=== PATIENT | female | born 1950 | race Caucasian/White ===

== ENCOUNTER 2019-12-31 15:48 | Emergency (ER) | payer MEDICARE, SELFPAY ==
[2019-12-31 15:58] VITALS: BP 138/80; PULSE 64; RESP 16; TEMP 37; O2SAT 98
--- NOTE | 2019-12-31 16:10 | ED.GENADULT ---
HPI - General Adult General Chief complaint: Skin/Abscess/Foreign Body Stated complaint: Not feeling Well Time Seen by Provider: 12/31/19 16:10 Source: patient and RN notes reviewed Mode of arrival: ambulatory Limitations: no limitations History of Present Illness HPI narrative: 69-year-old female presents with complaints of upper respiratory infection, facial congestion, facial pain, and intermittent DRAKE (not the worst of her life) for the past 14 days. Motrin with some relief. No facial swelling. Denies cough. Nasal congestion. No rhinorrhea. No chest pain or shortness of breath. No exacerbating factors. Denies fever or chills. Remains active. The patient reports she have not been diagnosed with COVID-19. The patient reports she is not waiting for the results of a COVID-19 lab test. Tested 1 week ago and was NEGATIVE. The patient reports she do not have fever, weakness, or fatigue. The patient reports she do not have a new or worsening cough or shortness of breath. Denies chest pain. The patient reports she do not have any rhinorrhea, ore throat, loss of taste, nausea, vomiting, abdominal pain, and diarrhea. Tolerating po intake well. Denies recent traveling. Denies concerns for COVID-19 or exposures been home with limited outdoor exposure except for essential household needs and return home. At this time, patient is not suspected of having COVID-19. Some parts of this dictation were generated by voice recognition software and may contain typographical and/or grammatical inaccuracies. Related Data Home Medications Medication Instructions Recorded Confirmed lorazepam [Ativan] 1 mg PO TID 01/15/19 12/31/19 tranylcypromine [Parnate] 20 mg PO DAILY 01/15/19 12/31/19 Allergies Allergy/AdvReac Type Severity Reaction Status Date / Time Penicillins Allergy Unknown Verified 12/31/19 16:19 Sulfa (Sulfonamide Allergy Unknown Verified 12/31/19 16:19 Antibiotics) Review of Systems Review of Systems: Narrative: CONSTITUTIONAL: Denies fever, chills, sweats. EYES: Denies visual changes, redness, discharge. ENT: Complains of congestion. Denies sore throat, rhinorrhea, otalgia. CARDIOVASCULAR: Denies chest pain, palpitations, edema. RESPIRATORY: Denies dyspnea, wheezing, cough. GASTROINTESTINAL: Denies abdominal pain, nausea, vomiting, diarrhea. GENITOURINARY: Denies dysuria, hematuria, abnormal discharge. SKIN: Denies rash or itching. MUSCULOSKELETAL: Denies acute back pain, joint pain, or myalgia. NEUROLOGIC: Denies numbness or focal weakness. Complains of intermittent DRAKE. PSYCHIATRIC: Denies anxiety or depression. All systems reviewed & are unremarkable except as noted in HPI and below. [facility] Past Medical History Medical History (Updated 01/01/20 @ 00:00 by Garrett Thayer) Anxiety Depression History of gastroesophageal reflux (GERD) Hypertension Post-menopausal Surgical History Surgical History (Updated 12/31/19 @ 16:19 by RENETTA Borjas) No significant past surgical history Family History Family History (Updated 12/31/19 @ 16:20 by RENETTA Borjas) Sibling Family history of cardiovascular disease Father , Esophageal cancer Family history of malignant neoplasm, Onset Age: 66 Mother , Related to pneumonia No problems noted. Social History Social History (Updated 12/31/19 @ 16:20 by RENETTA Borjas) Smoking status: Never smoker Tobacco type: cigarettes Second hand tobacco smoke exposure: No Alcohol intake: never Substance use: never Living arrangements: alone Occupation/Education: other Additional occupation/education comments: Disable Gender identity (if verbalized by the patient): Female Comments At time of signature, agree with nurse past medical, surgical, social, and family history. There is no relevant family history pertinent to the presenting complaint. Exam Narrative: Exam Narrative: GEN
== END 2019-12-31 16:27 | disposition home or self-care (01) ==
PROVIDERS: Emergency Provider Nurse Practitioner Family; PCP Emergency Medicine
DX: J32.9 Chronic sinusitis, unspecified (principal); K21.9 Gastro-esophageal reflux disease without esophagitis; I10 Essential (primary) hypertension; F41.9 Anxiety disorder, unspecified; F32.9 Major depressive disorder, single episode, unspecified
CPT/HCPCS: 99213; G0463

== ENCOUNTER 2020-04-11 11:45 | Emergency (ER) | payer MEDICARE, SELFPAY ==
--- NOTE | 2020-04-11 12:02 | ED.DIZZY ---
HPI - Dizziness General Chief Complaint: Dizziness Stated Complaint: Veritgo Source: patient and RN notes reviewed Mode of arrival: ambulatory Limitations: no limitations History of Present Illness HPI Narrative: 69-year-old female presents to the [facility] with complaints of dizziness, lightheadedness, headache, generalized weakness since yesterday. Thought it was her vertigo and took her Dramamine, unresolved. States she has tried things for her headache and has not been able to get rid of it. Patient has a history of vertigo and hypertension. Strong family history of cardiac issues. Related Data Home Medications Medication Instructions Recorded Confirmed lorazepam [Ativan] 1 mg PO TID 01/15/19 12/31/19 tranylcypromine [Parnate] 20 mg PO DAILY 01/15/19 12/31/19 gabapentin 300 mg capsule 300 mg PO TID 02/20/20 Dramamine 04/11/20 Allergies Allergy/AdvReac Type Severity Reaction Status Date / Time Penicillins Allergy Unknown Verified 12/31/19 16:19 Sulfa (Sulfonamide Allergy Unknown Verified 12/31/19 16:19 Antibiotics) Review of Systems Review of Systems: Narrative: CONSTITUTIONAL: Denies fever, chills, or sweats. EYES: Denies visual changes, redness, or discharge. ENT: Denies rhinorrhea, congestion, sore throat, or otalgia. CARDIOVASCULAR: Denies chest pain, palpitations, or edema. RESPIRATORY: Denies cough or dyspnea. GASTROINTESTINAL: Denies abdominal pain, nausea, vomiting, or diarrhea. GENITOURINARY: Denies dysuria or hematuria. SKIN: Denies rash or itching. MUSCULOSKELETAL: Denies back pain, joint pain, or myalgia. NEUROLOGIC: Positive for dizziness, weakness and headache. Denies numbness and tingling. All other systems reviewed are negative, except as documented in HPI. [facility] Past Medical History Medical History Anxiety Depression History of gastroesophageal reflux (GERD) Hypertension Post-menopausal Surgical History Surgical History No significant past surgical history Family History Family History Sibling Family history of cardiovascular disease Father , Esophageal cancer Family history of malignant neoplasm, Onset Age: 66 Mother , Related to pneumonia No problems noted. Social History Social History Smoking status: Never smoker Tobacco type: cigarettes Second hand tobacco smoke exposure: No Alcohol intake: never Substance use: never Additional occupation/education comments: Disable Gender identity (if verbalized by the patient): Female Comments At the time of my signature, I reviewed and agree with the nursing past medical, surgical, social, and family history. There is no relevant family history pertinent to the patient complaint. Exam Narrative: Exam Narrative: GENERAL: This is a well-nourished, well-developed patient, ill in appearance. HEAD: normocephalic, atraumatic. EYES: PERRL. Sclera clear/white. Vision is grossly intact. Wears glasses EARS: External ears normal, auditory canals clear and without drainage, TMs normal without perforation. Hearing grossly intact. NOSE: External nose normal with no obvious nasal discharge, nares without redness, no rhinorrhea. THROAT: Mucous membranes moist, posterior pharynx clear. NECK: Neck supple, non-tender without lymphadenopathy, masses or thyromegaly. CARDIOVASCULAR: Regular rate and rhythm without murmurs, gallops, or rubs. RESPIRATORY: Clear to auscultation. Breath sounds equal bilaterally. No wheezes, rales, or rhonchi. GASTROINTESTINAL: Abdomen soft, non-tender, nondistended. SKIN: warm, intact with no suspicious lesions or rash, good texture and turgor. NEURO: awake, alert, and oriented to person, place and time. There were no obvious focal neurologic abnormalities. Facial symmetry noted.
[2020-04-11 12:09] VITALS: BP 150/81; PULSE 66; RESP 18; TEMP 36.9; O2SAT 99
--- NOTE | 2020-04-11 12:10 | ECG_ITS ---
Measurements Intervals [place] Rate: 67 P: 64 ID: [id number] QRS: 33 QRSD: 82 T: 36 QT: 370 QTc: 391 Interpretive Statements SINUS RHYTHM BASELINE ARTIFACT- V1-V6 NORMAL ECG Electronically Signed On 04-11-2020 12:19:09 CLINICAL ASSISTANT by Tejinder Taylor D.O.
== END 2020-04-11 12:21 | disposition short-term general hospital (02) ==
PROVIDERS: Emergency Provider Nurse Practitioner; PCP Emergency Medicine
DX: R42 Dizziness and giddiness (principal); R53.1 Weakness; K21.9 Gastro-esophageal reflux disease without esophagitis; I10 Essential (primary) hypertension; F41.9 Anxiety disorder, unspecified
CPT/HCPCS: 93005; 99213; G0463

== ENCOUNTER 2020-04-11 12:31 | Emergency (ER) | payer MEDICARE, SELFPAY ==
--- NOTE | ~2020-04-11 | XR_ITS ---
EXAMINATION: XR chest 2V DATE: 04/11/2020 13:37 INDICATION: Dizziness TECHNIQUE: PA and lateral views of the chest were obtained. COMPARISON: Chest radiograph dated 02/10/2018 FINDINGS: The lungs remain clear with no focal airspace opacities, pulmonary edema, pleural effusion or pneumot horax. The cardiomediastinal silhouette is normal. Poor supply projects over the left infraclavicular /pectoral region with lead extending cephalad along the left side of the neck. Mild to moderate upper thoracic spondylosis. IMPRESSION: 1. No acute cardiopulmonary disease. Reviewed, dictated and finalized at location B. OR [employer] TENANT FARMER
[2020-04-11 12:57] VITALS: BP 142/72; PULSE 66; RESP 16; TEMP 36.8; O2SAT 100
--- NOTE | 2020-04-11 13:04 | ECG_ITS ---
Measurements Intervals [facility] Rate: 68 P: 49 OK: 154 QRS: 28 QRSD: 76 T: 29 QT: 365 QTc: 390 Interpretive Statements SINUS RHYTHM LOW QRS VOLTAGE IN PRECORDIAL LEADS BORDERLINE ECG Electronically Signed On 04-11-2020 13:24:46 RESIDENTIAL COUNSELOR by Tejinder Taylor D.O.
[2020-04-11 13:27] LABS: Basophils Percent Auto 0.8 % (0.2-1.2); Eosinophils Absolute Auto 0.1 K/mm3 (0-0.3); Eosinophils Percent Auto 3.4 % (0-4.4); Hematocrit 36.9 % (37.0-47.0); Hemoglobin 11.4 g/dL (12.0-15.0); Immature Granulocyte Absolute 0.01 K/mm3 (0.00-0.031); Immature Granulocyte Percent A 0.3 % (0-0.5); Lymphocytes Absolute Auto 1.14 K/mm3 (0.9-3.2); Lymphocytes Percent Auto 29.5 % (18.3-44.2); Mean Corpuscular HGB Conc 30.9 g/dl (32-36); Mean Corpuscular Hemoglobin 25.2 pg (26-34); Mean Corpuscular Volume 81.6 fl (80-100); Monocytes Absolute Auto 0.4 K/mm3 (0.1-0.6); Monocytes Percent Auto 10.1 % (2.6-8.5); Neutrophils Absolute Auto 2.2 K/mm3 (1.3-6.7); Neutrophils Percent Auto 55.9 % (45.5-73.1); Platelet Count Result 184 k/mm3 (150-375); Red Blood Count 4.52 M/mm3 (4.2-5.4); Red Cell Distribution Width 14.8 % (11.5-14.5); White Blood Count 3.9 K/mm3 (4.5-10.0)
[2020-04-11 13:47] LABS: Alanine Aminotransferase 16 U/L (4-35); Albumin Level 4.5 g/dL (3.5-5.1); Alkaline Phosphatase 90 U/L (38-126); Anion Gap 10 mmol/L (8-16); Aspartate Amino Transferase 28 U/L (14-36); Bilirubin,Total 0.6 mg/dL (0.2-1.3); Blood Urea Nitrogen 15 mg/dL (7-17); Calcium 9.1 mg/dL (8.4-10.2); Carbon Dioxide 30 mmol/L (22-30); Chloride 101 mmol/L (98-107); Estimated CRCL calculation 35 ml/min; Estimated Glomerular Filt Rate 55; Glucose 93 mg/dL (65-105); Sodium 141 mmol/L (137-145)
[2020-04-11] MEDS: ONDANSETRON INJ 4 MG/2 ML VIAL IV PUSH (15:52)
[2020-04-11] MEDS: LACTATED RINGERS 1,000 ML 999 ML IV CONT (15:53)
--- NOTE | 2020-04-11 16:12 | ED.DIZZY ---
HPI - Dizziness General Chief Complaint: Dizziness Stated Complaint: weakness, off balance, no vertigo Time Seen by Provider: 04/11/20 15:17 Source: patient Mode of arrival: ambulatory Limitations: no limitations History of Present Illness HPI Narrative: Patient is a 69 year old female who presents for evaluation of vertigo. She states she woke up with vertigo yesterday. She describes this as room spinning. She continued to have vertigo this morning so she came to ER for evaluation . She took dramamine this morning. [facility] and she was referred to ER. She states her vertigo has resolved. She has mild lightheadedness now. She denies focal deficits, difficulty walking, numbness, tingling, headache, or visual changes. Related Data Home Medications Medication Instructions Recorded Confirmed lorazepam [Ativan] 1 mg PO TID 01/15/19 12/31/19 tranylcypromine [Parnate] 20 mg PO DAILY 01/15/19 12/31/19 gabapentin 300 mg capsule 300 mg PO TID 02/20/20 Dramamine 04/11/20 Allergies Allergy/AdvReac Type Severity Reaction Status Date / Time Penicillins Allergy Unknown Itching Verified 04/11/20 13:55 Sulfa (Sulfonamide Allergy Unknown Itching Verified 04/11/20 13:55 Antibiotics) Review of Systems Review of Systems: All systems reviewed & are unremarkable except as noted in HPI and below Constitutional: Constitutional: Denies chills and Denies fever(s) Eyes: Eyes: Denies change in vision ENT: Reports vertigo, Reports dizziness and Denies nasal congestion Cardiovascular: Cardiovascular: Denies chest pain Respiratory: Respiratory: Denies cough and Denies dyspnea Gastrointestinal: Gastrointestinal: Denies abdominal pain, Reports nausea and Denies vomiting Neurologic: Reports vertigo, Reports dizziness, Denies headache(s), Denies focal weakness, Denies numbness and Denies weakness PMF Past Medical History Medical History Anxiety Depression History of gastroesophageal reflux (GERD) Hypertension Post-menopausal Surgical History Surgical History No significant past surgical history Family History Family History Sibling Family history of cardiovascular disease Father , Esophageal cancer Family history of malignant neoplasm, Onset Age: 66 Mother , Related to pneumonia No problems noted. Social History Social History Smoking status: Never smoker Tobacco type: cigarettes Second hand tobacco smoke exposure: No Alcohol intake: never Substance use: never Additional occupation/education comments: Disable Gender identity (if verbalized by the patient): Female Exam Narrative: Exam Narrative: GENERAL: Well-appearing, well-nourished, and in no acute distress. HEAD: Normocephalic, atraumatic EYES: PERRLA and EOMI, conjunctiva clear without discharge EARS: TM's clear bilaterally without erythema or dullness NOSE: Nares clear, no rhinorrhea or epistaxis THROAT:Mucous membranes moist, Oropharynx normal without erythema, exudate, peritonsillar swelling or fluctuance NECK: Supple, without lymphadenopathy or mass RESPIRATORY: No respiratory distress, Airway patent, Respirations non-labored, Clear to auscultation without rales, rhonchi or wheeze HEART: Regular rate and rhythm. No murmur heard. Normal peripheral pulses. ABDOMEN: Soft, nontender, nondistended, normal active bowel sounds. No masses. No rebound or guarding, No organomegaly. EXTREMITIES: No edema, normal strength with full range of motion. SKIN: Warm, dry, normal color without rash NEURO: Alert and oriented x3. CN 2-12 grossly intact. No focal deficits.steady gait, normal finger to nose, sensation in tact, no nystagmus PSYCH: Normal mood and affect. Course Reevaluatio
[2020-04-11 16:22] LABS: Add Urine Microscopic? YES; Appearance Urine Clear (Clear); Bacteria Urine Trace /hpf; Bilirubin Urine Negative (Negative); Blood Urine 1+ (Negative); Color Urine Straw (Yellow); Glucose Urine UA Negative (Negative); Ketones Urine Negative (Negative); Leukocyte Esterase Ur Negative LEU/UL (Negative); Mucus Urine Rare /lpf; Nitrate Urine Negative (Negative); Protein Urine Negative (Negative); RBC Urine 0-2 /hpf (0-2); Specific Grav Ur 1.011 (1.001-1.035); WBC Urine 0-3 /hpf
[2020-04-11 16:52] VITALS: BP 139/78; PULSE 80
[2020-04-11 16:53] VITALS: BP 138/84; BP 139/82; PULSE 74; PULSE 76
== END 2020-04-11 17:44 | disposition home or self-care (01) ==
PROVIDERS: Emergency Medicine; Emergency Provider General Practice; PCP Emergency Medicine
DX: R42 Dizziness and giddiness (principal); F41.9 Anxiety disorder, unspecified; F32.9 Major depressive disorder, single episode, unspecified; K21.9 Gastro-esophageal reflux disease without esophagitis; I10 Essential (primary) hypertension; R94.31 Abnormal electrocardiogram [ECG] [EKG]
CPT/HCPCS: 36415; 71046; 80053; 81001; 83735; 85025; 93005; 96361; 96374; 99284; J2405; J7120

== ENCOUNTER 2020-06-13 20:13 | Emergency (ER) | payer MEDICARE, SELFPAY ==
[2020-06-13 20:20] VITALS: BP 119/86; PULSE 91; RESP 18; TEMP 36.4; O2SAT 98
--- NOTE | 2020-06-13 20:32 | ED.ANXIETY ---
HPI - Anxiety General Chief Complaint: Anxiety Stated Complaint: panic attack vs drug interaction Time Seen by Provider: 06/13/20 20:24 Source: patient and RN notes reviewed Mode of arrival: ambulatory Limitations: no limitations History of Present Illness HPI narrative: Patient 70 years old white female presented to the ED with feeling anxious for the last 1 and half hours. Patient changed her lorazepam to something else 1-1/2-week ago. Patient brother is sick in the hospital and dying. Patient is tearful and anxious on arrival to the emergency room. Patient denies suicidal or homicidal ideation. Also denies any fever, chills, nausea, vomiting, diarrhea, constipation, urinary symptoms, chest pain, shortness of breath or headache. Patient reports trouble hearing for a while. Related Data Home Medications Medication Instructions Recorded Confirmed lorazepam [Ativan] 1 mg PO TID 01/15/19 12/31/19 tranylcypromine [Parnate] 20 mg PO DAILY 01/15/19 12/31/19 gabapentin 300 mg capsule 300 mg PO TID 02/20/20 Dramamine 04/11/20 Allergies Allergy/AdvReac Type Severity Reaction Status Date / Time Penicillins Allergy Unknown Itching Verified 04/11/20 13:55 Sulfa (Sulfonamide Allergy Unknown Itching Verified 04/11/20 13:55 Antibiotics) Review of Systems Review of Systems: Narrative: CONSTITUTIONAL: Denies fever, chills, or sweats. EYES: Denies visual changes, redness, or discharge. ENT: Denies rhinorrhea, congestion, sore throat, or otalgia. CARDIOVASCULAR: Denies chest pain, palpitations, or edema. RESPIRATORY: Denies cough or dyspnea. GASTROINTESTINAL: Denies abdominal pain, nausea, vomiting, or diarrhea. GENITOURINARY: Denies dysuria or hematuria. SKIN: Denies rash or itching. MUSCULOSKELETAL: Denies back pain, joint pain, or myalgia. NEUROLOGIC: Denies headache, numbness, or weakness. PSYCHIATRIC: Denies anxiety or depression. [facility] Past Medical History Medical History Anxiety Depression History of gastroesophageal reflux (GERD) Hypertension Post-menopausal Surgical History Surgical History No significant past surgical history Family History Family History Sibling Family history of cardiovascular disease Father , Esophageal cancer Family history of malignant neoplasm, Onset Age: 66 Mother , Related to pneumonia No problems noted. Social History Social History Smoking status: Never smoker Tobacco type: cigarettes Second hand tobacco smoke exposure: No Alcohol intake: never Substance use: never Additional occupation/education comments: Disable Gender identity (if verbalized by the patient): Female Exam Narrative: Exam Narrative: General appearance: Well-developed, well-nourished Skin: Normal color Head: Normocephalic, nontraumatic Eyes: Clear conjunctiva ENT: Oropharynx normal, intact earwax bilaterally Neck: Supple, nontender Chest and respiratory: Airway patent, no respiratory distress, no accessory muscle use Heart: Regular rate/rhythm Abdomen: Soft, nontender, no organomegaly, quiet bowel sounds Vascular: Normal peripheral pulses, normal capillary refill. Musculoskeletal: Normal range of motion, nontender back Neurologic: Alert and oriented ?3, AUDITING CONTROL CLERK is normal as tested, no gross motor deficit Course Course Emergency Course: Stable Vital Signs Vital signs: Vital Signs Temperature 36.4 C L 06/13/20 20:20 Pulse Rate 91 06/13/20 20:20 Respiratory Rate 18 0
[2020-06-13 21:53] VITALS: BP 124/84; PULSE 70; RESP 16; O2SAT 100
--- NOTE | 2020-07-17 18:16 | PC.NURSE ---
LATE ENTRY This note is being entered to document information to the patient's record. The following information was omitted on [06/13/20], by [kl]. Pts right and left ears irrigated per EDP Guajardo verbal order with warm water. Moderate amount of ear wax removed. Pt noted relief and tolerated procedure well. EDP notified.
== END 2020-06-13 22:35 | disposition home or self-care (01) ==
PROVIDERS: Emergency Provider Emergency Medicine; PCP Emergency Medicine
DX: F41.9 Anxiety disorder, unspecified (principal); H61.23 Impacted cerumen, bilateral; F32.9 Major depressive disorder, single episode, unspecified; K21.9 Gastro-esophageal reflux disease without esophagitis; I10 Essential (primary) hypertension
CPT/HCPCS: 69209; 99281; 99282

== ENCOUNTER 2020-06-14 16:25 | Emergency (ER) | payer MEDICARE, SELFPAY ==
[2020-06-14] VITALS (15 sets, daily range): BP systolic 137–165; BP diastolic 77–91; PULSE 82–98; RESP 14–21; TEMP 36.8; O2SAT 99–100
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
[2020-06-14 17:09] LABS: Basophils Percent Auto 0.4 % (0.2-1.2); Eosinophils Percent Auto 0.2 % (0-4.4); Hematocrit 37.1 % (37.0-47.0); Hemoglobin 11.8 g/dL (12.0-15.0); Immature Granulocyte Absolute 0.01 K/mm3 (0.00-0.031); Immature Granulocyte Percent A 0.2 % (0-0.5); Lymphocytes Absolute Auto 0.97 K/mm3 (0.9-3.2); Lymphocytes Percent Auto 21.4 % (18.3-44.2); Mean Corpuscular HGB Conc 31.8 g/dl (32-36); Mean Corpuscular Hemoglobin 26.2 pg (26-34); Mean Corpuscular Volume 82.3 fl (80-100); Mean Platelet Volume 9.8 fl (7.4-10.4); Monocytes Absolute Auto 0.3 K/mm3 (0.1-0.6); Monocytes Percent Auto 6.8 % (2.6-8.5); Neutrophils Absolute Auto 3.2 K/mm3 (1.3-6.7); Platelet Count Result 173 k/mm3 (150-375); Red Blood Count 4.51 M/mm3 (4.2-5.4); Red Cell Distribution Width 15.7 % (11.5-14.5); White Blood Count 4.5 K/mm3 (4.5-10.0)
[2020-06-14] MEDS: LORazepam INJ (*CRX) 2 MG/ML VIAL 1 MG IV PUSH ×2 (17:10→22:36)
[2020-06-14 17:22] LABS: Potassium 3.9 mmol/L (3.4-5.0)
[2020-06-14 17:23] LABS: Ethanol < 10 mg/dL (<10)
[2020-06-14 17:24] LABS: Alanine Aminotransferase 18 U/L (4-35); Albumin Level 4.8 g/dL (3.5-5.1); Alkaline Phosphatase 111 U/L (38-126); Anion Gap 11 mmol/L (8-16); Aspartate Amino Transferase 35 U/L (14-36); Bilirubin,Total 0.5 mg/dL (0.2-1.3); Blood Urea Nitrogen 23 mg/dL (7-17); Calcium 9.3 mg/dL (8.4-10.2); Carbon Dioxide 28 mmol/L (22-30); Chloride 102 mmol/L (98-107); Estimated CRCL calculation 27 ml/min; Estimated Glomerular Filt Rate 40; Glucose 108 mg/dL (65-105); Sodium 141 mmol/L (137-145)
[2020-06-14 18:09] LABS: Add Urine Microscopic? YES; Appearance Urine Clear (Clear); Bilirubin Urine Negative (Negative); Blood Urine Negative (Negative); Color Urine Yellow (Yellow); Glucose Urine UA Negative (Negative); Hyaline Casts Urine 20-29 /lpf; Ketones Urine Trace mg/dL (Negative); Leukocyte Esterase Ur Negative LEU/UL (Negative); Mucus Urine Moderate /lpf; Nitrate Urine Negative (Negative); Protein Urine 1+ mg/dL (Negative); Specific Grav Ur 1.018 (1.001-1.035); WBC Urine 0-3 /hpf
[2020-06-14 18:43] LABS: Amphetamine Screen Urine Negative (Negative); Barbiturate Screen Urine Negative (Negative); Benzodiazepines Screen Urine Negative (Negative); Cannabinoid Screen Urine Negative (Negative); Cocaine Screen Urine Negative (Negative); Methadone Screen Urine Negative (Negative); Opiate Screen Urine Negative (Negative); Phencyclidine Screen Urine Negative (Negative)
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
--- NOTE | 2020-06-14 19:41 | PC.NURSE ---
this rn spoke to ricky from crisis. she said a worker will be out to evaluate pt shortly.
--- NOTE | 2020-06-14 20:35 | PC.NURSE ---
this rn just spoke to pt sister, she states she isn't able to come up to see pt.
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
--- NOTE | 2020-06-14 21:12 | PC.NURSE ---
[facility]risis here to see pt
--- NOTE | 2020-06-15 00:04 | PC.NURSE ---
[facility] called [facility] r[facility]. states they don't have any beds available.
[2020-06-15 01:03] VITALS: BP 142/69; PULSE 92; RESP 18; O2SAT 99
--- NOTE | 2020-06-15 01:21 | PC.NURSE ---
[facility] called to ask more questions on pt, they state they will call back to let us know if pt was accepted
[2020-06-15 02:53] VITALS: BP 120/82; PULSE 82; RESP 18; O2SAT 98
--- NOTE | 2020-06-15 03:11 | PC.NURSE ---
pt states she still feels very anxious. notified
[2020-06-15] MEDS: LORazepam INJ (*CRX) 2 MG/ML VIAL 1 MG IV PUSH (03:21)
--- NOTE | 2020-06-15 03:42 | PC.NURSE ---
pt accepted to [facility] at this time, notified.
[2020-06-15 04:59] VITALS: BP 131/74; PULSE 84; RESP 20; O2SAT 99
--- NOTE | 2020-06-15 06:09 | PC.NURSE ---
CALLED [facility] TO TRANSPORT PATIENT TO [facility]. ETA [id number]. TRIP #[id number]
[2020-06-16 19:29] LABS: SARS-CoV-2 RNA PCR Negative
== END 2020-06-15 07:50 | disposition short-term general hospital (02) ==
PROVIDERS: Emergency Medicine; Emergency Provider Emergency Medicine; PCP Emergency Medicine
DX: F29 Unspecified psychosis not due to a substance or known physiological condition (principal); F41.9 Anxiety disorder, unspecified; F32.9 Major depressive disorder, single episode, unspecified; K21.9 Gastro-esophageal reflux disease without esophagitis; I10 Essential (primary) hypertension; Z20.822 Contact with and (suspected) exposure to COVID-19; Z79.899 Other long term (current) drug therapy
CPT/HCPCS: 36415; 80053; 80307; 81001; 84443; 85025; 96374; 96376; 99285; C9803; J2060; U0003; U0005

== ENCOUNTER 2021-06-09 18:39 | Emergency (ER) | payer MEDICARE, SELFPAY ==
[2021-06-09 19:16] VITALS: BP 134/90; PULSE 83; RESP 100; TEMP 36.5; O2SAT 100
--- NOTE | 2021-06-09 20:12 | ED.GENADULT ---
HPI - General Adult General Chief complaint: Anxiety Stated complaint: anxiety Time Seen by Provider: 06/09/21 20:00 Source: patient History of Present Illness HPI narrative: 71-year-old female with history of anxiety presenting to the emergency department for evaluation of worsening anxiety and depression. Patient states she does have follow-up scheduled with [facility] today. Patient states that she had an incident with her family that caused her to have some increased stress today. Patient states she did take her hydroxyzine to help with her anxiety but states that it did not help. Patient is agitated at time of exam. Patient denies any other complaints. Patient denies any chest pain or shortness of breath. Patient denies any nausea vomiting or diarrhea. Patient denies having any recent fevers or illness. Patient states she has been taking her medication as directed. Related Data Home Medications Medication Instructions Recorded Confirmed lorazepam [Ativan] 1 mg PO TID 01/15/19 11/29/20 tranylcypromine [Parnate] 20 mg PO DAILY 01/15/19 11/29/20 gabapentin 300 mg capsule 300 mg PO TID 02/20/20 11/29/20 Allergies Allergy/AdvReac Type Severity Reaction Status Date / Time Penicillins Allergy Unknown Itching Verified 06/09/21 19:24 Sulfa (Sulfonamide Allergy Unknown Itching Verified 06/09/21 19:24 Antibiotics) Review of Systems Review of Systems: CONSTITUTIONAL: Denies fever, chills, or sweats. EYES: Denies visual changes, redness, or discharge. ENT: Denies rhinorrhea, congestion, sore throat, or otalgia. CARDIOVASCULAR: Denies chest pain, palpitations, or edema. RESPIRATORY: Denies cough or dyspnea. GASTROINTESTINAL: Denies abdominal pain, nausea, vomiting, or diarrhea. GENITOURINARY: Denies dysuria or hematuria. SKIN: Denies rash or itching. MUSCULOSKELETAL: Denies back pain, joint pain, or myalgia. NEUROLOGIC: Denies headache, numbness, or weakness. PSYCHIATRIC: Worsening anxiety today. Denies HI or SI PMFSH Past Medical History Medical History Anxiety Depression History of gastroesophageal reflux (GERD) Hypertension Post-menopausal Surgical History Surgical History No significant past surgical history Family History Family History Sibling Family history of cardiovascular disease Father , Esophageal cancer Family history of malignant neoplasm, Onset Age: 66 Mother , Related to pneumonia No problems noted. Social History Social History Smoking status: Never smoker Tobacco type: cigarettes Second hand tobacco smoke exposure: No Alcohol intake: never Substance use: never Substance use type: unknown Additional occupation/education comments: Disable Gender identity (if verbalized by the patient): Female Exam Narrative: APPEARANCE: Well appearing, no pain, no distress, well-nourished. HEAD: normocephalic, atraumatic. EYES: PERRLA/EOMI, conjunctivae clear. NOSE: Normal no drainage THROAT: Pharynx clear, no exudate. NECK: Supple. No adenopathy, no masses. RESPIRATORY: Airway patent, respirations nonlabored. Clear to auscultation bilaterally, no rales, rhonchi, wheezing. CARDIOVASCULAR: Regular rate and rhythm without murmurs rubs or gallops. ABDOMINAL: Soft, nontender, nondistended, normal bowel sounds MUSCULOSKELETAL: Moves all extremities. Strength/ROM intact, No edema, No calf tenderness. NEURO: Alert. Cranial nerves II through XII intact. Grossly intact SKIN: Warm, dry. Normal Color PSYCHIATRIC: Anxious and agitated Course Course Emergency Course: Patient's anxiety will be treated with Ativan which she has taken previously. Patient is afebrile and denies any illnesses or recent medication change. Patient reports she feels imp
--- NOTE | 2021-06-09 20:28 | PC.NURSE ---
Pt states she does not want ativan d/t previous addiction hx.
[2021-06-09] MEDS: hydrOXYzine HCL 25 MG TABLET PO (20:31)
[2021-06-09 20:32] LABS: Basophils Percent Auto 0.4 % (0.2-1.2); Eosinophils Absolute Auto 0.1 K/mm3 (0-0.3); Eosinophils Percent Auto 2.6 % (0-4.4); Hematocrit 39.5 % (37.0-47.0); Hemoglobin 13.4 g/dL (12.0-15.0); Lymphocytes Percent Auto 35.9 % (18.3-44.2); Mean Corpuscular HGB Conc 33.9 g/dl (32-36); Mean Corpuscular Hemoglobin 30.5 pg (26-34); Mean Corpuscular Volume 89.8 fl (80-100); Mean Platelet Volume 8.9 fl (7.4-10.4); Monocytes Absolute Auto 0.5 K/mm3 (0.1-0.6); Monocytes Percent Auto 9.4 % (2.6-8.5); Neutrophils Absolute Auto 2.6 K/mm3 (1.3-6.7); Neutrophils Percent Auto 51.7 % (45.5-73.1); Platelet Count Result 173 k/mm3 (150-375); Red Cell Distribution Width 12.6 % (11.5-14.5)
[2021-06-09 20:42] LABS: Alanine Aminotransferase 60 U/L (4-35); Albumin Level 4.7 g/dL (3.5-5.1); Alkaline Phosphatase 87 U/L (38-126); Anion Gap 9 mmol/L (8-16); Aspartate Amino Transferase 54 U/L (14-36); Bilirubin,Total 0.8 mg/dL (0.2-1.3); Blood Urea Nitrogen 22 mg/dL (7-17); Calcium 9.3 mg/dL (8.4-10.2); Carbon Dioxide 30 mmol/L (22-30); Chloride 101 mmol/L (98-107); Estimated CRCL calculation 34 ml/min; Estimated Glomerular Filt Rate 55; Glucose 100 mg/dL (65-110); Potassium 3.9 mmol/L (3.4-5.0); Sodium 140 mmol/L (137-145)
[2021-06-09 21:17] LABS: Appearance Urine Clear (Clear); Bilirubin Urine Negative (Negative); Blood Urine Negative (Negative); Color Urine Yellow (Yellow); Glucose Urine UA Negative (Negative); Ketones Urine Negative (Negative); Leukocyte Esterase Ur 1+ LEU/UL (Negative); Nitrate Urine Negative (Negative); Protein Urine Negative (Negative); Specific Grav Ur 1.025 (1.001-1.035); Urobilinogen Urine 0.2 mg/dL (<2.0); pH Urine 5.5 (5.0-9.0)
[2021-06-09 21:27] LABS: Bacteria Urine Trace /hpf; Mucus Urine Rare /lpf; RBC Urine 0-2 /hpf (0-2); Squamous Epithelial Cell Urine Rare /hpf (Few)
[2021-06-09 21:31] LABS: Add Urine Microscopic? YES
[2021-06-09 21:47] VITALS: BP 142/90; PULSE 79; RESP 18; O2SAT 96
[2021-06-09 22:26] VITALS: BP 144/90; PULSE 81; RESP 18; O2SAT 96
[2021-06-09 23:45] VITALS: BP 120/80; PULSE 74; RESP 16; O2SAT 95
== END 2021-06-09 23:45 | disposition home or self-care (01) ==
PROVIDERS: Emergency Provider Emergency Medicine; PCP Emergency Medicine
DX: F41.9 Anxiety disorder, unspecified (principal); F32.A Depression, unspecified; K21.9 Gastro-esophageal reflux disease without esophagitis; I10 Essential (primary) hypertension
CPT/HCPCS: 36415; 80053; 81001; 84443; 85025; 99283; A9270

== ENCOUNTER 2021-08-15 22:10 | Emergency (ER) | payer MEDICARE, SELFPAY ==
--- NOTE | ~2021-08-15 | CT_ITS ---
EXAMINATION: CT brain wo con INDICATION: Confusion COMPARISON: None TECHNIQUE: Standard unenhanced head CT. The dose-length product (DLP) was 605.33 mGy-cm. The mA was a djusted according to patient size. Iterative reconstruction technique was employed. FINDINGS: There is no acute intraparenchymal hemorrhage. No evidence of mass lesion. No evidence of a cute infarction. There is mild periventricular and subcortical hypodensity probably related to small vessel ischemic disease. There is mild prominence of the sulci and ventricles related to cerebral atr ophy. Intracranial calcified cerebral atherosclerosis is noted. There are no extra-axial collections. There is no mass effect or midline shift. The orbits and soft tissues are unremarkable. There is mil d mucosal thickening of the paranasal sinuses. IMPRESSION: 1. No acute intracranial abnormality. 2. Age related findings. Reviewed, dictated and finalized at location A.
[2021-08-15 22:27] VITALS: BP 145/100; PULSE 87; RESP 18; TEMP 36.4; O2SAT 100
--- NOTE | 2021-08-16 00:28 | ECG_ITS ---
Measurements Intervals [place] Rate: 70 P: 60 [place]: 151 QRS: 33 QRSD: 80 T: 46 QT: 385 QTc: 416 Interpretive Statements SINUS RHYTHM COMPARED TO ECG 04/11/2020 13:18:59 NO SIGNIFICANT CHANGES Electronically Signed On 08-16-2021 8:58:15 CDT by Hayley Crabtree M.D.
[2021-08-16] MEDS: ALPRAZolam (*CRX) 0.5 MG TABLET 0.25 MG PO (00:40)
[2021-08-16 00:45] LABS: Basophils Percent Auto 0.7 % (0.2-1.2); Eosinophils Absolute Auto 0.1 K/mm3 (0-0.3); Eosinophils Percent Auto 3.3 % (0-4.4); Hematocrit 38.1 % (37.0-47.0); Hemoglobin 12.4 g/dL (12.0-15.0); Immature Granulocyte Absolute 0.02 K/mm3 (0.00-0.031); Immature Granulocyte Percent A 0.5 % (0-0.5); Lymphocytes Absolute Auto 1.58 K/mm3 (0.9-3.2); Lymphocytes Percent Auto 36.9 % (18.3-44.2); Mean Corpuscular HGB Conc 32.5 g/dl (32-36); Mean Corpuscular Hemoglobin 29.9 pg (26-34); Mean Corpuscular Volume 91.8 fl (80-100); Mean Platelet Volume 9.2 fl (7.4-10.4); Monocytes Absolute Auto 0.6 K/mm3 (0.1-0.6); Monocytes Percent Auto 13.3 % (2.6-8.5); Neutrophils Absolute Auto 1.9 K/mm3 (1.3-6.7); Neutrophils Percent Auto 45.3 % (45.5-73.1); Platelet Count Result 200 k/mm3 (150-375); Red Blood Count 4.15 M/mm3 (4.2-5.4); Red Cell Distribution Width 12.6 % (11.5-14.5); White Blood Count 4.3 K/mm3 (4.5-10.0)
[2021-08-16 00:55] LABS: Ethanol < 10 mg/dL (<10)
[2021-08-16 00:56] LABS: Alanine Aminotransferase 28 U/L (6-35); Albumin Level 4.2 g/dL (3.5-5.1); Alkaline Phosphatase 70 U/L (38-126); Anion Gap 6 mmol/L (8-16); Aspartate Amino Transferase 34 U/L (14-36); Bilirubin,Total 0.3 mg/dL (0.2-1.3); Blood Urea Nitrogen 27 mg/dL (7-17); Calcium 8.6 mg/dL (8.4-10.2); Carbon Dioxide 32 mmol/L (22-30); Chloride 104 mmol/L (98-107); Estimated CRCL calculation 34 ml/min; Estimated Glomerular Filt Rate 55; Glucose 126 mg/dL (65-110); Potassium 4.2 mmol/L (3.4-5.0); Sodium 142 mmol/L (137-145)
[2021-08-16 01:53] LABS: Add Urine Microscopic? YES; Appearance Urine Clear (Clear); Bilirubin Urine 1+ (Negative); Blood Urine Negative (Negative); Color Urine Yellow (Yellow); Glucose Urine UA Negative (Negative); Ketones Urine Negative (Negative); Leukocyte Esterase Ur Negative LEU/UL (Negative); Nitrate Urine Negative (Negative); Protein Urine Trace mg/dL (Negative); Specific Grav Ur >= 1.030 (1.001-1.035); pH Urine 5.5 (5.0-9.0)
[2021-08-16 02:00] LABS: Amphetamine Screen Urine Negative (Negative); Barbiturate Screen Urine Negative (Negative); Benzodiazepines Screen Urine Negative (Negative); Cannabinoid Screen Urine Negative (Negative); Cocaine Screen Urine Negative (Negative); Methadone Screen Urine Negative (Negative); Opiate Screen Urine Negative (Negative); Phencyclidine Screen Urine Negative (Negative)
[2021-08-16 02:02] LABS: Mucus Urine Few /lpf; Squamous Epithelial Cell Urine Rare /hpf (Few); WBC Urine 0-3 /hpf
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
[2021-08-16 03:28] LABS: SARS-CoV-2 RNA PCR Negative
[2021-08-16 05:16] VITALS: BP 147/92; PULSE 78; RESP 14; O2SAT 98
== END 2021-08-16 05:15 | disposition home or self-care (01) ==
PROVIDERS: Emergency Provider General Practice; PCP Emergency Medicine
DX: F41.9 Anxiety disorder, unspecified (principal); Z20.822 Contact with and (suspected) exposure to COVID-19; K21.9 Gastro-esophageal reflux disease without esophagitis; I10 Essential (primary) hypertension; Z79.899 Other long term (current) drug therapy
CPT/HCPCS: 36415; 70450; 80053; 80307; 81001; 84443; 85025; 93005; 99284; A9270; C9803; U0003; U0005

== ENCOUNTER 2021-10-04 23:17 | Emergency (ER) | payer MEDICARE, SELFPAY ==
--- NOTE | 2021-10-04 23:25 | ED.PSYCH ---
HPI - Psych General Chief Complaint: Psychiatric Symptoms <Enrrique Cuadra APRN - Last Filed: 10/05/21 00:20> Stated Complaint: suicidal ideations <Enrrique Cuadra APRN - Last Filed: 10/05/21 00:20> Time Seen by Provider: 10/04/21 23:22 <Enrrique Cuadra APRN - Last Filed: 10/05/21 00:20> History of Present Illness HPI Narrative: 71-year-old female presents the emergency room for evaluation of suicidal thoughts and increased anxiety. According to EMS, patient was seen at [place] emergency room earlier today for similar symptoms. It was reported that she was discharged and told to get a cab to go to [place]. It is reported that when she arrived her chest not she was told that they did not have any room for her. Patient proceeded to go home at that point. EMS arrived on scene, and patient verbalized that she wanted to walk out of the middle of traffic and kill her self. Upon presentation, patient is tearful and very anxious. <Enrrique Cuadra APRN - Last Filed: 10/05/21 00:20> Related Data Home Medications: Home Medications Medication Instructions Recorded Confirmed gabapentin 300 mg capsule 300 mg PO TID 02/20/20 11/29/20 buspirone 10 mg tablet 10 mg PO TID 09/02/21 hydroxyzine HCl 50 mg tablet 50 mg PO BID 09/02/21 quetiapine 50 mg tablet 50 mg PO QHS 09/02/21 tranylcypromine 10 mg tablet 10 mg PO TID 09/02/21 (Parnate) <Enrrique Cuadra APRN - Last Filed: 10/05/21 00:20> Allergies/Adverse Reactions: Allergies Allergy/AdvReac Type Severity Reaction Status Date / Time Penicillins Allergy Unknown Itching Verified 10/05/21 02:16 Sulfa (Sulfonamide Allergy Unknown Itching Verified 10/05/21 02:16 Antibiotics) <Enrrique Cuadra APRN - Last Filed: 10/05/21 00:20> Review of Systems Review of Systems: CONSTITUTIONAL: Denies fever, chills, or sweats. EYES: Denies visual changes, redness, or discharge. ENT: Denies rhinorrhea, congestion, sore throat, or otalgia. CARDIOVASCULAR: Denies chest pain, palpitations, or edema. RESPIRATORY: Denies cough or dyspnea. GASTROINTESTINAL: Denies abdominal pain, nausea, vomiting, or diarrhea. GENITOURINARY: Denies dysuria or hematuria. SKIN: Denies rash or itching. MUSCULOSKELETAL: Denies back pain, joint pain, or myalgia. NEUROLOGIC: Denies headache, numbness, dizziness, or weakness. PSYCHIATRIC: Reports anxiety and depression. <Enrrique Cuadra APRN - Last Filed: 10/05/21 00:20> PMFSH Past Medical History Medical History: Medical History Anxiety Depression History of gastroesophageal reflux (GERD) Hypertension Post-menopausal <Enrrique Cuadra APRN - Last Filed: 10/05/21 00:20> Surgical History Surgical History: Surgical History No significant past surgical history <Enrrique Cuadra APRN - Last Filed: 10/05/21 00:20> Family History Family History: Family History Sibling Family history of cardiovascular disease Father , Esophageal cancer Family history of malignant neoplasm, Onset Age: 66 Mother , Related to pneumonia No problems noted. <Enrrique Cuadra APRN - Last Filed: 10/05/21 00:20> Social History Social History: Social History Smoking status: Never smoker Tobacco type: cigarettes Second hand tobacco smoke exposure: No Alcohol intake: never Substance use: never Substance use type: does not use Additional occupation/education comments: Disable Gender identity (if verbalized by the patient): Female <Enrrique Cuadra APRN - Last Filed: 10/05/21 00:20> Exam Narrative: GENERAL: Well-appearing, well-nourished, no physical limitations, and in no acute distress. HEAD: Normocephalic, atraumatic. EYES: Conjunctivae normal, PERRLA and
--- NOTE | 2021-10-04 23:32 | PC.NURSE ---
Pt's psychiatrist is Dr. Davenport at [facility].
[2021-10-04 23:40] VITALS: BP 164/100; PULSE 63; RESP 22; TEMP 37.1; O2SAT 100
[2021-10-04 23:48] LABS: Basophils Absolute Auto 0.1 K/mm3 (0.0-0.1); Basophils Percent Auto 0.7 % (0.2-1.2); Eosinophils Absolute Auto 0.3 K/mm3 (0-0.3); Eosinophils Percent Auto 4.5 % (0-4.4); Hematocrit 37.9 % (37.0-47.0); Hemoglobin 12.7 g/dL (12.0-15.0); Immature Granulocyte Absolute 0.02 K/mm3 (0.00-0.031); Immature Granulocyte Percent A 0.3 % (0-0.5); Lymphocytes Absolute Auto 1.51 K/mm3 (0.9-3.2); Lymphocytes Percent Auto 22.4 % (18.3-44.2); Mean Corpuscular HGB Conc 33.5 g/dl (32-36); Mean Corpuscular Hemoglobin 30.4 pg (26-34); Mean Corpuscular Volume 90.7 fl (80-100); Mean Platelet Volume 9.3 fl (7.4-10.4); Monocytes Absolute Auto 0.5 K/mm3 (0.1-0.6); Monocytes Percent Auto 6.8 % (2.6-8.5); Neutrophils Absolute Auto 4.4 K/mm3 (1.3-6.7); Neutrophils Percent Auto 65.3 % (45.5-73.1); Platelet Count Result 205 k/mm3 (150-375); Red Blood Count 4.18 M/mm3 (4.2-5.4); Red Cell Distribution Width 13.2 % (11.5-14.5); White Blood Count 6.7 K/mm3 (4.5-10.0)
[2021-10-04 23:54] LABS: Add Urine Microscopic? YES; Appearance Urine Clear (Clear); Bilirubin Urine 1+ (Negative); Blood Urine Negative (Negative); Color Urine Yellow (Yellow); Glucose Urine UA Negative (Negative); Ketones Urine Negative (Negative); Leukocyte Esterase Ur Negative LEU/UL (Negative); Nitrate Urine Negative (Negative); Protein Urine Trace mg/dL (Negative); Specific Grav Ur >= 1.030 (1.001-1.035); Urobilinogen Urine 0.2 mg/dL (<2.0); pH Urine 5.5 (5.0-9.0)
[2021-10-05] LABS: Alanine Aminotransferase 20 U/L (6-35); Albumin Level 4.9 g/dL (3.5-5.1); Alkaline Phosphatase 78 U/L (38-126); Anion Gap 12 mmol/L (8-16); Aspartate Amino Transferase 31 U/L (14-36); Bilirubin,Total 0.9 mg/dL (0.2-1.3); Blood Urea Nitrogen 23 mg/dL (7-17); Calcium 9.5 mg/dL (8.4-10.2); Carbon Dioxide 26 mmol/L (22-30); Chloride 105 mmol/L (98-107); Estimated Glomerular Filt Rate 55; Glucose 112 mg/dL (65-110); Potassium 3.9 mmol/L (3.4-5.0); Sodium 143 mmol/L (137-145)
[2021-10-05 00:03] LABS: Acetaminophen < 10 ug/mL (10-30); Ethanol < 10 mg/dL (<10); Salicylate < 1.0 mg/dL (2-20)
[2021-10-05 00:04] LABS: Amphetamine Screen Urine Negative (Negative); Barbiturate Screen Urine Negative (Negative); Benzodiazepines Screen Urine Negative (Negative); Cannabinoid Screen Urine Negative (Negative); Cocaine Screen Urine Negative (Negative); Methadone Screen Urine Negative (Negative); Opiate Screen Urine Negative (Negative); Phencyclidine Screen Urine Negative (Negative)
[2021-10-05 00:26] LABS: Bacteria Urine Trace /hpf; Mucus Urine Few /lpf; RBC Urine 0-2 /hpf (0-2); Squamous Epithelial Cell Urine Few /hpf (Few)
[2021-10-05] MEDS: LORazepam (*CRX) 1 MG TABLET PO ×2 (00:59→10:03)
[2021-10-05 02:12] VITALS: BP 124/64
--- NOTE | 2021-10-05 02:23 | PC.NURSE ---
crisis with pt at this time
[2021-10-05 02:59] LABS: SARS-CoV-2 RNA PCR Negative
--- NOTE | 2021-10-05 04:19 | PC.NURSE ---
pt evaluated by crisis, pt voluntary placement, awaiting placement. pt denying SI, plan and intention to self harm at this time. Per EDP pepe okay to pull sitter at this time.
--- NOTE | 2021-10-05 04:19 | PC.NURSE ---
Pt's pharmacy is [facility] in [place], [place]. Currently not open. Will have next shift call pharmacy when they open at 0830am. [phone].
--- NOTE | 2021-10-05 07:21 | PC.NURSE ---
Breakfast ordered standard precaution tray 0746
--- NOTE | 2021-10-05 09:53 | PC.NURSE ---
Spoke with Marcin from Crisis. [facility] denied pt. Awaiting touche approval. [facility] to be faxed. [facility] needs facesheet. [facility] is reviewing.
--- NOTE | 2021-10-05 13:12 | PC.NURSE ---
NO returns calls regarding acceptance to facility. Traci from crisis called and will return call later.
--- NOTE | 2021-10-05 14:38 | PC.NURSE ---
Traci from crisis called to check if any call backs from facilities. no placement this time.
[2021-10-05] MEDS: CALCIUM CARBONATE (TUMS) 500 MG (200 MG ELEMENTAL) PO (15:17)
--- NOTE | 2021-10-05 16:35 | PC.NURSE ---
[facility] called and they will be accepting patient however there are no current beds. Still waiting for reply on [facility]
--- NOTE | 2021-10-05 17:09 | PC.NURSE ---
PT has been accepted to [facility] [id number] [facility] is accepting.
[2021-10-05] MEDS: LORazepam (*CRX) 0.5 MG TABLET PO (17:14)
[2021-10-05 18:06] VITALS: BP 158/98; PULSE 87; RESP 18; TEMP 36.2; O2SAT 99
== END 2021-10-05 18:27 ==
PROVIDERS: Emergency Provider Nurse Practitioner Family; PCP Emergency Medicine
DX: R45.851 Suicidal ideations (principal); F41.9 Anxiety disorder, unspecified; Z20.822 Contact with and (suspected) exposure to COVID-19; F32.A Depression, unspecified; K21.9 Gastro-esophageal reflux disease without esophagitis; I10 Essential (primary) hypertension; R82.998 Other abnormal findings in urine; Z79.899 Other long term (current) drug therapy
CPT/HCPCS: 36415; 80053; 80307; 81001; 84443; 85025; 87086; 87088; 99285; A9270; C9803; U0003; U0005

== ENCOUNTER 2021-10-18 22:42 | Observation (INO) | payer MEDICARE, SELFPAY ==
--- NOTE | ~2021-10-18 | CT_ITS ---
EXAMINATION: CTA brain carotid DATE: 10/19/2021 11:04 INDICATION: Syncope. TECHNIQUE: Computed tomographic angiography (CTA) of the head was performed with 100 mL Omnipaque-350 intravenous contrast. CTA of the neck was performed with intravenous contrast. Automated exposure co ntrol and iterative reconstruction technique were employed. The dose-length product was 1089.81 mGy-c m. Maximum intensity projection and volume rendered 3D-reconstructions were created by the technologi st on a separate workstation. COMPARISON: Head CT 10/18/2021 FINDINGS: HEAD CTA: There are scattered areas of low attenuation in the cerebral white matter. There is no intr acranial hemorrhage, acute infarction, or abnormal intracranial mass lesion. The ventricles are chavez l in size. There is mild mucosal thickening in the paranasal sinuses. The mastoid air cells are chavez l. The orbits are normal. The vertebral arteries are codominant. There is no significant stenosis of the basilar artery or posterior cerebral arteries. There is no significant stenosis of the intracrani al internal carotid arteries or anterior or middle cerebral arteries. Anterior communicating artery i s normal. The posterior communicating arteries are normal. There is no aneurysm. NECK CTA: There is mild scarring at the lung apices. There is ectasia of ascending aorta measuring 4. 0 cm. There are no pathologically enlarged lymph nodes. There is no significant stenosis of the verte bral arteries. There is plaque in the proximal internal carotid arteries. There is 0% stenosis of the proximal right internal carotid artery relative to normal distal artery lumen diameter (NASCET crite shazia). There is 0% stenosis of the proximal left internal carotid artery relative to normal distal art laila lumen diameter. There is undulation of the mccoy of the cervical internal carotid arteries, consi stent with fibromuscular dysplasia. There are bridging endplate osteophytes at multiple levels in the spine, consistent with diffuse idiopathic skeletal hyperostosis (DISH). There is mild cervical and t horacic spondylosis. IMPRESSION: 1. Mild nonspecific cerebral white matter disease, which likely represents chronic small vessel ische rosalina disease. 2. No aneurysm or significant intracranial arterial stenosis. 3. 0% stenosis of the proximal internal carotid arteries relative to normal distal artery lumen diame ters (NASCET criteria). Reviewed, dictated and finalized at location A. IMPRESSION: 1. Mild nonspecific cerebral white matter disease, which likely represents director bioinformatics valente small vessel ischemic disease. 2. No aneurysm or significant intracranial arterial stenosis. 3. 0% stenosis of the proximal internal carotid arteries relative to normal dis johan artery lumen diameters (NASCET criteria).
--- NOTE | ~2021-10-18 | CT_ITS ---
EXAMINATION: CT brain wo con DATE: 10/18/2021 23:43 INDICATION: Syncope. TECHNIQUE: Computed tomography (CT) of the head was performed without intravenous contrast. The mA wa s adjusted according to patient size. Iterative reconstruction technique was employed. The dose-lengt h product was 605.33 mGy-cm. COMPARISON: Head CT 08/16/2021 FINDINGS: There are scattered areas of low attenuation in the cerebral white matter. There is no intr acranial hemorrhage, acute infarction, or abnormal intracranial mass lesion. The ventricles are chavez l in size. The orbits are normal. There is mild mucosal thickening in the paranasal sinuses. The mast oid air cells are normal. IMPRESSION: 1. Stable mild nonspecific cerebral white matter disease, which likely represents chronic small vesse l ischemic disease. Reviewed, dictated and finalized at location A. IMPRESSION: 1. Stable mild nonspecific cerebral white matter disease, which likely represen ts chronic small vessel ischemic disease.
[2021-10-18 22:44] VITALS: BP 128/84; PULSE 95; RESP 20; TEMP 36.3; O2SAT 99
[2021-10-18 22:53] LABS: Glucose Point of Care 116 mg/dl (65-105)
--- NOTE | 2021-10-18 22:58 | ECG_ITS ---
Measurements Intervals [place] Rate: 52 P: 71 [place]: 166 QRS: 58 QRSD: 85 T: 49 QT: 444 QTc: 415 Interpretive Statements SINUS BRADYCARDIA OTHERWISE NORMAL ECG COMPARED TO ECG 08/16/2021 01:11:34 SINUS BRADYCARDIA NOW PRESENT Electronically Signed On 10-19-2021 14:19:31 CDT by Lawrence Jones M.D.
--- NOTE | 2021-10-18 23:04 | ED.GENADULT ---
HPI - General Adult General Chief complaint: Nausea/Vomiting/Diarrhea Stated complaint: DRAKE/ NAUSEA/SLURRED SPEECH Time Seen by Provider: 10/18/21 22:43 History of Present Illness HPI narrative: 71-year-old female present to the emergency department department for evaluation of nausea vomiting and a syncopal episode. Patient states that she has had nausea and vomiting for an unknown amount of time. Patient states at some point today she had a syncopal episode. Patient is unsure when the syncopal episode started or how long it lasted. Patient denies any prior syncopal history but does have an extensive psychiatric history. Related Data Home Medications Medication Instructions Recorded Confirmed gabapentin 300 mg capsule 300 mg PO TID 02/20/20 11/29/20 buspirone 10 mg tablet 10 mg PO TID 09/02/21 hydroxyzine HCl 50 mg tablet 50 mg PO BID 09/02/21 quetiapine 50 mg tablet 50 mg PO QHS 09/02/21 tranylcypromine 10 mg tablet 10 mg PO TID 09/02/21 (Parnate) Allergies Allergy/AdvReac Type Severity Reaction Status Date / Time Penicillins Allergy Unknown Itching Verified 10/19/21 00:27 Sulfa (Sulfonamide Allergy Unknown Itching Verified 10/19/21 00:27 Antibiotics) Review of Systems Review of Systems: CONSTITUTIONAL: Denies fever, chills, or sweats. EYES: Denies visual changes, redness, or discharge. ENT: Denies rhinorrhea, congestion, sore throat, or otalgia. CARDIOVASCULAR: Denies chest pain, palpitations, or edema. RESPIRATORY: Denies cough or dyspnea. GASTROINTESTINAL: Denies any abdominal pain but did report nausea and vomiting. GENITOURINARY: Denies dysuria or hematuria. SKIN: Denies rash or itching. MUSCULOSKELETAL: Denies back pain, joint pain, or myalgia. NEUROLOGIC: Syncope PSYCHIATRIC: Depression and anxiety PMFSH Past Medical History Medical History Anxiety Depression History of gastroesophageal reflux (GERD) Hypertension Post-menopausal Surgical History Surgical History No significant past surgical history Family History Family History Sibling Family history of cardiovascular disease Father , Esophageal cancer Family history of malignant neoplasm, Onset Age: 66 Mother , Related to pneumonia No problems noted. Social History Social History Smoking status: Never smoker Tobacco type: cigarettes Second hand tobacco smoke exposure: No Alcohol intake: never Substance use: never Substance use type: does not use Additional occupation/education comments: Disable Gender identity (if verbalized by the patient): Female Exam Narrative: APPEARANCE: Well appearing, no pain, no distress, well-nourished. HEAD: normocephalic, atraumatic. EYES: PERRLA/EOMI, conjunctivae clear. NOSE: Normal no drainage EARS:TMS clear with good light reflex. THROAT: Pharynx clear, no exudate. NECK: Supple. No adenopathy, no masses. RESPIRATORY: Airway patent, respirations nonlabored. Clear to auscultation bilaterally, no rales, rhonchi, wheezing. CARDIOVASCULAR: Regular rate and rhythm without murmurs rubs or gallops. ABDOMINAL: Soft, nontender, nondistended, normal bowel sounds MUSCULOSKELETAL: Moves all extremities. Strength/ROM intact, No edema, No calf tenderness. NEURO: Alert. Cranial nerves II through XII intact. Grossly intact SKIN: Warm, dry. Normal Color Course Course Emergency Course: Tender to ambulate patient and she did not ambulate well. Patient will be admitted for gait instability along with a syncopal work-up. Patient's head CT was negative for acute intracranial abnormality. Patient is afebrile with no leukocytosis. Patient did have a potassium of 3.3 that was replaced orally. Patient's troponin was within normal limits and patient's C
[2021-10-18 23:16] LABS: Basophils Percent Auto 0.7 % (0.2-1.2); Eosinophils Absolute Auto 0.2 K/mm3 (0-0.3); Eosinophils Percent Auto 4.3 % (0-4.4); Hematocrit 35.1 % (37.0-47.0); Hemoglobin 11.7 g/dL (12.0-15.0); Immature Granulocyte Absolute 0.01 K/mm3 (0.00-0.031); Immature Granulocyte Percent A 0.2 % (0-0.5); Lymphocytes Absolute Auto 1.48 K/mm3 (0.9-3.2); Lymphocytes Percent Auto 33.1 % (18.3-44.2); Mean Corpuscular HGB Conc 33.3 g/dl (32-36); Mean Corpuscular Hemoglobin 30.5 pg (26-34); Mean Corpuscular Volume 91.4 fl (80-100); Mean Platelet Volume 9.5 fl (7.4-10.4); Monocytes Absolute Auto 0.4 K/mm3 (0.1-0.6); Monocytes Percent Auto 8.9 % (2.6-8.5); Neutrophils Absolute Auto 2.4 K/mm3 (1.3-6.7); Neutrophils Percent Auto 52.8 % (45.5-73.1); Platelet Count Result 131 k/mm3 (150-375); Red Blood Count 3.84 M/mm3 (4.2-5.4); White Blood Count 4.5 K/mm3 (4.5-10.0)
[2021-10-18 23:25] LABS: Alanine Aminotransferase 18 U/L (6-35); Albumin Level 4.2 g/dL (3.5-5.1); Alkaline Phosphatase 64 U/L (38-126); Anion Gap 5 mmol/L (8-16); Aspartate Amino Transferase 32 U/L (14-36); Bilirubin,Total 0.6 mg/dL (0.2-1.3); Blood Urea Nitrogen 22 mg/dL (7-17); Calcium 8.3 mg/dL (8.4-10.2); Carbon Dioxide 32 mmol/L (22-30); Chloride 104 mmol/L (98-107); Estimated CRCL calculation 29 ml/min; Estimated Glomerular Filt Rate 49; Glucose 111 mg/dL (65-110); Potassium 3.3 mmol/L (3.4-5.0); Sodium 141 mmol/L (137-145)
[2021-10-19] VITALS (17 sets, daily range): BP systolic 100–140; BP diastolic 62–85; PULSE 57–84; RESP 13–18; TEMP 36.1–36.7; O2SAT 95–98; BMI 19.5
--- NOTE | 2021-10-19 | ECHO_ITS ---
Patient Info Name: Mary Kate Rodas Age: 71 years : 1950 Gender: Female Ht: 64 in Wt: 98 lbs BSA: 1.40 m2 HR: 57 bpm BP: 120 / 66 mmHg Heart Rhythm: Sinus Rhythm Technical Quality: Fair Exam Date: 10/19/2021 8:27 AM Exam Location: [facility] Patient Status: Outpatient Admit Date: 10/19/2021 Staff Ordering Physician: Peggy Lindsay DO Bench Worker Apprentice: Nara Arias RDCS Attending Provider: Peggy Lindsay DO Referring Physician: Angélica NELSON; Exam Type: CA echo doppler color flow Study Info Indications R55 - Syncope and collapse Complete two-dimensional, color flow and Doppler transthoracic echocardiogram is performed. Summary 1. Complete two-dimensional, color flow and Doppler transthoracic echocardiogram is performed. 2. Normal left ventricular size, thickness systolic and diastolic function. 3. Dilated left atrium. 4. Trivial amount of mitral valve regurgitation. Left Ventricle Left ventricular chamber dimension is normal. Left ventricular systolic function is normal, estimated at 65-70%. The left ventricular diastolic function is normal. Right Ventricle Right ventricular chamber dimension is normal. Left Atria Left atrial chamber dimension is mildly enlarged. Right Atria Right atrial chamber dimension is normal. Aortic Valve The aortic valve is normal. Pulmonic Valve The pulmonic valve is normal. Mitral Valve The mitral valve has normal leaflets. Tricuspid Valve The tricuspid valve leaflets are normal. There is trace tricuspid valve regurgitation. Pericardium/Pleural The pericardium appears normal. Aorta The aortic root size at the sinus of Valsalva is normal. Left Ventricular Outflow Tract Name Value Normal LVOT 2D LVOT Diameter 2.0 cm LVOT Doppler LVOT Peak Gradient 5 mmHg LVOT Mean Gradient 2 mmHg LVOT VTI 22 cm LVOT VTI/AV VTI Ratio 0.7 LVOT Stroke Volume 70 ml LVOT CO 4.6 l/min LVOT CI 3.3 l/min/m2 Pulmonic Valve Name Value Normal RVOT Doppler RVOT Peak Gradient 2 mmHg PV Doppler PV Peak Gradient 4 mmHg Mitral Valve Name Value Normal MV Doppler MV Decel [place] 463 cm/s2 MV PHT 51 ms MV Area (PHT) 4.3 cm2 4.0-5.0
[2021-10-19] MEDS: SODIUM CHLORIDE 0.9% IV 1,000 ML 999 ML IV CONT (00:20)
[2021-10-19] MEDS: ONDANSETRON INJ 4 MG/2 ML VIAL IV PUSH (00:20)
[2021-10-19] MEDS: POTASSIUM CHLORIDE 20 MEQ PACKET (FOR LIQUID) 40 MEQ PO (02:46)
[2021-10-19 04:25] LABS: Magnesium 2.3 mg/dL (1.6-2.3)
[2021-10-19 04:33] LABS: Troponin I < 0.012 ng/mL (0.000-0.034)
[2021-10-19 04:44] LABS: SARS-CoV-2 RNA PCR Negative
--- NOTE | 2021-10-19 05:53 | ADMGEN ---
This patient, Mary Kate Rodas, was admitted to [facility] Room 316-01. Patient/family oriented to hospital policies and general routines including ID bracelet, bed and alarms, visiting hours, pain management, procedures, bathroom and other care routines, personal items, smoking policy, room service/diet, and visiting hours. Information on how to activate the Rapid Response Team has been discussed. Patient/Family are encouraged to report perceived risks to care and to ask questions if they do not understand what they are told or what they should do.
--- NOTE | 2021-10-19 09:02 | PM.IMHP ---
H&P: HPI History of Present Illness Date/Time: 10/19/21 09:02 Chief Complaint: 71-year-old female with past medical history significant for anxiety, depression, GERD presenting with a syncopal episode. Patient states she has multiple episodes in the past when she gets very upset or anxious or she will then ?lose track of time?. Family states that she gets tremulous during these episodes. This episode was different, however. It was also proceeded by severe nausea and vomiting for several hours. No chest pain or shortness of breath. No nausea, vomiting or diarrhea. No fevers or chills. No headaches or vision changes noted. She denies any suicidal ideation but does state that she is significantly depressed due to many life stressors at this time. In the ER, she was noted to have gait instability. CT head was negative. Only abnormality found was hypokalemia which was replaced. She did have mild thrombocytopenia with a platelet level of 131. TSH was within normal limits. Head and neck CTA were performed showing chronic small-vessel ischemic disease, no infarct and no carotid stenosis. Echo was also performed and was essentially unrevealing. ECG did show sinus bradycardia but no other abnormalities. Review of Systems Review of Systems: 12 point review of systems was assessed and was negative except as noted in the HPI [facility] Past Medical History Medical History Anxiety Depression History of gastroesophageal reflux (GERD) Hypertension Post-menopausal Surgical History Surgical History No significant past surgical history Family History Family History Sibling Family history of cardiovascular disease Father , Esophageal cancer Family history of malignant neoplasm, Onset Age: 66 Mother , Related to pneumonia No problems noted. Social History Social History Smoking status: Never smoker Tobacco type: cigarettes Second hand tobacco smoke exposure: No Alcohol intake: never Substance use: never Substance use type: does not use Additional occupation/education comments: Disable Gender identity (if verbalized by the patient): Female Spiritual care concerns: No Meds Home Medications and Allergies Home Medications Medication Instructions Recorded Confirmed Type gabapentin 300 mg capsule 300 mg PO HS 02/20/20 10/19/21 History carvedilol 6.25 mg tablet See Rx Instructions .Route 08/25/21 10/19/21 Rx .COMPLEX #60 tabs amlodipine 5 mg tablet See Rx Instructions .Route 09/02/21 10/19/21 Rx .COMPLEX #90 tabs quetiapine 50 mg tablet 50 mg PO QHS 09/02/21 10/19/21 History tranylcypromine 10 mg tablet 10 mg PO QID 09/02/21 10/19/21 History (Parnate) losartan 100 mg tablet See Rx Instructions .Route 09/21/21 10/19/21 Rx .COMPLEX #90 tabs melatonin 10 mg tablet 10 mg PO HS 10/19/21 10/19/21 History Allergies Allergy/AdvReac Type Severity Reaction Status Date / Time Penicillins Allergy Unknown Itching Verified 10/19/21 00:27 Sulfa (Sulfonamide Allergy Unknown Itching Verified 10/19/21 00:27 Antibiotics) Vital Signs Vital Signs - 24 hr 10/18/21 22:44 10/19/21 00:26 10/19/21 04:34 Temperature 97.3 F L 98.0 F Pulse Rate 95 62 63 Respiratory Rate 20 16 Blood Pressure 128/84 112/62 100/67 Pulse Oximetry 99 97 Oxygen Delivery Room Air 10/19/21 04:35 10/19/21 04:36 10/19/21 05:15 Temperature Pulse Rate 78 80 60 Respiratory Rate 18 Blood Pressure 113/72 113/73 103/68 Pulse Oximetry 95 Oxygen Delivery 10/19/21 02:05 10/19/21 04:09 10/19/21 05:52 Temperature Pulse Rate 60 61 60 Respiratory Rate 16 13 18 Blood Pressure 105/69 106/74 103/68 Pulse Oximetry 98 95 Oxygen Delivery 10/19/21 06:00 [facility]
[2021-10-19] MEDS: ACETAMINOPHEN 500 MG TABLET 1000 MG PO (09:45)
[2021-10-19] MEDS: carvediloL 6.25 MG TABLET BY MOUTH ×2 (09:46→22:34)
[2021-10-19] MEDS: amLODIPine BESYLATE 5 MG TABLET BY MOUTH (09:46)
[2021-10-19] MEDS: LOSARTAN POTASSIUM 100 MG TABLET BY MOUTH (09:47)
--- NOTE | 2021-10-19 10:25 | PHAR ---
Addendum entered by Olivia Sweeney [facility] 10/19/21 10:30: DIRECTIONS ON BOTTLE ALSO STATE NOT TO GIVE LAST DOSE AFTER 4 PM. Original Note: TRANYLCYPROMINE 10 MG TAB - TAKE 1 TABLET BY MOUTH FOUR TIMES DAILY. VERIFIED BY PHARMACY.
--- NOTE | 2021-10-19 10:44 | PC.NURSE ---
to CT per w/c
--- NOTE | 2021-10-19 10:53 | PC.NURSE ---
patient returning to room from CT
[2021-10-19] MEDS: KETOROLAC 15 MG/ML VIAL (*BKC) IV PUSH (15:36)
[2021-10-19] MEDS: GABAPENTIN 300 MG CAPSULE PO (22:31)
[2021-10-19] MEDS: MELATONIN 5 MG TABLET 10 MG PO (22:31)
[2021-10-19] MEDS: QUEtiapine FUMARATE 25 MG TABLET 50 MG PO (22:31)
[2021-10-20] VITALS (17 sets, daily range): BP systolic 90–147; BP diastolic 57–93; PULSE 54–87; RESP 16–18; TEMP 36.1–37.1; O2SAT 95–98
[2021-10-20 06:31] LABS: Alanine Aminotransferase 17 U/L (6-35); Albumin Level 3.8 g/dL (3.5-5.1); Alkaline Phosphatase 57 U/L (38-126); Anion Gap 5 mmol/L (8-16); Aspartate Amino Transferase 28 U/L (14-36); Bilirubin,Total 0.6 mg/dL (0.2-1.3); Blood Urea Nitrogen 19 mg/dL (7-17); Calcium 8.6 mg/dL (8.4-10.2); Carbon Dioxide 33 mmol/L (22-30); Chloride 100 mmol/L (98-107); Estimated CRCL calculation 26 ml/min; Estimated Glomerular Filt Rate 40; Glucose 91 mg/dL (65-110); Potassium 4.1 mmol/L (3.4-5.0); Sodium 138 mmol/L (137-145)
[2021-10-20 06:37] LABS: Basophils Percent Auto 0.9 % (0.2-1.2); Eosinophils Absolute Auto 0.2 K/mm3 (0-0.3); Eosinophils Percent Auto 5.3 % (0-4.4); Hematocrit 36.6 % (37.0-47.0); Immature Granulocyte Absolute 0.01 K/mm3 (0.00-0.031); Immature Granulocyte Percent A 0.2 % (0-0.5); Immature Platelet Fraction Pct 3.3 % (0.9-11.2); Lymphocytes Absolute Auto 1.51 K/mm3 (0.9-3.2); Lymphocytes Percent Auto 33.5 % (18.3-44.2); Mean Corpuscular HGB Conc 32.8 g/dl (32-36); Mean Corpuscular Hemoglobin 30.5 pg (26-34); Mean Corpuscular Volume 93.1 fl (80-100); Mean Platelet Volume 9.7 fl (7.4-10.4); Monocytes Absolute Auto 0.4 K/mm3 (0.1-0.6); Monocytes Percent Auto 9.8 % (2.6-8.5); Neutrophils Absolute Auto 2.3 K/mm3 (1.3-6.7); Neutrophils Percent Auto 50.3 % (45.5-73.1); Platelet Count Result 149 k/mm3 (150-375); Red Blood Count 3.93 M/mm3 (4.2-5.4); White Blood Count 4.5 K/mm3 (4.5-10.0)
[2021-10-20] MEDS: ENOXAPARIN 30 MG/0.3 ML SYRINGE SUB-Q (09:00)
[2021-10-20] MEDS: amLODIPine BESYLATE 5 MG TABLET BY MOUTH (09:01)
[2021-10-20] MEDS: carvediloL 6.25 MG TABLET BY MOUTH ×2 (09:01→20:06)
[2021-10-20] MEDS: LOSARTAN POTASSIUM 100 MG TABLET BY MOUTH (10:52)
--- NOTE | 2021-10-20 12:40 | WPDNEURCNPN ---
Assessment and Plan Assessment and plan (1) Syncope and collapse: Code(s): R55 - Syncope and collapse Status: Acute Plan syncopal episode will obtain the EEG to rule out the possibility of cerebral dysfunction or seizure Consult date: 10/20/21 Time Seen: 11:00 Reason for consult: syncopal episode HPI: Mary Kate Rodas is a 71 year old female admitted to the hospital through the emergency room for the complaints of nausea vomiting and syncopal episode without specific when the syncope is started and stopped. Patient has been taking gabapentin 300 mg 3 times a day with BuSpar 10 mg 3 times a day hydroxyzine 50 mg twice a day Seroquel 50 mg at night. She has ongoing history of anxiety with depression in addition to hypertension and GERD. She does not smoke does not drink. She reported that she has had multiple episode in the past when she gets very upset or anxious and she will lose track of time and becomes very tremulous this particular episode was associated with nausea and vomiting. In the emergency room she was noted to have gait instability though the initial CT scan of the head was negative for the bleed on routine blood studies she was found to be hypokalemic in addition to mildly thrombocytopenic but head neck CTA was only consistent with chronic small vessel ischemic disease no infarct and no large or medium size vessel stenosis EKG revealed bradycardia. Routine lab studies were normal except low potassium of 3.3 and BUN of 22 and creatinine of 1.10 Review of Systems Review of Systems: All systems reviewed & are unremarkable except as noted in HPI and below PMFSH Past Medical History Medical History Anxiety Depression History of gastroesophageal reflux (GERD) Hypertension Post-menopausal Surgical History Surgical History No significant past surgical history Family History Family History Sibling Family history of cardiovascular disease Father , Esophageal cancer Family history of malignant neoplasm, Onset Age: 66 Mother , Related to pneumonia No problems noted. Social History Social History Smoking status: Never smoker Tobacco type: cigarettes Second hand tobacco smoke exposure: No Alcohol intake: never Substance use: never Substance use type: does not use Additional occupation/education comments: Disable Gender identity (if verbalized by the patient): Female Spiritual care concerns: No Meds Home Medications and Allergies Home Medications Medication Instructions Recorded Confirmed Type gabapentin 300 mg capsule 300 mg PO HS 02/20/20 10/19/21 History carvedilol 6.25 mg tablet See Rx Instructions .Route 08/25/21 10/19/21 Rx .COMPLEX #60 tabs amlodipine 5 mg tablet See Rx Instructions .Route 09/02/21 10/19/21 Rx .COMPLEX #90 tabs quetiapine 50 mg tablet 50 mg PO QHS 09/02/21 10/19/21 History tranylcypromine 10 mg tablet 10 mg PO 6XD 09/02/21 10/20/21 History (Parnate) losartan 100 mg tablet See Rx Instructions .Route 09/21/21 10/19/21 Rx .COMPLEX #90 tabs melatonin 10 mg tablet 10 mg PO HS 10/19/21 10/19/21 History Allergies Allergy/AdvReac Type Severity Reaction Status Date / Time Penicillins Allergy Unknown Itching Verified 10/19/21 00:27 Sulfa (Sulfonamide Allergy Unknown Itching Verified 10/19/21 00:27 Antibiotics) Vital Signs Vital Signs - 24 hr 10/19/21 14:00 10/19/21 16:00 10/19/21 20:00 Temperature 36.1 C L Pulse Rate 68 70 74 Respiratory Rate 16 Blood Pressure 130/72 Pulse Oximetry 98 Oxygen Delivery 10/19/21 21:36 10/19/21 22:34 10/20/21 00:00 Temperature 36.7 C Pulse Rate 70 84 56 L Respiratory Rate 16 Blood Pressure 140/85 Pulse Oximetry 96 Oxygen Del
--- NOTE | 2021-10-20 17:07 | PM.IMPN ---
Progress Note: A&P Assessment and Plan (1) Syncope and collapse: Code(s): R55 - Syncope and collapse Status: Acute Assessment and Plan: Check echo, monitor telemetry Echo results came back, essentially benign, telemetry remains benign, only etiology could possibly be symptomatic bradycardia 10/20: Heart rate consistently over 60, asymptomatic, suspect vasovagal syncope versus pseudoseizures as only etiology, do not suspect anything more insidious at this time (2) Depression: Code(s): F32.9 - Major depressive disorder, single episode, unspecified Status: Acute Assessment and Plan: Continue home meds, stable (3) Anxiety: Code(s): F41.9 - Anxiety disorder, unspecified Status: Acute Assessment and Plan: Restart her MAOI at her home dose, anticipate discharge tomorrow if no presyncopal episodes, this med was held on admission in case it is contributing to her episodes (4) Hypertension: Code(s): I10 - Essential (primary) hypertension Status: Acute Assessment and Plan: Stable, continue home meds (5) HLD (hyperlipidemia): Qualifiers: Hyperlipidemia type: mixed hyperlipidemia Qualified Code(s): E78.2 - Mixed hyperlipidemia Code(s): E78.5 - Hyperlipidemia, unspecified Status: Acute (6) History of gastroesophageal reflux (GERD): Code(s): Z87.19 - Personal history of other diseases of the digestive system Status: Acute Assessment and Plan: Stable (7) Hypokalemia: Code(s): E87.6 - Hypokalemia Status: Acute Assessment and Plan: Replete and recheck 10/20: Resolved Plan DVT prophylaxis with Lovenox GI prophylaxis not indicated Full code Subjective Date/time seen: 10/20/21 17:07 Interval history: Patient resting comfortably in bed, no complaints. She states she has not had any episodes similar to what brought her in. She feels back to normal other than her anxiety and depression. She would like to see if she can get her vagus nerve stimulator out as soon as possible. She is concerned that it is contributing to her syncopal episodes. No overnight events noted. No chest pain or shortness of breath. No nausea, vomiting or diarrhea. No fevers or chills. Review of Systems Review of Systems: 12 point review of systems was assessed and was negative except as noted in the HPI Exam Narrative: General: No acute distress, alert and oriented per baseline HEENT: Atraumatic, normocephalic, mucous membranes moist CV: Regular rate and rhythm, S1, S2 Lungs: Clear to auscultation bilaterally, no rales or crackles noted, no wheezes, good air entry Abdomen: Soft, nontender, nondistended Extremities: Normal to inspection Skin: No rashes noted, no lesions or wounds seen Psych: Euthymic, normal affect Neuro: Cranial nerves 2-12 grossly intact, strength +5/5 upper and lower extremities bilaterally Objective Data Vital Signs Vital Signs: Vital Signs - 24 hr 10/19/21 20:00 10/19/21 21:36 10/19/21 22:34 Temperature 98.1 F Pulse Rate 74 70 84 Respiratory Rate 16 Blood Pressure 140/85 Pulse Oximetry 96 Oxygen Delivery 10/20/21 00:00 10/20/21 04:00 10/20/21 05:31 Temperature 96.9 F L Pulse Rate 56 L 54 L 56 L Respiratory Rate 16 Blood Pressure 106/57 L Pulse Oximetry 97 Oxygen Delivery 10/20/21 08:58 10/20/21 09:01 10/20/21 09:13 Temperature Pulse Rate 67 85 67 Respiratory Rate Blood Pressure 147/93 H Pulse Oximetry 97 Oxygen Delivery Room Air 10/20/21 09:13 10/20/21 09:14 10/20/21 08:00 Temperature Pulse Rate 69 74 Respiratory Rate Blood Pressure 144/91 H 128/88 Pulse Oximetry 98 Oxygen Delivery Room Air 10/20/21 08:00 10/20/21 12:00 10/20/21 14:00 Temperature 97.8 F Pulse Rate 64 71 67 Respiratory Rate 18 Blood Pressure 129/69 Pulse Oximetry 95 Oxygen Delivery 10/20/21 14:00 10/20/21 14
[2021-10-20] MEDS: ACETAMINOPHEN 325 MG TABLET 650 MG PO (20:06)
[2021-10-20] MEDS: MELATONIN 5 MG TABLET 10 MG PO (20:07)
[2021-10-20] MEDS: GABAPENTIN 300 MG CAPSULE PO (20:07)
[2021-10-20] MEDS: QUEtiapine FUMARATE 25 MG TABLET 50 MG PO (20:07)
[2021-10-21] VITALS (12 sets, daily range): BP systolic 143–165; BP diastolic 83–90; PULSE 58–84; RESP 16–18; TEMP 35.9–36.3; O2SAT 97–100
[2021-10-21] MEDS: ACETAMINOPHEN 325 MG TABLET 650 MG PO (05:57)
[2021-10-21 07:29] LABS: Basophils Percent Auto 0.7 % (0.2-1.2); Eosinophils Absolute Auto 0.2 K/mm3 (0-0.3); Eosinophils Percent Auto 5.4 % (0-4.4); Hemoglobin 12.2 g/dL (12.0-15.0); Immature Granulocyte Absolute 0.02 K/mm3 (0.00-0.031); Immature Granulocyte Percent A 0.5 % (0-0.5); Immature Platelet Fraction Pct 3.4 % (0.9-11.2); Lymphocytes Absolute Auto 1.25 K/mm3 (0.9-3.2); Lymphocytes Percent Auto 29.5 % (18.3-44.2); Mean Corpuscular Hemoglobin 30.3 pg (26-34); Mean Platelet Volume 9.9 fl (7.4-10.4); Monocytes Absolute Auto 0.4 K/mm3 (0.1-0.6); Monocytes Percent Auto 10.1 % (2.6-8.5); Neutrophils Absolute Auto 2.3 K/mm3 (1.3-6.7); Neutrophils Percent Auto 53.8 % (45.5-73.1); Platelet Count Result 143 k/mm3 (150-375); Red Blood Count 4.02 M/mm3 (4.2-5.4); Red Cell Distribution Width 12.9 % (11.5-14.5); White Blood Count 4.2 K/mm3 (4.5-10.0)
[2021-10-21 07:56] LABS: Alanine Aminotransferase 26 U/L (6-35); Albumin Level 3.8 g/dL (3.5-5.1); Alkaline Phosphatase 56 U/L (38-126); Anion Gap 6 mmol/L (8-16); Aspartate Amino Transferase 33 U/L (14-36); Bilirubin,Total 0.4 mg/dL (0.2-1.3); Blood Urea Nitrogen 25 mg/dL (7-17); Carbon Dioxide 33 mmol/L (22-30); Chloride 97 mmol/L (98-107); Estimated CRCL calculation 34 ml/min; Estimated Glomerular Filt Rate 55; Glucose 93 mg/dL (65-110); Sodium 136 mmol/L (137-145)
[2021-10-21] MEDS: LOSARTAN POTASSIUM 100 MG TABLET BY MOUTH (07:56)
[2021-10-21] MEDS: carvediloL 6.25 MG TABLET BY MOUTH ×2 (07:57→20:46)
[2021-10-21] MEDS: amLODIPine BESYLATE 5 MG TABLET BY MOUTH (07:57)
[2021-10-21] MEDS: ENOXAPARIN 30 MG/0.3 ML SYRINGE SUB-Q (07:57)
[2021-10-21 08:26] LABS: Potassium 4.1 mmol/L (3.4-5.0)
--- NOTE | 2021-10-21 13:45 | PM.IMPN ---
Progress Note: A&P Assessment and Plan (1) Syncope and collapse: Code(s): R55 - Syncope and collapse Status: Acute Assessment and Plan: Telemetry with no events. Echo normal Possible vasovagal syncope Has peculiar aura prior to the episodes. Will get EEG Discussed with neurology (2) Depression: Code(s): F32.9 - Major depressive disorder, single episode, unspecified Status: Acute Assessment and Plan: Continue home meds, stable Recently admitted to another hospital for the same month ago with multiple different medication changes. (3) Anxiety: Code(s): F41.9 - Anxiety disorder, unspecified Status: Acute Assessment and Plan: Restart her MAOI at her home dose, anticipate discharge tomorrow if no presyncopal episodes, this med was held on admission in case it is contributing to her episodes (4) Hypertension: Code(s): I10 - Essential (primary) hypertension Status: Acute Assessment and Plan: Stable, continue home meds (5) HLD (hyperlipidemia): Qualifiers: Hyperlipidemia type: mixed hyperlipidemia Qualified Code(s): E78.2 - Mixed hyperlipidemia Code(s): E78.5 - Hyperlipidemia, unspecified Status: Acute (6) History of gastroesophageal reflux (GERD): Code(s): Z87.19 - Personal history of other diseases of the digestive system Status: Acute Assessment and Plan: Stable (7) Hypokalemia: Code(s): E87.6 - Hypokalemia Status: Acute Assessment and Plan: Replete and recheck 10/20: Resolved Plan DVT prophylaxis with Lovenox GI prophylaxis not indicated Full code Additional Plan Status post vagus nerve stimulator placement while back. Which is not functional at this time. Patient wants this to be removed. General surgery and neurosurgery has been consulted with regard to this. Likely need to follow-up with neurology for further evaluation on this as an outpatient basis Subjective Date/time seen: 10/21/21 13:45 Interval history: 71-year-old female with past medical history significant for anxiety, depression, GERD presenting with a syncopal episode.? Patient states she has multiple episodes in the past when she gets very upset or anxious or she will then ?lose track of time?.? Family states that she gets tremulous during these episodes.? This episode was different, however.? It was also proceeded by severe nausea and vomiting for several hours.? No chest pain or shortness of breath.? No nausea, vomiting or diarrhea.? No fevers or chills.? No headaches or vision changes noted.? She denies any suicidal ideation but does state that she is significantly depressed due to many life stressors at this time. In the ER, she was noted to have gait instability.? CT head was negative.? Only abnormality found was hypokalemia which was replaced.? She did have mild thrombocytopenia with a platelet level of 131.? TSH was within normal limits.? Head and neck CTA were performed showing chronic small-vessel ischemic disease, no infarct and no carotid stenosis.? Echo was also performed and was essentially unrevealing.? ECG did show sinus bradycardia but no other abnormalities. 10/21/2021: Gets an aura before she passes out. Has similar episodes in the past as well. EEG has not been done. Discussed with neurologist. Telemetry was reviewed and remains normal sinus rhythm with no arrhythmias throughout the hospital stay. Review of Systems Review of Systems: All systems reviewed & are unremarkable except as noted in HPI and below Exam Narrative: General: No acute distress, alert and oriented per baseline HEENT: Atraumatic, normocephalic, mucous membranes moist CV: Regular rate and rhythm, S1, S2 Lungs: Clear to auscultation bilaterally, no rales or crackles noted, no wheezes, good air entry Abdomen: Soft, nontender, nondistended Extremities: Normal to inspection Skin: No rashes noted, no lesions or w
[2021-10-21] MEDS: MELATONIN 5 MG TABLET 10 MG PO (20:45)
[2021-10-21] MEDS: GABAPENTIN 300 MG CAPSULE PO (20:46)
[2021-10-21] MEDS: QUEtiapine FUMARATE 25 MG TABLET 50 MG PO (20:46)
[2021-10-22] VITALS (7 sets, daily range): BP systolic 108–151; BP diastolic 90–97; PULSE 61–78; RESP 14–18; TEMP 36.4–36.6; O2SAT 96–99
[2021-10-22 07:22] LABS: Basophils Percent Auto 0.6 % (0.2-1.2); Eosinophils Absolute Auto 0.2 K/mm3 (0-0.3); Eosinophils Percent Auto 5.1 % (0-4.4); Hematocrit 37.6 % (37.0-47.0); Hemoglobin 12.2 g/dL (12.0-15.0); Immature Granulocyte Absolute 0.02 K/mm3 (0.00-0.031); Immature Granulocyte Percent A 0.4 % (0-0.5); Lymphocytes Absolute Auto 1.38 K/mm3 (0.9-3.2); Lymphocytes Percent Auto 29.2 % (18.3-44.2); Mean Corpuscular HGB Conc 32.4 g/dl (32-36); Mean Corpuscular Hemoglobin 30.2 pg (26-34); Mean Corpuscular Volume 93.1 fl (80-100); Monocytes Absolute Auto 0.5 K/mm3 (0.1-0.6); Monocytes Percent Auto 9.7 % (2.6-8.5); Neutrophils Absolute Auto 2.6 K/mm3 (1.3-6.7); Platelet Count Result 119 k/mm3 (150-375); Red Blood Count 4.04 M/mm3 (4.2-5.4); Red Cell Distribution Width 13.2 % (11.5-14.5); White Blood Count 4.7 K/mm3 (4.5-10.0)
[2021-10-22 07:38] LABS: Alanine Aminotransferase 26 U/L (6-35); Albumin Level 3.9 g/dL (3.5-5.1); Alkaline Phosphatase 56 U/L (38-126); Anion Gap 6 mmol/L (8-16); Aspartate Amino Transferase 30 U/L (14-36); Bilirubin,Total 0.4 mg/dL (0.2-1.3); Blood Urea Nitrogen 29 mg/dL (7-17); Calcium 9.2 mg/dL (8.4-10.2); Carbon Dioxide 33 mmol/L (22-30); Chloride 98 mmol/L (98-107); Estimated CRCL calculation 31 ml/min; Estimated Glomerular Filt Rate 49; Glucose 94 mg/dL (65-110); Magnesium 2.2 mg/dL (1.6-2.3); Potassium 4.6 mmol/L (3.4-5.0); Sodium 137 mmol/L (137-145)
--- NOTE | 2021-10-22 09:31 | PCDIET ---
Brief Nutrition Note: Pharmacy called Dietitian Office to notify of food/med interactions with medication Parnate/tranylcypromine, MAOI inhibitor. This is a home medication as well. When asked, patient said she has been on this medication for 50 years and knows all about the dietary restrictions which include foods high in tyramine: aged cheeses, aged or fermented meats, liver, red wine, beer, etc. Pt declined further diet education. Charity Jameson MS RD LDN
[2021-10-22] MEDS: ENOXAPARIN 30 MG/0.3 ML SYRINGE SUB-Q (09:34)
[2021-10-22] MEDS: carvediloL 6.25 MG TABLET BY MOUTH ×2 (09:34→20:32)
[2021-10-22] MEDS: amLODIPine BESYLATE 5 MG TABLET BY MOUTH (09:35)
[2021-10-22] MEDS: LOSARTAN POTASSIUM 100 MG TABLET BY MOUTH (09:35)
[2021-10-22] MEDS: ACETAMINOPHEN 325 MG TABLET 650 MG PO ×2 (10:46→20:31)
--- NOTE | 2021-10-22 14:38 | PM.IMPN ---
Progress Note: A&P Assessment and Plan (1) Syncope and collapse: Code(s): R55 - Syncope and collapse Status: Acute Assessment and Plan: Telemetry with no events. Echo normal Possible vasovagal syncope Has peculiar aura prior to the episodes. Will get EEG Discussed with neurology (2) Depression: Code(s): F32.9 - Major depressive disorder, single episode, unspecified Status: Acute Assessment and Plan: Continue home meds, stable Recently admitted to another hospital for the same month ago with multiple different medication changes. (3) Anxiety: Code(s): F41.9 - Anxiety disorder, unspecified Status: Acute Assessment and Plan: Restart her MAOI at her home dose, anticipate discharge tomorrow if no presyncopal episodes, this med was held on admission in case it is contributing to her episodes (4) Hypertension: Code(s): I10 - Essential (primary) hypertension Status: Acute Assessment and Plan: Stable, continue home meds (5) HLD (hyperlipidemia): Qualifiers: Hyperlipidemia type: mixed hyperlipidemia Qualified Code(s): E78.2 - Mixed hyperlipidemia Code(s): E78.5 - Hyperlipidemia, unspecified Status: Acute (6) History of gastroesophageal reflux (GERD): Code(s): Z87.19 - Personal history of other diseases of the digestive system Status: Acute Assessment and Plan: Stable (7) Hypokalemia: Code(s): E87.6 - Hypokalemia Status: Acute Assessment and Plan: Replete and recheck 10/20: Resolved Plan DVT prophylaxis with Lovenox GI prophylaxis not indicated Full code Additional Plan 71-year-old female with past medical history significant for anxiety, depression, GERD presenting with a syncopal episode.? # SYNCOPE: Patient states she has multiple episodes in the past when she gets very upset or anxious or she will then ?lose track of time?.? Family states that she gets tremulous during these episodes.? This episode was different, however.? It was also proceeded by severe nausea and vomiting for several hours.? No chest pain or shortness of breath.? No nausea, vomiting or diarrhea.? No fevers or chills.? No headaches or vision changes noted.? She denies any suicidal ideation but does state that she is significantly depressed due to many life stressors at this time. In the ER, she was noted to have gait instability.? CT head was negative.? Only abnormality found was hypokalemia which was replaced.? She did have mild thrombocytopenia with a platelet level of 131.? TSH was within normal limits.? Head and neck CTA were performed showing chronic small-vessel ischemic disease, no infarct and no carotid stenosis.? Echo was also performed and was essentially unrevealing.? ECG did show sinus bradycardia but no other abnormalities.? She was monitored on telemetry throughout the hospital stay and showed normal sinus rhythm without any arrhythmias.? Her history revealed peculiar aura? before she passes out.? neurology was consulted and EEG was done which did not show any seizure-like activity.? She will follow-up with neurology as an outpatient basis. # anxeity/depression: has underlying depression for which she will continue to follow-up with her psychiatrist.? She was recently admitted at outside facility for the same about a month ago.? She denies any suicidal ideation during this visit.? She has been restarted back MAOI # Hypertension stable medication # Hyperlipidemia home medications and DVT prophylaxis Lovenox # Code status full code # Status post vagus nerve stimulator placement while back which is not functional at this time.? Patient wants this to be removed.? General surgery neurosurgery was consulted will likely have a follow-up with Neurology and evaluate this as an outpatient basis. Subjective Date/time seen: 10/22/21 14:38 Interval history: 71-year-old female with past medical history significant fo
--- NOTE | 2021-10-22 17:19 | PC.NURSE ---
Attempt to call MD x2 without success regarding pt's prescription.
--- NOTE | 2021-10-22 18:08 | PC.NURSE ---
Provider notified that pt unable to get prescription filled until tomorrow.
[2021-10-22] MEDS: QUEtiapine FUMARATE 25 MG TABLET 50 MG PO (20:30)
[2021-10-22] MEDS: GABAPENTIN 300 MG CAPSULE PO (20:31)
[2021-10-22] MEDS: MELATONIN 5 MG TABLET 10 MG PO (20:32)
[2021-10-23 06:00] VITALS: BP 107/60; PULSE 61; RESP 18; TEMP 36.4; O2SAT 98
[2021-10-23 06:24] LABS: Basophils Percent Auto 0.6 % (0.2-1.2); Eosinophils Absolute Auto 0.3 K/mm3 (0-0.3); Eosinophils Percent Auto 5.5 % (0-4.4); Hematocrit 37.1 % (37.0-47.0); Hemoglobin 12.1 g/dL (12.0-15.0); Immature Granulocyte Absolute 0.03 K/mm3 (0.00-0.031); Immature Granulocyte Percent A 0.6 % (0-0.5); Immature Platelet Fraction Pct 3.7 % (0.9-11.2); Lymphocytes Absolute Auto 1.46 K/mm3 (0.9-3.2); Lymphocytes Percent Auto 31.1 % (18.3-44.2); Mean Corpuscular HGB Conc 32.6 g/dl (32-36); Mean Corpuscular Hemoglobin 30.5 pg (26-34); Mean Corpuscular Volume 93.5 fl (80-100); Monocytes Absolute Auto 0.6 K/mm3 (0.1-0.6); Monocytes Percent Auto 11.7 % (2.6-8.5); Neutrophils Absolute Auto 2.4 K/mm3 (1.3-6.7); Neutrophils Percent Auto 50.5 % (45.5-73.1); Platelet Count Result 140 k/mm3 (150-375); Red Blood Count 3.97 M/mm3 (4.2-5.4); White Blood Count 4.7 K/mm3 (4.5-10.0)
[2021-10-23 06:35] LABS: Alanine Aminotransferase 33 U/L (6-35); Albumin Level 3.9 g/dL (3.5-5.1); Alkaline Phosphatase 55 U/L (38-126); Anion Gap 7 mmol/L (8-16); Aspartate Amino Transferase 34 U/L (14-36); Bilirubin,Total 0.3 mg/dL (0.2-1.3); Blood Urea Nitrogen 32 mg/dL (7-17); Calcium 9.1 mg/dL (8.4-10.2); Carbon Dioxide 30 mmol/L (22-30); Chloride 100 mmol/L (98-107); Estimated CRCL calculation 34 ml/min; Estimated Glomerular Filt Rate 55; Glucose 92 mg/dL (65-110); Potassium 4.2 mmol/L (3.4-5.0); Sodium 137 mmol/L (137-145)
[2021-10-23 08:00] VITALS: PULSE 61; RESP 18; O2SAT 98
[2021-10-23] MEDS: ENOXAPARIN 30 MG/0.3 ML SYRINGE SUB-Q (08:34)
[2021-10-23] MEDS: amLODIPine BESYLATE 5 MG TABLET BY MOUTH (08:34)
[2021-10-23] MEDS: carvediloL 6.25 MG TABLET BY MOUTH (08:34)
[2021-10-23] MEDS: LOSARTAN POTASSIUM 100 MG TABLET BY MOUTH (08:34)
--- NOTE | 2021-10-23 11:44 | PM.DS ---
DS: Admitting Diagnosis Discharge Date 10/22/2021 Admitting Diagnosis syncope DS: Summary Hospital Course Hospital Course: 71-year-old female with past medical history significant for anxiety, depression, GERD presenting with a syncopal episode.? # syncope: Patient states she has multiple episodes in the past when she gets very upset or anxious or she will then ?lose track of time?.? Family states that she gets tremulous during these episodes.? This episode was different, however.? It was also proceeded by severe nausea and vomiting for several hours.? No chest pain or shortness of breath.? No nausea, vomiting or diarrhea.? No fevers or chills.? No headaches or vision changes noted.? She denies any suicidal ideation but does state that she is significantly depressed due to many life stressors at this time. In the ER, she was noted to have gait instability.? CT head was negative.? Only abnormality found was hypokalemia which was replaced.? She did have mild thrombocytopenia with a platelet level of 131.? TSH was within normal limits.? Head and neck CTA were performed showing chronic small-vessel ischemic disease, no infarct and no carotid stenosis.? Echo was also performed and was essentially unrevealing.? ECG did show sinus bradycardia but no other abnormalities. She was monitored on telemetry throughout the hospital stay and showed normal sinus rhythm without any arrhythmias. Her history revealed peculiar aura before she passes out. neurology was consulted and EEG was done which did not show any seizure-like activity. She will follow-up with neurology as an outpatient basis. #She also has underlying depression for which she will continue to follow-up with her psychiatrist. She was recently admitted at outside facility for the same about a month ago. She denies any suicidal ideation during this visit. She has been restarted back on Tranycypromine #Hypertension stable medication #Hyperlipidemia home medications and DVT prophylaxis Lovenox #Code status full code #Status post vagus nerve stimulator placement while back which is not functional at this time. Patient wants this to be removed. General surgery neurosurgery was consulted will likely have a follow-up with Neurology and evaluate this as an outpatient basis. Time Spent with Patient Time attestation: Total time spent providing and/or coordinating discharge services: 45 minutes DS: Data Data Completed and Pending Labs on day of discharge: Labs from last 24 hours 10/22/21 10/22/21 06:43 06:43 WBC 4.7 RBC 4.04 L Hgb 12.2 Hct 37.6 MCV 93.1 MCH 30.2 MCHC 32.4 RDW 13.2 Plt Count 119 L MPV 10.0 Immature Gran % (Auto) 0.4 Neut % (Auto) 55.0 Lymph % (Auto) 29.2 Emmet % (Auto) 9.7 H Eos % (Auto) 5.1 H Baso % (Auto) 0.6 Lymph # (Auto) 1.38 Emmet # (Auto) 0.5 Eos # (Auto) 0.2 Baso # (Auto) 0.0 Abs Immat Gran (auto) 0.02 Absolute Neuts (auto) 2.6 Absolute Nucleated RBC 0.0 Nucleated RBC % 0.0 Sodium 137 Potassium 4.6 Chloride 98 Carbon Dioxide 33 H Anion Gap 6 L BUN 29 H Creatinine 1.10 H Estim Creat Clear Calc 31 Estimated GFR 49 L Glucose 94 Calcium 9.2 Magnesium 2.2 Total Bilirubin 0.4 AST 30 ALT 26 Alkaline Phosphatase 56 Total Protein 7.0 Albumin 3.9 Imaging Radiologist's impression: ITS Impressions Head CT 10/19/21 07:55 IMPRESSION: 1. Stable mild nonspecific cerebral white matter disease, which likely represents chronic small vessel ischemic disease. Head/Neck CTA 10/19/21 11:05 IMPRESSION: 1. Mild nonspecific cerebral white matter disease, which likely represents chronic small vessel ischemic disease. 2. No aneurysm or significant intracranial arterial stenosis. 3. 0% stenosis of the proximal internal carotid arteries relative to normal distal artery lumen diameters (NASCET criteria). Discharge Plan Discharge Attending physician on
--- NOTE | 2021-10-23 12:14 | WPDNEUROLOGY ---
Neurology EEG Report General Information Date of Study: 10/22/21 TEST eeg DIAGNOSIS syncopal episode CONDITION OF RECORDING awake drowsy and sleep EEG NUMBER [id number] CLINICAL HISTORY patient reports she became dizzy and lost consciousness couple of days ago EEG DESCRIPTION background rhythm consists of 8 to 9 hertz per 2nd low to medium voltage alpha seen posteriorly admixed with low-voltage 15 to 18 hertz per 2nd beta. Bilateral low voltage beta activity seen during drowsiness admixed with waxing and waning posterior alpha rhythm. Bilateral symmetrical sleep activity seen during sleep. Multiple movement artifacts are noted throughout the tracing. Hyperventilation not done. Non paroxysmal. Nonfocal. Nonlateralizing. IMPRESSION No significant abnormalities noted
== END 2021-10-23 12:38 | disposition home or self-care (01) ==
LOC: ANHED 23:22 → ANH3MEDSUR 10-19 05:06
PROVIDERS: Student in an Organized Health Care Education/Training Program; Admitting Provider Internal Medicine; Emergency Provider Emergency Medicine; PCP Emergency Medicine; Visit Provider Internal Medicine
DX: R55 Syncope and collapse (principal); E87.6 Hypokalemia; R26.89 Other abnormalities of gait and mobility; D69.6 Thrombocytopenia, unspecified; R11.2 Nausea with vomiting, unspecified; I10 Essential (primary) hypertension; E78.5 Hyperlipidemia, unspecified; F41.9 Anxiety disorder, unspecified; F32.A Depression, unspecified; Z87.19 Personal history of other diseases of the digestive system; Z20.822 Contact with and (suspected) exposure to COVID-19
CPT/HCPCS: 36415; 70450; 70496; 70498; 80053; 82948; 83735; 84443; 84484; 85025; 85055; 93005; 93306; 95816; 96361; 96372; 96374; 96375; 97161; 97165; 99285; A9270; C9803; G0378; J1650; J1885; J2405; J7030; Q9967; U0003; U0005

== ENCOUNTER 2021-11-14 01:23 | Emergency (ER) | payer MEDICARE, SELFPAY ==
[2021-11-14] VITALS (12 sets, daily range): BP systolic 84–154; BP diastolic 59–79; PULSE 59–70; RESP 11–18; TEMP 36.5; O2SAT 90–97
--- NOTE | 2021-11-14 01:54 | ECG_ITS ---
Measurements Intervals [place] Rate: 60 P: 54 OH: 165 QRS: 33 QRSD: 85 T: 31 QT: 411 QTc: 412 Interpretive Statements SINUS RHYTHM NORMAL ECG COMPARED TO ECG 10/18/2021 23:12:42 SINUS RHYTHM NOW PRESENT Electronically Signed On 11-14-2021 7:29:12 CDT by Tejinder Taylor D.O.
[2021-11-14] MEDS: SODIUM CHLORIDE 0.9% IV 1,000 ML 999 ML IV CONT (02:23)
[2021-11-14] MEDS: ONDANSETRON INJ 4 MG/2 ML VIAL IV PUSH (02:23)
--- NOTE | 2021-11-14 02:50 | PC.NURSE ---
Attempted to obtain blood for labs from pt x 2 unsuccessful sticks. Pt tolerated well. Awaiting another RN to obtain
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
[2021-11-14 04:01] LABS: Basophils Percent Auto 0.5 % (0.2-1.2); Eosinophils Absolute Auto 0.1 K/mm3 (0-0.3); Eosinophils Percent Auto 3.8 % (0-4.4); Hematocrit 33.7 % (37.0-47.0); Hemoglobin 11.6 g/dL (12.0-15.0); Immature Granulocyte Absolute 0.01 K/mm3 (0.00-0.031); Immature Granulocyte Percent A 0.3 % (0-0.5); Lymphocytes Absolute Auto 0.92 K/mm3 (0.9-3.2); Lymphocytes Percent Auto 24.9 % (18.3-44.2); Mean Corpuscular HGB Conc 34.4 g/dl (32-36); Mean Corpuscular Hemoglobin 31.2 pg (26-34); Mean Corpuscular Volume 90.6 fl (80-100); Mean Platelet Volume 9.5 fl (7.4-10.4); Monocytes Absolute Auto 0.4 K/mm3 (0.1-0.6); Monocytes Percent Auto 11.6 % (2.6-8.5); Neutrophils Absolute Auto 2.2 K/mm3 (1.3-6.7); Neutrophils Percent Auto 58.9 % (45.5-73.1); Platelet Count Result 134 k/mm3 (150-375); Red Blood Count 3.72 M/mm3 (4.2-5.4); Red Cell Distribution Width 13.2 % (11.5-14.5); White Blood Count 3.7 K/mm3 (4.5-10.0)
[2021-11-14 04:13] LABS: Alanine Aminotransferase 21 U/L (6-35); Albumin Level 3.7 g/dL (3.5-5.1); Alkaline Phosphatase 58 U/L (38-126); Anion Gap 5 mmol/L (8-16); Aspartate Amino Transferase 34 U/L (14-36); Bilirubin,Total 0.7 mg/dL (0.2-1.3); Blood Urea Nitrogen 27 mg/dL (7-17); Calcium 8.7 mg/dL (8.4-10.2); Carbon Dioxide 27 mmol/L (22-30); Chloride 108 mmol/L (98-107); Estimated CRCL calculation 31 ml/min; Estimated Glomerular Filt Rate 49; Glucose 108 mg/dL (65-110); Magnesium 2.1 mg/dL (1.6-2.3); Potassium 3.7 mmol/L (3.4-5.0); Sodium 140 mmol/L (137-145)
[2021-11-14 04:24] LABS: Troponin I < 0.012 ng/mL (0.000-0.034)
--- NOTE | 2021-11-14 04:41 | PC.NURSE ---
Ambulating in hallway with steady gait.
[2021-11-14 04:58] LABS: Lactic Acid Reflex < 0.5 mmol/L (0.7-2.0)
== END 2021-11-14 05:49 | disposition home or self-care (01) ==
PROVIDERS: Emergency Provider Emergency Medicine; PCP Emergency Medicine
DX: R53.1 Weakness (principal); R51.9 Headache, unspecified; K21.9 Gastro-esophageal reflux disease without esophagitis; I10 Essential (primary) hypertension
CPT/HCPCS: 36415; 80053; 83605; 83735; 84484; 85025; 93005; 96365; 96375; 99284; J0131; J2405; J7030

== ENCOUNTER 2021-12-09 09:18 | Emergency (ER) | payer MEDICARE, SELFPAY ==
[2021-12-09 09:16] VITALS: BP 116/76; PULSE 57; RESP 16; TEMP 36.3; O2SAT 100
--- NOTE | 2021-12-09 09:34 | ED.ANXIETY ---
HPI - Anxiety General Chief Complaint: Anxiety Stated Complaint: Anxiety/depression Time Seen by Provider: 12/09/21 09:21 History of Present Illness HPI narrative: 71-year-old female history of high blood pressure, anxiety and depression presents to the emergency room via EMS for evaluation of increased anxiety. Patient states that she has been out of her psychiatric meds for 5 weeks, stating that she has been hospitalized during that time and she has been unable to reach her psychiatrist for refills. Patient states that she has been taking an old prescription of hydroxyzine to alleviate her anxiety, stating it is not helping. Denies any HI or SI. Hospitalized here and Related Data Home Medications Medication Instructions Recorded Confirmed gabapentin 300 mg capsule 300 mg PO HS 02/20/20 10/19/21 quetiapine 50 mg tablet 50 mg PO QHS 09/02/21 10/19/21 melatonin 10 mg tablet 10 mg PO HS 10/19/21 10/19/21 Allergies Allergy/AdvReac Type Severity Reaction Status Date / Time Penicillins Allergy Unknown Itching Verified 12/09/21 09:37 Sulfa (Sulfonamide Allergy Unknown Itching Verified 12/09/21 09:37 Antibiotics) Review of Systems Review of Systems: CONSTITUTIONAL: Denies fever, chills, or sweats. EYES: Denies visual changes, redness, or discharge. ENT: Denies rhinorrhea, congestion, sore throat, or otalgia. CARDIOVASCULAR: Denies chest pain, palpitations, or edema. RESPIRATORY: Denies cough or dyspnea. GASTROINTESTINAL: Denies abdominal pain, nausea, vomiting, or diarrhea. GENITOURINARY: Denies dysuria or hematuria. SKIN: Denies rash or itching. MUSCULOSKELETAL: Denies back pain, joint pain, or myalgia. NEUROLOGIC: Denies headache, numbness, dizziness, or weakness. PSYCHIATRIC: Reports anxiety or depression. [facility] Past Medical History Medical History Anxiety Depression History of gastroesophageal reflux (GERD) Hypertension Post-menopausal Surgical History Surgical History No significant past surgical history Family History Family History Sibling Family history of cardiovascular disease Father , Esophageal cancer Family history of malignant neoplasm, Onset Age: 66 Mother , Related to pneumonia No problems noted. Social History Social History Smoking status: Never smoker Tobacco type: cigarettes Second hand tobacco smoke exposure: No Alcohol intake: never Substance use: never Substance use type: does not use Additional occupation/education comments: Disable Gender identity (if verbalized by the patient): Female Spiritual care concerns: No Exam Narrative: GENERAL: Well-appearing, well-nourished, no physical limitations, and in no acute distress. HEAD: Normocephalic, atraumatic. EYES: Conjunctivae normal, PERRLA and EOMI. CHEST: Clear to auscultation. No respiratory distress. No wheezes rales or rhonchi. HEART: Regular rate and rhythm. No murmur heard. Normal peripheral pulses. BACK: No CVA tenderness; No cervical/thoracic/lumbar tenderness, step-offs, bony abnormality; FROM EXTREMITIES: Normal range of motion. No edema. No clubbing or cyanosis SKIN: Warm, dry, no rash. No noted wounds NEURO: No focal deficits. Alert and oriented x3. MAEW. CN's II-XI intact bilaterally, normal gait PSYCH: Cooperative. Anxious. Course Course Emergency Course: Spoke to Polina Centeno with [facility] at 1010. She is going to refill the patient's prescriptions, and is requesting the patient call her for an appointment for follow-up. Discussed this phone call with the patient, she states that she is willing to be discharged so she can follow-up with Polina. Vital Signs Vital signs: Vital Signs Temperature 36.3 C L 12/09/21 09:
[2021-12-09] MEDS: LORazepam (*CRX) 1 MG TABLET PO (09:45)
[2021-12-09 10:35] VITALS: BP 123/75; PULSE 68; RESP 16; O2SAT 100
== END 2021-12-09 10:35 | disposition home or self-care (01) ==
PROVIDERS: Emergency Provider Nurse Practitioner Family; PCP Emergency Medicine
DX: F41.9 Anxiety disorder, unspecified (principal); K21.9 Gastro-esophageal reflux disease without esophagitis; I10 Essential (primary) hypertension
CPT/HCPCS: 99284; A9270

== ENCOUNTER 2022-04-14 22:34 | Emergency (ER) | payer MEDICARE, SELFPAY ==
--- NOTE | ~2022-04-14 | CT_ITS ---
CT head without contrast Indication: Altered mental status COMPARISON: 10/18/2021 Technique: Serial scans were obtained through the brain without the administration of contrast. Dose reduction technique was used on this scan by utilizing automated exposure control and iterative recon struction technique. The dose-length product (DLP) was 605.33 mGy-cm. Findings: There is no evidence of intracranial hemorrhage, mass lesion, or acute infarct. The ventri cles and subarachnoid spaces are unremarkable. Minimal low attenuation regions are seen within the pe riventricular white matter bilaterally, likely representing changes from chronic microvascular ischem ic disease. There is no evidence of edema, mass effect or midline shift. The visualized paranasal s inuses and mastoid air cells are clear. Impression: No intracranial hemorrhage, mass, or acute infarct. Mild chronic white matter changes, as above. Reviewed, dictated and finalized at location . ATERAL CLERK Impression: No intracranial hemorrhage, mass, or acute infarct. Mild chronic white matter changes, as above.
--- NOTE | ~2022-04-14 | XR_ITS ---
AP view of the pelvis and AP and lateral views of the left hip Clinical history: Pain Findings: No acute fracture or dislocation is seen. Osseous alignment is anatomic. Bilateral hip and SI joint spaces are preserved. Soft tissues are unremarkable. Impression: No significant abnormality is seen. Reviewed, dictated and finalized at [facility]. TER MANAGER Impression: No significant abnormality is seen.
[2022-04-14 22:46] VITALS: BP 166/99; PULSE 79; RESP 20; TEMP 36.7; O2SAT 100
--- NOTE | 2022-04-14 23:03 | ECG_ITS ---
Measurements Intervals [place] Rate: 71 P: 65 ID: 162 QRS: 43 QRSD: 87 T: 50 QT: 367 QTc: 400 Interpretive Statements SINUS RHYTHM NORMAL ECG COMPARED TO ECG 11/14/2021 02:07:14 NO SIGNIFICANT CHANGES Electronically Signed On 04-15-2022 10:06:50 DELIMER by Enrrique Jean-Baptiste M.D.
[2022-04-14 23:18] LABS: Basophils Percent Auto 0.6 % (0.2-1.2); Eosinophils Absolute Auto 0.1 K/mm3 (0-0.3); Eosinophils Percent Auto 2.7 % (0-4.4); Hematocrit 38.6 % (37.0-47.0); Hemoglobin 13.1 g/dL (12.0-15.0); Immature Granulocyte Absolute 0.01 K/mm3 (0.00-0.031); Immature Granulocyte Percent A 0.3 % (0-0.5); Lymphocytes Absolute Auto 0.96 K/mm3 (0.9-3.2); Lymphocytes Percent Auto 28.3 % (18.3-44.2); Mean Corpuscular HGB Conc 33.9 g/dl (32-36); Mean Corpuscular Hemoglobin 31.2 pg (26-34); Mean Corpuscular Volume 91.9 fl (80-100); Mean Platelet Volume 9.1 fl (7.4-10.4); Monocytes Absolute Auto 0.5 K/mm3 (0.1-0.6); Monocytes Percent Auto 13.9 % (2.6-8.5); Neutrophils Absolute Auto 1.8 K/mm3 (1.3-6.7); Neutrophils Percent Auto 54.2 % (45.5-73.1); Platelet Count Result 124 k/mm3 (150-375); Red Cell Distribution Width 13.2 % (11.5-14.5); White Blood Count 3.4 K/mm3 (4.5-10.0)
[2022-04-14 23:28] LABS: Ethanol < 10 mg/dL (<10)
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
[2022-04-14 23:35] LABS: Add Urine Microscopic? YES; Appearance Urine Clear (Clear); Bacteria Urine Trace /hpf; Bilirubin Urine Negative (Negative); Blood Urine Negative (Negative); Color Urine Yellow (Yellow); Glucose Urine UA Negative (Negative); Ketones Urine Trace mg/dL (Negative); Leukocyte Esterase Ur Trace LEU/UL (Negative); Nitrate Urine Negative (Negative); Protein Urine Negative (Negative); RBC Urine 0-2 /hpf (0-2); Squamous Epithelial Cell Urine Rare /hpf (Few); pH Urine 7.5 (5.0-9.0)
[2022-04-14 23:36] LABS: Alanine Aminotransferase 22 U/L (6-35); Albumin Level 4.2 g/dL (3.5-5.1); Alkaline Phosphatase 72 U/L (38-126); Anion Gap 5 mmol/L (8-16); Aspartate Amino Transferase 31 U/L (14-36); Bilirubin,Total 0.9 mg/dL (0.2-1.3); Blood Urea Nitrogen 21 mg/dL (7-17); Calcium 8.4 mg/dL (8.4-10.2); Carbon Dioxide 30 mmol/L (22-30); Chloride 107 mmol/L (98-107); Estimated CRCL calculation 40 ml/min; Estimated Glomerular Filt Rate > 60; Glucose 100 mg/dL (65-110); Potassium 3.6 mmol/L (3.4-5.0); Sodium 142 mmol/L (137-145)
[2022-04-14 23:46] LABS: Amphetamine Screen Urine Negative (Negative); Barbiturate Screen Urine Negative (Negative); Benzodiazepines Screen Urine Negative (Negative); Cannabinoid Screen Urine Negative (Negative); Cocaine Screen Urine Negative (Negative); Methadone Screen Urine Negative (Negative); Opiate Screen Urine Negative (Negative); Phencyclidine Screen Urine Negative (Negative)
[2022-04-15] VITALS (51 sets, daily range): BP systolic 130–170; BP diastolic 75–144; PULSE 60–113; RESP 16–20; O2SAT 89–100
[2022-04-15 00:09] LABS: Influenza A QL RT-PCR Negative (Negative); Influenza B QL RT-PCR Negative (Negative); SARS-CoV-2 RNA PCR Negative
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
[2022-04-15] MEDS: SODIUM CHLORIDE 0.9% IV 1,000 ML 999 ML IV CONT (02:04)
--- NOTE | 2022-04-15 02:11 | PC.NURSE ---
Crisis called at this time to come evaluate pt.
--- NOTE | 2022-04-15 03:41 | PC.NURSE ---
Crisis given update about what brought pt into ED. Informed cafeteria worker that there is no family at bedside because there are no phone numbers listed to contact family and pt does not remember anybody's number.
--- NOTE | 2022-04-15 05:11 | PC.NURSE ---
Pt sleeping on ED stretcher. Chart has been faxed to [facility] in [place].
--- NOTE | 2022-04-15 05:42 | PC.NURSE ---
[facility] is not accepting patient. Spoke with Tania who states she read notes from previous visits and states pt has never had any episodes of psychosis during previous visits and they have tried to get her into some adult day programs to help with loneliness but pt never wants to go. States that she's lonely and family attempted to admit her to a assisted but pt refuses to go. Recommended that Adult Protective Services be contacted for resources. Will wait to hear from [facility] in [place] before contacting APS.
--- NOTE | 2022-04-15 06:17 | PC.NURSE ---
Asif from [facility] called. They are currently full but do have discharges today. Chart faxed.
--- NOTE | 2022-04-15 07:10 | PC.NURSE ---
Nurse report given Kaylin PHILLIPS
--- NOTE | 2022-04-15 07:59 | PC.NURSE ---
pt sitting on side of the bed. anxious and stating she cant breathe. pt relaxed with short conversation and placement of oxygen back in nose. again resting quietly on stretcher.
[2022-04-15] MEDS: amLODIPine BESYLATE 5 MG TABLET PO (08:25)
[2022-04-15] MEDS: carvediloL 6.25 MG TABLET PO (08:25)
[2022-04-15] MEDS: LOSARTAN POTASSIUM 100 MG TABLET PO (08:25)
--- NOTE | 2022-04-15 12:00 | PC.NURSE ---
pt getting out of bed. asking who she is and what happened. pt oriented to todays events. pt ambulatory to bathroom with 2 person assist. pt walked back to room and again placed in room on bed alarm. no distress noted. crisis continuing to find placement due to pt being confused .
--- NOTE | 2022-04-15 14:05 | PC.NURSE ---
Pt attempting to sit at end of bed and get up. Bed alarm went off and this rn and others went into room. Pt reoriented to environment and calmly asked to not get up without assistance. bed alarm reset and pt comfortably back in bed with call light in hand at this time. attempting to find out family contact information per request of patient
--- NOTE | 2022-04-15 14:42 | PC.NURSE ---
Phone numbers for Alondra Ruth (sister) and Sherie Curry (niece) were obtained with help of [place] [employer]. It was requested by patient that this RN call those two people. Alondra Ruth was called at [phone] and the call did not go through. Sherie Curry was called at [phone] and Corina, who identified herself as Sherie's daughter, answered the phone. I identified myself and informed Corina I was looking for a phone number for Alondra Ruth. I could hear an unidentified female in the background yelling. Corina then asked, Is this about Mary Kate? What does she want? . I again informed her I was looking for an active phone number for Alondra Ruth. Corina told me that none of the family members would be up to see Mary Kate and that Thalia has had a lot of operations and procedures and she hurts her heart . The conversation ended at that time. EDP, Dr. Baugh, and primary RN, Kaylin, made aware.
--- NOTE | 2022-04-15 14:43 | PC.NURSE ---
pt ambulatory to bathroom with assist. requesting us to contact multiple family member.
--- NOTE | 2022-04-15 15:44 | PC.NURSE ---
aditi colvin from [facility] called stated they will review tomorrow that its to late in the day to start this case. Faxed face sheet to this facility. Ms Colvin also stated that may take a few days to accept unsure for insurance purpose. Fax # phone #
--- NOTE | 2022-04-15 18:28 | PC.NURSE ---
nurse to nurse report given to Debra PHILLIPS at [facility] at [phone].
== END 2022-04-15 19:53 | disposition home or self-care (01) ==
PROVIDERS: Emergency Provider General Practice; PCP Emergency Medicine
DX: F41.9 Anxiety disorder, unspecified (principal); F22 Delusional disorders; Z20.822 Contact with and (suspected) exposure to COVID-19; K21.9 Gastro-esophageal reflux disease without esophagitis; F32.9 Major depressive disorder, single episode, unspecified; I10 Essential (primary) hypertension; Z79.899 Other long term (current) drug therapy
CPT/HCPCS: 36415; 70450; 73502; 80053; 80307; 81001; 84443; 85025; 87086; 87088; 87636; 93005; 96360; 96361; 99284; A9270; J7030

== ENCOUNTER 2022-06-01 08:31 | Emergency (ER) | payer MEDICARE, SELFPAY ==
--- NOTE | ~2022-06-01 | XR_ITS ---
EXAMINATION: XR chest 2V DATE: 06/01/2022 09:34 INDICATION: Altered mental status and confusion TECHNIQUE: frontal and lateral views of the chest were obtained. COMPARISON: Chest radiograph dated 04/11/2020 FINDINGS: The lungs remain clear with no focal airspace opacities, pulmonary edema, pleural effusion or pneumot horax. The cardiomediastinal silhouette is normal. Partially supply with lead extending cephalad liliane g the left side of the neck. Mild to moderate upper thoracic spondylosis. IMPRESSION: 1. No acute cardiopulmonary disease. Reviewed, dictated and finalized at location A.
--- NOTE | ~2022-06-01 | CT_ITS ---
EXAMINATION: CT brain wo con INDICATION: Headache COMPARISON: 04/15/2022 TECHNIQUE: Standard unenhanced head CT. The dose-length product (DLP) was 605.33 mGy-cm. The mA was a djusted according to patient size. Iterative reconstruction technique was employed. FINDINGS: There is no acute intraparenchymal hemorrhage. No evidence of mass lesion. No evidence of a cute infarction. There is mild periventricular and subcortical hypodensity probably related to small vessel ischemic disease. There is mild prominence of the sulci and ventricles related to cerebral atr ophy. Intracranial calcified cerebral atherosclerosis is noted. There are no extra-axial collections. There is no mass effect or midline shift. The orbits and soft tissues are unremarkable. The visualiz ed sinuses and mastoid air cells are well aerated. IMPRESSION: 1. No acute intracranial abnormality. 2. Age related findings. Reviewed, dictated and finalized at location L.
[2022-06-01 08:33] VITALS: BP 150/83; PULSE 77; RESP 20; TEMP 36.7; O2SAT 99
--- NOTE | 2022-06-01 09:09 | ECG_ITS ---
Measurements Intervals [place] Rate: 79 P: 73 AK: 153 QRS: 53 QRSD: 89 T: 52 QT: 382 QTc: 438 Interpretive Statements SINUS RHYTHM BASELINE ARTIFACT- I, II, III, AVR, AVL, AVF, V4-V6 NORMAL ECG COMPARED TO ECG 04/14/2022 23:18:25 NO SIGNIFICANT CHANGES Electronically Signed On 06-01-2022 9:59:11 CDT by Tejinder Taylor D.O.
--- NOTE | 2022-06-01 09:11 | ED.GENADULT ---
HPI - General Adult General Chief complaint: Anxiety Stated complaint: DRAKE & rash Time Seen by Provider: 06/01/22 08:43 History of Present Illness HPI narrative: Patient is a 72-year-old female with a history of anxiety and depression here via EMS due to multiple medical complaints. She tells me that she called an ambulance today because she felt lightheaded and had palpitations but she is a poor historian and is very difficult to orient. She does admit to similar symptoms with anxiety flare-ups in the past. She has been out of her psychiatric medicines for a while including her Ativan. She follows with a [facility] nurse practitioner but apparently has not contacted them. She denies any suicidal, homicidal ideation, illicit drug or alcohol use today. She believes she may have fallen and hit her head as well. She does not take blood thinners. Reports she has been battling a sinus infection for 3 months and has been on numerous rounds of antibiotics and steroids without relief, is set to follow-up with ENT next week. Related Data Home Medications Medication Instructions Recorded Confirmed gabapentin 300 mg capsule 300 mg PO HS 02/20/20 10/19/21 quetiapine 50 mg tablet 50 mg PO QHS 09/02/21 10/19/21 melatonin 10 mg tablet 10 mg PO HS 10/19/21 10/19/21 Allergies Allergy/AdvReac Type Severity Reaction Status Date / Time Penicillins Allergy Unknown Itching Verified 12/09/21 09:37 Sulfa (Sulfonamide Allergy Unknown Itching Verified 12/09/21 09:37 Antibiotics) Review of Systems Review of Systems: Gen.: Denies fevers or chills Eyes: Denies eye pain or visual change ENT: Denies congestion Respiratory: Denies shortness of breath or cough CV: Reports palpitations GI: Denies abdominal pain nausea, emesis or diarrhea denies burning, urgency, frequency or hematuria Musculoskeletal: Denies back pain or muscle pain Neuro: Denies numbness, tingling, weakness or focal weakness Psych: Reports anxiety Skin: Denies rash Except as documented, all other systems reviewed and negative [facility] Past Medical History Medical History Anxiety Depression History of gastroesophageal reflux (GERD) Hypertension Post-menopausal Surgical History Surgical History No significant past surgical history Family History Family History Sibling Family history of cardiovascular disease Father , Esophageal cancer Family history of malignant neoplasm, Onset Age: 66 Mother , Related to pneumonia No problems noted. Social History Social History Smoking status: Never smoker Tobacco type: cigarettes Second hand tobacco smoke exposure: No Alcohol intake: never Substance use: never Substance use type: former substance user Living arrangements: alone Occupation/Education: other Additional occupation/education comments: Disable Gender identity (if verbalized by the patient): Female Spiritual care concerns: No Exam Narrative: APPEARANCE: Well appearing, no pain in distress, well-nourished. Head: Normocephalic and atraumatic. EYES: PERRLA/EOMI, conjunctivae clear NOSE: No nasal drainage EARS: External ear normal in appearance THROAT: Oropharynx is clear. Mucous membranes are moist. NECK: Supple. No adenopathy, no masses. RESPIRATORY: Airway patent, respirations nonlabored. Clear to auscultation bilaterally, no rales, rhonchi, wheezing. CARDIOVASCULAR: Regular rate and rhythm without murmurs, rubs, or gallops. ABDOMINAL: Normoactive bowel sounds. Soft, nontender, nondistended. No rebound tenderness or guarding. MUSCULOSKELETAL: Extremities are warm and well-perfused. Moves all extremities well. No edema. NEURO: Normal speech. No focal neurologic defici
[2022-06-01 09:44] LABS: Basophils Percent Auto 0.3 % (0.2-1.2); Eosinophils Absolute Auto 0.2 K/mm3 (0-0.3); Eosinophils Percent Auto 2.6 % (0-4.4); Hematocrit 34.3 % (37.0-47.0); Hemoglobin 12.1 g/dL (12.0-15.0); Immature Granulocyte Absolute 0.03 K/mm3 (0.00-0.031); Immature Granulocyte Percent A 0.5 % (0-0.5); Lymphocytes Absolute Auto 0.88 K/mm3 (0.9-3.2); Lymphocytes Percent Auto 14.3 % (18.3-44.2); Mean Corpuscular HGB Conc 35.3 g/dl (32-36); Mean Corpuscular Hemoglobin 31.5 pg (26-34); Mean Corpuscular Volume 89.3 fl (80-100); Mean Platelet Volume 9.1 fl (7.4-10.4); Monocytes Absolute Auto 0.7 K/mm3 (0.1-0.6); Monocytes Percent Auto 10.9 % (2.6-8.5); Neutrophils Absolute Auto 4.4 K/mm3 (1.3-6.7); Neutrophils Percent Auto 71.4 % (45.5-73.1); Platelet Count Result 171 k/mm3 (150-375); Red Blood Count 3.84 M/mm3 (4.2-5.4); Red Cell Distribution Width 12.6 % (11.5-14.5); White Blood Count 6.2 K/mm3 (4.5-10.0)
[2022-06-01 09:59] LABS: Alanine Aminotransferase 22 U/L (6-35); Albumin Level 4.3 g/dL (3.5-5.1); Alkaline Phosphatase 73 U/L (38-126); Anion Gap 6 mmol/L (8-16); Aspartate Amino Transferase 38 U/L (14-36); Bilirubin,Total 1.1 mg/dL (0.2-1.3); Blood Urea Nitrogen 26 mg/dL (7-17); Calcium 8.8 mg/dL (8.4-10.2); Carbon Dioxide 31 mmol/L (22-30); Chloride 103 mmol/L (98-107); Estimated CRCL calculation 22 ml/min; Estimated Glomerular Filt Rate 32; Glucose 102 mg/dL (65-110); Potassium 3.8 mmol/L (3.4-5.0); Sodium 140 mmol/L (137-145)
[2022-06-01 09:59] LABS: Acetaminophen < 10 ug/mL (10-30); Ethanol < 10 mg/dL (<10)
[2022-06-01 10:00] VITALS: BP 146/88; BP 155/107; PULSE 80; PULSE 82
[2022-06-01 10:01] VITALS: BP 158/95; BP 160/99; PULSE 74; PULSE 81; RESP 18; O2SAT 100
[2022-06-01] MEDS: SODIUM CHLORIDE 0.9% IV 1,000 ML 999 ML IV CONT (10:15)
[2022-06-01 10:59] VITALS: BP 159/91; PULSE 88; RESP 20; O2SAT 99
[2022-06-01 11:03] LABS: Appearance Urine Clear (Clear); Bilirubin Urine Negative (Negative); Blood Urine Negative (Negative); Color Urine Yellow (Yellow); Glucose Urine UA Negative (Negative); Ketones Urine Negative (Negative); Leukocyte Esterase Ur Negative LEU/UL (Negative); Nitrate Urine Negative (Negative); Protein Urine Negative (Negative); Specific Grav Ur 1.007 (1.001-1.035); Urobilinogen Urine 0.2 mg/dL (<2.0); pH Urine 6.5 (5.0-9.0)
[2022-06-01 11:11] LABS: Add Urine Microscopic? NO
[2022-06-01 11:31] LABS: Barbiturate Screen Urine Negative (Negative)
[2022-06-01] MEDS: SODIUM CHLORIDE 0.9% IV 500 ML 999 ML IV CONT (11:36)
[2022-06-01 11:41] LABS: Benzodiazepines Screen Urine Negative (Negative)
[2022-06-01 11:43] LABS: Amphetamine Screen Urine Negative (Negative); Cannabinoid Screen Urine Negative (Negative); Cocaine Screen Urine Negative (Negative); Methadone Screen Urine Negative (Negative); Opiate Screen Urine Negative (Negative); Phencyclidine Screen Urine Negative (Negative)
[2022-06-01 12:14] LABS: Blood Urea Nitrogen 26 mg/dL (7-17); Estimated CRCL calculation 22 ml/min; Estimated Glomerular Filt Rate 32
[2022-06-01 13:13] VITALS: BP 113/90; PULSE 97; RESP 18; O2SAT 98
[2022-06-01 13:27] LABS: Blood Urea Nitrogen 21 mg/dL (7-17); Estimated CRCL calculation 28 ml/min; Estimated Glomerular Filt Rate 44
[2022-06-01] MEDS: LORazepam (*CRX) 0.5 MG TABLET PO (13:27)
--- NOTE | 2022-06-01 13:41 | PC.NURSE ---
Patient medically cleared per PA. Crisis called. Will send out someone to evaluate patient
[2022-06-01 14:53] LABS: Influenza A QL RT-PCR Negative (Negative); Influenza B QL RT-PCR Negative (Negative); SARS-CoV-2 RNA PCR Negative
[2022-06-01 15:25] VITALS: BP 157/91; PULSE 97; RESP 20; O2SAT 100
== END 2022-06-01 15:26 | disposition home or self-care (01) ==
PROVIDERS: Emergency Provider Physician Assistant; PCP Emergency Medicine
DX: F41.9 Anxiety disorder, unspecified (principal); I10 Essential (primary) hypertension; F32.A Depression, unspecified; Z20.822 Contact with and (suspected) exposure to COVID-19; Z79.899 Other long term (current) drug therapy
CPT/HCPCS: 36415; 70450; 71046; 80053; 80307; 81003; 82565; 84443; 84520; 85025; 87636; 93005; 96360; 96361; 99284; A9270; J7030; J7040

== ENCOUNTER 2022-06-14 10:59 | Emergency (ER) | payer MEDICARE, SELFPAY ==
--- NOTE | ~2022-06-14 | CT_ITS ---
EXAMINATION: CT soft tissue neck w con DATE: 06/14/2022 14:39 INDICATION: Right submandibular lump. TECHNIQUE: Computed tomography (CT) of the neck was performed with 75 mL Omnipaque-350 intravenous co ntrast. Automated exposure control and iterative reconstruction technique were employed. The dose-pia gth product was 247.70 mGy-cm. COMPARISON: Neck CTA 10/19/2021 FINDINGS: There are no pathologically enlarged lymph nodes. There is a left chest pacer. There is manpreet que in the proximal internal carotid arteries with <50% stenosis relative to normal distal artery lum en diameters. There is mild mucosal thickening in the ethmoid sinuses. The mastoid air cells are norm al. There is moderate cervical spondylosis. IMPRESSION: 1. No abnormal neck mass or lymphadenopathy. Reviewed, dictated and finalized at location A.
[2022-06-14 11:04] VITALS: BP 139/87; PULSE 79; RESP 16; TEMP 37.2; O2SAT 99
[2022-06-14 11:59] LABS: Basophils Percent Auto 0.7 % (0.2-1.2); Eosinophils Absolute Auto 0.1 K/mm3 (0-0.3); Eosinophils Percent Auto 1.2 % (0-4.4); Hematocrit 35.3 % (37.0-47.0); Hemoglobin 12.1 g/dL (12.0-15.0); Immature Granulocyte Absolute 0.01 K/mm3 (0.00-0.031); Immature Granulocyte Percent A 0.2 % (0-0.5); Lymphocytes Percent Auto 24.6 % (18.3-44.2); Mean Corpuscular HGB Conc 34.3 g/dl (32-36); Mean Corpuscular Volume 93.4 fl (80-100); Mean Platelet Volume 8.7 fl (7.4-10.4); Monocytes Absolute Auto 0.3 K/mm3 (0.1-0.6); Monocytes Percent Auto 8.4 % (2.6-8.5); Neutrophils Absolute Auto 2.6 K/mm3 (1.3-6.7); Neutrophils Percent Auto 64.9 % (45.5-73.1); Platelet Count Result 192 k/mm3 (150-375); Red Blood Count 3.78 M/mm3 (4.2-5.4); White Blood Count 4.1 K/mm3 (4.5-10.0)
[2022-06-14 12:09] LABS: Alanine Aminotransferase 41 U/L (6-35); Albumin Level 4.4 g/dL (3.5-5.1); Alkaline Phosphatase 76 U/L (38-126); Anion Gap 6 mmol/L (8-16); Appearance Urine Clear (Clear); Aspartate Amino Transferase 36 U/L (14-36); Bacteria Urine None Seen /hpf; Bilirubin Urine Negative (Negative); Bilirubin,Total 0.8 mg/dL (0.2-1.3); Blood Urea Nitrogen 27 mg/dL (7-17); Blood Urine Negative (Negative); Calcium 8.7 mg/dL (8.4-10.2); Carbon Dioxide 29 mmol/L (22-30); Chloride 105 mmol/L (98-107); Color Urine Yellow (Yellow); Estimated CRCL calculation 31 ml/min; Estimated Glomerular Filt Rate 49; Ethanol < 10 mg/dL (<10); Glucose 107 mg/dL (65-110); Glucose Urine UA Negative (Negative); Ketones Urine Negative (Negative); Leukocyte Esterase Ur Negative LEU/UL (Negative); Nitrate Urine Negative (Negative); Potassium 3.7 mmol/L (3.4-5.0); Protein Urine Trace mg/dL (Negative); RBC Urine 0-2 /hpf (0-2); Sodium 140 mmol/L (137-145); Specific Grav Ur 1.027 (1.001-1.035); Squamous Epithelial Cell Urine Few /hpf (Few); WBC Urine 0-5 /hpf; pH Urine 5.5 (5.0-9.0)
[2022-06-14 12:11] LABS: Add Urine Microscopic? YES
[2022-06-14 12:18] LABS: Amphetamine Screen Urine Negative (Negative); Barbiturate Screen Urine Negative (Negative); Benzodiazepines Screen Urine Negative (Negative); Cannabinoid Screen Urine Negative (Negative); Cocaine Screen Urine Negative (Negative); Methadone Screen Urine Negative (Negative); Opiate Screen Urine Negative (Negative); Phencyclidine Screen Urine Negative (Negative)
[2022-06-14 12:36] LABS: Influenza A QL RT-PCR Negative (Negative); Influenza B QL RT-PCR Negative (Negative); SARS-CoV-2 RNA PCR Negative
--- NOTE | 2022-06-14 13:01 | PC.NURSE ---
precautionary tray ordered
--- NOTE | 2022-06-14 13:58 | ED.GENADULT ---
HPI - General Adult General Chief complaint: Upper Respiratory Infection Stated complaint: behavioral Time Seen by Provider: 06/14/22 12:24 Source: patient History of Present Illness HPI narrative: Patient is 73 years old white female came by ambulance to the emergency room because of sore throat and right submandibular pain started months ago. Patient been on different courses of antibiotic without any improvement. She denies any fever, chills, nausea, vomiting, trouble breathing or trouble swallowing. Patient reports that she is afraid to and she will like to be because of the pain. Patient stated me that she took at least 6 tablets of Vistaril last night to make her go to sleep or probably to . Related Data Home Medications Medication Instructions Recorded Confirmed gabapentin 300 mg capsule 300 mg PO HS 02/20/20 10/19/21 quetiapine 50 mg tablet 50 mg PO QHS 09/02/21 10/19/21 melatonin 10 mg tablet 10 mg PO HS 10/19/21 10/19/21 Allergies Allergy/AdvReac Type Severity Reaction Status Date / Time Penicillins Allergy Unknown Itching Verified 12/09/21 09:37 Sulfa (Sulfonamide Allergy Unknown Itching Verified 12/09/21 09:37 Antibiotics) Review of Systems Review of Systems: All systems reviewed & are unremarkable except as noted in HPI and below PMFSH Past Medical History Medical History Anxiety Depression History of gastroesophageal reflux (GERD) Hypertension Post-menopausal Surgical History Surgical History No significant past surgical history Family History Family History Sibling Family history of cardiovascular disease Father , Esophageal cancer Family history of malignant neoplasm, Onset Age: 66 Mother , Related to pneumonia No problems noted. Social History Social History Smoking status: Never smoker Tobacco type: cigarettes Second hand tobacco smoke exposure: No Alcohol intake: never Substance use: never Substance use type: former substance user Living arrangements: alone Occupation/Education: other Additional occupation/education comments: Disable Gender identity (if verbalized by the patient): Female Spiritual care concerns: No Exam Narrative: General appearance: Well-developed, well-nourished Skin: Normal color Head: Normocephalic, nontraumatic Eyes: Clear conjunctiva ENT: Oropharynx normal, ears normal, nose normal, slight tender lump at the right submandibular area Neck: Supple, nontender Chest and respiratory: Airway patent, no respiratory distress, no accessory muscle use Heart: Regular rate/rhythm Abdomen: Soft, nontender, no organomegaly, quiet bowel sounds Vascular: Normal peripheral pulses, normal capillary refill. Musculoskeletal: Normal range of motion, nontender back Neurologic: Alert and oriented ?3, CARDIOVASCULAR SONOGRAPHER is normal as tested, no gross motor deficit Course [employer]/PA Physician Supervision Patient is medically clear for psych evaluation Reevaluation(s) Reevaluation #1: Patient is medically cleared for psych evaluation. Date: 06/14/22 Time: 16:38 Reevaluation #2: Patient been resting quietly in the emergency room without any issues or problems. Date: 06/14/22 Time: 23:14 Vital Signs Vital signs: Vital Signs Temperature 37.2 C 06/14/22 11:04 Pulse Rate 79 06/14/22 11:04 Respiratory Rate 16 06/14/22 11:04 Blood Pressure 139/87 06/14/22 11:04 Pulse Oximetry 99 06/14/22 11:04 Oxygen Delivery Room Air
[2022-06-14 14:54] LABS: Monoscreen Negative (Negative); Negative Monotest Control Negative (Negative); Positive Monotest Control Positive (Positive)
[2022-06-14] MEDS: LORazepam (*CRX) 1 MG TABLET PO (15:00)
[2022-06-14 16:18] LABS: Strep Group A RT-PCR NOT DETECTED (Negative)
--- NOTE | 2022-06-14 20:16 | PC.NURSE ---
Spoke with ALAN Interiano at [facility] for report. She states she will take information to provider and will call back with decision on whether or not she will be accepted
--- NOTE | 2022-06-14 20:20 | PC.NURSE ---
[facility] called to state they are full tonight
--- NOTE | 2022-06-14 20:43 | ECG_ITS ---
Measurements Intervals [place] Rate: 78 P: 62 [place]: 154 QRS: 47 QRSD: 77 T: 49 QT: 366 QTc: 419 Interpretive Statements SINUS RHYTHM POSSIBLE SEPTAL MYOCARDIAL INFARCTION , OF INDETERMINATE AGE [40+ ms Q WAVE IN V1/V2] COMPARED TO ECG 06/01/2022 09:50:58 MYOCARDIAL INFARCT FINDING NOW PRESENT Electronically Signed On 06-15-2022 15:56:59 CDT by Jorge Hurt M.D.
--- NOTE | 2022-06-15 03:09 | PC.NURSE ---
Patient awoke and stated she felt nervous and would like another Ativan as well as something for a headache. Notified Dr. Steve.
[2022-06-15] MEDS: ACETAMINOPHEN 500 MG TABLET 1000 MG PO ×2 (03:13→12:21)
[2022-06-15] MEDS: LORazepam (*CRX) 1 MG TABLET PO (03:14)
--- NOTE | 2022-06-15 03:29 | PC.NURSE ---
Spoke with [facility] who states pts insurance needs to be pre-authorized before she can be accepted to facility. [facility] will call back in AM to consult with care coordination for insurance authorization.
[2022-06-15 05:30] VITALS: BP 151/93; PULSE 66; RESP 16; O2SAT 97
--- NOTE | 2022-06-15 07:20 | PC.NURSE ---
SPOKE WITH GAGE IN CARE COORDINATION WHO WILL CHECK WITH PT'S INSURANCE FOR AUTHORIZATION TO BE ADMITTED TO A FACILITY.
--- NOTE | 2022-06-15 08:01 | PC.NURSE ---
TAMANNA FROM [facility] IN [facility] CALLED LOOKING FOR A PREAUTHORIZATION FOR PT TO BE VOLUNTARY ADMISSION. SPOKE WITH GAGE FROM CARE COORDINATION AGAIN TO LET HIM KNOW OF 2ND REQUEST.
--- NOTE | 2022-06-15 08:45 | PC.NURSE ---
PT REQUESTING AN ADDITIONAL ATIVAN AND HER MORNING DOSE OF ZOLOFT. DR KOCH MADE AWARE. AWAIT ORDERS
--- NOTE | 2022-06-15 09:27 | PCCCNOTE ---
After speaking with nurse I attempted to get auth for inpt admission at [facility] for behavior services. I called Sandy CASTRO ([phone]) with call ref# [id number]. After speaking with person in behavior health division I found I did not have needed information. Information needed was [facility] NPI#, tax ID#, accepting physician NPI#, and UR contact info. I called and spoke with Judith at [facility] and requested that they call for auth so to provide the needed info. I faxed pt facesheet and ER note to facilitated this. Awaiting callback
--- NOTE | 2022-06-15 10:50 | PCCCNOTE ---
Auth received from Sandy Auth # [id number] for [facility] [phone] Auth for 4 days 06/15 thru 06/18/2022 Concurrent review due Tuesday06/18/2022 with Diane at [phone] Nurse to Nurse report call Behavior health at [phone] ED [phone] if doctor to doctor needed Accepting Physician Dr. Yordan Rodriguez [phone]
[2022-06-15 11:30] VITALS: BP 155/100; PULSE 90; RESP 16; O2SAT 96
[2022-06-15] MEDS: LORazepam (*CRX) 0.5 MG TABLET PO (11:34)
[2022-06-15] MEDS: SERTRALINE HCL 50 MG TABLET PO (11:34)
[2022-06-15] MEDS: LOSARTAN POTASSIUM 100 MG TABLET PO (12:21)
[2022-06-15 14:13] VITALS: BP 160/90; PULSE 88; RESP 16; TEMP 36.6; O2SAT 98
== END 2022-06-15 15:55 | disposition short-term general hospital (02) ==
PROVIDERS: General Practice; Emergency Provider Emergency Medicine; PCP Emergency Medicine
DX: F32.A Depression, unspecified (principal); R45.851 Suicidal ideations; F29 Unspecified psychosis not due to a substance or known physiological condition; Z20.822 Contact with and (suspected) exposure to COVID-19; I10 Essential (primary) hypertension; K21.9 Gastro-esophageal reflux disease without esophagitis; F41.9 Anxiety disorder, unspecified; Z79.899 Other long term (current) drug therapy; R94.31 Abnormal electrocardiogram [ECG] [EKG]
CPT/HCPCS: 36415; 70491; 80053; 80307; 81001; 84443; 85025; 86308; 87636; 87651; 87880; 93005; 99285; A9270; Q9967

== ENCOUNTER 2022-07-02 10:44 | Emergency (ER) | payer MEDICARE, SELFPAY ==
[2022-07-02] VITALS (8 sets, daily range): BP systolic 114–181; BP diastolic 88–118; PULSE 68–105; RESP 12–20; TEMP 36.8; O2SAT 98–100
--- NOTE | 2022-07-02 10:54 | ECG_ITS ---
Measurements Intervals [place] Rate: 70 P: 50 [place]: 152 QRS: 16 QRSD: 93 T: 61 QT: 389 QTc: 421 Interpretive Statements SINUS RHYTHM WITHIN NORMAL LIMITS COMPARED TO ECG 06/14/2022 20:47:46 SLIGHTLY DIFFERENT PRECORDIAL LEAD POSITION Electronically Signed On 07-02-2022 15:34:14 CDT by Lawrence Jones M.D.
[2022-07-02] MEDS: METOCLOPRAMIDE HCL INJ 10 MG/2 ML VIAL IM (11:11)
[2022-07-02] MEDS: diphenhydrAMINE HCl CAP 25 MG CAPSULE PO (11:12)
[2022-07-02 11:23] LABS: Basophils Percent Auto 0.6 % (0.2-1.2); Eosinophils Absolute Auto 0.1 K/mm3 (0-0.3); Hematocrit 37.6 % (37.0-47.0); Hemoglobin 12.9 g/dL (12.0-15.0); Immature Granulocyte Absolute 0.01 K/mm3 (0.00-0.031); Immature Granulocyte Percent A 0.3 % (0-0.5); Lymphocytes Absolute Auto 0.79 K/mm3 (0.9-3.2); Lymphocytes Percent Auto 22.8 % (18.3-44.2); Mean Corpuscular HGB Conc 34.3 g/dl (32-36); Mean Corpuscular Hemoglobin 31.4 pg (26-34); Mean Corpuscular Volume 91.5 fl (80-100); Mean Platelet Volume 9.8 fl (7.4-10.4); Monocytes Absolute Auto 0.3 K/mm3 (0.1-0.6); Monocytes Percent Auto 8.6 % (2.6-8.5); Neutrophils Absolute Auto 2.2 K/mm3 (1.3-6.7); Neutrophils Percent Auto 63.7 % (45.5-73.1); Platelet Count Result 186 k/mm3 (150-375); Red Blood Count 4.11 M/mm3 (4.2-5.4); Red Cell Distribution Width 12.2 % (11.5-14.5); White Blood Count 3.5 K/mm3 (4.5-10.0)
[2022-07-02 11:32] LABS: Anion Gap 4 mmol/L (8-16); Blood Urea Nitrogen 48 mg/dL (7-17); Carbon Dioxide 35 mmol/L (22-30); Chloride 102 mmol/L (98-107); Estimated CRCL calculation 31 ml/min; Estimated Glomerular Filt Rate 49; Glucose 118 mg/dL (65-110); Potassium 3.8 mmol/L (3.4-5.0); Sodium 141 mmol/L (137-145)
[2022-07-02 11:49] LABS: Strep Group A RT-PCR NOT DETECTED (Negative)
--- NOTE | 2022-07-02 11:50 | ED.DIZZY ---
HPI - Dizziness General Chief Complaint: Dizziness Stated Complaint: Dizzy, DRAKE Time Seen by Provider: 07/02/22 10:52 History of Present Illness HPI Narrative: Patient with history of anxiety and headaches presenting with sore throat, headache, and anxiety. Related Data Home Medications Medication Instructions Recorded Confirmed gabapentin 300 mg capsule 300 mg PO HS 02/20/20 10/19/21 quetiapine 50 mg tablet 50 mg PO QHS 09/02/21 10/19/21 melatonin 10 mg tablet 10 mg PO HS 10/19/21 10/19/21 hydroxyzine pamoate 25 mg capsule mg 06/15/22 lorazepam 0.5 mg tablet mg 06/15/22 olanzapine 5 mg tablet mg 06/15/22 sertraline 50 mg tablet mg 06/15/22 tranylcypromine 10 mg tablet mg 06/15/22 Allergies Allergy/AdvReac Type Severity Reaction Status Date / Time Penicillins Allergy Unknown Itching Verified 06/15/22 08:45 Sulfa (Sulfonamide Allergy Unknown Itching Verified 06/15/22 08:45 Antibiotics) Review of Systems Review of Systems: CONST: Chills. HEENT: sore throat C/V: No chest pain RESP: No cough GI: No nausea : No dysuria. M/S: No joint pain. SKIN: No rash. NEURO: [Headache without focal numbness or weakness] PSYCH: Anxiety PMFSH Past Medical History Medical History Anxiety Depression History of gastroesophageal reflux (GERD) Hypertension Post-menopausal Surgical History Surgical History No significant past surgical history Family History Family History Sibling Family history of cardiovascular disease Father , Esophageal cancer Family history of malignant neoplasm, Onset Age: 66 Mother , Related to pneumonia No problems noted. Social History Social History Smoking status: Never smoker Tobacco type: cigarettes Second hand tobacco smoke exposure: No Alcohol intake: never Substance use: never Substance use type: does not use Living arrangements: alone Occupation/Education: other Additional occupation/education comments: Disable Gender identity (if verbalized by the patient): Female Spiritual care concerns: No Exam Narrative: EXAMINATION OF ORGAN SYSTEMS/BODY AREAS: Constitutional: Vital signs per nursing GENERAL: Resting comfortably in bed HEAD: Normal with no signs of head trauma. EYES: EOMI, conjunctiva normal ENT: Hearing grossly intact LUNGS: Nonlabored breathing. HEART: [Regular rate and rhythm] ABD: [Soft], [nontender to palpation] EXT: Normal range of motion SKIN: [No rashes or lesions.] NEURO: [Alert and oriented x 3. No gross focal sensory or strength deficits.] PSYCH: Normal affect Course Vital Signs Vital signs: Vital Signs Pulse Rate 71 07/02/22 10:48 Respiratory Rate 12 07/02/22 10:48 Temperature 98.2 F 07/02/22 10:53 Pulse Rate 99 07/02/22 11:52 Respiratory Rate 16 07/02/22 11:52 Blood Pressure 168/88 H 07/02/22 11:52 Pulse Oximetry 98 07/02/22 11:52 Oxygen Delivery Room Air 07/02/22 10:53 MDM - Dizziness MDM Narrative Medical decision making narrative: ED COURSE AND MEDICAL DECISION MAKING: This 72 year old patient presents with viral syndrome, anxiety, headache. Lungs are clear bilaterally without any respiratory distress or accessory muscle use. Normal neurologic exam. Patient is treated symptomatically with reglan, benadryl. Swabs are obtained. Basic labs are obtained. EKG - 12-Lead: Performed at 1054. Interpreted by me. [Sinus rhythm]. Rate 70. [Normal] axis. CT-interval [normal]. QRS duration [normal]. QTc [normal]. [No ST segment elevation or depression]. [T-wave normal]. Impression: No EKG evidence of acute ischemia or dysrhythmia. Labs within acceptable limits, patient requesting to go home at this time. I have reassured her she can always return if she change
[2022-07-02 12:01] LABS: Influenza A QL RT-PCR Negative (Negative); Influenza B QL RT-PCR Negative (Negative); RSV RNA, RT-PCR Negative (Negative); SARS-CoV-2 RNA PCR Negative (Negative)
== END 2022-07-02 11:56 | disposition home or self-care (01) ==
PROVIDERS: Emergency Provider Emergency Medicine; PCP Emergency Medicine
DX: B34.9 Viral infection, unspecified (principal); F41.9 Anxiety disorder, unspecified; Z20.822 Contact with and (suspected) exposure to COVID-19; I10 Essential (primary) hypertension; K21.9 Gastro-esophageal reflux disease without esophagitis; F32.A Depression, unspecified
CPT/HCPCS: 36415; 80048; 85025; 87637; 87651; 93005; 96372; 99283; A9270; J2765

== ENCOUNTER 2022-07-03 18:05 | Emergency (ER) | payer MEDICARE, SELFPAY ==
[2022-07-03 18:08] VITALS: BP 105/60; PULSE 87; RESP 18; TEMP 36.5; O2SAT 99
--- NOTE | 2022-07-03 19:06 | ED.ANXIETY ---
HPI - Anxiety General Chief Complaint: Anxiety Stated Complaint: ANXIETY Time Seen by Provider: 07/03/22 18:43 History of Present Illness HPI narrative: Patient is a 72-year-old female with a longstanding history of psychiatric illness, well-known to this facility, here due to anxiety. Patient states she was recently hospitalized in a geriatric psych facility, was feeling good until 3 days ago. Patient states she ran out of her hydroxyzine which she takes as needed for anxiety. Since running out she has felt very anxious. She denies any chest pain, shortness of breath, suicidal ideation, homicidal ideation, visual hallucinations or audio hallucinations. Related Data Home Medications Medication Instructions Recorded Confirmed gabapentin 300 mg capsule 300 mg PO HS 02/20/20 10/19/21 quetiapine 50 mg tablet 50 mg PO QHS 09/02/21 10/19/21 melatonin 10 mg tablet 10 mg PO HS 10/19/21 10/19/21 hydroxyzine pamoate 25 mg capsule mg 06/15/22 lorazepam 0.5 mg tablet mg 06/15/22 olanzapine 5 mg tablet mg 06/15/22 sertraline 50 mg tablet mg 06/15/22 tranylcypromine 10 mg tablet mg 06/15/22 Allergies Allergy/AdvReac Type Severity Reaction Status Date / Time Penicillins Allergy Unknown Itching Verified 06/15/22 08:45 Sulfa (Sulfonamide Allergy Unknown Itching Verified 06/15/22 08:45 Antibiotics) Review of Systems Review of Systems: Gen: Denies fevers or chills Eyes: Denies eye pain or visual change ENT: Denies congestion Respiratory: Denies shortness of breath or cough CV: Denies chest pain or palpitations GI: Denies abdominal pain nausea, emesis or diarrhea denies burning, urgency, frequency or hematuria Musculoskeletal: Denies back pain or muscle pain Neuro: Denies numbness, tingling, weakness or focal weakness Skin: Denies rash Psych: Reports anxiety Except as documented, all other systems reviewed and negative [facility] Past Medical History Medical History Anxiety Depression History of gastroesophageal reflux (GERD) Hypertension Post-menopausal Surgical History Surgical History No significant past surgical history Family History Family History Sibling Family history of cardiovascular disease Father , Esophageal cancer Family history of malignant neoplasm, Onset Age: 66 Mother , Related to pneumonia No problems noted. Social History Social History Smoking status: Never smoker Tobacco type: cigarettes Second hand tobacco smoke exposure: No Alcohol intake: never Substance use: never Substance use type: does not use Living arrangements: alone Occupation/Education: other Additional occupation/education comments: Disable Gender identity (if verbalized by the patient): Female Spiritual care concerns: No Exam Narrative: APPEARANCE: Well appearing, no pain in distress, well-nourished. Head: Normocephalic and atraumatic. EYES: PERRLA/EOMI, conjunctivae clear NOSE: No nasal drainage EARS: External ear normal in appearance THROAT: Oropharynx is clear. Mucous membranes are moist. NECK: Supple. No adenopathy, no masses. RESPIRATORY: Airway patent, respirations nonlabored. Clear to auscultation bilaterally, no rales, rhonchi, wheezing. CARDIOVASCULAR: Regular rate and rhythm without murmurs, rubs, or gallops. ABDOMINAL: Normoactive bowel sounds. Soft, nontender, nondistended. No rebound tenderness or guarding. MUSCULOSKELETAL: Extremities are warm and well-perfused. Moves all extremities well. No edema. NEURO: Normal speech. No focal neurologic deficits. SKIN: Skin is warm and dry. No rashes. PSYCHIATRIC: Flat affect. Anxious mood. Course Vital Signs Vital signs: Vital Signs Temperature 97.7 F 07/03/22 18:08 Pulse Rate 87
[2022-07-03] MEDS: hydrOXYzine HCL 25 MG TABLET 50 MG PO (19:17)
== END 2022-07-03 21:00 | disposition home or self-care (01) ==
PROVIDERS: Emergency Provider Physician Assistant; PCP Emergency Medicine
DX: F41.9 Anxiety disorder, unspecified (principal); I10 Essential (primary) hypertension; K21.9 Gastro-esophageal reflux disease without esophagitis; F32.A Depression, unspecified
CPT/HCPCS: 99283; A9270

== ENCOUNTER 2022-07-14 08:56 | Emergency (ER) | payer MEDICARE, SELFPAY ==
[2022-07-14 08:54] VITALS: BP 137/94; PULSE 82; RESP 15; TEMP 36.6; O2SAT 100
--- NOTE | 2022-07-14 09:23 | ED.GENADULT ---
HPI - General Adult General Chief complaint: Unspecified Stated complaint: wrist abrasions Time Seen by Provider: 07/14/22 08:59 History of Present Illness HPI narrative: Patient presenting here stating that she is anxious, has something on her left wrist that she is concerned may be contagious and happened yesterday. She wants to see a handy worker. She is asking for Ativan. Related Data Home Medications Medication Instructions Recorded Confirmed gabapentin 300 mg capsule 300 mg PO HS 02/20/20 10/19/21 quetiapine 50 mg tablet 50 mg PO QHS 09/02/21 10/19/21 melatonin 10 mg tablet 10 mg PO HS 10/19/21 10/19/21 hydroxyzine pamoate 25 mg capsule mg 06/15/22 lorazepam 0.5 mg tablet mg 06/15/22 olanzapine 5 mg tablet mg 06/15/22 sertraline 50 mg tablet mg 06/15/22 tranylcypromine 10 mg tablet mg 06/15/22 Allergies Allergy/AdvReac Type Severity Reaction Status Date / Time Penicillins Allergy Unknown Itching Verified 07/14/22 09:04 Sulfa (Sulfonamide Allergy Unknown Itching Verified 07/14/22 09:04 Antibiotics) Review of Systems Review of Systems: CONST: No fever. HEENT: No sore throat C/V: No chest pain RESP: No cough GI: No nausea or vomiting : No dysuria. M/S: No joint pain. SKIN: Abrasion on left wrist NEURO: [No headache or focal numbness or weakness] PSYCH: Anxious PMFSH Past Medical History Medical History Anxiety Depression History of gastroesophageal reflux (GERD) Hypertension Post-menopausal Surgical History Surgical History No significant past surgical history Family History Family History Sibling Family history of cardiovascular disease Father , Esophageal cancer Family history of malignant neoplasm, Onset Age: 66 Mother , Related to pneumonia No problems noted. Social History Social History Smoking status: Never smoker Tobacco type: cigarettes Second hand tobacco smoke exposure: No Alcohol intake: never Substance use: never Substance use type: does not use Living arrangements: alone Occupation/Education: other Additional occupation/education comments: Disable Gender identity (if verbalized by the patient): Female Spiritual care concerns: No Exam Narrative: EXAMINATION OF ORGAN SYSTEMS/BODY AREAS: Constitutional: Vital signs per nursing GENERAL:[No acute distress, non-toxic appearing.] HEAD: Normal with no signs of head trauma. EYES: EOMI, conjunctiva normal ENT: Hearing grossly intact LUNGS: Nonlabored breathing. HEART: [Regular rate and rhythm] ABD: [Soft], [nontender to palpation] EXT: Normal range of motion SKIN: Superficial abrasions to left wrist 1cm NEURO: [Alert and oriented x 3. No gross focal sensory or strength deficits.] PSYCH: Shouting repeatedly for Ativan. Course Vital Signs Vital signs: Vital Signs Temperature 98 F 07/14/22 08:54 Pulse Rate 82 07/14/22 08:54 Respiratory Rate 15 07/14/22 08:54 Blood Pressure 137/94 H 07/14/22 08:54 Pulse Oximetry 100 07/14/22 08:54 Oxygen Delivery Room Air 07/14/22 08:54 Temperature 98 F 07/14/22 08:54 Pulse Rate 82 07/14/22 08:54 Respiratory Rate 15 07/14/22 08:54 Blood Pressure 137/94 H 07/14/22 08:54 Pulse Oximetry 100 07/14/22 08:54 Oxygen Delivery Room Air 07/14/22 08:54 Medical Decision Making [facility] Narrative Medical decision making narrative: 72-year-old female presenting here frequently for anxiety presenting with concern about a small abrasion to her left wrist, she is unsure if she had hurt herself, she is asking repeatedly for Ativan. I offered the patient we would update her tetanus and dress her wound, she refused all of this and states that all she wants is Ativan. G
[2022-07-14] MEDS: hydrOXYzine HCL 25 MG TABLET PO (09:41)
--- NOTE | 2022-07-14 09:58 | PC.NURSE ---
pt refusing care and medications. pt states if it's not Ativan, I don't want it!
--- NOTE | 2022-07-14 10:11 | PC.NURSE ---
Pt refused tetanus shot, pt yelled if it's not Ativan I don't want it! .
== END 2022-07-14 10:27 | disposition home or self-care (01) ==
LOC: ANHED 09:33
PROVIDERS: Emergency Provider Emergency Medicine; PCP Emergency Medicine
DX: S60.812A Abrasion of left wrist, initial encounter (principal); F41.9 Anxiety disorder, unspecified; I10 Essential (primary) hypertension; K21.9 Gastro-esophageal reflux disease without esophagitis; F32.A Depression, unspecified; X58.XXXA Exposure to other specified factors, initial encounter
CPT/HCPCS: 99283; A9270

== ENCOUNTER 2022-08-04 11:05 | Emergency (ER) | payer MEDICARE, SELFPAY ==
[2022-08-04 11:47] VITALS: BP 134/82; PULSE 81; RESP 16; TEMP 36.8; O2SAT 100
[2022-08-04 12:42] LABS: Basophils Percent Auto 0.8 % (0.2-1.2); Eosinophils Absolute Auto 0.1 K/mm3 (0-0.3); Eosinophils Percent Auto 2.8 % (0-4.4); Hematocrit 34.2 % (37.0-47.0); Hemoglobin 11.4 g/dL (12.0-15.0); Immature Granulocyte Absolute 0.03 K/mm3 (0.00-0.031); Immature Granulocyte Percent A 0.8 % (0-0.5); Lymphocytes Absolute Auto 0.85 K/mm3 (0.9-3.2); Mean Corpuscular HGB Conc 33.3 g/dl (32-36); Mean Corpuscular Hemoglobin 32.1 pg (26-34); Mean Corpuscular Volume 96.3 fl (80-100); Mean Platelet Volume 9.6 fl (7.4-10.4); Monocytes Absolute Auto 0.3 K/mm3 (0.1-0.6); Neutrophils Absolute Auto 2.2 K/mm3 (1.3-6.7); Neutrophils Percent Auto 62.6 % (45.5-73.1); Platelet Count Result 171 k/mm3 (150-375); Red Blood Count 3.55 M/mm3 (4.2-5.4); Red Cell Distribution Width 13.7 % (11.5-14.5); White Blood Count 3.5 K/mm3 (4.5-10.0)
[2022-08-04 12:52] LABS: Alanine Aminotransferase 108 U/L (6-35); Albumin Level 4.2 g/dL (3.5-5.1); Alkaline Phosphatase 71 U/L (38-126); Anion Gap 3 mmol/L (8-16); Aspartate Amino Transferase 115 U/L (14-36); Bilirubin,Total 0.3 mg/dL (0.2-1.3); Blood Urea Nitrogen 19 mg/dL (7-17); Carbon Dioxide 36 mmol/L (22-30); Chloride 100 mmol/L (98-107); Estimated CRCL calculation 37 ml/min; Estimated Glomerular Filt Rate > 60; Glucose 88 mg/dL (65-110); Lipase 189 U/L (23-300); Potassium 3.7 mmol/L (3.4-5.0); Sodium 139 mmol/L (137-145)
[2022-08-04 12:59] LABS: Appearance Urine Clear (Clear); Bacteria Urine Rare /hpf; Bilirubin Urine Negative (Negative); Blood Urine Negative (Negative); Color Urine Yellow (Yellow); Glucose Urine UA Negative (Negative); Ketones Urine Negative (Negative); Leukocyte Esterase Ur Negative LEU/UL (Negative); Need Manual Microscopic Reviewed; Nitrate Urine Negative (Negative); Non Pathogenic Casts 0-2; Protein Urine Trace mg/dL (Negative); Specific Grav Ur 1.026 (1.001-1.035); Squamous Epithelial Cell Urine None seen /hpf (Few); WBC Urine 0-5 /hpf
[2022-08-04 13:01] LABS: Add Urine Microscopic? YES
--- NOTE | 2022-08-04 14:39 | PC.NURSE ---
patient states that she was discharged from [facility] previously and today was her PCP f/u appointment. she states that she was a little bit late for her appointment and was told to come to ER for f/u. patient currently does not have any complaints and will call to reschedule her f/u or return if needed.
== END 2022-08-04 14:44 | disposition left against medical advice (07) ==
PROVIDERS: Emergency Provider Emergency Medicine; PCP Emergency Medicine
DX: R11.14 Bilious vomiting (principal)
CPT/HCPCS: 36415; 80053; 81001; 83690; 85025; 99199

== ENCOUNTER 2022-08-12 17:39 | Emergency (ER) | payer MEDICARE, SELFPAY ==
--- NOTE | ~2022-08-12 | XR_ITS ---
EXAMINATION: XR chest 2V DATE: 08/12/2022 19:10 INDICATION: Hypertension. Medical clearance required for placement. TECHNIQUE: PA and lateral views of the chest were obtained. COMPARISON: Chest radiograph dated 06/01/2022 FINDINGS: The lungs remain clear with no focal airspace opacities, pulmonary edema, pleural effusion or pneumot horax. Heart size is normal. Small of gas within a small hiatal hernia. Thoracic dextrocurvature with mild to moderate upper thoracic predominant spondylosis. Stimulator lead centimeters from a power montero pply in the left infraclavicular region cephalad along the left side of the neck and beyond the cepha lad margin of the [id number]. IMPRESSION: 1. No acute cardiopulmonary disease. Reviewed, dictated and finalized at location A.
--- NOTE | 2022-08-12 17:45 | ECG_ITS ---
Measurements Intervals [place] Rate: 66 P: 68 NV: 152 QRS: 39 QRSD: 79 T: 38 QT: 370 QTc: 388 Interpretive Statements SINUS RHYTHM POSSIBLE LEFT ATRIAL ENLARGEMENT [-0.1mV P WAVE IN V1/V2] COMPARED TO ECG 07/02/2022 10:54:01 NO SIGNIFICANT CHANGES Electronically Signed On 08-13-2022 13:36:22 CDT by Jorge Hurt M.D.
[2022-08-12 17:46] VITALS: BP 142/83; PULSE 78; RESP 16; TEMP 36.3; O2SAT 98
[2022-08-12 18:09] LABS: Basophils Percent Auto 0.8 % (0.2-1.2); Eosinophils Absolute Auto 0.1 K/mm3 (0-0.3); Eosinophils Percent Auto 2.1 % (0-4.4); Hematocrit 37.7 % (37.0-47.0); Hemoglobin 12.5 g/dL (12.0-15.0); Immature Granulocyte Absolute 0.02 K/mm3 (0.00-0.031); Immature Granulocyte Percent A 0.4 % (0-0.5); Lymphocytes Absolute Auto 1.36 K/mm3 (0.9-3.2); Lymphocytes Percent Auto 28.8 % (18.3-44.2); Mean Corpuscular HGB Conc 33.2 g/dl (32-36); Mean Corpuscular Hemoglobin 31.5 pg (26-34); Mean Platelet Volume 8.8 fl (7.4-10.4); Monocytes Absolute Auto 0.6 K/mm3 (0.1-0.6); Monocytes Percent Auto 12.3 % (2.6-8.5); Neutrophils Absolute Auto 2.6 K/mm3 (1.3-6.7); Neutrophils Percent Auto 55.6 % (45.5-73.1); Platelet Count Result 306 k/mm3 (150-375); Red Blood Count 3.97 M/mm3 (4.2-5.4); Red Cell Distribution Width 13.4 % (11.5-14.5); White Blood Count 4.7 K/mm3 (4.5-10.0)
[2022-08-12 18:19] LABS: Alanine Aminotransferase 25 U/L (6-35); Albumin Level 4.5 g/dL (3.5-5.1); Alkaline Phosphatase 66 U/L (38-126); Anion Gap 6 mmol/L (8-16); Aspartate Amino Transferase 30 U/L (14-36); Bilirubin,Total 0.8 mg/dL (0.2-1.3); Blood Urea Nitrogen 23 mg/dL (7-17); Carbon Dioxide 32 mmol/L (22-30); Chloride 104 mmol/L (98-107); Estimated Glomerular Filt Rate 44; Ethanol < 10 mg/dL (<10); Glucose 104 mg/dL (65-110); Potassium 3.9 mmol/L (3.4-5.0); Sodium 142 mmol/L (137-145)
[2022-08-12 18:29] LABS: Appearance Urine Turbid (Clear); Bacteria Urine None Seen /hpf; Bilirubin Urine 2+ (Negative); Blood Urine Negative (Negative); Color Urine Dark Yellow (Yellow); Glucose Urine UA Negative (Negative); Hyaline Casts Urine Present /lpf; Ketones Urine Trace mg/dL (Negative); Leukocyte Esterase Ur Negative LEU/UL (Negative); Mucus Urine Present /lpf; Nitrate Urine Negative (Negative); Non Pathogenic Casts >20; Protein Urine 1+ mg/dL (Negative); RBC Urine 21-50 /hpf (0-2); Specific Grav Ur 1.035 (1.001-1.035); Squamous Epithelial Cell Urine Moderate /hpf (Few); Triple Phosphate Crystal Urine Present /hpf; WBC Urine 0-5 /hpf; pH Urine 5.5 (5.0-9.0)
[2022-08-12 18:31] LABS: Add Urine Microscopic? YES
[2022-08-12 18:40] LABS: Amphetamine Screen Urine Negative (Negative); Barbiturate Screen Urine Negative (Negative); Benzodiazepines Screen Urine Negative (Negative); Cannabinoid Screen Urine Negative (Negative); Cocaine Screen Urine Negative (Negative); Methadone Screen Urine Negative (Negative); Opiate Screen Urine Negative (Negative); Phencyclidine Screen Urine Negative (Negative)
--- NOTE | 2022-08-12 19:14 | ED.MEDCLEAR ---
HPI - Medical Clearance General Chief complaint: Medical Clearance Stated complaint: needs physical for placement at [facility] Time Seen by Provider: 08/12/22 18:52 History of Present Illness HPI Narrative: Patient is a 72-year-old female with a history of depression and anxiety presenting for medical evaluation. Patient states that she is going to be admitted to the crisis unit at [place] for poorly controlled depression and anxiety. States that she needs her medications adjusted. States that she was advised to come in for evaluation to make sure that she is medically safe. She denies any physical complaints. She denies any pain. She denies SI or HI. Denies hallucinations or paranoia. Related Information Home Medications Medication Instructions Recorded Confirmed gabapentin 300 mg capsule 300 mg PO HS 02/20/20 10/19/21 quetiapine 50 mg tablet 50 mg PO QHS 09/02/21 10/19/21 melatonin 10 mg tablet 10 mg PO HS 10/19/21 10/19/21 hydroxyzine pamoate 25 mg capsule mg 06/15/22 lorazepam 0.5 mg tablet mg 06/15/22 olanzapine 5 mg tablet mg 06/15/22 sertraline 50 mg tablet mg 06/15/22 tranylcypromine 10 mg tablet mg 06/15/22 Allergies Allergy/AdvReac Type Severity Reaction Status Date / Time Penicillins Allergy Unknown Itching Verified 07/14/22 09:04 Sulfa (Sulfonamide Allergy Unknown Itching Verified 07/14/22 09:04 Antibiotics) Review of Systems Review of Systems: All systems reviewed & are unremarkable except as noted in HPI and below PMFSH Past Medical History Medical History Anxiety Depression History of gastroesophageal reflux (GERD) Hypertension Post-menopausal Surgical History Surgical History No significant past surgical history Family History Family History Sibling Family history of cardiovascular disease Father , Esophageal cancer Family history of malignant neoplasm, Onset Age: 66 Mother , Related to pneumonia No problems noted. Social History Social History Smoking status: Never smoker Tobacco type: cigarettes Second hand tobacco smoke exposure: No Alcohol intake: never Substance use: never Substance use type: does not use Living arrangements: alone Occupation/Education: other Additional occupation/education comments: Disable Gender identity (if verbalized by the patient): Female Spiritual care concerns: No Exam Narrative: GENERAL: Well-appearing, well-nourished, and in no acute distress. HEAD: Normocephalic, atraumatic. EYES: PERRLA and EOMI. ENT: Nares clear, no rhinorrhea or epistaxis. Mucous membranes moist. NECK: Supple. CHEST: No respiratory distress. HEART: Regular rate and rhythm ABDOMEN: Soft, nontender, nondistended EXTREMITIES: Normal range of motion. No edema. SKIN: Warm, dry, no rash. NEURO: No focal deficits. Alert and oriented x3. PSYCH: Normal mood and affect. Denies SI or HI Course Vital Signs Vital signs: Vital Signs Temperature 97.3 F L 08/12/22 17:46 Pulse Rate 78 08/12/22 17:46 Respiratory Rate 16 08/12/22 17:46 Blood Pressure 142/83 H 08/12/22 17:46 Pulse Oximetry 98 08/12/22 17:46 Oxygen Delivery Room Air 08/12/22 17:46 Temperature 97.3 F L 08/12/22 17:46 Pulse Rate 72 08/12/22 19:45 Respiratory Rate 15 08/12/22 19:45 Blood Pressure 139/84 08/12/22 19:45 Pulse Oximetry 99 08/12/22 19:45 Oxygen Delivery Room Air 08/12/22 17:46 MDM - Medical Clearance MDM Narrative Medical decision making narrative: Patient is a 72-year-old female presenting for medical evaluation prior to psychiatric admission. Vitals within normal limits. Patient is well-appearing and in no acute distress. Exam is unremarkable. She denies any SI o
[2022-08-12 19:45] VITALS: BP 139/84; PULSE 72; RESP 15; O2SAT 99
== END 2022-08-12 19:47 | disposition home or self-care (01) ==
PROVIDERS: Emergency Provider Emergency Medicine; PCP Emergency Medicine
DX: Z02.89 Encounter for other administrative examinations (principal); F41.9 Anxiety disorder, unspecified; F32.A Depression, unspecified; K21.9 Gastro-esophageal reflux disease without esophagitis; I10 Essential (primary) hypertension; Z79.899 Other long term (current) drug therapy; R94.31 Abnormal electrocardiogram [ECG] [EKG]
CPT/HCPCS: 36415; 71046; 80053; 80307; 81001; 81025; 84443; 85025; 93005; 99283

== ENCOUNTER 2022-08-27 04:38 | Emergency (ER) | payer MEDICARE, SELFPAY ==
[2022-08-27 04:48] VITALS: PULSE 81; RESP 18; TEMP 36.3; O2SAT 100
[2022-08-27] MEDS: ONDANSETRON HCL ODT 4 MG TABLET PO (05:05)
--- NOTE | 2022-08-27 05:48 | ED.GENADULT ---
HPI - General Adult General Chief complaint: Unspecified Stated complaint: ?sore throat Time Seen by Provider: 08/27/22 04:42 History of Present Illness HPI narrative: Patient 72-year-old female who presents the emergency department with chief complaint of nausea and vomiting. Patient reports that she was seen in urgent care and diagnosed with strep pharyngitis and given a prescription for Zithromax. The patient reports that she took the first dose and reports this evening that she nausea and vomiting. Patient reports that the symptoms or not improved by anything and reports that she was scared that she would not be able to control the nausea. Related Data Home Medications Medication Instructions Recorded Confirmed gabapentin 300 mg capsule 300 mg PO HS 02/20/20 10/19/21 quetiapine 50 mg tablet 50 mg PO QHS 09/02/21 10/19/21 melatonin 10 mg tablet 10 mg PO HS 10/19/21 10/19/21 hydroxyzine pamoate 25 mg capsule mg 06/15/22 lorazepam 0.5 mg tablet mg 06/15/22 olanzapine 5 mg tablet mg 06/15/22 sertraline 50 mg tablet mg 06/15/22 tranylcypromine 10 mg tablet mg 06/15/22 Allergies Allergy/AdvReac Type Severity Reaction Status Date / Time Penicillins Allergy Unknown Itching Verified 08/27/22 04:46 Sulfa (Sulfonamide Allergy Unknown Itching Verified 08/27/22 04:46 Antibiotics) Review of Systems Review of Systems: A 10 system review of systems was completed on the patient and is negative except for what is stated in the HPI. Nursing and ancillary documentation was reviewed. [facility] Past Medical History Medical History Anxiety Depression History of gastroesophageal reflux (GERD) Hypertension Post-menopausal Surgical History Surgical History No significant past surgical history Family History Family History Sibling Family history of cardiovascular disease Father , Esophageal cancer Family history of malignant neoplasm, Onset Age: 66 Mother , Related to pneumonia No problems noted. Social History Social History Smoking status: Never smoker Tobacco type: cigarettes Second hand tobacco smoke exposure: No Alcohol intake: never Substance use: never Substance use type: does not use Living arrangements: alone Occupation/Education: other Additional occupation/education comments: Disable Gender identity (if verbalized by the patient): Female Spiritual care concerns: No Exam Narrative: GENERAL: Well-appearing, well-nourished, and in no acute distress. HEAD: Normocephalic, atraumatic. EYES: PERRLA and EOMI. ENT: Nares clear, no rhinorrhea or epistaxis. Mucous membranes moist. NECK: Supple. CHEST: Clear to auscultation. No respiratory distress. HEART: Regular rate and rhythm. No murmur heard. Normal peripheral pulses. ABDOMEN: Soft, nontender, nondistended, normal active bowel sounds. EXTREMITIES: Normal range of motion. No edema. SKIN: Warm, dry, no rash. NEURO: No focal deficits. Alert and oriented x3. PSYCH: Normal mood and affect. Course Vital Signs Vital signs: Vital Signs Temperature 36.3 C L 08/27/22 04:48 Pulse Rate 81 08/27/22 04:48 Respiratory Rate 18 08/27/22 04:48 Pulse Oximetry 100 08/27/22 04:48 Temperature 36.3 C L 08/27/22 04:48 Pulse Rate 81 08/27/22 04:48 Respiratory Rate 18 08/27/22 04:48 Pulse Oximetry 100 08/27/22 04:48 Medical Decision Making Vital Signs Vital Signs: Vital Signs Temperature 36.3 C L 08/27/22 04:48 Pulse Rate 81 08/27/22 04:48 Respiratory Rate 18 08/27/22 04:48 Pulse Oximetry 100 08/27/22 04:48 Temperature 36.3 C L 08/27/22 04:48 Pulse Rate 81 08/27/22 04:48 Respiratory Rate 18
== END 2022-08-27 06:16 | disposition home or self-care (01) ==
PROVIDERS: Emergency Provider Emergency Medicine; PCP Emergency Medicine
DX: R11.2 Nausea with vomiting, unspecified (principal); J02.0 Streptococcal pharyngitis; F41.9 Anxiety disorder, unspecified; F32.A Depression, unspecified; K21.9 Gastro-esophageal reflux disease without esophagitis; I10 Essential (primary) hypertension
CPT/HCPCS: 99283; A9270

== ENCOUNTER 2022-09-03 04:36 | Emergency (ER) | payer MEDICARE, SELFPAY ==
--- NOTE | ~2022-09-03 | XR_ITS ---
Clinical Indication: URI PA and lateral views of the chest: Comparison: 08/12/2022 Findings: The lungs are clear, without evidence of focal consolidation or pleural effusion. Cardiome diastinal silhouette is within normal limits. Bones and soft tissues are unremarkable. Neurostimulato r device is unchanged. Impression: Clear lungs. Stable neurostimulator device. Reviewed, dictated and finalized at location M. Impression: Clear lungs. Stable neurostimulator device.
[2022-09-03 04:37] VITALS: BP 179/110; PULSE 92; RESP 23; TEMP 36.6; O2SAT 98
[2022-09-03 04:57] VITALS: BP 177/112; PULSE 91; RESP 23; O2SAT 98
[2022-09-03 04:58] LABS: Basophils Absolute Auto 0.1 K/mm3 (0.0-0.1); Basophils Percent Auto 0.6 % (0.2-1.2); Eosinophils Absolute Auto 0.1 K/mm3 (0-0.3); Eosinophils Percent Auto 1.5 % (0-4.4); Hematocrit 40.1 % (37.0-47.0); Hemoglobin 13.5 g/dL (12.0-15.0); Immature Granulocyte Absolute 0.02 K/mm3 (0.00-0.031); Immature Granulocyte Percent A 0.2 % (0-0.5); Lymphocytes Absolute Auto 0.89 K/mm3 (0.9-3.2); Lymphocytes Percent Auto 10.2 % (18.3-44.2); Mean Corpuscular HGB Conc 33.7 g/dl (32-36); Mean Corpuscular Hemoglobin 31.6 pg (26-34); Mean Corpuscular Volume 93.9 fl (80-100); Mean Platelet Volume 9.3 fl (7.4-10.4); Monocytes Absolute Auto 0.5 K/mm3 (0.1-0.6); Monocytes Percent Auto 5.5 % (2.6-8.5); Neutrophils Absolute Auto 7.1 K/mm3 (1.3-6.7); Platelet Count Result 258 k/mm3 (150-375); Red Blood Count 4.27 M/mm3 (4.2-5.4); White Blood Count 8.7 K/mm3 (4.5-10.0)
[2022-09-03 05:02] VITALS: BP 159/105; BP 160/108; BP 175/117; PULSE 87; PULSE 88; PULSE 97
[2022-09-03 05:10] LABS: Alanine Aminotransferase 26 U/L (6-35); Albumin Level 4.2 g/dL (3.5-5.1); Alkaline Phosphatase 53 U/L (38-126); Anion Gap 6 mmol/L (8-16); Aspartate Amino Transferase 35 U/L (14-36); Bilirubin,Total 0.8 mg/dL (0.2-1.3); Blood Urea Nitrogen 22 mg/dL (7-17); Calcium 9.4 mg/dL (8.4-10.2); Carbon Dioxide 27 mmol/L (22-30); Chloride 102 mmol/L (98-107); Estimated CRCL calculation 42 ml/min; Estimated Glomerular Filt Rate > 60; Glucose 156 mg/dL (65-110); Lipase 156 U/L (23-300); Potassium 3.7 mmol/L (3.4-5.0); Sodium 135 mmol/L (137-145)
[2022-09-03 05:16] VITALS: BP 175/113; PULSE 84; RESP 16; O2SAT 95
[2022-09-03 05:41] LABS: Appearance Urine Turbid (Clear); Bacteria Urine 4+ /hpf; Bilirubin Urine 2+ (Negative); Blood Urine 2+ (Negative); Budding Yeast Urine Present /hpf; Color Urine Dark Yellow (Yellow); Glucose Urine UA Negative (Negative); Ketones Urine Trace mg/dL (Negative); Leukocyte Esterase Ur 1+ LEU/UL (Negative); Nitrate Urine Negative (Negative); Non Pathogenic Casts 0-2; Protein Urine 1+ mg/dL (Negative); RBC Urine >100 /hpf (0-2); Specific Grav Ur 1.029 (1.001-1.035); Squamous Epithelial Cell Urine Occasional /hpf (Few); WBC Urine 21-50 /hpf
[2022-09-03 05:44] LABS: Add Urine Microscopic? YES
--- NOTE | 2022-09-03 06:31 | ED.GENADULT ---
HPI - General Adult General Chief complaint: Psychiatric Symptoms <José Miguel Lowry MD - Last Filed: 09/03/22 06:48> Stated complaint: nausea <José Miguel Lowry MD - Last Filed: 09/03/22 06:48> Time Seen by Provider: 09/03/22 05:31 <José Miguel Lowry MD - Last Filed: 09/03/22 06:48> History of Present Illness HPI narrative: This is a 72-year-old female presenting ED with 2 complaints. The 1st complaint is Nausea vomiting diarrhea x2 days. She said that she had been constipated so took several stool softeners and is now having explosive diarrhea. She has had URI symptoms for several weeks. She was on antibiotics last week. She denies fever chills chest pain shortness of breath or urinary symptoms. Her 2nd complaint is suicidal ideations. She states that while she has been sick her family would not care about her. She says that if she her family would not care at all. She says that she wants to walk out into traffic. She denies homicidal ideation. She denies use of drugs or alcohol. She did inform me that sometimes her alcohol level and meth drug screen come back positive but it is a false positive. patient states she needs to be put in a behavioral health unit. <José Miguel Lowry MD - Last Filed: 09/03/22 06:48> Related Data Home medications: Home Medications Medication Instructions Recorded Confirmed gabapentin 300 mg capsule 300 mg PO HS 02/20/20 10/19/21 quetiapine 50 mg tablet 50 mg PO QHS 09/02/21 10/19/21 melatonin 10 mg tablet 10 mg PO HS 10/19/21 10/19/21 hydroxyzine pamoate 25 mg capsule mg 06/15/22 lorazepam 0.5 mg tablet mg 06/15/22 olanzapine 5 mg tablet mg 06/15/22 sertraline 50 mg tablet mg 06/15/22 tranylcypromine 10 mg tablet mg 06/15/22 <José Miguel Lowry MD - Last Filed: 09/03/22 06:48> Allergies/adverse reactions: Allergies Allergy/AdvReac Type Severity Reaction Status Date / Time Penicillins Allergy Unknown Itching Verified 08/27/22 04:46 Sulfa (Sulfonamide Allergy Unknown Itching Verified 08/27/22 04:46 Antibiotics) <José Miguel Lowry MD - Last Filed: 09/03/22 06:48> PMFSH Past Medical History Medical History: Medical History Anxiety Depression History of gastroesophageal reflux (GERD) Hypertension Post-menopausal <José Miguel Lowry MD - Last Filed: 09/03/22 06:48> Surgical History Surgical History: Surgical History No significant past surgical history <José Miguel Lowry MD - Last Filed: 09/03/22 06:48> Family History Family History: Family History Sibling Family history of cardiovascular disease Father , Esophageal cancer Family history of malignant neoplasm, Onset Age: 66 Mother , Related to pneumonia No problems noted. <José Miguel Lowry MD - Last Filed: 09/03/22 06:48> Social History Social History: Social History Smoking status: Never smoker Tobacco type: cigarettes Second hand tobacco smoke exposure: No Alcohol intake: never Substance use: never Living arrangements: alone Occupation/Education: other Additional occupation/education comments: Disable Gender identity (if verbalized by the patient): Female Spiritual care concerns: No <José Miguel Lowry MD - Last Filed: 09/03/22 06:48> Exam Narrative: APPEARANCE: No apparent distress. Head: atraumatic. EYES: EOMI, NOSE: Atraumatic NECK: Trachea midline RESPIRATORY: No increased rate of breathing, CTAB CARDIOVASCULAR: RRR, ABDOMINAL: Non-distended, soft, nontender no guarding or rebound. MUSCULOSKELETAl: No obvious deformities NEURO: Alert. Moving 4/4 extremities SKIN:: Warm, dry. Normal color PSYCHIATRIC: Normal affect <José Miguel Lowry MD - Last Filed: 09/03
--- NOTE | 2022-09-03 06:31 | PC.NURSE ---
When EDP was assessing patient she stated she wanted to kill herself. Zackary Diaz performed.
[2022-09-03] MEDS: SODIUM CHLORIDE 0.9% IV 2,000 ML 999 ML IV CONT (07:01)
[2022-09-03] MEDS: CEPHALEXIN 500 MG CAPSULE PO (07:01)
[2022-09-03] MEDS: ONDANSETRON INJ 4 MG/2 ML VIAL 8 MG IV PUSH (07:01)
[2022-09-03 07:39] LABS: Ethanol < 10 mg/dL (<10)
[2022-09-03 07:43] LABS: Acetaminophen < 10 ug/mL (10-30); Ethanol < 10 mg/dL (<10); Salicylate < 1.0 mg/dL (2-20)
[2022-09-03 09:01] LABS: Influenza A QL RT-PCR Negative (Negative); Influenza B QL RT-PCR Negative (Negative); RSV RNA, RT-PCR Negative (Negative); SARS-CoV-2 RNA PCR Negative (Negative)
[2022-09-03 09:38] LABS: Amphetamine Screen Urine Negative (Negative); Barbiturate Screen Urine Negative (Negative); Benzodiazepines Screen Urine Negative (Negative); Cannabinoid Screen Urine Negative (Negative); Cocaine Screen Urine Negative (Negative); Methadone Screen Urine Negative (Negative); Opiate Screen Urine Negative (Negative); Phencyclidine Screen Urine Negative (Negative)
[2022-09-03 10:30] VITALS: BP 168/98; PULSE 80; RESP 20; TEMP 36.6; O2SAT 98
--- NOTE | 2022-09-03 11:44 | PC.NURSE ---
Pt called out and states she was having a headache and would like pain medications, Dr. Baugh notified. Pt also stated that she would like to leave AMA. Dr Baugh notified, pt voluntary psych placement at this time. Missy notified for pt reevaluation
--- NOTE | 2022-09-03 12:00 | PC.NURSE ---
Pt notified of acceptance to [facility] for inpatient psychiatric treatment, pt agrees to placement and will go voluntarily.
[2022-09-03] MEDS: ACETAMINOPHEN 325 MG TABLET 650 MG PO (12:52)
== END 2022-09-03 14:01 ==
PROVIDERS: Emergency Medicine; Emergency Provider Preventive Medicine Aerospace Medicine; PCP Emergency Medicine
DX: R45.851 Suicidal ideations (principal); R19.7 Diarrhea, unspecified; F32.A Depression, unspecified; N39.0 Urinary tract infection, site not specified; I10 Essential (primary) hypertension; K21.9 Gastro-esophageal reflux disease without esophagitis; Z20.822 Contact with and (suspected) exposure to COVID-19; Z79.899 Other long term (current) drug therapy; F41.8 Other specified anxiety disorders
CPT/HCPCS: 36415; 71046; 80053; 80307; 81001; 83690; 84443; 85025; 87086; 87088; 87637; 96361; 96374; 99285; A9270; J2405; J7030

== ENCOUNTER 2022-10-13 07:38 | Emergency (ER) | payer MEDICARE, SELFPAY ==
[2022-10-13 07:36] VITALS: BP 154/93; PULSE 72; RESP 18; TEMP 36.4; O2SAT 98
[2022-10-13 07:51] VITALS: BP 161/94; PULSE 74
[2022-10-13 07:52] VITALS: BP 159/90; PULSE 73
[2022-10-13 07:53] VITALS: BP 169/99; PULSE 80
--- NOTE | 2022-10-13 07:58 | ED.GENADULT ---
HPI - General Adult General Chief complaint: Nausea/Vomiting/Diarrhea Stated complaint: nausea Time Seen by Provider: 10/13/22 07:41 History of Present Illness HPI narrative: Patient is a 72-year-old female who presents to the ER with reports of sinus congestion. Is causing postnasal drip with some nausea when he goes into her stomach. No vomiting. No fevers or chills or sweats. Patient was evaluated for COVID 6 days ago and then placed in a psychiatric facility for suicidal ideation. She got out yesterday. She has been taking doxycycline and over the last couple days has developed diarrhea. No abdominal pain. Patient also reports that she is having trouble sleeping. Related Data Home Medications Medication Instructions Recorded Confirmed gabapentin 300 mg capsule 300 mg PO HS 02/20/20 10/19/21 melatonin 10 mg tablet 10 mg PO HS 10/19/21 10/19/21 lorazepam 0.5 mg tablet mg 06/15/22 Allergies Allergy/AdvReac Type Severity Reaction Status Date / Time Penicillins Allergy Unknown Itching Verified 10/13/22 07:56 Sulfa (Sulfonamide Allergy Unknown Itching Verified 10/13/22 07:56 Antibiotics) Review of Systems Constitutional: Constitutional: Denies chills, Denies fatigue and Denies fever(s) ENT: Denies dizziness, Reports nasal congestion and Reports sore throat Gastrointestinal: Gastrointestinal: Denies abdominal pain, Reports diarrhea, Denies nausea and Denies vomiting Psychiatric: Psychiatric: Reports anxiety PMFSH Past Medical History Medical History Anxiety Depression History of gastroesophageal reflux (GERD) Hypertension Post-menopausal Surgical History Surgical History No significant past surgical history Family History Family History Sibling Family history of cardiovascular disease Father , Esophageal cancer Family history of malignant neoplasm, Onset Age: 66 Mother , Related to pneumonia No problems noted. Social History Social History Smoking status: Never smoker Tobacco type: cigarettes Second hand tobacco smoke exposure: No Alcohol intake: never Substance use: never Current Housing: Decline to Answer Concerned About Future Housing: Decline to Answer Difficulty Paying Gas/Electric Bills: Decline to Answer Difficulty Paying for Meds: Decline to Answer Currently Unemployed: Decline to Answer Education: Decline to Answer Difficulty w/ Childcare or Family Care: Decline to Answer Living arrangements: alone Occupation/Education: other Additional occupation/education comments: Disable Gender identity (if verbalized by the patient): Female Spiritual care concerns: No Exam Narrative: GENERAL: Well-appearing, well-nourished, and in no acute distress. HEAD: Normocephalic, atraumatic. ENT: Mucous membranes moist. Normal-appearing posterior oropharynx. CHEST: Clear to auscultation. No respiratory distress. HEART: Regular rate and rhythm. Normal peripheral pulses. ABDOMEN: Soft, nontender, nondistended. EXTREMITIES: Normal range of motion. No edema. NEURO: Alert and oriented x3. PSYCH: Normal mood and affect. Course Course Emergency Course: 0800: Discussed with patient that her sinus congestion likely represents a viral URI and not a bacterial sinus infection but she may continue to take the doxycycline if she wishes. Also discussed that the doxycycline is a likely cause of the loose stools that she has been having. Patient also reports that she is out of her Ativan. She was discharged from a psych facility yesterday, when asked why they did not refill her medications yesterday she reports that they want to try different medication for anxiety. Discussed with her I would not be refilling her benzodia
== END 2022-10-13 08:36 | disposition home or self-care (01) ==
LOC: ANHED 08:05
PROVIDERS: Emergency Provider Emergency Medicine; PCP Emergency Medicine
DX: J06.9 Acute upper respiratory infection, unspecified (principal); F41.9 Anxiety disorder, unspecified; F32.A Depression, unspecified; K21.9 Gastro-esophageal reflux disease without esophagitis; I10 Essential (primary) hypertension
CPT/HCPCS: 99283

== ENCOUNTER 2022-10-13 19:15 | Emergency (ER) | payer MEDICARE, SELFPAY ==
[2022-10-13 19:31] VITALS: BP 127/86; PULSE 74; RESP 14; TEMP 36.7; O2SAT 98
--- NOTE | 2022-10-13 19:51 | PC.NURSE ---
No sitting at pt bedside due to pt currently denying thoughts/intentions of harming herself. pt states she told the police officer crime prevention she wanted to hurt herself 30 minutes [employer] because she was overwhelmed and anxious. EDP Dr. Steve at bedside when pt denied SI HI. Pt does report she believes she is having a panic attack due to her Ativan prescription not being able to be filled
--- NOTE | 2022-10-13 19:56 | PC.NURSE ---
Pt yelling for nurse. When this RN went to pt room pt now reporting I'm sick I've never felt so sick, my head hurts.
[2022-10-13] MEDS: ACETAMINOPHEN 500 MG TABLET 1000 MG PO (20:17)
--- NOTE | 2022-10-13 20:25 | ED.GENADULT ---
HPI - General Adult General Chief complaint: Psychiatric Symptoms Stated complaint: si Time Seen by Provider: 10/13/22 19:41 History of Present Illness HPI narrative: Patient is a 72-year-old female who presents the emergency department with chief complaint of depression and suicidal ideation. The patient was seen in the emergency department earlier today after having an upper respiratory infection patient reports that she was standing in the parking lot of a local establishment and was contemplating jumping in front of a vehicle. Patient states that currently she is not actively suicidal but does not want to go home as she is afraid that she is feeling depressed and anxious. Patient reports she has been hospitalized twice in the last month for psychiatric reasons and reports that she is out of her benzodiazepine and her antidepressant. The patient reports that at this exact moment she is not currently suicidal Related Data Home Medications Medication Instructions Recorded Confirmed gabapentin 300 mg capsule 300 mg PO HS 02/20/20 10/19/21 melatonin 10 mg tablet 10 mg PO HS 10/19/21 10/19/21 lorazepam 0.5 mg tablet mg 06/15/22 Allergies Allergy/AdvReac Type Severity Reaction Status Date / Time Penicillins Allergy Unknown Itching Verified 10/13/22 07:56 Sulfa (Sulfonamide Allergy Unknown Itching Verified 10/13/22 07:56 Antibiotics) Review of Systems Review of Systems: A 10 system review of systems was completed on the patient and is negative except for what is stated in the HPI. Nursing and ancillary documentation was reviewed. [facility] Past Medical History Medical History Anxiety Depression History of gastroesophageal reflux (GERD) Hypertension Post-menopausal Surgical History Surgical History No significant past surgical history Family History Family History Sibling Family history of cardiovascular disease Father , Esophageal cancer Family history of malignant neoplasm, Onset Age: 66 Mother , Related to pneumonia No problems noted. Social History Social History Smoking status: Never smoker Tobacco type: cigarettes Second hand tobacco smoke exposure: No Alcohol intake: never Substance use: never Substance use type: does not use Current Housing: Decline to Answer Concerned About Future Housing: Decline to Answer Difficulty Paying Gas/Electric Bills: Decline to Answer Difficulty Paying for Meds: Decline to Answer Currently Unemployed: Decline to Answer Education: Decline to Answer Difficulty w/ Childcare or Family Care: Decline to Answer Living arrangements: alone Occupation/Education: other Additional occupation/education comments: Disable Gender identity (if verbalized by the patient): Female Spiritual care concerns: No Exam Narrative: GENERAL: Well-appearing, well-nourished, and in no acute distress. HEAD: Normocephalic, atraumatic. EYES: PERRLA and EOMI. ENT: Nares clear, no rhinorrhea or epistaxis. Mucous membranes moist. NECK: Supple. CHEST: Clear to auscultation. No respiratory distress. HEART: Regular rate and rhythm. No murmur heard. Normal peripheral pulses. ABDOMEN: Soft, nontender, nondistended, normal active bowel sounds. EXTREMITIES: Normal range of motion. No edema. SKIN: Warm, dry, no rash. NEURO: No focal deficits. Alert and oriented x3. PSYCH: Depressed mood and affect. Course Vital Signs Vital signs: Vital Signs Temperature 36.7 C 10/13/22 19:31 Pulse Rate 74 10/13/22 19:31 Respiratory Rate 14 10/13/22 19:31 Blood Pressure 127/86 10/13/22 19:31 Pulse Oximetry 98 10/13/22 19:31 Oxygen Delivery Room Air 10/13/22 19:31 Tem
[2022-10-13 20:27] LABS: Basophils Percent Auto 0.3 % (0.2-1.2); Eosinophils Absolute Auto 0.1 K/mm3 (0-0.3); Eosinophils Percent Auto 0.7 % (0-4.4); Hematocrit 37.9 % (37.0-47.0); Hemoglobin 12.8 g/dL (12.0-15.0); Immature Granulocyte Absolute 0.02 K/mm3 (0.00-0.031); Immature Granulocyte Percent A 0.3 % (0-0.5); Lymphocytes Absolute Auto 1.52 K/mm3 (0.9-3.2); Lymphocytes Percent Auto 22.2 % (18.3-44.2); Mean Corpuscular HGB Conc 33.8 g/dl (32-36); Mean Corpuscular Hemoglobin 30.9 pg (26-34); Mean Corpuscular Volume 91.5 fl (80-100); Mean Platelet Volume 10.2 fl (7.4-10.4); Monocytes Absolute Auto 0.5 K/mm3 (0.1-0.6); Monocytes Percent Auto 7.9 % (2.6-8.5); Neutrophils Absolute Auto 4.7 K/mm3 (1.3-6.7); Neutrophils Percent Auto 68.6 % (45.5-73.1); Platelet Count Result 246 k/mm3 (150-375); Red Blood Count 4.14 M/mm3 (4.2-5.4); Red Cell Distribution Width 12.5 % (11.5-14.5); White Blood Count 6.8 K/mm3 (4.5-10.0)
[2022-10-13 20:47] LABS: Alanine Aminotransferase 50 U/L (6-35); Albumin Level 4.7 g/dL (3.5-5.1); Alkaline Phosphatase 68 U/L (38-126); Anion Gap 7 mmol/L (8-16); Aspartate Amino Transferase 43 U/L (14-36); Bilirubin,Total 0.8 mg/dL (0.2-1.3); Blood Urea Nitrogen 30 mg/dL (7-17); Calcium 9.6 mg/dL (8.4-10.2); Carbon Dioxide 28 mmol/L (22-30); Chloride 97 mmol/L (98-107); Estimated Glomerular Filt Rate 44; Glucose 114 mg/dL (65-110); Potassium 3.8 mmol/L (3.4-5.0); Sodium 132 mmol/L (137-145)
[2022-10-13 20:48] LABS: Acetaminophen < 10 ug/mL (10-30); Salicylate < 1.0 mg/dL (2-20)
[2022-10-13 20:49] LABS: Ethanol < 10 mg/dL (<10)
[2022-10-13 21:02] LABS: SARS-CoV-2 RNA PCR Negative (Negative)
[2022-10-13 21:04] LABS: Add Urine Microscopic? YES; Appearance Urine Clear (Clear); Bacteria Urine None Seen /hpf; Bilirubin Urine Negative (Negative); Blood Urine Negative (Negative); Color Urine Yellow (Yellow); Glucose Urine UA Negative (Negative); Hyaline Casts Urine Present /lpf; Ketones Urine Negative (Negative); Leukocyte Esterase Ur 2+ LEU/UL (Negative); Nitrate Urine Negative (Negative); Non Pathogenic Casts >20; Protein Urine Trace mg/dL (Negative); RBC Urine 0-2 /hpf (0-2); Specific Grav Ur 1.027 (1.001-1.035); Squamous Epithelial Cell Urine Moderate /hpf (Few); Urobilinogen Urine 0.2 mg/dL (<2.0); pH Urine 5.5 (5.0-9.0)
[2022-10-13 21:33] LABS: Amphetamine Screen Urine Negative (Negative); Barbiturate Screen Urine Negative (Negative); Benzodiazepines Screen Urine Negative (Negative); Cannabinoid Screen Urine Negative (Negative); Cocaine Screen Urine Negative (Negative); Methadone Screen Urine Negative (Negative); Opiate Screen Urine Negative (Negative); Phencyclidine Screen Urine Negative (Negative)
--- NOTE | 2022-10-13 22:06 | PC.NURSE ---
Pt is medically cleared at this time.
== END 2022-10-14 02:00 | disposition home or self-care (01) ==
PROVIDERS: Emergency Provider Emergency Medicine; PCP Emergency Medicine
DX: F32.A Depression, unspecified (principal); Z20.822 Contact with and (suspected) exposure to COVID-19; F41.9 Anxiety disorder, unspecified; K21.9 Gastro-esophageal reflux disease without esophagitis; I10 Essential (primary) hypertension; R82.998 Other abnormal findings in urine
CPT/HCPCS: 36415; 80053; 80307; 81001; 84443; 85025; 87086; 87088; 87635; 99284; A9270

== ENCOUNTER 2022-10-14 03:57 | Emergency (ER) | payer MEDICARE, SELFPAY ==
--- NOTE | 2022-10-14 04:08 | ED.GENADULT ---
HPI - General Adult General Chief complaint: Psychiatric Symptoms <Greyson Steve MD - Last Filed: 10/14/22 06:30> Stated complaint: suicidal <Greyson Steve MD - Last Filed: 10/14/22 06:30> Time Seen by Provider: 10/14/22 04:11 <Greyson Steve MD - Last Filed: 10/14/22 06:30> History of Present Illness HPI narrative: Patient is a 72-year-old female who presents emergency department with chief complaint of suicidal ideation. The patient reports that she was waiting for her ride dozed off and woke up having dreams of people coming into her neck with knives the patient states that after that she is feeling as though she wants to harm herself and reports that she is currently actively suicidal the patient was seen in the emergency department earlier today and was medically cleared and was seen by crisis and was able to safety plan <Greyson Steve MD - Last Filed: 10/14/22 06:30> Related Data Home medications: Home Medications Medication Instructions Recorded Confirmed gabapentin 300 mg capsule 300 mg PO HS 02/20/20 10/19/21 melatonin 10 mg tablet 10 mg PO HS 10/19/21 10/19/21 lorazepam 0.5 mg tablet mg 06/15/22 <Greyson Steve MD - Last Filed: 10/14/22 06:30> Allergies/adverse reactions: Allergies Allergy/AdvReac Type Severity Reaction Status Date / Time Penicillins Allergy Unknown Itching Verified 10/13/22 07:56 Sulfa (Sulfonamide Allergy Unknown Itching Verified 10/13/22 07:56 Antibiotics) <Greyson Steve MD - Last Filed: 10/14/22 06:30> Review of Systems Review of Systems: A 10 system review of systems was completed on the patient and is negative except for what is stated in the HPI. Nursing and ancillary documentation was reviewed. <Greyson Steve MD - Last Filed: 10/14/22 06:30> PMFSH Past Medical History Medical History: Medical History Anxiety Depression History of gastroesophageal reflux (GERD) Hypertension Post-menopausal <Greyson Steve MD - Last Filed: 10/14/22 06:30> Surgical History Surgical History: Surgical History No significant past surgical history <Greyson Steve MD - Last Filed: 10/14/22 06:30> Family History Family History: Family History Sibling Family history of cardiovascular disease Father , Esophageal cancer Family history of malignant neoplasm, Onset Age: 66 Mother , Related to pneumonia No problems noted. <Greyson Steve MD - Last Filed: 10/14/22 06:30> Social History Social History: Social History Smoking status: Never smoker Tobacco type: cigarettes Second hand tobacco smoke exposure: No Alcohol intake: never Substance use: never Substance use type: does not use Current Housing: Decline to Answer Concerned About Future Housing: Decline to Answer Difficulty Paying Gas/Electric Bills: Decline to Answer Difficulty Paying for Meds: Decline to Answer Currently Unemployed: Decline to Answer Education: Decline to Answer Difficulty w/ Childcare or Family Care: Decline to Answer Living arrangements: alone Occupation/Education: other Additional occupation/education comments: Disable Gender identity (if verbalized by the patient): Female Spiritual care concerns: No <Greyson Steve MD - Last Filed: 10/14/22 06:30> Exam Narrative: GENERAL: Well-appearing, well-nourished, and in no acute distress. HEAD: Normocephalic, atraumatic. EYES: PERRLA and EOMI. ENT: Nares clear, no rhinorrhea or epistaxis. Mucous membranes moist. NECK: Supple. CHEST: Clear to auscultation. No respiratory distress.
[2022-10-14 04:16] VITALS: BP 116/67; PULSE 66; RESP 14; TEMP 36.6; O2SAT 100
--- NOTE | 2022-10-14 04:46 | PC.NURSE ---
Crisis contacted for reevaluation of pt, pt did not need to be medically cleared again due to pt receiving medical clearance less than 3 hours ago.
--- NOTE | 2022-10-14 07:09 | PC.NURSE ---
Patient report received from ALAN Burrell. All questions answered and care of patient assumed. Crisis at bedside to evaluate patient. Awaiting recommendations and disposition.
[2022-10-14 07:30] VITALS: BP 153/94; PULSE 76; RESP 16; TEMP 36.6; O2SAT 99
--- NOTE | 2022-10-14 09:09 | PC.NURSE ---
Received call from [facility]. Chart faxed as requested. Patient assessment completed via telephone. Awaiting return call.
[2022-10-14] MEDS: ACETAMINOPHEN 325 MG TABLET 650 MG PO (09:20)
--- NOTE | 2022-10-14 10:25 | PC.NURSE ---
labs printed and faxed to [facility] for review of admission
--- NOTE | 2022-10-14 11:13 | PC.NURSE ---
Patient report given to ALAN Strong. All questions answered and care of patient transferred.
--- NOTE | 2022-10-14 11:27 | PC.NURSE ---
Patient accepted to [facility] at [address] To accepting physician. Report given to ALAN Moncada at 1123
== END 2022-10-14 12:42 ==
PROVIDERS: Emergency Provider Emergency Medicine; PCP Emergency Medicine
DX: F32.A Depression, unspecified (principal); R45.851 Suicidal ideations; F41.9 Anxiety disorder, unspecified; K21.9 Gastro-esophageal reflux disease without esophagitis; I10 Essential (primary) hypertension
CPT/HCPCS: 99285; A9270

== ENCOUNTER 2023-01-10 20:44 | Emergency (ER) | payer MEDICARE, SELFPAY ==
--- NOTE | ~2023-01-10 | XR_ITS ---
EXAMINATION: XR chest 1V portable DATE: 01/11/2023 05:00 INDICATION: Chills. TECHNIQUE: A single frontal view of the chest was obtained. COMPARISON: Chest 2 views 09/03/2022 FINDINGS: There is mild atelectasis in left lower lobe. No pleural effusion or pneumothorax. The hear t size is normal. There is a small hiatal hernia. There is an electronic device in left chest with el ectrode in the neck. IMPRESSION: 1. Mild atelectasis in left lower lobe. 2. Small hiatal hernia. Reviewed, dictated and finalized at location E.
[2023-01-10 20:46] VITALS: BP 150/79; PULSE 80; RESP 20; TEMP 36.4; O2SAT 98
--- NOTE | 2023-01-10 20:51 | ECG_ITS ---
Measurements Intervals [place] Rate: 73 P: 15 AK: 101 QRS: 29 QRSD: 82 T: 29 QT: 363 QTc: 401 Interpretive Statements SINUS RHYTHM WITH SHORT AK INTERVAL COMPARED TO ECG 08/12/2022 19:18:01 NO SIGNIFICANT CHANGES Electronically Signed On 01-11-2023 11:25:35 CDT by Jorge Hurt M.D.
[2023-01-11 02:05] VITALS: BP 136/100; PULSE 82; RESP 16; O2SAT 97
[2023-01-11 03:49] VITALS: BP 167/86; PULSE 70; RESP 14; O2SAT 88; O2SAT 95
[2023-01-11 05:02] VITALS: BP 175/88; PULSE 68; RESP 20; O2SAT 98
[2023-01-11] MEDS: ALPRAZolam (*CRX) 0.5 MG TABLET PO (05:03)
[2023-01-11] MEDS: ACETAMINOPHEN 500 MG TABLET 1000 MG PO (05:03)
[2023-01-11] MEDS: IBUPROFEN 400 MG TABLET 800 MG PO (05:03)
--- NOTE | 2023-01-11 05:14 | ED.GENADULT ---
HPI - General Adult General Chief complaint: Arrhythmia/Palpitations Stated complaint: palpitations Time Seen by Provider: 01/11/23 03:56 History of Present Illness HPI narrative: this is a 72-year-old female presenting ED with chief complaint of Flu-like symptoms x1 day. Patient has chills, headache and myalgias. She denies chest pain, difficulty breathing, cough congestion abdominal pain urinary symptoms or flank pain. She is vaccinated against COVID and flu. Patient also states she has have some increase in her anxiety but denies homicidal or suicidal ideation. Related Data Home Medications Medication Instructions Recorded Confirmed gabapentin 300 mg capsule 300 mg PO HS 02/20/20 10/19/21 melatonin 10 mg tablet 10 mg PO HS 10/19/21 10/19/21 lorazepam 0.5 mg tablet mg 06/15/22 Allergies Allergy/AdvReac Type Severity Reaction Status Date / Time Penicillins Allergy Unknown Itching Verified 10/13/22 07:56 Sulfa (Sulfonamide Allergy Unknown Itching Verified 10/13/22 07:56 Antibiotics) PMFSH Past Medical History Medical History Anxiety Depression History of gastroesophageal reflux (GERD) Hypertension Post-menopausal Surgical History Surgical History No significant past surgical history Family History Family History Sibling Family history of cardiovascular disease Father , Esophageal cancer Family history of malignant neoplasm, Onset Age: 66 Mother , Related to pneumonia No problems noted. Social History Social History Smoking status: Never smoker Tobacco type: cigarettes Second hand tobacco smoke exposure: No Alcohol intake: never Substance use: never Substance use type: does not use Current Housing: Decline to Answer Concerned About Future Housing: Decline to Answer Difficulty Paying Gas/Electric Bills: Decline to Answer Difficulty Paying for Meds: Decline to Answer Currently Unemployed: Decline to Answer Education: Decline to Answer Difficulty w/ Childcare or Family Care: Decline to Answer Living arrangements: alone Occupation/Education: other Additional occupation/education comments: Disable Gender identity (if verbalized by the patient): Female Spiritual care concerns: No Exam Narrative: APPEARANCE: No apparent distress. Head: atraumatic. EYES: EOMI, NOSE: Atraumatic NECK: Trachea midline RESPIRATORY: No increased rate of breathing Clear to auscultation CARDIOVASCULAR: RRR, no peripheral edema ABDOMINAL: Non-distended soft nontender MUSCULOSKELETAl: No obvious deformities NEURO: Alert. Moving 4/4 extremities SKIN:: Warm, dry. Normal color PSYCHIATRIC: Normal affect Course Vital Signs Vital signs: Vital Signs Temperature 97.6 F 01/10/23 20:46 Pulse Rate 80 01/10/23 20:46 Respiratory Rate 20 01/10/23 20:46 Blood Pressure 150/79 H 01/10/23 20:46 Pulse Oximetry 98 01/10/23 20:46 Oxygen Delivery Room Air 01/10/23 20:46 Temperature 97.6 F 01/10/23 20:46 Pulse Rate 65 01/11/23 06:02 Respiratory Rate 12 01/11/23 06:02 Blood Pressure 175/88 H 01/11/23 05:02 Pulse Oximetry 98 01/11/23 06:02 Oxygen Delivery Nasal Cannula 01/11/23 03:49 Oxygen Flow Rate 2 01/11/23 03:49 Medical Decision Making MDM Narrative Medical decision making narrative: -Course: 72-year-old female presenting with 1 day of flu-like symptoms. Given Motrin Tylenol with improvement. viral swabs and chest x-ray unremarkable. Patient discharged with primary care follow-up -DDX includes but is not limited to:Viral syndrome, COVID, flu, RSv, pneumonia -Co-morbidities complicating care: hypertension, depression anxiety -Social determinants of health: retired, lives alone -Ext
[2023-01-11 05:53] LABS: Influenza A QL RT-PCR Negative (Negative); Influenza B QL RT-PCR Negative (Negative); RSV RNA, RT-PCR Negative (Negative); SARS-CoV-2 RNA PCR Negative (Negative)
[2023-01-11 06:02] VITALS: PULSE 65; RESP 12; O2SAT 98
[2023-01-11 06:12] VITALS: O2SAT 98
== END 2023-01-11 06:12 | disposition home or self-care (01) ==
PROVIDERS: Emergency Provider Emergency Medicine; PCP Emergency Medicine
DX: B34.9 Viral infection, unspecified (principal); I10 Essential (primary) hypertension; Z20.822 Contact with and (suspected) exposure to COVID-19
CPT/HCPCS: 71045; 87637; 93005; 99283; A9270

== ENCOUNTER 2023-01-11 12:02 | Emergency (ER) | payer MEDICARE, SELFPAY ==
--- NOTE | ~2023-01-11 | XR_ITS ---
EXAMINATION: XR chest 1V portable DATE: 01/11/2023 13:11 INDICATION: Suicidal paired panic feeling. TECHNIQUE: frontal view of the chest was obtained. COMPARISON: Chest radiograph dated 01/11/2023 at 4:57 AM FINDINGS: Persistent streaky left basilar atelectasis. No other airspace opacities, pulmonary edema, pleural ef fusion or pneumothorax. Heart size is normal. Small hiatal hernia. Electronic device projects over th e left upper lung with leads extending cephalad along the left neck. IMPRESSION: 1. Unchanged mild left basilar atelectasis. 2. Small hiatal hernia. Reviewed, dictated and finalized at location A.
[2023-01-11 12:23] VITALS: BP 143/83; PULSE 90; RESP 18; TEMP 36.4; O2SAT 98
--- NOTE | 2023-01-11 12:49 | ED.PSYCH ---
HPI - Psych General Chief Complaint: Psychiatric Symptoms <Lexis Guajardo MD - Last Filed: 01/11/23 22:00> Stated Complaint: suicidal ideations <Lexis Guajardo MD - Last Filed: 01/11/23 22:00> Time Seen by Provider: 01/11/23 12:47 <Lexis Guajardo MD - Last Filed: 01/11/23 22:00> Source: patient and EMS <Lexis Guajardo MD - Last Filed: 01/11/23 22:00> Mode of arrival: EMS <Lexis Guajardo MD - Last Filed: 01/11/23 22:00> Limitations: no limitations <Lexis Guajardo MD - Last Filed: 01/11/23 22:00> History of Present Illness HPI Narrative: Patient is 73 years old white female came by ambulance because she is severely depressed and would like to jump into traffic to kill her body. Patient reported a lot of stress lately and cannot handle it. She denies any fever, chills, nausea, vomiting, pain <Lexis Guajardo MD - Last Filed: 01/11/23 22:00> Related Data Home Medications: Home Medications Medication Instructions Recorded Confirmed gabapentin 300 mg capsule 300 mg PO HS 02/20/20 10/19/21 melatonin 10 mg tablet 10 mg PO HS 10/19/21 10/19/21 lorazepam 0.5 mg tablet mg 06/15/22 <Leixs Guajardo MD - Last Filed: 01/11/23 22:00> Allergies/Adverse Reactions: Allergies Allergy/AdvReac Type Severity Reaction Status Date / Time Penicillins Allergy Unknown Itching Verified 10/13/22 07:56 Sulfa (Sulfonamide Allergy Unknown Itching Verified 10/13/22 07:56 Antibiotics) <Lexis Guajardo MD - Last Filed: 01/11/23 22:00> Review of Systems Review of Systems: All systems reviewed & are unremarkable except as noted in HPI and below <Lexis Guajardo MD - Last Filed: 01/11/23 22:00> PMFSH Past Medical History Medical History: Medical History Anxiety Depression History of gastroesophageal reflux (GERD) Hypertension Post-menopausal <Lexis Guajardo MD - Last Filed: 01/11/23 22:00> Surgical History Surgical History: Surgical History No significant past surgical history <Lexis Guajardo MD - Last Filed: 01/11/23 22:00> Family History Family History: Family History Sibling Family history of cardiovascular disease Father , Esophageal cancer Family history of malignant neoplasm, Onset Age: 66 Mother , Related to pneumonia No problems noted. <Lexis Guajardo MD - Last Filed: 01/11/23 22:00> Social History Social History: Social History Smoking status: Never smoker Tobacco type: cigarettes Second hand tobacco smoke exposure: No Alcohol intake: never Substance use: never Substance use type: does not use Current Housing: Decline to Answer Concerned About Future Housing: Decline to Answer Difficulty Paying Gas/Electric Bills: Decline to Answer Difficulty Paying for Meds: Decline to Answer Currently Unemployed: Decline to Answer Education: Decline to Answer Difficulty w/ Childcare or Family Care: Decline to Answer Living arrangements: alone Occupation/Education: other Additional occupation/education comments: Disable Gender identity (if verbalized by the patient): Female Spiritual care concerns: No <Lexis Guajardo MD - Last Filed: 01/11/23 22:00> Exam Narrative: General appearance: Well-developed, well-nourished, restless Skin: Normal color Head: Normocephalic, nontraumatic Eyes: Clear conjunctiva ENT: Oropharynx normal, ears normal, nose normal Neck: Supple, nontender Chest and respiratory: Airway patent, no respiratory distress, no accessory muscle use Heart: Regular rate/rhythm Abdomen: Soft, nontender, no organomegaly, quiet bowel sounds Vascular: Normal peripheral pulses, normal capillary refill. Musculoskeletal: Normal range of motion, nontender back Neurologic: A
[2023-01-11 12:58] LABS: Basophils Percent Auto 0.5 % (0.2-1.2); Eosinophils Absolute Auto 0.1 K/mm3 (0-0.3); Eosinophils Percent Auto 1.6 % (0-4.4); Hematocrit 35.7 % (37.0-47.0); Hemoglobin 11.1 g/dL (12.0-15.0); Immature Granulocyte Absolute 0.01 K/mm3 (0.00-0.031); Immature Granulocyte Percent A 0.2 % (0-0.5); Lymphocytes Percent Auto 14.1 % (18.3-44.2); Mean Corpuscular HGB Conc 31.1 g/dl (32-36); Mean Corpuscular Hemoglobin 28.8 pg (26-34); Mean Corpuscular Volume 92.7 fl (80-100); Mean Platelet Volume 10.3 fl (7.4-10.4); Monocytes Absolute Auto 0.3 K/mm3 (0.1-0.6); Neutrophils Absolute Auto 3.2 K/mm3 (1.3-6.7); Neutrophils Percent Auto 75.6 % (45.5-73.1); Platelet Count Result 207 k/mm3 (150-375); Red Blood Count 3.85 M/mm3 (4.2-5.4); Red Cell Distribution Width 13.2 % (11.5-14.5); White Blood Count 4.3 K/mm3 (4.5-10.0)
[2023-01-11 12:59] LABS: Appearance Urine Clear (Clear); Bilirubin Urine Negative (Negative); Blood Urine Negative (Negative); Color Urine Yellow (Yellow); Glucose Urine UA Negative (Negative); Ketones Urine Negative (Negative); Leukocyte Esterase Ur Negative LEU/UL (Negative); Nitrate Urine Negative (Negative); Protein Urine Negative (Negative); Specific Grav Ur 1.024 (1.001-1.035); Urobilinogen Urine 0.2 mg/dL (<2.0); pH Urine 5.5 (5.0-9.0)
[2023-01-11 13:04] LABS: Add Urine Microscopic? NO
[2023-01-11 13:09] LABS: Alanine Aminotransferase 22 U/L (6-35); Albumin Level 4.7 g/dL (3.5-5.1); Alkaline Phosphatase 61 U/L (38-126); Anion Gap 5 mmol/L (8-16); Aspartate Amino Transferase 35 U/L (14-36); Bilirubin,Total 0.5 mg/dL (0.2-1.3); Blood Urea Nitrogen 18 mg/dL (7-17); Calcium 9.6 mg/dL (8.4-10.2); Carbon Dioxide 29 mmol/L (22-30); Chloride 103 mmol/L (98-107); Estimated CRCL calculation 34 ml/min; Estimated Glomerular Filt Rate 55; Glucose 127 mg/dL (65-110); Sodium 137 mmol/L (137-145)
[2023-01-11 13:18] LABS: Amphetamine Screen Urine Negative (Negative); Barbiturate Screen Urine Negative (Negative); Benzodiazepines Screen Urine Positive (Negative); Cannabinoid Screen Urine Negative (Negative); Cocaine Screen Urine Negative (Negative); Methadone Screen Urine Negative (Negative); Opiate Screen Urine Negative (Negative); Phencyclidine Screen Urine Negative (Negative)
[2023-01-11 13:18] LABS: Ethanol < 10 mg/dL (<10)
[2023-01-11 13:35] LABS: Influenza A QL RT-PCR Negative (Negative); Influenza B QL RT-PCR Negative (Negative); SARS-CoV-2 RNA PCR Negative (Negative)
[2023-01-11 15:01] VITALS: BP 143/85; PULSE 82; RESP 18; TEMP 36.6; O2SAT 99
[2023-01-11] MEDS: LORazepam (*CRX) 0.5 MG TABLET 1 MG PO (15:06)
--- NOTE | 2023-01-11 15:34 | PC.NURSE ---
Crisis notified this RN that pt chart was faxed over to [facility].
--- NOTE | 2023-01-11 15:46 | PC.NURSE ---
This RN spoke with Peyton at [facility] and was told they do not have a bed for this pt.
--- NOTE | 2023-01-11 16:15 | PC.NURSE ---
Spoke with Onelia at [facility] regarding pt, she stated that she would call back later with a determination on if they can accept this pt.
--- NOTE | 2023-01-11 16:25 | PC.NURSE ---
Spoke with Nati at [facility] regarding pt, she requested that we send the pt's chart over. Fax number is [phone]
[2023-01-11 17:44] VITALS: BP 141/81; PULSE 83; RESP 16; O2SAT 100
--- NOTE | 2023-01-11 18:33 | PC.NURSE ---
[facility] has no [facility] beds
[2023-01-11] MEDS: ACETAMINOPHEN 325 MG TABLET 650 MG PO (19:59)
[2023-01-11] MEDS: IBUPROFEN 400 MG TABLET 800 MG PO (19:59)
--- NOTE | 2023-01-11 20:12 | PC.NURSE ---
Patient has been accepted at [facility] by Dr. Mcdermott. Patient cannot arrive until tomorrow morning after 0800.
--- NOTE | 2023-01-12 05:11 | PC.NURSE ---
Pt refused hydroxyzine stating to this RN I don't take that, I only take Ativan for my panic attacks .
--- NOTE | 2023-01-12 06:41 | PC.NURSE ---
Patient changed her mind and states she will take the hydroxyzine at this time.
[2023-01-12] MEDS: hydrOXYzine HCL 25 MG TABLET 50 MG PO ×2 (06:42→10:47)
[2023-01-12 08:33] VITALS: PULSE 89
[2023-01-12] MEDS: carvediloL 6.25 MG TABLET PO (08:33)
[2023-01-12] MEDS: ESCITALOPRAM OXALATE 10 MG TABLET PO (08:33)
[2023-01-12] MEDS: amLODIPine BESYLATE 5 MG TABLET PO (08:33)
[2023-01-12 08:35] VITALS: BP 192/97; PULSE 87; RESP 18; O2SAT 100
--- NOTE | 2023-01-12 10:03 | PC.NURSE ---
[address] at [facility] transfer cancelled due to staffing 0950 [facility] - Declined 0951 [facility] waiting on Sup Approval Trip # [id number] 0925 [facility] - Declined
--- NOTE | 2023-01-12 10:10 | PC.NURSE ---
pt's transport to [facility] has been cancelled for today - no transport until Athpgzmo81/4/23. [facility] unable to hold bed until Tuesday.
--- NOTE | 2023-01-12 10:31 | PC.NURSE ---
ETA for [facility] Trip #[phone] Monday 01/15 @ Noon
[2023-01-12] MEDS: GABAPENTIN 300 MG CAPSULE PO (10:47)
--- NOTE | 2023-01-12 11:16 | PC.NURSE ---
1110 - Faxed [facility] - may have beds after discharges today. 1110 - Faxed [facility] - may have beds after discharges today. 1110 - Faxed [facility] health intake - may have beds available.
--- NOTE | 2023-01-12 12:58 | PC.NURSE ---
Contacted [facility] to notify them that we have no transport for pt.
--- NOTE | 2023-01-12 13:11 | PC.NURSE ---
[facility] reviewing the chart.
[2023-01-12 13:43] VITALS: BP 196/101; PULSE 78; RESP 20; O2SAT 97
[2023-01-12] MEDS: hydrALAZINE HCL 50 MG TABLET 100 MG PO (13:59)
[2023-01-12 14:56] VITALS: BP 106/65; PULSE 102; RESP 20; O2SAT 98
== END 2023-01-12 15:34 ==
PROVIDERS: Emergency Medicine; Emergency Provider Preventive Medicine Aerospace Medicine; PCP Emergency Medicine
DX: F32.A Depression, unspecified (principal); R45.851 Suicidal ideations; I10 Essential (primary) hypertension; Z20.822 Contact with and (suspected) exposure to COVID-19; Z79.899 Other long term (current) drug therapy
CPT/HCPCS: 36415; 71045; 80053; 80307; 81003; 84443; 85025; 87636; 99285; A9270

== ENCOUNTER 2023-08-13 07:11 | Observation (INO) | payer MEDICARE, SELFPAY ==
[2023-08-13] VITALS (21 sets, daily range): BP systolic 113–165; BP diastolic 77–111; PULSE 68–92; RESP 12–23; TEMP 36.4–36.8; O2SAT 95–98; BMI 23.4
--- NOTE | ~2023-08-13 | XR_ITS ---
XR chest 2V DATE: 08/13/2023 07:58 INDICATION: Recent strep infection. Ms., fatigue. Evaluate for pneumonia. TECHNIQUE: AP and lateral views COMPARISON: 01/11/2023 portable AP chest FINDINGS: Electronic device again noted overlying left chest with lead extending into the left cervic al area. Normal heart size. No hilar or mediastinal enlargement. No pulmonary infiltrate or consolidation, pleural effusion or pulmonary vascular congestion or pneumo thorax is detected. Moderate hiatal hernia. Included skeletal structures are unremarkable. IMPRESSION: No active cardiopulmonary disease Moderate hiatal hernia Reviewed, dictated and finalized at location A.
--- NOTE | 2023-08-13 07:15 | ECG_ITS ---
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 Measurements Intervals [place] Rate: 81 P: 37 WV: 158 QRS: 14 QRSD: 92 T: 31 QT: 354 QTc: 411 Interpretive Statements SINUS RHYTHM No previous ECG available for comparison Electronically Signed On 08-13-2023 14:17:30 CDT by Jorge Hurt M.D.
--- NOTE | 2023-08-13 07:23 | ED.GENADULT ---
HPI - General Adult General Chief complaint: Syncope Stated complaint: Strep Throat, Getting Worse Time Seen by Provider: 08/13/23 07:22 Source: patient Mode of arrival: ambulatory Limitations: no limitations History of Present Illness HPI narrative: 73-year-old female presents with report of feeling lightheaded and feeling like she might faint so she denies syncope. patient was diagnosed with strep throat at an urgent care through [facility] on [address] earlier this week. She states she was prescribed a course of azithromycin which she has been taking (took this morning's dose already) but had not been given a one time dose of a steroid. she has been sweating and having back pain and feeling palpitations but denies any beth chest pain though feels like it is pounding. Denies any lower extremity edema or rash though states her scalp hurts. She is asking What happens if I pass out? Related Data Home Medications Medication Instructions Recorded Confirmed gabapentin 300 mg capsule 300 mg PO TID 02/20/20 08/13/23 melatonin 10 mg tablet 10 mg PO HS 10/19/21 08/13/23 amlodipine 5 mg tablet 10 mg PO DAILY 08/13/23 08/13/23 atorvastatin 40 mg tablet 40 mg PO DAILY 08/13/23 08/13/23 buspirone 15 mg tablet 15 mg PO BID 08/13/23 08/13/23 carvedilol 6.25 mg tablet 6.25 mg PO BID 08/13/23 08/13/23 clonazepam 0.5 mg tablet 0.5 mg PO Q12H PRN Anxiety 08/13/23 08/13/23 escitalopram oxalate 20 mg tablet 20 mg PO DAILY 08/13/23 08/13/23 losartan 100 mg tablet 100 mg PO DAILY 08/13/23 08/13/23 olanzapine 15 mg tablet 15 mg PO DAILY 08/13/23 08/13/23 prazosin 1 mg capsule 2 mg PO HS 08/13/23 08/13/23 ropinirole 0.25 mg tablet 0.25 mg PO HS 08/13/23 08/13/23 sertraline 100 mg tablet 100 mg PO DAILY 08/13/23 08/13/23 trazodone 50 mg tablet 50 - 100 mg PO HS PRN Sleep 08/13/23 08/13/23 Allergies Allergy/AdvReac Type Severity Reaction Status Date / Time Penicillins Allergy Unknown Itching Verified 08/13/23 07:24 Sulfa (Sulfonamide Allergy Unknown Itching Verified 08/13/23 07:24 Antibiotics) [facility] Past Medical History Medical History (Updated 08/13/23 @ 12:57 by Olivia Martinez APRN) Anxiety Depression History of gastroesophageal reflux (GERD) Hypertension Post-menopausal Strep pharyngitis July 2023 Suicidal ideation Surgical History Surgical History No significant past surgical history Family History Family History Sibling Family history of cardiovascular disease Father , Esophageal cancer Family history of malignant neoplasm, Onset Age: 66 Mother , Related to pneumonia No problems noted. Social History Social History (Updated 08/13/23 @ 12:54 by Olivia Martinez APRN) Social History: Patient states that she currently lives at a [employer] and that she has a trust fund for which she receives money from her sister Alondra Ruth. Her emergency contact is Sherie Curry, her niece who lives in [place]. She has a psychiatric history with 2 previous suicide attempts. Once when she was 16 and once when she was 30 years old. One attempt she took half a bottle of aspirin in the other time she was drinking cough syrup. Smoking status: Never smoker Second hand tobacco smoke exposure: No Alcohol intake: never Substance use: never Substance use type: does not use Do You Feel Safe in your Home?: Yes Lack of Transportation: No Lack of Food: Never True Current Housing: I Have Housing Concerned About Future Housing: No Difficulty Paying Gas/Electric Bills: No Difficulty Paying for Meds: No Currently Unemployed: No Education: Decline to Answer Difficulty w/ Childcare or Family Care: No Living arrangements: alone Additional living arrangements comments: The patient has a daughter that she put up for adoption. Her daughter found her later in life but she has not
[2023-08-13 07:27] LABS: Basophils Percent Auto 0.5 % (0.2-1.2); Eosinophils Percent Auto 0.9 % (0-4.4); Hematocrit 34.6 % (37.0-47.0); Hemoglobin 10.6 g/dL (12.0-15.0); Immature Granulocyte Absolute 0.02 K/mm3 (0.00-0.031); Immature Granulocyte Percent A 0.5 % (0-0.5); Lymphocytes Absolute Auto 0.54 K/mm3 (0.9-3.2); Lymphocytes Percent Auto 12.2 % (18.3-44.2); Mean Corpuscular HGB Conc 30.6 g/dl (32-36); Mean Corpuscular Hemoglobin 25.5 pg (26-34); Mean Corpuscular Volume 83.4 fl (80-100); Mean Platelet Volume 10.3 fl (7.4-10.4); Monocytes Absolute Auto 0.2 K/mm3 (0.1-0.6); Monocytes Percent Auto 5.4 % (2.6-8.5); Neutrophils Absolute Auto 3.6 K/mm3 (1.3-6.7); Neutrophils Percent Auto 80.5 % (45.5-73.1); Platelet Count Result 170 k/mm3 (150-375); Red Blood Count 4.15 M/mm3 (4.2-5.4); Red Cell Distribution Width 13.6 % (11.5-14.5); White Blood Count 4.4 K/mm3 (4.5-10.0)
[2023-08-13] MEDS: SODIUM CHLORIDE 0.9% IV 1,000 ML 999 ML IV CONT (07:42)
[2023-08-13] MEDS: dexAMETHasone 2 MG TABLET 10 MG PO (07:42)
[2023-08-13 07:45] LABS: Alanine Aminotransferase 14 U/L (6-35); Albumin Level 4.9 g/dL (3.5-5.1); Alkaline Phosphatase 74 U/L (38-126); Anion Gap 10 mmol/L (4-12); Aspartate Amino Transferase 23 U/L (14-36); Bilirubin,Total 0.6 mg/dL (0.2-1.3); Blood Urea Nitrogen 16 mg/dL (7-17); Calcium 9.2 mg/dL (8.4-10.2); Carbon Dioxide 27 mmol/L (22-30); Chloride 102 mmol/L (98-107); Estimated CRCL calculation 28 ml/min; Estimated Glomerular Filt Rate 44; Glucose 208 mg/dL (65-110); Magnesium 2.1 mg/dL (1.6-2.3); Potassium 3.9 mmol/L (3.4-5.0); Sodium 139 mmol/L (137-145)
[2023-08-13 07:56] LABS: Troponin I < 0.012 ng/mL (0.000-0.034)
[2023-08-13 08:23] LABS: Influenza A QL RT-PCR Negative (Negative); Influenza B QL RT-PCR Negative (Negative); RSV RNA, RT-PCR Negative (Negative); SARS-CoV-2 RNA PCR Negative (Negative)
[2023-08-13 08:26] LABS: Appearance Urine Cloudy (Clear); Bacteria Urine Rare /hpf; Bilirubin Urine Negative (Negative); Blood Urine Trace (Negative); Color Urine Yellow (Yellow); Glucose Urine UA Negative (Negative); Ketones Urine Negative (Negative); Leukocyte Esterase Ur 3+ LEU/UL (Negative); Mucus Urine Present /lpf; Nitrate Urine Negative (Negative); Protein Urine Trace mg/dL (Negative); Specific Grav Ur 1.019 (1.001-1.035); Squamous Epithelial Cell Urine None Seen /hpf (Few); Urobilinogen Urine 0.2 mg/dL (<2.0); WBC Urine >100 /hpf (0-3); pH Urine 6.5 (5.0-9.0)
[2023-08-13 08:27] LABS: Add Urine Microscopic? YES
[2023-08-13] MEDS: PANTOPRAZOLE 40 MG TABLET PO (08:33)
[2023-08-13] MEDS: LACTATED RINGERS 1,000 ML 999 ML IV CONT (08:33)
[2023-08-13] MEDS: LACTATED RINGERS 1,000 ML 75 ML IV CONT (11:09)
[2023-08-13] MEDS: ONDANSETRON INJ 4 MG/2 ML VIAL IV PUSH (11:12)
[2023-08-13] MEDS: ACETAMINOPHEN 325 MG TABLET 650 MG PO (11:12)
--- NOTE | 2023-08-13 12:25 | PM.IMHP ---
H&P: HPI History of Present Illness Date/Time: 08/13/23 12:25 Chief Complaint: Weakness, fatigue, sore throat Narrative: This is a 73-year-old female with a past medical history significant for anxiety, depression, high blood pressure, PTSD, with a recent hospitalization 2 weeks ago at [facility] for treatment of her depression and anxiety. She presents to the emergency room today with generalized weakness, worsening fatigue, and worsening sore throat. The patient says that she was treated at an urgent care and diagnosed with strep throat 3 days ago. At that time she was started on azithromycin. Today on her admission she is complaining of anxiety and she says that she had a near fainting episode while lying flat. She reports dizziness prior to the episode. She also is having shortness of breath and some nausea, without vomiting, and dysuria. She also reports palpitations. When nursing staff was admitting her she answered that she was currently suicidal and had an active plan to jump into traffic. Patient will be transferred to the ICU per protocol for suicidal ideation. She will require assessment by crisis center when her medical problems have resolved. In the ER labs are significant for WBC 4.4, hemoglobin 10.6, hematocrit 34.6, platelet 170, creatinine 1.2, and glucose 208. Troponin was negative an EKG show sinus rhythm with a ventricular rate of 80 beats per minute. Urinalysis shows 3+ leukocyte esterase with pyuria and rare bacteria. Urine culture is pending. She was started on Rocephin. Her chest x-ray shows no active cardiopulmonary disease with a moderate size hiatal hernia. She had positive orthostatic vital signs in the ER She was started on IV fluids at 75 mL/hr after receiving a L bolus. Upper respiratory panel is negative. Review of Systems Review of Systems: All systems reviewed & are unremarkable except as noted in HPI and below PMFSH Past Medical History Medical History (Updated 08/13/23 @ 12:57 by Olivia Martinez APRN) Anxiety Depression History of gastroesophageal reflux (GERD) Hypertension Post-menopausal Strep pharyngitis July 2023 Suicidal ideation Surgical History Surgical History No significant past surgical history Family History Family History Sibling Family history of cardiovascular disease Father , Esophageal cancer Family history of malignant neoplasm, Onset Age: 66 Mother , Related to pneumonia No problems noted. Social History Social History (Updated 08/13/23 @ 12:54 by Olivia Martinez APRN) Social History: Patient states that she currently lives at a motel and that she has a trust fund for which she receives money from her sister Alondra Ruth. Her emergency contact is Sherie Curry, her niece who lives in [place]. She has a psychiatric history with 2 previous suicide attempts. Once when she was 16 and once when she was 30 years old. One attempt she took half a bottle of aspirin in the other time she was drinking cough syrup. Smoking status: Never smoker Second hand tobacco smoke exposure: No Alcohol intake: never Substance use: never Substance use type: does not use Do You Feel Safe in your Home?: Yes Lack of Transportation: No Lack of Food: Never True Current Housing: I Have Housing Concerned About Future Housing: No Difficulty Paying Gas/Electric Bills: No Difficulty Paying for Meds: No Currently Unemployed: No Education: Decline to Answer Difficulty w/ Childcare or Family Care: No Living arrangements: alone Additional living arrangements comments: The patient has a daughter that she put up for adoption. Her daughter found her later in life but she has not seen her for 22 years. Her daughter lives 6 miles from her. She is single, never . Occupation/Education: other Additional occu
[2023-08-13 13:22] LABS: Iron 42 ug/dL (37-170)
[2023-08-13] MEDS: GABAPENTIN 300 MG CAPSULE PO ×2 (13:30→16:25)
[2023-08-13] MEDS: SERTRALINE HCL 50 MG TABLET 100 MG PO (13:30)
[2023-08-13] MEDS: busPIRone HCL 5 MG TABLET 15 MG PO ×2 (13:30→16:25)
[2023-08-13] MEDS: OLANZapine 5 MG TABLET 15 MG PO (13:30)
[2023-08-13 13:31] LABS: Percent Iron Saturation 10 % (20-50)
[2023-08-13] MEDS: LORazepam (*CRX) 1 MG TABLET PO (13:37)
[2023-08-13 13:56] LABS: Free T4 Free Thyroxine 1.49 ng/mL (0.78-2.19)
--- NOTE | 2023-08-13 14:35 | PC.NURSE ---
This patient, Mary Kate Rodas, was received from [ [phone]] on 08/13/23 at 1444. Patient/family oriented to unit policies and routines. Pt transferred to ICU 3 for SI precautions. Pt remains Medical status.
[2023-08-13 14:39] LABS: Folic Acid 9.9 ng/mL (2.76->20)
--- NOTE | 2023-08-13 14:52 | PC.NURSE ---
Patient transferred to ICU 3. Report to Melony. Home medications and belongings transferred with patient.
[2023-08-13 15:22] LABS: Amphetamine Screen Urine Negative (Negative); Barbiturate Screen Urine Negative (Negative); Benzodiazepines Screen Urine Negative (Negative); Cannabinoid Screen Urine Negative (Negative); Cocaine Screen Urine Negative (Negative); Methadone Screen Urine Negative (Negative); Opiate Screen Urine Negative (Negative); Phencyclidine Screen Urine Negative (Negative)
[2023-08-13] MEDS: clonazePAM (*CRX) 0.5 MG TABLET PO (15:53)
[2023-08-13] MEDS: rOPINIRole HCL 0.25 MG TABLET PO ×2 (15:53→22:27)
[2023-08-13] MEDS: carvediloL 6.25 MG TABLET PO (16:25)
[2023-08-13] MEDS: PRAZOSIN HCL 1 MG CAPSULE 2 MG PO (22:27)
[2023-08-13] MEDS: MELATONIN 5 MG TABLET 10 MG PO (22:28)
[2023-08-13] MEDS: traZODone HCL 50 MG TABLET PO (22:28)
[2023-08-14] VITALS (8 sets, daily range): BP systolic 110–148; BP diastolic 68–86; PULSE 61–82; RESP 14–16; TEMP 36.8–36.9; O2SAT 92–98
[2023-08-14] MEDS: LACTATED RINGERS 1,000 ML 75 ML IV CONT (01:32)
[2023-08-14 04:09] LABS: Basophils Percent Auto 0.2 % (0.2-1.2); Eosinophils Percent Auto 0.2 % (0-4.4); Hematocrit 30.5 % (37.0-47.0); Hemoglobin 9.4 g/dL (12.0-15.0); Immature Granulocyte Absolute 0.04 K/mm3 (0.00-0.031); Immature Granulocyte Percent A 0.6 % (0-0.5); Lymphocytes Absolute Auto 0.82 K/mm3 (0.9-3.2); Mean Corpuscular HGB Conc 30.8 g/dl (32-36); Mean Corpuscular Hemoglobin 25.7 pg (26-34); Mean Corpuscular Volume 83.3 fl (80-100); Mean Platelet Volume 10.5 fl (7.4-10.4); Monocytes Absolute Auto 0.4 K/mm3 (0.1-0.6); Neutrophils Absolute Auto 5.1 K/mm3 (1.3-6.7); Platelet Count Result 173 k/mm3 (150-375); Red Blood Count 3.66 M/mm3 (4.2-5.4); Red Cell Distribution Width 13.6 % (11.5-14.5); White Blood Count 6.3 K/mm3 (4.5-10.0)
[2023-08-14 04:19] LABS: Alanine Aminotransferase 12 U/L (6-35); Albumin Level 4.1 g/dL (3.5-5.1); Alkaline Phosphatase 59 U/L (38-126); Anion Gap 7 mmol/L (4-12); Aspartate Amino Transferase 20 U/L (14-36); Bilirubin,Total 0.3 mg/dL (0.2-1.3); Blood Urea Nitrogen 15 mg/dL (7-17); Calcium 8.9 mg/dL (8.4-10.2); Carbon Dioxide 27 mmol/L (22-30); Chloride 108 mmol/L (98-107); Estimated CRCL calculation 37 ml/min; Estimated Glomerular Filt Rate > 60; Glucose 100 mg/dL (65-110); Magnesium 2.1 mg/dL (1.6-2.3); Potassium 3.8 mmol/L (3.4-5.0); Sodium 142 mmol/L (137-145)
[2023-08-14] MEDS: rOPINIRole HCL 0.25 MG TABLET PO ×3 (06:49→21:05)
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
[2023-08-14] MEDS: amLODIPine BESYLATE 5 MG TABLET 10 MG PO (09:11)
[2023-08-14] MEDS: GABAPENTIN 300 MG CAPSULE PO ×3 (09:11→18:20)
[2023-08-14] MEDS: OLANZapine 5 MG TABLET 15 MG PO (09:11)
[2023-08-14] MEDS: SERTRALINE HCL 50 MG TABLET 100 MG PO (09:11)
[2023-08-14] MEDS: busPIRone HCL 5 MG TABLET 15 MG PO ×2 (09:11→18:19)
[2023-08-14] MEDS: ENOXAPARIN 40 MG/0.4 ML SYRINGE SUB-Q (09:11)
[2023-08-14] MEDS: carvediloL 6.25 MG TABLET PO ×2 (09:11→18:19)
[2023-08-14] MEDS: ATORVASTATIN 40 MG TABLET PO (09:11)
[2023-08-14] MEDS: FERROUS SULFATE 325 MG TABLET DR PO ×2 (09:12→18:19)
[2023-08-14] MEDS: PANTOPRAZOLE SODIUM IV 40 MG VIAL IV PUSH (09:12)
[2023-08-14] MEDS: clonazePAM (*CRX) 0.5 MG TABLET PO (09:12)
[2023-08-14] MEDS: ACETAMINOPHEN 500 MG TABLET 1000 MG PO (13:55)
[2023-08-14] MEDS: MELATONIN 5 MG TABLET 10 MG PO (21:05)
[2023-08-14] MEDS: PRAZOSIN HCL 1 MG CAPSULE 2 MG PO (21:05)
[2023-08-15 04:21] VITALS: BP 161/80; PULSE 63; RESP 17; TEMP 36.6; O2SAT 93
[2023-08-15 04:31] LABS: Basophils Percent Auto 0.7 % (0.2-1.2); Eosinophils Absolute Auto 0.1 K/mm3 (0-0.3); Eosinophils Percent Auto 2.5 % (0-4.4); Hematocrit 32.7 % (37.0-47.0); Hemoglobin 9.7 g/dL (12.0-15.0); Immature Granulocyte Absolute 0.04 K/mm3 (0.00-0.031); Immature Granulocyte Percent A 0.9 % (0-0.5); Lymphocytes Absolute Auto 1.48 K/mm3 (0.9-3.2); Lymphocytes Percent Auto 33.3 % (18.3-44.2); Mean Corpuscular HGB Conc 29.7 g/dl (32-36); Mean Corpuscular Hemoglobin 25.3 pg (26-34); Mean Corpuscular Volume 85.4 fl (80-100); Mean Platelet Volume 10.3 fl (7.4-10.4); Monocytes Absolute Auto 0.3 K/mm3 (0.1-0.6); Monocytes Percent Auto 7.2 % (2.6-8.5); Neutrophils Absolute Auto 2.5 K/mm3 (1.3-6.7); Neutrophils Percent Auto 55.4 % (45.5-73.1); Platelet Count Result 173 k/mm3 (150-375); Red Blood Count 3.83 M/mm3 (4.2-5.4); Red Cell Distribution Width 13.8 % (11.5-14.5); White Blood Count 4.4 K/mm3 (4.5-10.0)
[2023-08-15 05:14] LABS: Platelet Estimate Adequate (Adequate)
[2023-08-15 05:15] LABS: Anisocytosis 1+; Hypochromasia 1+; Large Platelets Present
[2023-08-15 05:16] LABS: Ovalocytes 1+; Schistocytes None Seen
[2023-08-15 05:22] LABS: Alanine Aminotransferase 11 U/L (6-35); Albumin Level 3.8 g/dL (3.5-5.1); Alkaline Phosphatase 57 U/L (38-126); Anion Gap 1 mmol/L (4-12); Aspartate Amino Transferase 22 U/L (14-36); Bilirubin,Total 0.2 mg/dL (0.2-1.3); Blood Urea Nitrogen 14 mg/dL (7-17); Calcium 8.8 mg/dL (8.4-10.2); Carbon Dioxide 36 mmol/L (22-30); Chloride 107 mmol/L (98-107); Estimated CRCL calculation 33 ml/min; Estimated Glomerular Filt Rate 54; Glucose 94 mg/dL (65-110); Potassium 4.1 mmol/L (3.4-5.0); Sodium 144 mmol/L (137-145)
[2023-08-15] MEDS: rOPINIRole HCL 0.25 MG TABLET PO ×2 (06:21→13:15)
[2023-08-15 07:20] VITALS: BP 158/91; PULSE 63; RESP 16; TEMP 36.8; O2SAT 95
[2023-08-15 08:02] VITALS: PULSE 62
[2023-08-15] MEDS: busPIRone HCL 5 MG TABLET 15 MG PO (08:02)
[2023-08-15] MEDS: ENOXAPARIN 40 MG/0.4 ML SYRINGE SUB-Q (08:02)
[2023-08-15] MEDS: ATORVASTATIN 40 MG TABLET PO (08:02)
[2023-08-15] MEDS: amLODIPine BESYLATE 5 MG TABLET 10 MG PO (08:02)
[2023-08-15] MEDS: carvediloL 6.25 MG TABLET PO (08:02)
[2023-08-15] MEDS: ESCITALOPRAM OXALATE 10 MG TABLET 20 MG PO (08:03)
[2023-08-15] MEDS: OLANZapine 5 MG TABLET 15 MG PO (08:03)
[2023-08-15] MEDS: FERROUS SULFATE 325 MG TABLET DR PO (08:03)
[2023-08-15] MEDS: LOSARTAN POTASSIUM 100 MG TABLET PO (08:03)
[2023-08-15] MEDS: PANTOPRAZOLE SODIUM IV 40 MG VIAL IV PUSH (08:03)
[2023-08-15] MEDS: SERTRALINE HCL 50 MG TABLET 100 MG PO (08:03)
[2023-08-15] MEDS: GABAPENTIN 300 MG CAPSULE PO ×2 (08:03→12:20)
[2023-08-15] MEDS: clonazePAM (*CRX) 0.5 MG TABLET PO (08:04)
[2023-08-15 09:38] VITALS: BP 136/84
[2023-08-15 09:40] VITALS: BP 127/85
[2023-08-15 09:43] VITALS: BP 124/78
[2023-08-15] MEDS: ACETAMINOPHEN 500 MG TABLET 1000 MG PO (10:54)
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
--- NOTE | 2023-08-15 13:38 | PC.NURSE ---
Pt given discharge instructions. Pt discharged with all belongings including home medications. Pt transported to [facility], front entrance via wheelchair. Assisted to cab.
== END 2023-08-15 13:38 | disposition home or self-care (01) ==
LOC: ANHED 09:19 → ANH3MEDSUR 09:47 → ANHICU 08-15 10:02 → ANH3MEDSUR 08-16 07:47 → ANHICU 08-16 07:47
PROVIDERS: Nurse Practitioner Acute Care; Admitting Provider Internal Medicine; Emergency Provider Student in an Organized Health Care Education/Training Program; PCP Emergency Medicine; Visit Provider Hospitalist
DX: N39.0 Urinary tract infection, site not specified (principal); R45.851 Suicidal ideations; J02.9 Acute pharyngitis, unspecified; D64.9 Anemia, unspecified; D72.819 Decreased white blood cell count, unspecified; K44.9 Diaphragmatic hernia without obstruction or gangrene; R55 Syncope and collapse; J02.0 Streptococcal pharyngitis; I10 Essential (primary) hypertension; K21.9 Gastro-esophageal reflux disease without esophagitis; F41.9 Anxiety disorder, unspecified; F32.A Depression, unspecified; F43.10 Post-traumatic stress disorder, unspecified; Z91.51 Personal history of suicidal behavior; Z20.822 Contact with and (suspected) exposure to COVID-19
CPT/HCPCS: 36415; 71046; 80053; 80307; 81001; 82607; 82728; 82746; 83540; 83550; 83735; 84439; 84443; 84484; 85025; 87077; 87086; 87088; 87186; 87637; 93005; 96361; 96365; 96366; 96367; 96372; 96376; 99285; A9270; C9113; G0378; J0696; J1650; J2405; J7030; J7120; J8540

== ENCOUNTER 2023-08-31 09:47 | Outpatient (CLI) | payer MEDICARE, SELFPAY ==
--- NOTE | ~2023-08-31 | XR_ITS ---
XR chest 2V 08/31/2023 10:10 Indication: Acute upper respiratory infection Procedure: 2 view chest Comparison: Comparison to multiple prior studies sequentially, with oldest reviewed study dated 09/03. Findings: There is right perihilar and lower lung infiltrates which may represent atelectasis/scarrin g and/or pneumonia. Heart size normal. No pleural effusion or pneumothorax. No acute osseous abnormal ity. There is a small hiatal hernia. Impression: 1: Infiltrates of the right mid and lower lung which may represent atelectasis/scarring or pneumonia. Reviewed, dictated and finalized at location B. Impression: 1: Infiltrates of the right mid and lower lung which may represent atelectasis/ scarring or pneumonia.
== END 2023-08-31 09:48 | disposition home or self-care (01) ==
PROVIDERS: PCP Emergency Medicine; Visit Provider Emergency Medicine
DX: J06.9 Acute upper respiratory infection, unspecified (principal); R91.8 Other nonspecific abnormal finding of lung field
CPT/HCPCS: 71046

== ENCOUNTER 2023-09-18 08:11 | Emergency (ER) | payer MEDICARE, SELFPAY ==
[2023-09-18 08:13] VITALS: BP 119/67; PULSE 53; RESP 16; TEMP 36.7; O2SAT 98
--- NOTE | 2023-09-18 08:55 | PC.NURSE ---
EDP after exiting the room stated, pt says she is suicidal. asking to be placed in mental health facility, just not [facility]. pt did not mention being suicidal to this RN or initial RN. pt to be medially cleared and assessed by Crisis
[2023-09-18 09:09] LABS: Basophils Percent Auto 0.7 % (0.2-1.2); Eosinophils Absolute Auto 0.1 K/mm3 (0-0.3); Eosinophils Percent Auto 1.8 % (0-4.4); Hematocrit 36.8 % (37.0-47.0); Hemoglobin 11.7 g/dL (12.0-15.0); Immature Granulocyte Absolute 0.02 K/mm3 (0.00-0.031); Immature Granulocyte Percent A 0.4 % (0-0.5); Lymphocytes Absolute Auto 0.85 K/mm3 (0.9-3.2); Mean Corpuscular HGB Conc 31.8 g/dl (32-36); Mean Corpuscular Hemoglobin 27.3 pg (26-34); Mean Corpuscular Volume 85.8 fl (80-100); Mean Platelet Volume 10.4 fl (7.4-10.4); Monocytes Absolute Auto 0.4 K/mm3 (0.1-0.6); Monocytes Percent Auto 8.5 % (2.6-8.5); Neutrophils Absolute Auto 3.1 K/mm3 (1.3-6.7); Neutrophils Percent Auto 69.6 % (45.5-73.1); Platelet Count Result 162 k/mm3 (150-375); Red Blood Count 4.29 M/mm3 (4.2-5.4); Red Cell Distribution Width 15.5 % (11.5-14.5); White Blood Count 4.5 K/mm3 (4.5-10.0)
[2023-09-18 09:12] LABS: Appearance Urine Clear (Clear); Bilirubin Urine Negative (Negative); Blood Urine Negative (Negative); Color Urine Yellow (Yellow); Glucose Urine UA Negative (Negative); Ketones Urine Negative (Negative); Leukocyte Esterase Ur Negative LEU/UL (Negative); Nitrate Urine Negative (Negative); Protein Urine Negative (Negative); Specific Grav Ur 1.008 (1.001-1.035); Urobilinogen Urine 0.2 mg/dL (<2.0); pH Urine 6.5 (5.0-9.0)
[2023-09-18 09:24] LABS: Alanine Aminotransferase 28 U/L (6-35); Albumin Level 4.5 g/dL (3.5-5.1); Alkaline Phosphatase 64 U/L (38-126); Anion Gap 5 mmol/L (4-12); Aspartate Amino Transferase 31 U/L (14-36); Bilirubin,Total 0.4 mg/dL (0.2-1.3); Blood Urea Nitrogen 16 mg/dL (7-17); Calcium 9.3 mg/dL (8.4-10.2); Carbon Dioxide 31 mmol/L (22-30); Chloride 102 mmol/L (98-107); Estimated CRCL calculation 31 ml/min; Estimated Glomerular Filt Rate 49; Glucose 110 mg/dL (65-110); Potassium 4.5 mmol/L (3.4-5.0); Sodium 138 mmol/L (137-145)
[2023-09-18 09:35] LABS: Amphetamine Screen Urine Negative (Negative); Barbiturate Screen Urine Negative (Negative); Benzodiazepines Screen Urine Negative (Negative); Cannabinoid Screen Urine Negative (Negative); Cocaine Screen Urine Negative (Negative); Methadone Screen Urine Negative (Negative); Opiate Screen Urine Negative (Negative); Phencyclidine Screen Urine Negative (Negative)
[2023-09-18 09:39] LABS: Add Urine Microscopic? NO
[2023-09-18 09:45] LABS: Influenza A QL RT-PCR Negative (Negative); Influenza B QL RT-PCR Negative (Negative); RSV RNA, RT-PCR Negative (Negative); SARS-CoV-2 RNA PCR Negative (Negative)
--- NOTE | 2023-09-18 10:35 | ED.PSYCH ---
HPI - Psych General Chief Complaint: Psychiatric Symptoms <Felix Baugh MD - Last Filed: 09/19/23 11:46> Stated Complaint: SIDE EFFECTS FROM ZOLOFT <Felix Baugh MD - Last Filed: 09/19/23 11:46> Time Seen by Provider: 09/18/23 08:19 <Felix Baugh MD - Last Filed: 09/19/23 11:46> History of Present Illness HPI Narrative: Patient is a 73-year-old female who presents ER with reports of anxiety. Reports she is unsure why she is anxious. She has been on Zoloft and they have been increasing her doses last time 1 week ago. She reports she is feeling depressed as well. She reports she is suicidal and would like to walk into traffic. Patient has a long history of psychiatric issues and reporting suicidality. No other medical complaint at this time. Cannot identify any new stressors for herself. <Felix Baugh MD - Last Filed: 09/19/23 11:46> Related Data Home Medications: Home Medications Medication Instructions Recorded Confirmed gabapentin 300 mg capsule 300 mg PO TID 02/20/20 09/18/23 melatonin 10 mg tablet 10 mg PO HS 10/19/21 08/23/23 atorvastatin 40 mg tablet 40 mg PO DAILY 08/13/23 08/23/23 buspirone 15 mg tablet 15 mg PO TID 08/13/23 09/18/23 clonazepam 0.5 mg tablet 0.5 mg PO Q12H PRN Anxiety 08/13/23 09/18/23 escitalopram oxalate 20 mg tablet 20 mg PO DAILY 08/13/23 08/23/23 olanzapine 15 mg tablet 15 mg PO DAILY 08/13/23 09/18/23 prazosin 1 mg capsule 2 mg PO HS 08/13/23 09/18/23 ropinirole 0.25 mg tablet 0.25 mg PO HS 08/13/23 08/23/23 sertraline 100 mg tablet 100 mg PO DAILY 08/13/23 09/18/23 trazodone 50 mg tablet 50 - 100 mg PO HS PRN Sleep 08/13/23 09/18/23 <Felix Baugh MD - Last Filed: 09/19/23 11:46> Allergies/Adverse Reactions: Allergies Allergy/AdvReac Type Severity Reaction Status Date / Time Penicillins Allergy Unknown Itching Verified 09/18/23 08:24 Sulfa (Sulfonamide Allergy Unknown Itching Verified 09/18/23 08:24 Antibiotics) <Felix Baugh MD - Last Filed: 09/19/23 11:46> Review of Systems Review of Systems: All systems reviewed & are unremarkable except as noted in HPI and below <Felix Baugh MD - Last Filed: 09/19/23 11:46> Constitutional: Constitutional: Reports no additional constitutional complaints <Felix Baugh MD - Last Filed: 09/19/23 11:46> Cardiovascular: Cardiovascular: Reports no additional cardiovascular complaints <Felix Baugh MD - Last Filed: 09/19/23 11:46> Respiratory: Respiratory: Reports no additional respiratory complaints <Felix Baugh MD - Last Filed: 09/19/23 11:46> Gastrointestinal: Gastrointestinal: Reports no additional gastrointestinal complaints <Felix Baugh MD - Last Filed: 09/19/23 11:46> Neurologic: Reports system reviewed and no additional complaints, except as documented <Felix Baugh MD - Last Filed: 09/19/23 11:46> Psychiatric: Psychiatric: Reports anxiety, Reports depression, Denies homicidal ideation and Reports suicidal ideation <Felix Baugh MD - Last Filed: 09/19/23 11:46> [facility] Past Medical History Medical History: Medical History Anemia Anxiety Arthralgia Bilateral carotid bruits Cough Depression Dysphagia Dyspnea Esophageal stricture History of gastroesophageal reflux (GERD) Hypertension Loss of balance Myalgia Oropharyngeal dysphagia Post-menopausal Rhinosinusitis Sinus congestion Strep pharyngitis July 2023 Suicidal ideation <Felix Baugh MD - Last Filed: 09/19/23 11:46> Surgical History Surgical History: Surgical History No significant past surgical history <Felix Baugh MD - Last Filed: 09/19/23 11:46> Family History Family History: Family History Sibling Family history of cardiovascular disease Father
--- NOTE | 2023-09-18 10:38 | PC.NURSE ---
pt calm and in room, awaiting crisis eval
[2023-09-18 10:47] LABS: Ethanol < 10 mg/dL (<10)
[2023-09-18] MEDS: busPIRone HCL 10 MG, busPIRone HCL 5 MG 15 MG PO ×2 (17:07→21:24)
[2023-09-18] MEDS: GABAPENTIN 300 MG CAPSULE PO (17:07)
[2023-09-18 18:48] VITALS: BP 131/63; PULSE 62; RESP 16; TEMP 37.2; O2SAT 96
[2023-09-19 00:27] VITALS: PULSE 71
[2023-09-19] MEDS: PRAZOSIN HCL 1 MG CAPSULE 2 MG PO (00:27)
[2023-09-19] MEDS: traZODone HCL 50 MG TABLET PO ×2 (00:27→21:07)
[2023-09-19] MEDS: carvediloL 6.25 MG TABLET PO ×3 (00:27→21:06)
[2023-09-19] MEDS: ACETAMINOPHEN 500 MG TABLET 1000 MG PO ×2 (04:28→15:32)
[2023-09-19 05:57] VITALS: BP 139/81; PULSE 72; RESP 14; TEMP 37.3; O2SAT 97
--- NOTE | 2023-09-19 05:58 | PC.NURSE ---
[facility] contacted by this RN at 0330 regarding placement for pt. [facility] rep stated they have faxed pts chart to multiple facilities and that they are awaiting responses.
--- NOTE | 2023-09-19 06:00 | PC.NURSE ---
Pt has remained calm and cooperative throughout night.
[2023-09-19] MEDS: ONDANSETRON HCL ODT 4 MG TABLET PO (06:06)
--- NOTE | 2023-09-19 08:36 | PC.NURSE ---
Ordered breakfast tray for pt.
--- NOTE | 2023-09-19 08:47 | PC.NURSE ---
Pt refusing breakfast tray at this time.
[2023-09-19 08:59] VITALS: PULSE 73
[2023-09-19] MEDS: busPIRone HCL 10 MG, busPIRone HCL 5 MG 15 MG PO ×2 (08:59→21:06)
[2023-09-19] MEDS: GABAPENTIN 300 MG CAPSULE PO ×3 (08:59→17:26)
[2023-09-19 09:09] VITALS: BP 112/75; PULSE 73; RESP 14; TEMP 37.4; O2SAT 98
--- NOTE | 2023-09-19 09:17 | PC.NURSE ---
0900 Spoke with Alejandra from [facility], who requested for pts [facility] (fax # [phone]) and [facility] (fax # [phone]). Alejandra states the papers can also be faxed to [facility] after [phone] after they have some discharges. 0915 Papers were faxed to [facility].
--- NOTE | 2023-09-19 15:31 | PC.NURSE ---
Food tray ordered for pt.
[2023-09-19 21:06] VITALS: PULSE 80
--- NOTE | 2023-09-19 21:07 | PC.NURSE ---
Pt states she wants to hold off on taking prazosin until she gets to facility so she doesnt zone/pass out . She wants to be awake until she gets to facility.
== END 2023-09-20 01:02 ==
PROVIDERS: Emergency Provider Emergency Medicine; PCP Emergency Medicine
DX: R45.851 Suicidal ideations (principal); Z11.52 Encounter for screening for COVID-19; F41.9 Anxiety disorder, unspecified; F32.A Depression, unspecified; D64.9 Anemia, unspecified; M19.90 Unspecified osteoarthritis, unspecified site; K21.9 Gastro-esophageal reflux disease without esophagitis; Z79.899 Other long term (current) drug therapy
CPT/HCPCS: 36415; 80053; 80307; 81003; 84443; 85025; 87637; 99285; A9270

== ENCOUNTER 2024-01-04 09:56 | Emergency (ER) | payer MEDICARE, SELFPAY ==
[2024-01-04 10:08] VITALS: BP 153/88; PULSE 69; RESP 18; TEMP 36.8; O2SAT 97
[2024-01-04 10:42] LABS: Basophils Percent Auto 0.2 % (0.2-1.2); Eosinophils Absolute Auto 0.1 K/mm3 (0-0.3); Hematocrit 39.5 % (37.0-47.0); Hemoglobin 13.6 g/dL (12.0-15.0); Immature Granulocyte Absolute 0.02 K/mm3 (0.00-0.031); Immature Granulocyte Percent A 0.4 % (0-0.5); Lymphocytes Absolute Auto 1.17 K/mm3 (0.9-3.2); Lymphocytes Percent Auto 22.5 % (18.3-44.2); Mean Corpuscular HGB Conc 34.4 g/dl (32-36); Mean Corpuscular Hemoglobin 31.6 pg (26-34); Mean Corpuscular Volume 91.6 fl (80-100); Monocytes Absolute Auto 0.4 K/mm3 (0.1-0.6); Monocytes Percent Auto 7.3 % (2.6-8.5); Neutrophils Absolute Auto 3.6 K/mm3 (1.3-6.7); Neutrophils Percent Auto 68.6 % (45.5-73.1); Platelet Count Result 180 k/mm3 (150-375); Red Blood Count 4.31 M/mm3 (4.2-5.4); Red Cell Distribution Width 13.3 % (11.5-14.5); White Blood Count 5.2 K/mm3 (4.5-10.0)
[2024-01-04 10:50] LABS: Add Urine Microscopic? YES; Appearance Urine Clear (Clear); Bacteria Urine None Seen /hpf; Bilirubin Urine Negative (Negative); Blood Urine Negative (Negative); Color Urine Dark Yellow (Yellow); Glucose Urine UA Negative (Negative); Ketones Urine Trace mg/dL (Negative); Leukocyte Esterase Ur 1+ LEU/UL (Negative); Nitrate Urine Negative (Negative); Non Pathogenic Casts 0-2; Protein Urine Trace mg/dL (Negative); RBC Urine 0-2 /hpf (0-2); Specific Grav Ur 1.028 (1.001-1.035); Squamous Epithelial Cell Urine None Seen /hpf (Few); pH Urine 5.5 (5.0-9.0)
[2024-01-04 10:53] LABS: Alanine Aminotransferase 15 U/L (6-35); Albumin Level 4.5 g/dL (3.5-5.1); Alkaline Phosphatase 79 U/L (38-126); Anion Gap 7 mmol/L (4-12); Aspartate Amino Transferase 22 U/L (14-36); Bilirubin,Total 0.7 mg/dL (0.2-1.3); Blood Urea Nitrogen 16 mg/dL (7-17); Calcium 9.7 mg/dL (8.4-10.2); Carbon Dioxide 31 mmol/L (22-30); Chloride 98 mmol/L (98-107); Estimated CRCL calculation 33 ml/min; Estimated Glomerular Filt Rate 54; Glucose 106 mg/dL (65-110); Potassium 4.3 mmol/L (3.4-5.0); Sodium 136 mmol/L (137-145)
[2024-01-04 10:56] LABS: Acetaminophen < 10 ug/mL (10-30); Ethanol < 10 mg/dL (<10); Salicylate < 1.0 mg/dL (2-20)
[2024-01-04 11:05] LABS: Amphetamine Screen Urine Negative (Negative); Barbiturate Screen Urine Negative (Negative); Benzodiazepines Screen Urine Negative (Negative); Cannabinoid Screen Urine Negative (Negative); Cocaine Screen Urine Negative (Negative); Methadone Screen Urine Negative (Negative); Opiate Screen Urine Negative (Negative); Phencyclidine Screen Urine Negative (Negative)
[2024-01-04 11:25] LABS: SARS-CoV-2 RNA PCR Negative (Negative)
--- NOTE | 2024-01-04 13:36 | PC.NURSE ---
[facility] called asking for labs, facesheet, and medical clearance note to be faxed to [phone].
--- NOTE | 2024-01-04 13:50 | PC.NURSE ---
precautionary lunch tray ordered
--- NOTE | 2024-01-04 14:05 | ED_ITS ---
HPI - Psych General Chief Complaint: Psychiatric Symptoms Stated Complaint: SI Time Seen by Provider: 01/04/24 10:02 History of Present Illness HPI Narrative: Patient is a 73-year-old female with history of depression who presents ER with suicidal ideation. Her plan is to walk out in front of a car to kill herself. No specific stressors other than not being able to reach her therapist recently. She has been compliant with home medication. Denies drugs or alcohol. Related Data Home Medications Medication Instructions Recorded Confirmed gabapentin 300 mg capsule 300 mg PO TID 02/20/20 09/18/23 melatonin 10 mg tablet 10 mg PO HS 10/19/21 08/23/23 atorvastatin 40 mg tablet 40 mg PO DAILY 08/13/23 08/23/23 buspirone 15 mg tablet 15 mg PO TID 08/13/23 09/18/23 clonazepam 0.5 mg tablet 0.5 mg PO Q12H PRN Anxiety 08/13/23 09/18/23 escitalopram oxalate 20 mg tablet 20 mg PO DAILY 08/13/23 08/23/23 olanzapine 15 mg tablet 15 mg PO DAILY 08/13/23 09/18/23 prazosin 1 mg capsule 2 mg PO HS 08/13/23 09/18/23 ropinirole 0.25 mg tablet 0.25 mg PO HS 08/13/23 08/23/23 sertraline 100 mg tablet 100 mg PO DAILY 08/13/23 09/18/23 trazodone 50 mg tablet 50 - 100 mg PO HS PRN Sleep 08/13/23 09/18/23 Allergies Allergy/AdvReac Type Severity Reaction Status Date / Time Penicillins Allergy Unknown Itching Verified 01/04/24 10:00 Sulfa (Sulfonamide Allergy Unknown Itching Verified 01/04/24 10:00 Antibiotics) Review of Systems Review of Systems: All systems reviewed & are unremarkable except as noted in HPI and below Constitutional: Constitutional: Reports no additional constitutional complaints Cardiovascular: Cardiovascular: Reports no additional cardiovascular compla ints Respiratory: Respiratory: Reports no additional respiratory complaints Gastrointestinal: Gastrointestinal: Reports no additional gastrointestinal complaints Musculoskeletal: Musculoskeletal: Reports no additional musculoskeletal comp laints [facility] Past Medical History Medical History Anemia Anxiety Arthralgia Bilateral carotid bruits Cough Depression Dysphagia Dyspnea Esophageal stricture History of gastroesophageal reflux (GERD) Hypertension Loss of balance Myalgia Oropharyngeal dysphagia Post-menopausal Rhinosinusitis Sinus congestion Strep pharyngitis July 2023 Suicidal ideation Surgical History Surgical History No significant past surgical history Family History Family History Sibling Family history of cardiovascular disease Father , Esophageal cancer Family history of malignant neoplasm, Onset Age: 66 Mother , Related to pneumonia No problems noted. Social History Social History Social History: Patient states that she currently lives at a motel and that she has a trust fund for which she receives money from her sister Alondra Ruth. Her emergency contact is Sherie Curry, her niece who lives in [place]. She has a psychiatric history with 2 previous suicide attempts. Once when she was 16 and once when she was 30 years old. One attempt she took half a bottle of aspirin in the other time she was drinking cough syrup. Smoking status: Never smoker Second hand tobacco smoke exposure: No Alcohol intake: never Substance use: never Substance use type: does not use Do You Feel Safe in your Home?: Yes Lack of Transportation: No Lack of Food: Never True Concerned About Future Housing: No Difficulty Paying Gas/Electric Bills: No Difficulty Paying for Meds: No Currently Unemployed: No Education: Don't Know Difficulty w/ Childcare or Family Care: No Living arrangements: alone Additional living arrangements comments: The patient has a daughter that she put up for adoption. Her daughter found her later in life but she has not seen her for 22 years. Her daughter lives 6 miles from her. She is single, never . Occupation/Education: other Additional occupation/education comments: Disable Gender identity (if verbalized by the patient): Female Spiritual care concerns: No Exam Narrative: GENERAL: Well-appearing, well-nourished, and in no acute distress. HEAD: Normocephalic, atraumatic. EYES: PERRL and EOMI. ENT: Mucous membranes moist. NECK: Supple. CHEST: Clear to auscultation. No respiratory distress. HEART: Regular rate and rhythm. Normal peripheral pulses. EXTREMITIES: Normal range of motion. No edema. SKIN: Warm, dry, no rash. NEURO: Alert and oriented x3. PSYCH: Reports suicidal ideation, no HI, flat affect. Course Course Emergency Course: Patient medically cleared for psychiatric care. Crisis has seen patient and will make her involuntary. 1802: Accepted at [facility] by Vital Signs Vital signs: Vital Signs Temperature 98.2 F 01/04/24 10:08 Pulse Rate 69 01/04/24 10:08 Respiratory Rate 18 01/04/24 10:08 Blood Pressure 153/88 H 01/04/24 10:08 Pulse Oximetry 97 01/04/24 10:08 Oxygen Delivery Room Air 01/04/24 10:08 Temperature 97.9 F 01/04/24 16:49 Pulse Rate 72 01/04/24 16:49 Respiratory Rate 20 01/04/24 16:49 Blood Pressure 155/100 H 01/04/24 16:49 Pulse Oximetry 98 01/04/24 16:49 Oxygen Delivery Room Air 01/04/24 10:08 MDM - Psych Lab Data 01/04/24 10:34 01/04/24 10:35 Labs: Lab Results 01/04/24 01/04/24 Range/Units 10:34 10:35 WBC 5.2 (4.5-10.0) K/mm3 RBC 4.31 (4.2-5.4) M/mm3 Hgb 13.6 (12.0-15.0) g/dL Hct 39.5 (37.0-47.0) % MCV 91.6 (80-100) fl MCH 31.6 (26-34) pg MCHC 34.4 (32-36) g/dl RDW 13.3 (11.5-14.5) % Plt Count 180 (150-375) k/mm3 MPV 10.0 (7.4-10.4) fl Immature Gran % (Auto) 0.4 (0-0.5) % Neut % (Auto) 68.6 (45.5-73.1) % Lymph % (Auto) 22.5 (18.3-44.2) % Mellette % (Auto) 7.3 (2.6-8.5) % Eos % (Auto) 1.0 (0-4.4) % Baso % (Auto) 0.2 (0.2-1.2) % Lymph # (Auto) 1.17 (0.9-3.2) K/mm3 Mellette # (Auto) 0.4 (0.1-0.6) K/mm3 Eos # (Auto) 0.1 (0-0.3) K/mm3 Baso # (Auto) 0.0 (0.0-0.1) K/mm3 Abs Immat Gran (auto) 0.02 (0.00-0.031) K/mm3 Absolute Neuts (auto) 3.6 (1.3-6.7) K/mm3 Absolute Nucleated RBC 0.000 (0.0-0.012) K/mm3 Nucleated RBC % 0.0 (0.0-0.2) % Sodium 136 L (137-145) mmol/L Potassium 4.3 (3.4-5.0) mmol/L Chloride 98 (98-107) mmol/L Carbon Dioxide 31 H (22-30) mmol/L Anion Gap 7 (4-12) mmol/L BUN 16 (7-17) mg/dL Creatinine 1.00 (0.7-1.0) mg/dL Estim Creat Clear Calc 33 ml/min Estimated GFR 54 L (59 - ) Glucose 106 (65-110) mg/dL Calcium 9.7 (8.4-10.2) mg/dL Total Bilirubin 0.7 (0.2-1.3) mg/dL AST 22 (14-36) U/L ALT 15 (6-35) U/L Alkaline Phosphatase 79 (38-126) U/L Total Protein 8.0 (6.3-8.2) g/dL Albumin 4.5 (3.5-5.1) g/dL TSH (Reflex) 1.460 (0.465-4.68) uIU/mL Urine Color Dark yellow (Yellow) Urine Appearance Clear (Clear) Urine pH 5.5 (5.0-9.0) Ur Specific [place] 1.028 (1.001-1.035) Urine Protein Trace (Negative) mg/dL Urine Glucose (UA) Negative (Negative) mg/dL Urine Ketones Trace H (Negative) mg/dL Ur Blood (Man) Negative (Negative) Urine Nitrate Negative (Negative) Urine Bilirubin Negative (Negative) Urine Urobilinogen 1.0 (<2.0) mg/dL Leukocyte Esterase Rfl 1+ H (Negative) RONEL/UL Urine RBC 0-2 (0-2) /hpf Urine WBC 11-20 H (0-3) /hpf Ur Squamous Epith Cells None seen (Few) /hpf Urine Bacteria None seen /hpf Urine Casts 0-2 Salicylates < 1.0 L (2-20) mg/dL Urine Opiates Screen Negative (Negative) Urine Methadone Screen Negative (Negative) Acetaminophen < 10 L (10-30) ug/mL Ur Barbiturates Screen Negative (Negative) Ur Phencyclidine Scrn Negative (Negative) Ur Amphetamine Screen Negative (Negative) U Benzodiazepines Scrn Negative (Negative) Urine Cocaine Screen Negative (Negative) U Cannabinoids Screen Negative (Negative) Ethyl Alcohol < 10 (<10) mg/dL SARS-CoV-2 RNA (RT-PCR) Negative (Negative) Discharge Plan Discharge Clinical Impression: Suicidal ideation Patient Disposition: Psychiatric Hosp Condition: Stable Prescriptions: No Action gabapentin 300 mg capsule 300 mg PO TID amlodipine 10 mg tablet 10 mg PO DAILY Qty: 90 2RF carvedilol 6.25 mg tablet 6.25 mg PO BID Qty: 180 2RF losartan 100 mg tablet 100 mg PO DAILY Qty: 90 2RF melatonin 10 mg Tablet 10 mg PO HS trazodone 50 mg tablet 50 - 100 mg PO HS PRN (Reason: Sleep) prazosin 1 mg capsule 2 mg PO HS sertraline 100 mg tablet 100 mg PO DAILY buspirone 15 mg tablet 15 mg PO TID atorvastatin 40 mg tablet 40 mg PO DAILY olanzapine 15 mg tablet 15 mg PO DAILY clonazepam 0.5 mg tablet 0.5 mg PO Q12H PRN (Reason: Anxiety) ropinirole 0.25 mg tablet 0.25 mg PO HS escitalopram oxalate 20 mg tablet 20 mg PO DAILY ferrous sulfate 325 mg (65 mg iron) Tablet,Delayed Release (Dr/Ec) 325 mg PO BID Qty: 60 0RF cefpodoxime 100 mg tablet 100 mg PO BID Qty: 6 0RF Rx Instructions: must administer with a meal/food Follow-up/Referrals: Lawrence Artis MD [Primary Care Provider] -
--- NOTE | 2024-01-04 14:16 | PC.NURSE ---
Requested information faxed to [facility] @ [phone]
[2024-01-04 16:49] VITALS: BP 155/100; PULSE 72; RESP 20; TEMP 36.6; O2SAT 98
--- NOTE | 2024-01-04 16:49 | PC.NURSE ---
Pt c/o increasing VIDAL. made aware. Dr. Amauri TELLO for 1,000mg tylenol PO stat.
[2024-01-04] MEDS: ACETAMINOPHEN 500 MG TABLET 1000 MG PO (17:14)
--- NOTE | 2024-01-04 17:55 | PC.NURSE ---
ALAN Banda from [facility] called for report. States pt is accepted by Dr. Becker going to bed 5113-A.
--- NOTE | 2024-01-04 20:13 | PC.NURSE ---
pt upset that she has not been given her home medications. This RN explained to the pt that [facility] requested pts home medications be held until she has been evaluated at their facility.
[2024-01-04 20:59] VITALS: BP 181/96; PULSE 65; RESP 20; O2SAT 96
== END 2024-01-04 21:05 ==
PROVIDERS: Physician Assistant; Emergency Provider Emergency Medicine; PCP Emergency Medicine
DX: R45.851 Suicidal ideations (principal); Z11.52 Encounter for screening for COVID-19; I10 Essential (primary) hypertension; M19.90 Unspecified osteoarthritis, unspecified site; K21.9 Gastro-esophageal reflux disease without esophagitis; F32.A Depression, unspecified; Z86.2 Personal history of diseases of the blood and blood-forming organs and certain disorders involving the immune mechanism; Z79.899 Other long term (current) drug therapy
CPT/HCPCS: 36415; 80053; 80143; 80179; 80307; 81001; 82077; 84443; 85025; 87086; 87635; 99285; A9270

== ENCOUNTER 2024-02-23 22:02 | Emergency (ER) | payer MEDICARE, SELFPAY ==
--- NOTE | ~2024-02-23 | CT_ITS ---
EXAMINATION: CT brain wo con DATE: 02/24/2024 02:10 INDICATION: Headache TECHNIQUE: Computed tomography (CT) of the head was performed without intravenous contrast. Sagittal and coronal reconstructions were performed. The mA was adjusted according to patient size. Iterative reconstruction technique was employed. The dose-length product was 983.67 mGy-cm. COMPARISON: head CT dated 06/01/2022 FINDINGS: No acute intracranial hemorrhage, acute infarction or abnormal extra axial fluid collection. There is mild scattered white matter hypoattenuation consistent with chronic small vessel ischemic disease. V entricles are normal and symmetric. No mass/mass effect. The orbits, paranasal sinuses and mastoid ai r cells are normal. IMPRESSION: 1. Mild scattered nonspecific white matter hypoattenuation consistent with chronic small vessel ische rosalina disease. No acute intracranial process. Reviewed, dictated and finalized at location A. TIONAL TESTER IMPRESSION: 1. Mild scattered nonspecific white matter hypoattenuation consistent with foundry hand valente small vessel ischemic disease. No acute intracranial process.
--- OUTSIDE RECORDS SUMMARY | 2024-02-23 22:04 | XMS_ITS | Continuity of Care Document ---
Author Organization [facility] Address [address] [address] Insurance Providers Payer Plan Claims Address Claims Phone Policy Number Group Number Relation Employer Guarantor Name Guarantor Guarantor Address Guarantor Phone [employer] [address], [place] [address] tel:[phone] [id number] Self Mary Kate Rodas 1950 [address] [place] [address] [employer] [address], [place] [address] tel:[phone] Self Mary Kate Rodas [address] [place] [address] [employer] [address], [place] [address] tel:[phone] [id number] Self Mary Kate Rodas 1950 [address] [place] [address] Problems Condition ICD9 code ICD10 code SNOMED code Start Date End Date S tatus Acute recurrent maxillary sinusitis J01.01 Worki ng Frequency of micturition R35.0 Working Other specified noninflammatory disorders of vagina N89.8 Worki ng Postnasal drip R09.82 Working Otalgia, bilateral H92.03 Worki ng Acute sinusitis, unspecified J01.90 Working Polyneuropathy, unspecified G62.9 Working Major depressive disorder, recurrent severe without psychotic features F33.2 Working Hypertensive chronic kidney disease with stage 1 through stage 4 chronic kidney disease, or unspecified chronic kidney disease I12.9 Working Palpitations R00.2 Working Cannabis abuse, uncomplicated F12.10 Working Nasal congestion R09.81 Working Dorsalgia, unspecified M54.9 W orking Results No Results Allergies, adverse reactions, alerts No known allergies and adverse reactions Medications No administered medications reported Vital Signs No vital signs reported Social History No smoking Hx information available
[2024-02-23 22:40] VITALS: BP 115/79; PULSE 87; RESP 20; TEMP 36.6; O2SAT 97
--- NOTE | 2024-02-24 01:57 | ED_ITS ---
HPI - Psych General Chief Complaint: Psychiatric Symptoms <Sergio Restrepo MD - Last Filed: 02/24/24 08:28> Stated Complaint: hallucinations <Sergio Restrepo MD - Last Filed: 02/24/24 08:28> Time Seen by Provider: 02/24/24 01:38 <Sergio Restrepo MD - Last Filed: 02/24/24 08:28> History of Present Illness HPI Narrative: 73-year-old female with a past medical history including chronic anxiety and depression, hypertension, GERD. Presents the emergency department today for concerns of suicidal ideation and a headache. Patient states that her headache is throbbing in nature and she describes hearing voices in her head. When inquiring further about her headache patient states that she is suicidal and wants to walk around the traffic and hurt herself. Patient is well known to this emergency department and been here several times for anxiety and depression. Patient states that she has had previous suicide attempts in early adulthood but no recent attempts. Denies any ingestions or alcohol intake today. Denies any weakness, fatigue, fever, chills, is ambulatory and has no motor or sensory deficits. Describes a throbbing headache which she has had before. <Sergio Restrepo MD - Last Filed: 02/24/24 08:28> Related Data Home Medications: Home Medications ?Medication ?Instructions ?Recorded ?Confirmed ?Last Taken ?Type gabapentin 300 mg capsule 300 mg PO TID 02/20/20 09/18/23 10/18/21 18:00 History melatonin 10 mg tablet 10 mg PO 10/19/21 08/23/23 Unknown History atorvastatin 40 mg tablet 40 mg PO DAILY 08/13/23 08/23/23 Unknown History buspirone 15 mg tablet 15 mg PO TID 08/13/23 09/18/23 Unknown History clonazepam 0.5 mg tablet 0.5 mg PO Q12H PRN Anxiety 08/13/23 09/18/23 Unknown History escitalopram oxalate 20 mg tablet 20 mg PO DAILY 08/13/23 08/23/23 Unknown History olanzapine 15 mg tablet 15 mg PO DAILY 08/13/23 09/18/23 Unknown History prazosin 1 mg capsule 2 mg PO HS 08/13/23 09/18/23 Unknown History ropinirole 0.25 mg tablet 0.25 mg PO HS 08/13/23 08/23/23 Unknown History sertraline 100 mg tablet 100 mg PO DAILY 08/13/23 09/18/23 Unknown History trazodone 50 mg tablet 50 - 100 mg PO HS PRN Sleep 08/13/23 09/18/23 Unknown History <Sergio Restrepo MD - Last Filed: 02/24/24 08:28> Allergies/Adverse Reactions: Allergies Allergy/AdvReac Type Severity Reaction Status Date / Time Penicillins Allergy Unknown Itching Verified 02/23/24 22:46 Sulfa (Sulfonamide Allergy Unknown Itching Verified 02/23/24 22:46 Antibiotics) <Sergio Restrepo MD - Last Filed: 02/24/24 08:28> Review of Systems 2 Review of Systems: As reviewed above in HPI <Sergio Restrepo MD - Last Filed: 02/24/24 08:28> [facility] Past Medical History Medical History: Medical History URI with cough and congestion Dyspnea Dysphagia Arthralgia Anemia Cough Sinus congestion Rhinosinusitis Oropharyngeal dysphagia Myalgia Loss of balance Esophageal stricture Bilateral carotid bruits Strep pharyngitis July 2023 Suicidal ideation Depression Anxiety Post-menopausal History of gastroesophageal reflux (GERD) Hypertension <Sergio Restrepo MD - Last Filed: 02/24/24 08:28> Surgical History Surgical History: Surgical History No significant past surgical history <Sergio Restrepo MD - Last Filed: 02/24/24 08:28> Family History Family History: Family History Sibling Family history of cardiovascular disease Father , Esophageal cancer Family history of malignant neoplasm, Onset Age: 66 Mother , Related to pneumonia No problems noted. <Sergio Restrepo MD - Last Filed: 02/24/24 08:28> Social History Social History: Social History Social History: Patient states that she currently lives at a motel and that she has a trust fund for which she receives money from her sister Alondra Ruth. Her emergency contact is Sherie Curry, her niece who lives in [place]. She has a psychiatric history with 2 previous suicide attempts. Once when she was 16 and once when she was 30 years old. One attempt she took half a bottle of aspirin in the other time she was drinking cough syrup. Smoking status: Never smoker Second hand tobacco smoke exposure: No Alcohol intake: never Substance use: never Substance use type: does not use Do You Feel Safe in your Home?: Yes Lack of Transportation: No Lack of Food: Never True Concerned About Future Housing: No Difficulty Paying Gas/Electric Bills: No Difficulty Paying for Meds: No Currently Unemployed: No Education: Don't Know Difficulty w/ Childcare or Family Care: No Living arrangements: alone Additional living arrangements comments: The patient has a daughter that she put up for adoption. Her daughter found her later in life but she has not seen her for 22 years. Her daughter lives 6 miles from her. She is single, never . Occupation/Education: other Additional occupation/education comments: Disable Gender identity (if verbalized by the patient): Female Spiritual care concerns: No <Sergio Restrepo MD - Last Filed: 02/24/24 08:28> Exam 2 Narrative: GENERAL: [Well-appearing, well-nourished, and in no acute distress.] HEAD: [Normocephalic, atraumatic.] EYES: [PERRLA and EOMI.] ENT: Nares clear, no rhinorrhea or epistaxis. Mucous membranes moist. NECK: Supple. CHEST: [Clear to auscultation. No respiratory distress.] HEART: [Regular rate and rhythm]. No murmur heard. [Normal peripheral pulses.] ABDOMEN: [Soft, nondistended], [nontender], [No rigidity or guarding] EXTREMITIES: Normal range of motion. [No edema.] SKIN: Warm, dry, no rash. NEURO: [No focal deficits]. Alert and oriented [x3.] Ambulatory, no ataxia, no appreciable deficits, answer all questions appropriately PSYCH: Flat mood and affect, endorses suicidal ideation but no homicidal ideation. Endorses auditory hallucinations of voices. <Sergio Restrepo MD - Last Filed: 02/24/24 08:28> Course Course Emergency Course: Patient's workup is unremarkable and she is medically clear for psychiatric evaluation final disposition. <Sergio Restrepo MD - Last Filed: 02/24/24 08:28> Reevaluation(s) Reevaluation #1: Accepted at [facility]. She is still expressing some anxiety, requesting ativan; has often and in the past displayed benzo seeking behavior; is well appearing and in NAD, walking around asking for ativan, I will therefore give a small PO dose of zyprexa. Stable for transfer. <Alejandra Cummings MD - Last Filed: 02/24/24 09:29> Vital Signs Vital signs: Vital Signs Temperature 97.9 F 02/23/24 22:40 Pulse Rate 87 02/23/24 22:40 Respiratory Rate 20 02/23/24 22:40 Blood Pressure 115/79 02/23/24 22:40 Pulse Oximetry 97 02/23/24 22:40 Oxygen Delivery Room Air 02/23/24 22:40 Temperature 97.9 F 02/23/24 22:40 Pulse Rate 87 02/23/24 22:40 Respiratory Rate 20 02/23/24 22:40 Blood Pressure 115/79 02/23/24 22:40 Pulse Oximetry 97 02/23/24 22:40 Oxygen Delivery Room Air 02/23/24 22:40 <Sergio Restrepo MD - Last Filed: 02/24/24 08:28> Vital Signs Temperature 97.9 F 02/23/24 22:40 Pulse Rate 87 02/23/24 22:40 Respiratory Rate 20 02/23/24 22:40 Blood Pressure 115/79 02/23/24 22:40 Pulse Oximetry 97 02/23/24 22:40 Oxygen Delivery Room Air 02/23/24 22:40 Temperature 97.9 F 02/23/24 22:40 Pulse Rate 87 02/23/24 22:40 Respiratory Rate 20 02/23/24 22:40 Blood Pressure 115/79 02/23/24 22:40 Pulse Oximetry 97 02/23/24 22:40 Oxygen Delivery Room Air 02/23/24 22:40 <Alejandra Cummings MD - Last Filed: 02/24/24 09:29> MDM - Psych MDM Narrative Medical decision making narrative: 73-year-old female with history of anxiety and depression previous suicide attempts. She presents to the emergency department today for evaluation of suicidal ideation. She states that she had a headache today as well and when she called [facility] for recommendations who told her to go to the emergency department. Patient has no red flag symptoms of her headache at this time and I have a very low suspicion for an organic intracranial process at this time aside from a tension headache. She has normal vital signs without any hypoxia, fever, tachycardia, blood pressure concerns. Full strength and sensation throughout both her arms and legs, unremarkable neurological assessment. She has a very flat affect and states that she wants to walk on a traffic and that is how she is going to kill herself. States that this is how she normally wants to hurt herself but no recent attempts or ingestions. A psychiatric workup was ordered this time including toxicological panel, urinalysis, metabolic panel, a CT head also obtained and she was provide Tylenol for her headache. The workup shows no leukocytosis or anemia. Normal platelets. Normal renal function panel, normal electrolytes, normal hepatic function panel. Normal CT scan without acute findings. Urinalysis without signs of infection. Toxicological panel negative, urine drug screen negative. Negative alcohol level. Negative COVID test. Patient is medically cleared and has been evaluated by the Psychiatry and crisis team. They recommend a voluntary admission and will try and get placement. Patient endorsed to the oncoming ED physician pending psychiatric placement and transfer. Has received Tylenol for headache with improvement. <Sergio Restrepo MD - Last Filed: 02/24/24 08:28> Medical Records Attestation: I reviewed the patient's medical records. <Sergio Restrepo MD - Last Filed: 02/24/24 08:28> Lab Data Attestation: I reviewed the patient's lab results. <Sergio Restrepo MD - Last Filed: 02/24/24 08:28> Result diagrams: 02/24/24 02:46 02/24/24 02:46 <Sergio Restrepo MD - Last Filed: 02/24/24 08:28> Labs: Lab Results 02/24/24 02/24/24 02/24/24 Range/Units 02:46 03:02 03:12 WBC 5.6 (4.5-10.0) K/mm3 RBC 3.90 L (4.2-5.4) M/mm3 Hgb 12.6 (12.0-15.0) g/dL Hct 36.2 L (37.0-47.0) % MCV 92.8 (80-100) fl MCH 32.3 (26-34) pg MCHC 34.8 (32-36) g/dl RDW 12.6 (11.5-14.5) % Plt Count 176 (150-375) k/mm3 MPV 10.4 (7.4-10.4) fl Immature Gran % (Auto) 0.4 (0-0.5) % Neut % (Auto) 65.8 (45.5-73.1) % Lymph % (Auto) 24.7 (18.3-44.2) % [place] % (Auto) 7.2 (2.6-8.5) % Eos % (Auto) 1.4 (0-4.4) % Baso % (Auto) 0.5 (0.2-1.2) % Lymph # (Auto) 1.38 (0.9-3.2) K/mm3 [place] # (Auto) 0.4 (0.1-0.6) K/mm3 Eos # (Auto) 0.1 (0-0.3) K/mm3 Baso # (Auto) 0.0 (0.0-0.1) K/mm3 Abs Immat Gran (auto) 0.02 (0.00-0.031) K/mm3 Absolute Neuts (auto) 3.7 (1.3-6.7) K/mm3 Absolute Nucleated RBC 0.000 (0.0-0.012) K/mm3 Nucleated RBC % 0.0 (0.0-0.2) % Sodium 138 (137-145) mmol/L Potassium 4.0 (3.4-5.0) mmol/L Chloride 106 (98-107) mmol/L Carbon Dioxide 28 (22-30) mmol/L Anion Gap 4 (4-12) mmol/L BUN 13 (7-17) mg/dL Creatinine 0.90 (0.7-1.0) mg/dL Estim Creat Clear Calc 42 ml/min Estimated GFR > 60 (59 - ) Glucose 110 (65-110) mg/dL Calcium 9.1 (8.4-10.2) mg/dL Total Bilirubin 0.8 (0.2-1.3) mg/dL AST 33 (14-36) U/L ALT 23 (6-35) U/L Alkaline Phosphatase 67 (38-126) U/L Total Protein 7.0 (6.3-8.2) g/dL Albumin 4.5 (3.5-5.1) g/dL TSH (Reflex) 2.830 (0.465-4.68) uIU/mL Urine Color Yellow (Yellow) Urine Appearance Clear (Clear) Urine pH 5.5 (5.0-9.0) Ur Specific Scott 1.011 (1.001-1.035) Urine Protein Negative (Negative) mg/dL Urine Glucose (UA) Negative (Negative) mg/dL Urine Ketones Negative (Negative) mg/dL Ur Blood (Man) Negative (Negative) Urine Nitrate Negative (Negative) Urine Bilirubin Negative (Negative) Urine Urobilinogen 0.2 (<2.0) mg/dL Leukocyte Esterase Rfl Trace H (Negative) RONEL/UL Urine RBC 0-2 (0-2) /hpf Urine WBC 0-3 (0-3) /hpf POC Urine HCG, Qual Negative (Negative) Urine Opiates Screen Negative (Negative) Urine Methadone Screen Negative (Negative) Ur Barbiturates Screen Negative (Negative) Ur Phencyclidine Scrn Negative (Negative) Ur Amphetamine Screen Negative (Negative) U Benzodiazepines Scrn Negative (Negative) Urine Cocaine Screen Negative (Negative) U Cannabinoids Screen Negative (Negative) Ethyl Alcohol < 10 (<10) mg/dL Influenza A (RT-PCR) Negative (Negative) Influenza B (RT-PCR) Negative (Negative) RSV (RT-PCR) Negative (Negative) SARS-CoV-2 RNA (RT-PCR) Negative (Negative) <Sergio Restrepo MD - Last Filed: 02/24/24 08:28> Lab Results 02/24/24 02/24/24 02/24/24 Range/Units 02:46 03:02 03:12 WBC 5.6 (4.5-10.0) K/mm3 RBC 3.90 L (4.2-5.4) M/mm3 Hgb 12.6 (12.0-15.0) g/dL Hct 36.2 L (37.0-47.0) % MCV 92.8 (80-100) fl MCH 32.3 (26-34) pg MCHC 34.8 (32-36) g/dl RDW 12.6 (11.5-14.5) % Plt Count 176 (150-375) k/mm3 MPV 10.4 (7.4-10.4) fl Immature Gran % (Auto) 0.4 (0-0.5) % Neut % (Auto) 65.8 (45.5-73.1) % Lymph % (Auto) 24.7 (18.3-44.2) % [place] % (Auto) 7.2 (2.6-8.5) % Eos % (Auto) 1.4 (0-4.4) % Baso % (Auto) 0.5 (0.2-1.2) % Lymph # (Auto) 1.38 (0.9-3.2) K/mm3 [place] # (Auto) 0.4 (0.1-0.6) K/mm3 Eos # (Auto) 0.1 (0-0.3) K/mm3 Baso # (Auto) 0.0 (0.0-0.1) K/mm3 Abs Immat Gran (auto) 0.02 (0.00-0.031) K/mm3 Absolute Neuts (auto) 3.7 (1.3-6.7) K/mm3 Absolute Nucleated RBC 0.000 (0.0-0.012) K/mm3 Nucleated RBC % 0.0 (0.0-0.2) % Sodium 138 (137-145) mmol/L Potassium 4.0 (3.4-5.0) mmol/L Chloride 106 (98-107) mmol/L Carbon Dioxide 28 (22-30) mmol/L Anion Gap 4 (4-12) mmol/L BUN 13 (7-17) mg/dL Creatinine 0.90 (0.7-1.0) mg/dL Estim Creat Clear Calc 42 ml/min Estimated GFR > 60 (59 - ) Glucose 110 (65-110) mg/dL Calcium 9.1 (8.4-10.2) mg/dL Total Bilirubin 0.8 (0.2-1.3) mg/dL AST 33 (14-36) U/L ALT 23 (6-35) U/L Alkaline Phosphatase 67 (38-126) U/L Total Protein 7.0 (6.3-8.2) g/dL Albumin 4.5 (3.5-5.1) g/dL TSH (Reflex) 2.830 (0.465-4.68) uIU/mL Urine Color Yellow (Yellow) Urine Appearance Clear (Clear) Urine pH 5.5 (5.0-9.0) Ur Specific Scott 1.011 (1.001-1.035) Urine Protein Negative (Negative) mg/dL Urine Glucose (UA) Negative (Negative) mg/dL Urine Ketones Negative (Negative) mg/dL Ur Blood (Man) Negative (Negative) Urine Nitrate Negative (Negative) Urine Bilirubin Negative (Negative) Urine Urobilinogen 0.2 (<2.0) mg/dL Leukocyte Esterase Rfl Trace H (Negative) RONEL/UL Urine RBC 0-2 (0-2) /hpf Urine WBC 0-3 (0-3) /hpf POC Urine HCG, Qual Negative (Negative) Urine Opiates Screen Negative (Negative) Urine Methadone Screen Negative (Negative) Ur Barbiturates Screen Negative (Negative) Ur Phencyclidine Scrn Negative (Negative) Ur Amphetamine Screen Negative (Negative) U Benzodiazepines Scrn Negative (Negative) Urine Cocaine Screen Negative (Negative) U Cannabinoids Screen Negative (Negative) Ethyl Alcohol < 10 (<10) mg/dL Influenza A (RT-PCR) Negative (Negative) Influenza B (RT-PCR) Negative (Negative) RSV (RT-PCR) Negative (Negative) SARS-CoV-2 RNA (RT-PCR) Negative (Negative) <Alejandra Cummings MD - Last Filed: 02/24/24 09:29> Imaging Data Attestation: I personally reviewed and interpreted this imaging study as follows: < Sergio Restrepo MD - Last Filed: 02/24/24 08:28> My impression: Impressions Head CT 02/24/24 06:02 IMPRESSION: 1. Mild scattered nonspecific white matter hypoattenuation consistent with chronic small vessel ischemic disease. No acute intracranial process. <Sergio Restrepo MD - Last Filed: 02/24/24 08:28> Discharge Plan Discharge Clinical Impression: Depression, Suicidal ideation <Sergio Restrepo MD - Last Filed: 02/24/24 08:28> Patient Disposition: Psychiatric Hosp <Sergio Restrepo MD - Last Filed: 02/24/24 08:28> Condition: Stable <Sergio Restrepo MD - Last Filed: 02/24/24 08:28> Patient Language: Kazakh <Sergio Restrepo MD - Last Filed: 02/24/24 08:28> Prescriptions: No Action gabapentin 300 mg capsule 300 mg PO TID amlodipine 10 mg tablet 10 mg PO DAILY Qty: 90 2RF carvedilol 6.25 mg tablet 6.25 mg PO BID Qty: 180 2RF losartan 100 mg tablet 100 mg PO DAILY Qty: 90 2RF melatonin 10 mg Tablet 10 mg PO HS trazodone 50 mg tablet 50 - 100 mg PO HS PRN (Reason: Sleep) prazosin 1 mg capsule 2 mg PO HS sertraline 100 mg tablet 100 mg PO DAILY buspirone 15 mg tablet 15 mg PO TID atorvastatin 40 mg tablet 40 mg PO DAILY olanzapine 15 mg tablet 15 mg PO DAILY clonazepam 0.5 mg tablet 0.5 mg PO Q12H PRN (Reason: Anxiety) ropinirole 0.25 mg tablet 0.25 mg PO HS escitalopram oxalate 20 mg tablet 20 mg PO DAILY ferrous sulfate 325 mg (65 mg iron) Tablet,Delayed Release (Dr/Ec) 325 mg PO BID Qty: 60 0RF cefpodoxime 100 mg tablet 100 mg PO BID Qty: 6 0RF Rx Instructions: must administer with a meal/food <Sergio Restrepo MD - Last Filed: 02/24/24 08:28> Follow-up/Referrals: Lawrence Artis MD [Primary Care Provider] - <Sergio Restrepo MD - Last Filed: 02/24/24 08:28> Time of Disposition: 08:28 <Sergio Restrepo MD - Last Filed: 02/24/24 08:28> 08:28 <Alejandra Cummings MD - Last Filed: 02/24/24 09:29>
[2024-02-24 02:55] LABS: Basophils Percent Auto 0.5 % (0.2-1.2); Eosinophils Absolute Auto 0.1 K/mm3 (0-0.3); Eosinophils Percent Auto 1.4 % (0-4.4); Hematocrit 36.2 % (37.0-47.0); Hemoglobin 12.6 g/dL (12.0-15.0); Immature Granulocyte Absolute 0.02 K/mm3 (0.00-0.031); Immature Granulocyte Percent A 0.4 % (0-0.5); Lymphocytes Absolute Auto 1.38 K/mm3 (0.9-3.2); Lymphocytes Percent Auto 24.7 % (18.3-44.2); Mean Corpuscular HGB Conc 34.8 g/dl (32-36); Mean Corpuscular Hemoglobin 32.3 pg (26-34); Mean Corpuscular Volume 92.8 fl (80-100); Mean Platelet Volume 10.4 fl (7.4-10.4); Monocytes Absolute Auto 0.4 K/mm3 (0.1-0.6); Monocytes Percent Auto 7.2 % (2.6-8.5); Neutrophils Absolute Auto 3.7 K/mm3 (1.3-6.7); Neutrophils Percent Auto 65.8 % (45.5-73.1); Platelet Count Result 176 k/mm3 (150-375); Red Cell Distribution Width 12.6 % (11.5-14.5); White Blood Count 5.6 K/mm3 (4.5-10.0)
[2024-02-24 02:58] LABS: Add Urine Microscopic? YES; Appearance Urine Clear (Clear); Bilirubin Urine Negative (Negative); Blood Urine Negative (Negative); Color Urine Yellow (Yellow); Glucose Urine UA Negative (Negative); Ketones Urine Negative (Negative); Leukocyte Esterase Ur Trace LEU/UL (Negative); Nitrate Urine Negative (Negative); Protein Urine Negative (Negative); Specific Grav Ur 1.011 (1.001-1.035); Urobilinogen Urine 0.2 mg/dL (<2.0); pH Urine 5.5 (5.0-9.0)
[2024-02-24 02:59] LABS: RBC Urine 0-2 /hpf (0-2); WBC Urine 0-3 /hpf (0-3)
[2024-02-24] MEDS: ACETAMINOPHEN 500 MG TABLET 1000 MG PO (02:59)
--- NOTE | 2024-02-24 03:03 | PC.NURSE ---
Pt brought back to room and now states she is having suicidal thoughts. Pt states I just want to jump in front of a car all suicide precautions initiated.
[2024-02-24 03:04] LABS: BEDSIDEPREGUCG Negative (Negative)
[2024-02-24 03:05] LABS: Alanine Aminotransferase 23 U/L (6-35); Albumin Level 4.5 g/dL (3.5-5.1); Alkaline Phosphatase 67 U/L (38-126); Anion Gap 4 mmol/L (4-12); Aspartate Amino Transferase 33 U/L (14-36); Bilirubin,Total 0.8 mg/dL (0.2-1.3); Blood Urea Nitrogen 13 mg/dL (7-17); Calcium 9.1 mg/dL (8.4-10.2); Carbon Dioxide 28 mmol/L (22-30); Chloride 106 mmol/L (98-107); Estimated CRCL calculation 42 ml/min; Estimated Glomerular Filt Rate > 60; Glucose 110 mg/dL (65-110); Sodium 138 mmol/L (137-145)
[2024-02-24 03:11] LABS: Ethanol < 10 mg/dL (<10)
[2024-02-24 03:12] LABS: Amphetamine Screen Urine Negative (Negative); Barbiturate Screen Urine Negative (Negative); Benzodiazepines Screen Urine Negative (Negative); Cannabinoid Screen Urine Negative (Negative); Cocaine Screen Urine Negative (Negative); Methadone Screen Urine Negative (Negative); Opiate Screen Urine Negative (Negative); Phencyclidine Screen Urine Negative (Negative)
[2024-02-24 03:59] LABS: Influenza A QL RT-PCR Negative (Negative); Influenza B QL RT-PCR Negative (Negative); RSV RNA, RT-PCR Negative (Negative); SARS-CoV-2 RNA PCR Negative (Negative)
[2024-02-24] MEDS: ACETAMINOPHEN 325 MG TABLET 650 MG PO (08:27)
[2024-02-24] MEDS: OLANZapine 5 MG TABLET PO (10:02)
[2024-02-24 10:48] VITALS: BP 151/89; TEMP 37.2; O2SAT 95
== END 2024-02-24 13:20 ==
PROVIDERS: Emergency Provider Student in an Organized Health Care Education/Training Program; PCP Emergency Medicine
DX: R45.851 Suicidal ideations (principal); F32.A Depression, unspecified; Z11.52 Encounter for screening for COVID-19; F41.9 Anxiety disorder, unspecified; I10 Essential (primary) hypertension; K21.9 Gastro-esophageal reflux disease without esophagitis; Z91.51 Personal history of suicidal behavior; Z79.899 Other long term (current) drug therapy
CPT/HCPCS: 36415; 70450; 80053; 80307; 81001; 81025; 82077; 84443; 85025; 87637; 99285; A9270

== ENCOUNTER 2024-05-09 02:47 | Emergency (ER) | payer MEDICARE, SELFPAY ==
[2024-05-09 02:48] VITALS: BP 145/79; PULSE 75; RESP 18; TEMP 36.4; O2SAT 98
--- OUTSIDE RECORDS SUMMARY | 2024-05-09 02:48 | XMS_ITS | Clinical Summary ---
Author Organization [facility] Address [address] [place] [address] Phone Care Team Providers Care Dethistler Operator Name Role Phone Lawrence Artis MD Primary Care Provider [phone] Allergies Active Allergy Reactions Criticality Noted Date Comments Penicillins Itching 04/14/2022 Sulfa Antibiotics Itching 04/14/2022 Medications LORazepam (Ativan) 0.5 MG TabletIndication s:Anxiety and depression Take 1 Tablet by mouth daily as needed for Anxiety. 10 Tablet 04/14/2022 Active ondansetron (ZOFRAN) 4 MG Tablet Take 1 Tablet by mouth every 8 hours as needed for Nausea - 1st line. 10 Tablet 08/29/2022 Active Social History Tobacco Use Types Packs/Day Years Used Date Smoking Tobacco: Never Smokeless Tobacco: Never Tobacco Cessation:Counseling Given: Not Answered Alcohol Use Standard Drinks/Week Comments Never 0 (1 standard drink = 0.6 oz pur e alcohol) Comments No Sex and Gender Information Value Date Recorded Sex Assigned at Not on file Legal Sex Female 8:08 PM CDT Gender Identity Not on file Sexual Orientation Not on file Last Filed Vital Signs Vital Sign Reading Time Taken Comments Blood Pressure 165/78 08/29/2022 11:27 AM CDT Pulse 68 08/29/2022 11:27 AM CDT Temperature 36.5 C (97.7 F) 08/29/2022 5:51 AM CDT Respiratory Rate 17 08/29/2022 11:27 AM CDT Oxygen Saturation 99% 08/29/2022 11:27 AM CDT Inhaled Oxygen Concentration - - Weight 47.6 kg (105 lb) 08/29/2022 5:51 AM CDT Height 154.9 cm (5' 1 ) 08/29/2022 5:51 AM CDT Body Mass Index 19.84 08/29/2022 5:51 AM CDT Plan of Treatment Health Maintenance Due Date Last Done Comments DEXA Bone Density 1950 Hepatitis C Virus (HCV) Screening 1950 Mammogram 1950 TdaP Immunization 1950 Colonoscopy 1995 Colorectal Cancer Screening 1995 Cologuard 2000 Immunochemical Fecal Occult Blood 2000 Pneumococcal Immunization (50+ years) (1 of 1 - PCV) 2000 Zoster Immunization (1 of 2) 2000 Influenza Immunization (#1) 11/13/2023/0 05/2020, 01/09/2020, 12/14/2017, Additional history exists SARS-COV-2 Immunization ( season) 2023 04/28/2021, 08/08/2020, 07/18/2020 Respiratory Syncytial Virus (RSV) Immunization (Adult) (1 - 1-dose 75+ series) 2025 Hepatitis B Immunization Aged Out No longer eligible based on patient's age to complete this topic Meningococcal Immunization (ACWY) Aged Out No longer eligible based on patient's age to complete this topic Rotavirus Immunization Aged Out No lo nger eligible based on patient's age to complete this topic Insurance MEDICARE C [employer]ET[employer] Care Teams Dethistler Operator Relationship Specialty Start Date End Date Lawrence Artis MD [address] [place] [address] PCP - General Internal Medicine 04/14/22
--- OUTSIDE RECORDS SUMMARY | 2024-05-09 02:48 | XMS_ITS | Clinical Summary ---
Author Organization [facility] Address [address] [place] [address] Care Team Providers Care Child Care Attendant School Name Role Phone Lawrence Artis MD Primary Care Provider Source Comments [facility],non-owned Affiliates and Associated Physician Practices is amultiple site organization consisting of ambulatory clinics and hospital sitesin [place], [place], [place] and [place]. This disclosure is being madepursuant to the Care Everywhere program and may not contain all information available regarding this patient. Last updated 17.[facility] Allergies Active Allergy Reactions Criticality Noted Date Comments Penicillins Itching Low 10/14/2022 Sulfa Antibiotics Itching Low 10/14/2022 Medications * Be aware that medications may not be up to date on this document. Alwaysverify current medications with the patient. Medication Sig Dispensed Refills Start Date End Date Status losartan (Cozaar) 100 MG tabletIndications: Hypertension Take 1 (one) tablet by mouth once daily for 15 days Reasons: High Blood Pressure Disorder 15 tablet 2 10/28/2022 Active carvedilol (Coreg) 6.25 MG tabletIndications: Hypertension Take 1 (one) tablet by mouth 2 times daily for 15 days Reasons: High Blood Pressure Disorder 30 tablet 2 10/28/2022 Active mirtazapine (Remeron) 15 MG tabletIndications: Major Depressive Disorder Take 1 (one) tablet by mouth at bedtime Active prazosin (Minipress) 2 MG capsuleIndications :Hypertension,Nigh tmares Take 1 (one) capsule by mouth at bedtime Active traZODone (Desyrel) 50 MG tabletIndications: Anxiety Disorder,Major Depressive Disorder Take 1 (one) tablet by mouth at bedtime Active gabapentin (Neurontin) 400 MG capsuleIndications :Neuropathic Pain,Social Anxiety Disorder Take 1 (one) capsule by mouth 3 times daily Active escitalopram (Lexapro) 20 MG tabletIndications: Major Depressive Disorder,Posttraum atic Stress Disorder Take 1 (one) tablet by mouth once daily for 15 days Reasons: Major Depressive Disorder, Posttraumatic Stress Disorder 15 tablet 1 01/24/2023 Active traZODone (Desyrel) 50 MG tabletIndications: Anxiety Disorder Take 0.5 (one-half) tablet by mouth 2 times daily as needed for Insomnia Reasons: Anxiety Disorder 15 tablet 1 01/23/2023 Active Active Problems Problem Noted Date Diagnosed Date Malingering 01/23/2023 Generalized anxiety disorder 10/18/2022 Chronic post-traumatic stress disorder (PTSD) Severe episode of recurrent major depressive disorder, without psychotic features 10/14/2022 Resolved Problems Problem Noted Date Diagnosed Date Resolved Date Depressive disorder 01/12/2023 01/14/20 Social History Tobacco Use Types Packs/Day Years Used Date Smoking Tobacco: Never Passive Smoke Exposure: Never Smokeless Tobacco: Never Tobacco Cessation:Counseling Given: No Alcohol Use Standard Drinks/Week Comments Never 0 (1 standard drink = 0.6 oz pur e alcohol) 0 AUDIT-C Answer Date Recorded Q1: How often do you have a drink containing alcohol? Never 01/12/2023 Q2: How many drinks containi ng alcohol do you have on a typical day when you are drinking? Patient does not drink Q3: How often do you have si x or more drinks on one occasion? Never 01/12/2023 Overall Financial Resource Strain (CARDIA) Answe r Date Recorded How hard is it for you to pa y for the very basics like food, housing, medical care, and heating? Not very hard 01/12/2023 [facility] Occupat ional Health - Occupational Stress Questionnaire Answer Date Recorded Do you feel stress - tense, restless, nervous, or anxious, or unable to sleep at night because your mind is troubled all the time - these days? Very much 01/12/2023 Hunger Vital Sign Answer Date Recorded Within the past 12 months, y ou worried that your food would run out before you got the money to buy more. Sometimes true Within the past 12 months, t he food you bought just didn't last and you didn't have money to get more. Never true 03/2022 PRAPARE - Transportation Answer Date Re corded In the past 12 months, has l ack of transportation kept you from medical appointments or from getting medications? No 03/2022 In the past 12 months, has l ack of transportation kept you from meetings, work, or from getting things needed for daily living? No 01/12/2023 Housing Stability Vital Sign Answer Alex e Recorded In the last 12 months, was t here a time when you were not able to pay the mortgage or rent on time? No 01/12/2023 In the last 12 months, how many places have you lived? 1 01/12/2023 In the last 12 months, was t here a time when you did not have a steady place to sleep or slept in a group home (including now)? No 01/12/2023 Sex and Gender Information Value Date Recorded Sex Assigned at Not on file Gender Identity Not on file Sexual Orientation Not on file Last Filed Vital Signs Vital Sign Reading Time Taken Comments Blood Pressure 184/100 01/24/2023 7:38 AM GARMENT EXAMINER pacing all morning nurse aware Pulse 77 01/24/2023 7:38 AM GARMENT EXAMINER Temperature 37 C (98.6 F) 01/24/2023 7:38 AM GARMENT EXAMINER Respiratory Rate 18 01/24/2023 7:38 AM GARMENT EXAMINER Oxygen Saturation 98% 01/24/2023 7:3 8 AM GARMENT EXAMINER Inhaled Oxygen Concentration - - Weight 51.7 kg (114 lb) 01/12/2023 5:00 PM CDT Height 154.9 cm (5' 1 ) 01/12/2023 5:00 PM CDT Body Mass Index 21.54 01/12/2023 5:00 PM CDT Plan of Treatment Health Maintenance Due Date Last Done Comments BONE DENSITY TESTING 1950 COLOGUARD (AGES 45-75) - COLON CA SCREENING 1950 COLON MONITORING 1950 COLONOSCOPY - COLON CA SCREENING 1950 CT COLONOGRAPHY - COLON CA SCREENING 1950 Colorectal Cancer Screening 1950 FIT - COLON CA SCREENING 1950 FLEX SIG - COLON CA SCREENING 1950 LIPID TESTING 1950 MAMMOGRAM 1950 MEDICARE AWV 12 MONTHS 1950 HEPATITIS C SCREENING 04/24/1968 DTAP/TDAP/TD VACCINES (1 - Tdap) 1969 PNEUMOCOCCAL VACCINE 50+ (1 of 1 - PCV) 2000 ZOSTER VACCINE (1 of 2) 2000 COVID-19 VACCINE (1 - 2023- season) 2023 INFLUENZA VACCINE (#1) 2023 8, 12/31/2016, 12/09/2015, Additional history exists DEPRESSION SCREENING 03/14/2024 MEDICARE AWV CALENDAR YEAR 2024 Respiratory Syncytial Virus (RSV) Vaccine Pt: or over 60 yrs (1 - 1-dose 75+ series) 2025 HEPATITIS B VACCINE Aged Out No longe r eligible based on patient's age to complete this topic HIB VACCINE Aged Out No longer eligi ble based on patient's age to complete this topic HPV VACCINE Aged Out No longer eligi ble based on patient's age to complete this topic MENINGOCOCCAL (Group B) VACCINE Aged Out No longer eligible based on patient's age to complete this topic MENINGOCOCCAL VACCINE Aged Out No nuvia alejandra eligible based on patient's age to complete this topic Advance Directives * Full Code (Latest Code Status on File) Date Activated Date Inactivated Comments 01/12/2023 5:12 PM 01/24/2023 10:38 AM * Full Code Date Activated Date Inactivated Comments 10/14/2022 2:03 PM 10/28/2022 4:18 PM Care Teams Child Care Attendant School Relationship Specialty Start Date End Date Lawrence Artis MD [address] [place] [id number] PCP - General 09/11/20
--- OUTSIDE RECORDS SUMMARY | 2024-05-09 02:48 | XMS_ITS | Clinical Summary ---
Author Organization [facility] [address] Address [address] [place] [address] Care Team Providers Care Continuous Improvement Manager Name Role Phone Lawrence Artis MD Primary Care Provide r Allergies Active Allergy Reactions Criticality Noted Date Comments Acyclovir Unknown 12/10/2021 Doxycycline Nausea & Vomiting Low 09/30/2022 Penicillins Itching,Swelling Medium 04/14/2022 Sulfa (Sulfonamide Antibiotics) Itching,Swelling Medium 09/09/2022 Medications amLODIPine (NORVASC) 5 mg tablet 1 tablet (5 mg total) Active carvediloL (COREG) 6.25 mg tablet every 12 hours 06/13/19 21 Active losartan (COZAAR) 100 mg tablet 1 tablet (100 mg total) Active tranylcypromine (PARNATE) 10 mg tablet Take 1 tablet (10 mg total) by mouth 2 (two) times a day 60 tablet 07/24/19 23 Active Additional Information Patient not taking.Reported on 09/29/2022 LORazepam (Ativan) 1 mg tabletIndications: Insomnia,anxiety Take 1 tablet (1 mg total) by mouth 3 (three) times a day as needed for anxiety 20 tablet 07/28/19 23 Active Additional Information Patient not taking.Reported on 09/29/2022 benzocaine-menthoL (Cepacol Sore Throat, bhanu-men,) 15-2.6 mg lozenge Take 1 lozenge by mouth every 4 (four) hours as needed 09/10/19 23 Active benzonatate (TESSALON) 100 mg capsule Take 1 capsule (100 mg total) by mouth 09/10/19 23 Active carvediloL (COREG) 3.125 mg tablet Take 2 tablets (6.25 mg total) by mouth 2 (two) times a day 09/21/19 23 Active LORazepam (ATIVAN) 0.5 mg tablet TAKE 1 TABLET BY MOUTH DAILY IN THE MORNING FOR ANXIETY 09/16/19 23 Active losartan (COZAAR) 50 mg tablet 09/21/19 23 Active ondansetron ODT (ZOFRAN-ODT) 4 mg disintegrating tablet DISSOLVE 1 TABLET ON THE TONGUE EVERY 8 HOURS NEEDED FOR NAUSEA OR VOMITING 08/28/19 23 Active hydrOXYzine (VISTARIL) 50 mg capsule TAKE 1 CAPSULE BY MOUTH EVERY 8 HOURS NEEDED FOR ANXIETY 09/20/19 23 Active gabapentin (NEURONTIN) 300 mg capsule TAKE 1 CAPSULE BY MOUTH EVERY 8 HOURS Active mirtazapine (REMERON) 15 mg tablet Take 1 tablet (15 mg total) by mouth nightly at bedtime Active naproxen (NAPROSYN) 250 mg tablet every 12 hours Activ e prazosin (MINIPRESS) 1 mg capsule TAKE 1 CAPSULE BY MOUTH EVERY DAY AT BEDTIME Active traZODone (DESYREL) 50 mg tablet Take 1 tablet (50 mg total) by mouth nightly Active sertraline (ZOLOFT) 100 mg tablet Take 1 tablet (100 mg total) by mouth daily Active atorvastatin (LIPITOR) 40 mg tablet 1 tablet (40 mg total) 06/16/19 24 Active busPIRone (BUSPAR) 15 mg tablet Take 1 tablet (15 mg total) by mouth 2 (two) times a day 08/10/19 24 Active levoFLOXacin (LEVAQUIN) 500 mg tablet TAKE 1 TABLET BY MOUTH DAILY FOR 7 DAYS 08/31/19 24 Active rOPINIRole (REQUIP) 0.25 mg tablet Take 1 tablet (0.25 mg total) by mouth nightly 07/15/19 24 Active lidocaine viscous (XYLOCAINE) 2 % solutionIndication s:Sore throat Apply 10 mL to the mouth or throat every 6 (six) hours as needed (sore throat) 100 mL 09/08/19 24 Active Active Problems Problem Noted Date Diagnosed Date Chronic post-traumatic stress disorder (PTSD) Severe episode of recurrent major depressive disorder, without psychotic features 10/14/2022 STACY (acute kidney injury) 07/20/2022 Benzodiazepine dependence 02/16/2022 Gastroesophageal reflux disease 02/16/2022 Generalized anxiety disorder 02/16/2022 Major depressive disorder 02/16/2022 Restless legs 02/16/2022 Essential hypertension 08/08/2019 Moderate recurrent major depression 04/24/2019 Immunizations Immunization Administration Dates Next Due Influenza, Quadrivalent, Hig h Dose, Preservative Free, Intrr 01/14/2021,01/09/2020 Influenza, Quadrivalent, Spl it, Intramuscular 12/31/2016,12/09/2015,07/04/2015 Influenza, Quadrivalent, Spl it, Preservative Free, Intramuscular 12/14/2017 Social History Tobacco Use Types Packs/Day Years Used Date Smoking Tobacco: Never Smokeless Tobacco: Never Tobacco Cessation:Counseling Given: Not Answered AUDIT-C Answer Date Recorded Q1: How often do you have a drink containing alcohol? Never 07/20/2022 Q2: How many drinks containi ng alcohol do you have on a typical day when you are drinking? Patient does not drink Q3: How often do you have si x or more drinks on one occasion? Never 07/20/2022 PHQ-2 Answer Date Recorded PHQ-2 Total Score (If total score is 3 or more points, staff should administer the PHQ-9) 0 07/23/2022 Personal Safety Answer Date Recorded Have you ever been in or are you currently in a harmful physical or emotional relationship or is someone making you feel afraid or unsafe? 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 Gender Identity Not on file Sexual Orientation Not on file Obstetrics History Last Filed Vital Signs Vital Sign Reading Time Taken Comments Blood Pressure 130/78 09/08/2023 2:34 PM CDT Pulse 64 09/08/2023 2:34 PM CDT Temperature 36.5 C (97.7 F) 09/08/2023 2:34 PM CDT Respiratory Rate 14 09/08/2023 2:34 PM CDT Oxygen Saturation 98% 09/08/2023 2:34 PM CDT Inhaled Oxygen Concentration - - Weight 56.2 kg (124 lb) 09/08/2023 2:34 PM CDT Height 154.9 cm (5' 1 ) 09/08/2023 2:34 PM CDT Body Mass Index 23.43 09/08/2023 2:34 PM CDT Plan of Treatment Health Maintenance Due Date Last Done Comments Breast Cancer Screening-Mammogram 1950 Colon Cancer Screening-Colonoscopy 1950 Hepatitis C Screening 1950 Osteoporosis Screening-Bone Density Scan 1950 DTaP/Tdap/Td Vaccine (1 - Tdap) 1961 Hepatitis B Screening 1968 Pneumococcal vaccine 65+ (1 of 1 - PCV) 2000 Zoster Vaccine (1 of 2) 2000 Well Visit 65+ 2015 Depression Screening 07/20/2023 07/19/2022 Fall Risk Assessment 07/24/2023 07/23/2022 Covid-19 Vaccine (2023-2 5 season) 2023 04/28/2021, 08/08/2020, 07/18/2020 Influenza Vaccine (#1) 2023 , 01/09/2020, 12/14/2017, Additional history exists Medical Devices Implanted Type Area Addressing Machine Operator Device Identifier Shelf Expiration Date Model / Serial / Lot Vagus Nerve Stimulator Vagus Nerve Stimulator Left: Chest Insurance [employer] MEDICARE GOLD A[employer] MEDICARE GOLD Advance Directives For more information, please contact: [phone] * Full Code (Latest Code Status on File) Date Activated Date Inactivated Comments 07/21/2022 6:02 PM 07/23/2022 7:45 PM Care Teams Continuous Improvement Manager Relationship Specialty Start Date End Date Lawrence Artis MD [address] [place] [address] PCP - General Emergency Medicine 10/19/21
--- OUTSIDE RECORDS SUMMARY | 2024-05-09 02:48 | XMS_ITS | Referral Summary ---
Author Organization [facility] Address [address] [place] [address] Care Team Providers Care Lang Path Therapist Name Role Phone Lawrence Artis MD Primary Care Provider Source Comments [facility],non-[facility] Affiliates and Associated Physician Practices is amultiple site organization consisting of ambulatory clinics and hospital sitesin [place], [place], [place] and [place]. This disclosure is being madepursuant to the Care Everywhere program and may not contain all information available regarding this patient. Last updated 17.[facility] Allergies Active Allergy Reactions Criticality Noted Date [...] care, and heating? Not very hard 01/12/2023 [facility] [place] of Occupat ional Health - Occupational Stress [...] place to sleep or slept in a retirement (including now)? No 01/12/2023 Sex and Gender Information Value Date Recorded Sex Assigned at Not on file Gender Identity Not on file Sexual Orientation Not on file Last Filed Vital Signs Vital Sign Reading Time Taken Comments Blood Pressure 184/100 01/24/2023 7:38 AM ATMOSPHERIC PHYSICIST pacing all morning nurse aware Pulse 77 01/24/2023 7:38 AM ATMOSPHERIC PHYSICIST Temperature 37 C (98.6 F) 01/24/2023 7:38 AM ATMOSPHERIC PHYSICIST Respiratory Rate 18 01/24/2023 7:38 AM ATMOSPHERIC PHYSICIST Oxygen Saturation 98% 01/24/2023 7:3 8 AM ATMOSPHERIC PHYSICIST Inhaled Oxygen Concentration - - Weight 51.7 kg (114 lb) 01/12/2023 5:00 PM CDT Height 154.9 cm (5' 1 ) 01/12/2023 5:00 PM CDT Body Mass Index 21.54 01/12/2023 5:00 PM CDT Functional Status Functional Status Response Date of Assess ment Is person deaf or have serious hearing difficult y? No 01/24/2023 Is person blind or have serious difficulty seein g? No 01/24/2023 Does person have serious dif ficulty walking/climbing stairs? No 01/24/2023 Does person have difficulty dressing/bathing? No 01/24/2023 Does person have difficulty doing errands alone? No 01/24/2023 Cognitive Status Response Date of Assessm ent Does person have difficulty concentrating/remembering/making decisions? No 01/24/2023 Plan of Treatment Not on file Advance Directives * Full Code (Latest Code Status on File) Date Activated Date Inactivated Comments 01/12/2023 5:12 PM 01/24/2023 10:38 AM * Full Code Date Activated Date Inactivated Comments 10/14/2022 2:03 PM 10/28/2022 4:18 PM Care Teams Lang Path Therapist Relationship Specialty Start Date End Date Lawrence Artis MD [address] [place] [id number] PCP - General 09/11/20
--- OUTSIDE RECORDS SUMMARY | 2024-05-09 02:48 | XMS_ITS | Patient Health Summary ---
Author Organization [facility] Isabella Oliver Address [address] [place] [address] Care Team Providers Care Blood Donor Unit Assistant Name Role Phone Lawrence Artis MD Primary Care Provider [phone] Note from [facility],non-owned Affiliates and Associated Physician Practices is amultiple site organization consisting of ambulatory clinics and hospital sitesin [place], [place], [place] and [place]. This disclosure is being madepursuant to the Care Everywhere program and may not contain all information available regarding this patient. Last updated 17.[facility] Isabella Oliver Allergies * Penicillins(Itching) -Low Criticality * Sulfa Antibiotics(Itching) -Low Criticality Medications * Be aware that medications may not be up to date on this document. Alwaysverify current medications with the patient. * losartan (Cozaar) 100 MG tablet(Started 10/28/2022) Take 1 (one) tablet by mouth once daily for 15 days Reasons: High Blood Pressure Disorder 2 refills by 10/28/2023 * carvedilol (Coreg) 6.25 MG tablet(Started 10/28/2022) Take 1 (one) tablet by mouth 2 times daily for 15 days Reasons: High Blood Pressure Disorder 2 refills by 10/28/2023 * mirtazapine (Remeron) 15 MG tablet Take 1 (one) tablet by mouth at bedtime * prazosin (Minipress) 2 MG capsule Take 1 (one) capsule by mouth at bedtime * traZODone (Desyrel) 50 MG tablet Take 1 (one) tablet by mouth at bedtime * gabapentin (Neurontin) 400 MG capsule Take 1 (one) capsule by mouth 3 times daily * escitalopram (Lexapro) 20 MG tablet(Started 01/24/2023) Take 1 (one) tablet by mouth once daily for 15 days Reasons: Major Depressive Disorder, Posttraumatic Stress Disorder 1 refill by 01/23/2024 * traZODone (Desyrel) 50 MG tablet(Started 01/23/2023) Take 0.5 (one-half) tablet by mouth 2 times daily as needed for Insomnia Reasons: Anxiety Disorder 1 refill by 01/23/2024 Active Problems Problem Noted Date Diagnosed Date Malingering 01/23/2023 Generalized anxiety disorder 10/18/2022 Chronic post-traumatic stress disorder (PTSD) Severe episode of recurrent major depressive disorder, without psychotic features 10/14/2022 Resolved Problems Problem Noted Date Diagnosed Date Resolved Date Depressive disorder 01/12/2023 01/14/20 23 Social History Tobacco Use Types Packs/Day Years [...] care, and heating? Not very hard 01/12/2023 [facility] - Occupational Stress [...] place to sleep or slept in a [facility] (including now)? No 01/12/2023 Sex and Gender Information Value Date Recorded Sex Assigned at Not on file Gender Identity Not on file Sexual Orientation Not on file Last Filed Vital Signs Vital Sign Reading Time Taken Comments Blood Pressure 184/100 01/24/2023 7:38 AM HOSPITALIST pacing all morning nurse aware Pulse 77 01/24/2023 7:38 AM HOSPITALIST Temperature 37 C (98.6 F) 01/24/2023 7:38 AM HOSPITALIST Respiratory Rate 18 01/24/2023 7:38 AM HOSPITALIST Oxygen Saturation 98% 01/24/2023 7:3 8 AM HOSPITALIST Inhaled Oxygen Concentration - - Weight 51.7 kg (114 lb) 01/12/2023 5:00 PM CDT Height 154.9 cm (5' 1 ) 01/12/2023 5:00 PM CDT Body Mass Index 21.54 01/12/2023 5:00 PM CDT Procedures * CARDIAC EKG ORDER(Performed 01/25/2023) * EKG 12-LEAD(Performed 01/22/2023) Performed for Palpitations * COMPREHENSIVE METABOLIC PANEL(Performed 01/22/2023) * CBC W AUTO DIFFERENTIAL(Performed 01/22/2023) * CULTURE STREP GROUP A(Performed 01/13/2023) * STREP A SCREEN DIRECT W RFLX STREP A CULTURE(Performed 01/13/2023) Results * CARDIAC EKG ORDER (01/25/2023 2:27 PM HOSPITALIST) Narrative 01/25/2023 2:27 PM HOSPITALIST Ordered by an unspecified provider. Scanned Document CARDIAC SERVICES ORD ERABLES * EKG 12-LEAD (01/22/2023 3:25 PM HOSPITALIST) Ventricular Rate 69 BPM [facility] Atrial Rate 69 BPM [facility] P-R Interval 148 ms [facility] QRS Duration ms 78 ms [facility] Q-T Interval ms 382 ms [facility] QTC Calculation (Bezet) 409 ms [facility] Calculated P [place] 56 degrees [facility] Calculated R [place] 40 degrees [facility] Calculated T [place] 45 degrees [facility] Interpretation EKG NORMAL SINUS RHYTHM NORMAL ECG Confirmed by CESILIA RIVERA MD ([id number]), school photograph editor OUMAR CASTRO ([id number]) on 01/24/2023 6:35:13 AM [facility] 01/22/2023 3:25 PM HOSPITALIST 01/24/2023 6:35 AM [facility] Nara Enriquez AUTOMATION CONSULTANT-FINANCE ASSISTANT ECG ORDERABLES [facility] * (ABNORMAL) CBC W AUTO DIFFERENTIAL (01/22/2023 6:45 AM HOSPITALIST) Pathologist [facility] WBC 3.2(L) 4.0 - 10.0 x10E9/L 01/22/2023 7:07 AM [facility] RBC 3.73(L) 3.93 - 5.22 x10E12/L 01/22/2023 7:07 AM [facility] Hemoglobin 10.7(L) 11.2 - 15.7 gm/dL 01/22/2023 7:07 AM [facility] Hematocrit 34.8 34.1 - 44.9 % 01/22/2023 7:07 AM [facility] MCV 93.3 78.0 - 100.0 fl 01/22/2023 7:07 AM [facility] MCH 28.7 25.6 - 34.0 pg 01/22/2023 7:07 AM [facility] MCHC 30.7(L) 32.3 - 36.5 gm/dL 01/22/2023 7:07 AM [facility] RDW 12.5 11.6 - 14.4 % 01/22/2023 7:07 AM [facility] MPV 9.8 9.4 - 12.4 fl 01/22/2023 7:07 AM [facility] Platelet Count 194 163 - 369 x10E9/L 01/22/2023 7:07 AM [facility] Neutrophils % 55.8 40.0 - 75.0 % 01/22/2023 7:07 AM [facility] Lymphocytes % 29.2 19.3 - 53.1 % 01/22/2023 7:07 AM [facility] Monocytes % 8.8 4.7 - 12.5 % 01/22/2023 7:07 AM [facility] Eosinophils % 5.0 0.7 - 7.0 % 01/22/2023 7:07 AM [facility] Basophils % 0.9 0.1 - 1.2 % 01/22/2023 7:07 AM [facility] Immature Granulocytes 0.3 0 - 0.5 % 01/22/2023 7:07 AM [facility] Neutrophil Absolute 1.78 1.56 - 6.13 x10E9/L 01/22/2023 7:07 AM [facility] Lymphocytes Absolute 0.93(L) 1.18 - 3.74 x10E9/L 01/22/2023 7:07 AM [facility] Monocytes Absolute 0.28 0.24 - 0.86 x10E9/L 01/22/2023 7:07 AM [facility] Eosinophils Absolute 0.16 0.04 - 0.54 x10E9/L 01/22/2023 7:07 AM [facility] Basophils Absolute 0.03 0.01 - 0.08 x10E9/L 01/22/2023 7:07 AM [facility] Immature Granulocytes Absolute 0.01 0 - 0.03 x10E9/L 01/22/2023 7:07 AM [facility] nRBC Auto 0 <=0 /100 WBC 01/22/2023 7:07 AM [facility] nRBC Absolute 0.00 <=0 x10E9/L 01/22/2023 7:07 AM [facility] Blood BLOOD SPECIMEN / Unknown Lab Venipuncture / Unknown 01/22/2023 6:45 AM HOSPITALIST 01/22/2023 7:02 AM [facility] Nara Enriquez AUTOMATION CONSULTANT-FINANCE ASSISTANT LAB - HEMATOLOG Y ORDERABLES Performing Organization Address City/State/[facility] Co de Phone Number [facility] [address] * (ABNORMAL) COMPREHENSIVE METABOLIC PANEL (01/22/2023 6:45 AM [facility]) Glucose 94 70 - 125 mg/dL 01/22/2023 7:37 AM [facility] Sodium 141 136 - 145 mmol/L 01/22/2023 7:37 AM [facility] Potassium 4.4 3.4 - 5.1 mmol/L 01/22/2023 7:37 AM [facility] Chloride 104 98 - 107 mmol/L 01/22/2023 7:37 AM [facility] CO2 31(H) 22 - 29 mmol/L 01/22/2023 7:37 AM [facility] Calcium 9.04 8.4 - 10.2 mg/dL 01/22/2023 7:37 AM [facility] Anion Gap 10 6 - 16 mmol/L 01/22/2023 7:37 AM [facility] BUN 21.7(H) 9.8 - 20.1 mg/dL 01/22/2023 7:37 AM [facility] Creatinine 0.95 0.57 - 1.11 mg/dL 01/22/2023 7:37 AM [facility] Alkaline Phosphatase 51 40 - 150 U/L 01/22/2023 7:37 AM [facility] ALT 23 <=55 U/L 01/22/2023 7:37 AM [facility] AST 25 5 - 34 U/L 01/22/2023 7:37 AM [facility] Protein Total 6.8 6.4 - 8.3 gm/dL 01/22/2023 7:37 AM [facility] Albumin 3.9 3.4 - 4.8 gm/dL 01/22/2023 7:37 AM [facility] Globulin Total 2.9 2.6 - 4.0 gm/dL 01/22/2023 7:37 AM [facility] Albumin/Globulin Ratio 1.3 0.9 - 1.6 01/22/2023 7:37 AM [facility] Bilirubin Total 0.4 0.2 - 1.2 mg/dL 01/22/2023 7:37 AM HOSPITALIST [facility] eGFR 64(L) >90 mL/min/1.7 3m2 01/22/2023 7:37 AM HOSPITALIST [facility] Comment:The GFR result was c alculated using the updated CKD-EPI Creatinine Equation (2020). Blood BLOOD SPECIMEN / Unknown Lab Venipuncture / Unknown 01/22/2023 6:45 AM HOSPITALIST 01/22/2023 7:02 AM HOSPITALIST Nara HAYDENFINANCE ASSISTANT LAB - CHEMISTRY ORDERABLES [facility] [address] * STREP A SCREEN DIRECT W RFLX STREP A CULTURE (01/13/2023 1:50 PM CDT) Strep A Rapid Negative Negative 01/13/2023 2:08 PM CDT [facility] Microbiology ENTIRE THROAT (SURFACE REGION OF NECK) / Unknown Collection / Unknown 01/13/2023 1:50 PM CDT 01/13/2023 1:51 PM CDT Narrative [facility] - 01/13/2023 2:08 PM CDT Test has reflexed to a Strep A culture. Jan Olivier MD LAB - MICROBIOLO GY ORDERABLES Performing Organization Address [facility] Co de Phone Number [facility] [address] * CULTURE STREP GROUP A (01/13/2023 1:50 PM CDT) Culture Negative for beta-hemolytic Streptococcus Group A BORIS 01/15/2023 4:19 AM CDT [facility] MICROBIOLOGY Microbiology ENTIRE THROAT (SURFACE REGION OF NECK) / Unknown Collection / Unknown 01/13/2023 1:50 PM CDT 01/13/2023 1:51 PM CDT Jan Olivier MD LAB - MICROBIOLO GY ORDERABLES [facility] MICROBIOLOGY [address] [place] [address], [facility] [phone] Care Teams Blood Donor Unit Assistant Relationship Specialty Start Date End Date Lawrence Artis MD [facility] [address] [place] [id number] PCP - General 09/11/20
--- OUTSIDE RECORDS SUMMARY | 2024-05-09 02:48 | XMS_ITS ---
Author Organization [facility] Address [address] [place] [address] Care Team Providers Care Organizational Consultant Name Role Phone Sarah Pearl Primary Care Provider REASON FOR VISIT ct missed last appt--follow up from hospital Medications Medication SIG (Take, Route, Frequency, Duration) Notes Start Date End Date Status Multivitamin - 1 tablet Orally Once a day Active Carvedilol 6.25 MG 1 tablet with food Orally Twice a day Active Losartan Potassium 100 MG 1 tablet Orally Once a day Active Vitamin D3 25 MCG (1000 UT) 1 capsule Orally Once a day Active amLODIPine Besylate 5 MG 1 tablet Orally Once a day Active clonazePAM 0.5 MG 1 tablet Orally twice a day # 15 by hospital physician Active Melatonin 10 MG 1 capsule at bedtime Orally once a day As needed 03/01/2024 Active Gabapentin 300 MG 1 capsule Orally three times a day Active Tranylcypromine Sulfate 10 MG 1 tablet Orally three times a day for 30 days 03/01/2024 Active Social History Sex Assigned At : Social History Observation Description Sex Assigned At Female Encounters Encounter Location Date Provider Diagnosis [address] [place] [address] 05/07/2024 Sarah Pearl Generalized anxiety disorder F41.1 ; Recurrent major depression resistant to treatment F33.9 ; Restless leg syndrome, controlled G25.81 ; Insomnia G47.00 and Medication management Z79.899 Assessments Encounter Date Diagnosis (ICD Code) Assessment Notes Treatment Notes Treatment Clinical Notes Section Notes 05/07/2024 Generalized anxiety disorder (ICD-10 - F41.1) 05/07/2024 Recurrent major depression resistant to treatment (ICD-10 - F33.9) 05/07/2024 Restless leg syndrome, controlled (ICD-10 - G25.81) 05/07/2024 Insomnia (ICD-10 - G47.00) 05/07/2024 Medication management (ICD-10 - Z79.899) 05/07/2024 Other Plan Of Treatment No Information Progress Notes * Mary Kate RODASDOB:1950 ([age] yo F)Acc No.[id number]:05/07/2024 DNS Patient: Mary Kate VILLA Provider: Marco Antonio Pearl DNP, WELDING INSPECTOR, PMHNP-BC :1950 A ge:74 Y S ex:Female Date:05/07/2024 Address:[address] [place] [address], Room [address] [place] [address] Check In:11:03 AM METAL RIVET MACHINE OPERATOR Subjective: * Chief Complaints: * C t missed last appt--follow up from hospital * HPI: S ummary: Mary Kate Rodas is a 74-year-old female who presents with a primary complaint of headaches. She reports being in the emergency room at time of appointment due to a severe headache. She states she is available for appointment, but a few minutes later when ER nurse walks in states she needs to end appointment. Wasn't able to verify current medications so they could be reordered or modified. * Medical History: * Surgical History: * Hospitalization/Major Diagno stic Procedure: * Medications: T akingTranylcypromine Sulfate 10 MG Tablet 1 tablet Orally three times a day Gabapentin 300 MG Capsule 1 capsule Orally three times a day Melatonin 10 MG Capsule 1 capsule at bedtime Orally once a day As neededclonazePAM 0.5 MG Tablet 1 tablet Orally twice a day , Notes to Pharmacist: # 15 by hospital physicianVitamin D3 25 MCG (1000 UT) Capsule 1 capsule Orally Once a day Losartan Potassium 100 MG Tablet 1 tablet Orally Once a day Carvedilol 6.25 MG Tablet 1 tablet with food Orally Twice a day Multivitamin - Tablet 1 tablet Orally Once a day amLODIPine Besylate 5 MG Tablet 1 tablet Orally Once a day Taking Tranylcypromine Sulfate 10 MG Tablet 1 tablet Orally three times a day Taking Gabapentin 300 MG Capsule 1 capsule Orally three times a day Taking Melatonin 10 MG Capsule 1 capsule at bedtime Orally once a day As neededTaking clonazePAM 0.5 MG Tablet 1 tablet Orally twice a day , Notes to Pharmacist: # 15 by hospital physicianTaking Vitamin D3 25 MCG (1000 UT) Capsule 1 capsule Orally Once a day Taking Losartan Potassium 100 MG Tablet 1 tablet Orally Once a day Taking Carvedilol 6.25 MG Tablet 1 tablet with food Orally Twice a day Taking Multivitamin - Tablet 1 tablet Orally Once a day Taking amLODIPine Besylate 5 MG Tablet 1 tablet Orally Once a day Objective: * Vitals: Assessment: * Assessment: 1. G eneralized anxiety disorder - F41.1 2 . R ecurrent major depression resistant to treatment - F33.9 (Primary) 3 . R estless leg syndrome, controlled - G25.81 4 . I nsomnia - G47.00 5 . M edication management - Z79.899 Plan: * Treatment: * Procedure Codes: * * L RIVET MACHINE OPERATOR Sign off status: Completed true * Provider: Marco Antonio Pearl, NIA, WELDING INSPECTOR, PMHNP- Date: 0 05/07/2024 Generated for Printing/Faxing/eTransmitting on: 0 05/09/2024 02:48 AM METAL RIVET MACHINE OPERATOR History and Physical Notes * HPI (History of Present Illness) Category Sub-Category Detail Notes Category Not es Summary Mary Kate Rodas is a 74-year-old female who presents with a primary complaint of headaches. She reports being in the emergency room at time of appointment due to a severe headache. She states she is available for appointment, but a few minutes later when ER nurse walks in states she needs to end appointment. Wasn't able to verify current medications so they could be reordered or modified.
--- OUTSIDE RECORDS SUMMARY | 2024-05-09 02:48 | XMS_ITS | Referral Summary ---
Author Organization [facility] [address] Address [address] [place] [address] Care Team Providers Care Game Tester Name Role Phone Lawrence Artis MD Primary [...] on file Legal Sex Female 12:45 PM PAINTING MACHINE OPERATOR Gender Identity Not on file Sexual Orientation [...] 09/08/2023 2:34 PM CDT Plan of Treatment Not on file Medical Devices Implanted Type Area Owner Operator Device Identifier Shelf Expiration Date Model / Serial / Lot Vagus Nerve Stimulator Vagus Nerve Stimulator Left: Chest Insurance TNA MEDICARE GOLD TNA MEDICARE GOLD Advance Directives For more information, please contact: [phone] * Full Code (Latest Code Status on File) Date Activated Date Inactivated Comments 07/21/2022 6:02 PM 07/23/2022 7:45 PM Care Teams Game Tester Relationship Specialty Start Date End Date Lawrence Artis MD [address] [place] [address] PCP - General Emergency Medicine 10/19/21
--- OUTSIDE RECORDS SUMMARY | 2024-05-09 02:49 | XMS_ITS ---
Author Organization [facility] Address [address] [place] [address] Care Team Providers Care Director Of Curriculum Name Role Phone Sarah Pearl Primary Care Provider [phone] REASON FOR VISIT follow-up hospitalization Social History Sex Assigned At : Social History Observation Description Sex Assigned At Female Encounters Encounter Location Date Provider Diagnosis [address] [address] 05/03/2024 Sarah Pearl Plan Of Treatment No Information Progress Notes * Mary Kate RODASDOB:1950 ([age] yo F)Acc No.[id number]:05/03/2024 UNLOCKED PROGRESS NOTE Patient: Mary Kate VILLA Provider: Marco Antonio Pearl DNP, APRN, PMNASREENP-BC :1950 A ge:74 Y S ex:Female Date:05/03/2024 Address:[address] [place] [address], Room [address] [place] [address] [facility] Subjective: * Chief Complaints: * 1 . Follow-up hospitalization. * Medical History: Objective: * Vitals: Assessment: Plan: * Treatment: * * Electronic signature of Mercedez Arce , [id number] on 05/09/2024 at 02:49 AM CLERK CARRIER Sign off status: Pending * Provider: Marco Antonio Pearl DNP, APRN, PMHNP-BC Date: 0 05/03/2024 Generated for Printing/Faxing/eTransmitting on: 0 05/09/2024 02:49 AM CLERK CARRIER
--- OUTSIDE RECORDS SUMMARY | 2024-05-09 02:49 | XMS_ITS ---
Author Organization [facility] Address [address] [place] [address] Care Team Providers Care Qa Reviewer Name Role Phone Sarah Pearl Primary Care Provider [phone] REASON FOR VISIT DIscharge from [facility] Social History Sex Assigned At : Social History Observation Description Sex Assigned At Female Encounters Encounter Location Date Provider Diagnosis [address] [place] [address] 05/07/2024 Sarah Pearl Plan Of Treatment No Information Progress Notes * Mary Kate RODASDOB:1950 ([age] yo F)Acc No.[id number]:05/07/2024 UNLOCKED PROGRESS NOTE Patient: Mary Kate VILLA Provider: Marco Antonio Pearl DNP, APRN, ELIZABETH-JOSHUA :1950 A ge:74 Y S ex:Female Date:05/07/2024 Address:[address] [place] [address], Room [address] [place] [address] [facility] Subjective: * Chief Complaints: * 1 . DIscharge from [facility]. * Medical History: Objective: * Vitals: Assessment: Plan: * Treatment: * * Electronic signature of Mercedez Arce , [id number] on 05/09/2024 at 02:49 AM PET TRAINER Sign off status: Pending * Provider: Marco Antonio Pearl DNP, APRN, PMHNP-BC Date: 0 05/07/2024 Generated for Printing/Faxing/eTransmitting on: 0 05/09/2024 02:49 AM PET TRAINER
--- OUTSIDE RECORDS SUMMARY | 2024-05-09 02:49 | XMS_ITS | CONTINUITY OF CARE DOCUMENT ---
Author Name candida tirado Address Unknown Organization [facility] Address [address] [place] [address] Phone [phone] Care Team Providers Care Researcher Name Role Phone Alberto Reyna MD Unavailable [phone] Alberto Reyna MD Unavailable [phone] Derrell Alfaro MD Unavailable [phone] INSURANCE PROVIDERS Payer name Policy type / Coverage type [place] red libertarian ID [place] MEDIC[employer] Medicare [id number]
[2024-05-09 07:49] VITALS: BP 133/99; PULSE 88; RESP 16; TEMP 36.4; O2SAT 98
--- NOTE | 2024-05-09 08:10 | PC.NURSE ---
Pt ambulatory to intake desk to notify RN she is declining to be seen and requesting a cab to be called. This RN assisted in calling a cab company for pt. Pt ambulated out in NAD w/ steady gait.
--- OUTSIDE RECORDS SUMMARY | 2024-05-09 08:24 | XMS_ITS | CONTINUITY OF CARE DOCUMENT ---
Author Name candida tirado Address Unknown Organization [facility] Address [address] [place] [address] Phone [phone] Care Team Providers Care Training Manager Name Role Phone Alberto Reyna MD Unavailable [phone] Alberto Reyna MD Unavailable [phone] Derrell Alfaro MD Unavailable INSURANCE PROVIDERS Payer name Policy type / Coverage type [place] red democrat ID [place] MEDICARE Medicare [id number]
--- OUTSIDE RECORDS SUMMARY | 2024-05-09 08:24 | XMS_ITS | Clinical Summary ---
Author Organization [facility] [address] Address [address] [place] [address] Care Team Providers Care Fondant Machine Operator Name Role Phone Lawrence Artis MD [...] on file Legal Sex Female 12:45 PM FOOD PREPARATION KITCHEN AIDE Gender Identity Not on file Sexual Orientation [...] history exists Medical Devices Implanted Type Area Php Software Engineer Device Identifier Shelf Expiration Date Model / Serial / Lot Vagus Nerve Stimulator Vagus Nerve Stimulator Left: Chest Insurance AETNA MEDICARE GOLD AETNA MEDICARE GOLD Advance Directives For more information, please contact: [phone] * Full Code (Latest Code Status on File) Date Activated Date Inactivated Comments 07/21/2022 6:02 PM 07/23/2022 7:45 PM Care Teams Fondant Machine Operator Relationship Specialty Start Date End Date Lawrence Artis MD [address] [place] [address] PCP - General Emergency Medicine 10/19/21
--- OUTSIDE RECORDS SUMMARY | 2024-05-09 08:24 | XMS_ITS | Referral Summary ---
Author Organization [facility] Address [address] [place] [address] Care Team Providers Care Window Air Conditioner Installer Name Role Phone Lawrence Artis MD Primary Care Provider Source Comments [facility],non-[facility] Affiliates and Associated Physician Practices is amultiple site organization consisting of ambulatory clinics and hospital sitesin [place], [place] and [place]. This disclosure is being madepursuant to the Care Everywhere program and may not contain all information available regarding this patient. Last updated 17.[facility] Allergies Active Allergy Reactions Criticality Noted Date [...] care, and heating? Not very hard 01/12/2023 [facility] [place] [facility] - Occupational Stress [...] place to sleep or slept in a custodial (including now)? No 01/12/2023 Sex and Gender Information Value Date Recorded Sex Assigned at Not on file Gender Identity Not on file Sexual Orientation Not on file Last Filed Vital Signs Vital Sign Reading Time Taken Comments Blood Pressure 184/100 01/24/2023 7:38 AM HEAD TENNIS PROFESSIONAL pacing all morning nurse aware Pulse 77 01/24/2023 7:38 AM HEAD TENNIS PROFESSIONAL Temperature 37 C (98.6 F) 01/24/2023 7:38 AM HEAD TENNIS PROFESSIONAL Respiratory Rate 18 01/24/2023 7:38 AM HEAD TENNIS PROFESSIONAL Oxygen Saturation 98% 01/24/2023 7:3 8 AM HEAD TENNIS PROFESSIONAL Inhaled Oxygen Concentration - - Weight 51.7 [...] 2:03 PM 10/28/2022 4:18 PM Care Teams Window Air Conditioner Installer Relationship Specialty Start Date End Date Lawrence Artis MD [address] [place] [id number] PCP - General 09/11/20
--- OUTSIDE RECORDS SUMMARY | 2024-05-09 08:24 | XMS_ITS | Clinical Summary ---
Author Organization [facility] Address [address] [place] [address] Care Team Providers Care Geothermal Plant Manager Name Role Phone Lawrence Artis MD Primary Care Provider [phone] Source Comments [facility],non-owned Affiliates and Associated Physician Practices is amultiple site organization consisting of ambulatory clinics and hospital sitesin [place], [place], [place] and [place]. This disclosure is being madepursuant to the Care Everywhere program and may not contain all information available regarding this patient. Last updated 17.[facility] Allergies Active Allergy Reactions Criticality Noted Date [...] care, and heating? Not very hard 01/12/2023 [facility] of Occupat ional Health - Occupational Stress [...] place to sleep or slept in a assisted (including now)? No 01/12/2023 Sex and Gender Information Value Date Recorded Sex Assigned at Not on file Gender Identity Not on file Sexual Orientation Not on file Last Filed Vital Signs Vital Sign Reading Time Taken Comments Blood Pressure 184/100 01/24/2023 7:38 AM ACCOUNT SERVICES MANAGER pacing all morning nurse aware Pulse 77 01/24/2023 7:38 AM ACCOUNT SERVICES MANAGER Temperature 37 C (98.6 F) 01/24/2023 7:38 AM ACCOUNT SERVICES MANAGER Respiratory Rate 18 01/24/2023 7:38 AM ACCOUNT SERVICES MANAGER Oxygen Saturation 98% 01/24/2023 7:3 8 AM ACCOUNT SERVICES MANAGER Inhaled Oxygen Concentration - - Weight 51.7 [...] 2:03 PM 10/28/2022 4:18 PM Care Teams Geothermal Plant Manager Relationship Specialty Start Date End Date Lawrence Artis MD [address] [place] [id number] PCP - General 09/11/20
--- OUTSIDE RECORDS SUMMARY | 2024-05-09 08:24 | XMS_ITS | Clinical Summary ---
Author Organization [facility] Address [address] [place] [address] Phone Care Team Providers Care Chief Lock Tender Operator Name Role Phone Lawrence Artis MD Primary Care Provider [phone] Allergies Active Allergy Reactions Criticality Noted Date [...] topic Insurance MEDICARE C [employer]ET[employer] Care Teams Chief Lock Tender Operator Relationship Specialty Start Date End Date Lawrence Artis MD [address] [place] [address] PCP - General Internal Medicine 04/14/22
--- OUTSIDE RECORDS SUMMARY | 2024-05-09 08:24 | XMS_ITS | Patient Health Summary ---
Author Organization [facility] Address [address] [place] [address] Care Team Providers Care Examination Supervisor Name Role Phone Lawrence Artis MD Primary Care Provider [phone] Note from [facility],non-owned Affiliates and Associated Physician Practices is amultiple site organization consisting of ambulatory clinics and hospital sitesin [place], [place], [place]. This disclosure is being madepursuant to the Care Everywhere program and may not contain all information available regarding this patient. Last updated 17.[facility] Allergies * Penicillins(Itching) -Low Criticality * Sulfa [...] care, and heating? Not very hard 01/12/2023 [facility] of Occupat ional Health - Occupational Stress [...] place to sleep or slept in a long term (including now)? No 01/12/2023 Sex and Gender Information Value Date Recorded Sex Assigned at Not on file Gender Identity Not on file Sexual Orientation Not on file Last Filed Vital Signs Vital Sign Reading Time Taken Comments Blood Pressure 184/100 01/24/2023 7:38 AM GUEST RELATIONS COORDINATOR pacing all morning nurse aware Pulse 77 01/24/2023 7:38 AM GUEST RELATIONS COORDINATOR Temperature 37 C (98.6 F) 01/24/2023 7:38 AM GUEST RELATIONS COORDINATOR Respiratory Rate 18 01/24/2023 7:38 AM GUEST RELATIONS COORDINATOR Oxygen Saturation 98% 01/24/2023 7:3 8 AM GUEST RELATIONS COORDINATOR Inhaled Oxygen Concentration - - Weight 51.7 [...] * CARDIAC EKG ORDER (01/25/2023 2:27 PM GUEST RELATIONS COORDINATOR) Narrative 01/25/2023 2:27 PM GUEST RELATIONS COORDINATOR Ordered by an unspecified provider. Scanned Document CARDIAC SERVICES ORD ERABLES * EKG 12-LEAD (01/22/2023 3:25 PM GUEST RELATIONS COORDINATOR) Ventricular Rate [address] [facility] Atrial Rate 69 BPM [facility] P-R Interval 148 ms [facility] QRS Duration ms 78 ms [facility] Q-T Interval ms 382 ms [facility] QTC Calculation (Bezet) 409 ms [facility] Calculated P [place] 56 degrees [facility] Calculated R [place] 40 degrees [facility] Calculated T [place] 45 degrees [facility] Interpretation EKG NORMAL SINUS RHYTHM NORMAL ECG Confirmed by CESILIA RIVERA MD ([id number]), electronic news gathering editor OUMAR CASTRO ([id number]) on 01/24/2023 6:35:[address] [facility] 01/22/2023 3:25 PM GUEST RELATIONS COORDINATOR 01/24/2023 6:35 AM [facility] Nara Enriquez NAVAL AIRCREWMAN OPERATOR-TERRAZZO WORKER HELPER ECG ORDERABLES [facility] * (ABNORMAL) CBC W AUTO DIFFERENTIAL (01/22/2023 6:45 AM GUEST RELATIONS COORDINATOR) Pathologist [facility] [place] WBC 3.2(L) 4.0 - 10.0 x10E9/L 01/22/2023 7:07 AM [facility] RBC 3.73(L) 3.93 - 5.22 x10E12/L 01/22/2023 7:07 AM [facility] Hemoglobin 10.7(L) 11.2 - 15.7 gm/dL 01/22/2023 7:07 AM [facility] Hematocrit 34.8 34.1 - 44.9 % 01/22/2023 7:07 AM [facility] MCV 93.3 78.0 - 100.0 fl 01/22/2023 7:07 AM [facility] MCH 28.7 25.6 - 34.0 pg 01/22/2023 7:07 AM [facility] MCHC 30.7(L) 32.3 - 36.5 gm/dL 01/22/2023 7:07 AM [facility] RDW 12.5 11.6 - 14.4 % 01/22/2023 7:07 AM [facility] MPV 9.8 9.4 - 12.4 fl 01/22/2023 7:07 AM [facility] Platelet Count 194 163 - 369 x10E9/L 01/22/2023 7:07 AM [facility] Neutrophils % 55.8 40.0 - 75.0 % 01/22/2023 7:07 AM [facility] Lymphocytes % 29.2 19.3 - 53.1 % 01/22/2023 7:07 AM [facility] Monocytes % 8.8 4.7 - 12.5 % 01/22/2023 7:07 AM [facility] Eosinophils % 5.0 0.7 - 7.0 % 01/22/2023 7:07 AM [facility] Basophils % 0.9 0.1 - 1.2 % 01/22/2023 7:07 AM [facility] Immature Granulocytes 0.3 0 - 0.5 % 01/22/2023 7:07 AM [facility] Neutrophil Absolute 1.78 1.56 - 6.13 x10E9/L 01/22/2023 7:07 AM [facility] Lymphocytes Absolute 0.93(L) 1.18 - 3.74 x10E9/L 01/22/2023 7:07 AM [facility] Monocytes Absolute 0.28 0.24 - 0.86 x10E9/L 01/22/2023 7:07 AM [facility] Eosinophils Absolute 0.16 0.04 - 0.54 x10E9/L 01/22/2023 7:07 AM [facility] Basophils Absolute 0.03 0.01 - 0.08 x10E9/L 01/22/2023 7:07 AM [facility] Immature Granulocytes Absolute 0.01 0 - 0.03 x10E9/L 01/22/2023 7:07 AM [facility] nRBC Auto 0 <=0 /100 WBC 01/22/2023 7:07 AM [facility] nRBC Absolute 0.00 <=0 x10E9/L 01/22/2023 7:07 AM [facility] Blood BLOOD SPECIMEN / Unknown Lab Venipuncture / Unknown 01/22/2023 6:45 AM GUEST RELATIONS COORDINATOR 01/22/2023 7:02 AM [facility] Nara Enriquez NAVAL AIRCREWMAN OPERATOR-TERRAZZO WORKER HELPER LAB - HEMATOLOG Y ORDERABLES Performing Organization Address City/State/[facility] Co de Phone Number [facility] [address] * (ABNORMAL) COMPREHENSIVE METABOLIC PANEL (01/22/2023 6:45 AM [facility]) Glucose 94 70 - 125 mg/dL 01/22/2023 7:37 AM [facility] Sodium 141 136 - 145 mmol/L 01/22/2023 7:37 AM [facility] Potassium 4.4 3.4 - 5.1 mmol/L 01/22/2023 7:37 AM [facility] Chloride 104 98 - 107 mmol/L 01/22/2023 7:37 AM [facility] CO2 31(H) 22 - 29 mmol/L 01/22/2023 7:37 AM [facility] Calcium 9.04 8.4 - 10.2 mg/dL 01/22/2023 7:37 AM [facility] Anion Gap 10 6 - 16 mmol/L 01/22/2023 7:37 AM [facility] BUN 21.7(H) 9.8 - 20.1 mg/dL 01/22/2023 7:37 AM [facility] Creatinine 0.95 0.57 - 1.11 mg/dL 01/22/2023 7:37 AM [facility] Alkaline Phosphatase 51 40 - 150 U/L 01/22/2023 7:37 AM [facility] ALT 23 <=55 U/L 01/22/2023 7:37 AM [facility] AST 25 5 - 34 U/L 01/22/2023 7:37 AM [facility] Protein Total 6.8 6.4 - 8.3 gm/dL 01/22/2023 7:37 AM [facility] Albumin 3.9 3.4 - 4.8 gm/dL 01/22/2023 7:37 AM [facility] Globulin Total 2.9 2.6 - 4.0 gm/dL 01/22/2023 7:37 AM [facility] Albumin/Globulin Ratio 1.3 0.9 - 1.6 01/22/2023 7:37 AM [facility] Bilirubin Total 0.4 0.2 - 1.2 mg/dL 01/22/2023 7:37 AM GUEST RELATIONS COORDINATOR [facility] eGFR 64(L) >90 mL/min/1.7 3m2 01/22/2023 7:37 AM GUEST RELATIONS COORDINATOR [facility] Comment:The GFR result was c alculated using the updated CKD-EPI Creatinine Equation (2020). Blood BLOOD SPECIMEN / Unknown Lab Venipuncture / Unknown 01/22/2023 6:45 AM GUEST RELATIONS COORDINATOR 01/22/2023 7:02 AM GUEST RELATIONS COORDINATOR Nara HAYDENTERRAZZO WORKER HELPER LAB - CHEMISTRY ORDERABLES [facility] [address] * STREP A SCREEN DIRECT W RFLX STREP A CULTURE (01/13/2023 1:50 PM CDT) Strep A Rapid Negative Negative 01/13/2023 2:[address] [facility] Microbiology ENTIRE THROAT (SURFACE REGION OF NECK) / Unknown Collection / Unknown 01/13/2023 1:50 PM CDT 01/13/2023 1:[address] [facility] - 01/13/2023 2:08 PM CDT Test has reflexed to a Strep A culture. Jan Olivier MD LAB - MICROBIOLO GY ORDERABLES Performing Organization Address [facility] Co de Phone Number [facility] [address] * CULTURE STREP GROUP A (01/13/2023 1:50 PM CDT) Culture Negative for beta-hemolytic Streptococcus Group A BORIS 01/15/2023 4:19 AM CDT [facility] MICROBIOLOGY Microbiology ENTIRE THROAT (SURFACE REGION OF NECK) / Unknown Collection / Unknown 01/13/2023 1:50 PM CDT 01/13/2023 1:51 PM CDT Jan Olivier MD LAB - MICROBIOLO GY ORDERABLES [facility] MICROBIOLOGY [address] [place] [address], [place] [phone] Care Teams Examination Supervisor Relationship Specialty Start Date End Date Lawrence Artis MD [facility] [address] [place] [id number] PCP - General 09/11/20
--- OUTSIDE RECORDS SUMMARY | 2024-05-09 08:24 | XMS_ITS | Patient Health Record ---
Author Organization 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 Name Role Phone Sarah Pearl Primary Care Provider Allergies Allergen (clinical drug ingredient) Drug/Non Drug Allergy documented on EMR Reaction Allergy Type Onset Date Status acyclovir Acyclovir Unknown Drug Allergy Active Penicillin Unknown Drug Allergy Active Substance with sulfonamide structure and antibacterial mechanism of action (substance) Sulfa Antibiotics Unknown Drug Allergy Active Reason For Referral No Information Medications Medication SIG (Take, Route, Frequency, Duration) Notes Start Date End Date Status Multivitamin - 1 tablet Orally Once a day Active Carvedilol 6.25 MG 1 tablet with food Orally Twice a day Active Losartan Potassium 100 MG 1 tablet Orally Once a day Active Vitamin D3 25 MCG (1000 UT) 1 capsule Orally Once a day Active clonazePAM 0.5 MG 1 tablet Orally twice a day # 15 by hospital physician Active Melatonin 10 MG 1 capsule at bedtime Orally once a day As needed 03/01/2024 Active Gabapentin 300 MG 1 capsule Orally three times a day Active Tranylcypromine Sulfate 10 MG 1 tablet Orally three times a day for 30 days 03/01/2024 Active amLODIPine Besylate 5 MG 1 tablet Orally Once a day Active Social History Tobacco Use: Social History Observation Description Date Details (start date - stop date) Never Smoker NA - NA Sex Assigned At : Social History Observation Description Sex Assigned At Female Dont use, Tobacco Use/Smoking Question Answer Notes Are you a nonsmoker Dont use, Tobacco use other than smoking: Question Answer Notes Are you an other tobacco user? No Tobacco Control (Standard) Question Answer Notes Tobacco use: Nonsmoker Section Notes: PDMP [id number] 11/11/2020 11/11/2020 LORazepam 30 10 1 MG NA Polina Centeno L, Msn, [facility] - [id number] [place] [id number] 11/06/2020 11/06/2020 LORazepam 15 5 1 MG NA Francie Rocha - [id number] [place] [id number] 10/02/2020 10/02/2020 LORazepam 90 30 1 MG NA Polina Centeno L, Msn, [facility] [id number] [place] [id number] 09/04/2020 09/04/2020 LORazepam 60 30 1 MG NA Polina Centeno L, Msn, [facility] - [id number] [place] [id number] 08/28/2020 08/28/2020 LORazepam 63 21 1 MG NA Polina Centeno L, Msn, [facility] - [id number] [place] [address] 148377 07/30/2020 07/30/2020 LORazepam 90 30 1 MG NA Jacobo [id number] 01/14/2021 01/14/2021 LORazepam 42 14 1MG NA Mirtha, [place] - [id number] [facility] [place] [id number] 12/15/2020 12/10/2020 LORazepam 80 30 1 MG NA Polina Centeno L, Msn, [facility] - [id number] [place] [id number] 11/19/2020 11/19/2020 LORazepam 80 30 1 MG NA Polina Centeno L, Msn, [facility] [id number] [place] [address] [id number] 11/11/2020 11/11/2020 LORazepam 30 10 1 MG NA Polina Centeno L, Msn, [facility] - [id number] [place] [id number] 11/06/2020 11/06/2020 LORazepam 15 5 1 MG NA Francie Rocha [id number] 12/15/2020 12/10/2020 LORazepam 80 30 1 MG NA Polina Centeno L, Msn, [facility] [id number] [facility] [place], [place] [id number] 11/19/2020 11/19/2020 LORazepam 80 30 1 MG NA Polina Centeno L, Msn, [facility] [id number] [place] [address] 633752 11/11/2020 11/11/2020 LORazepam 30 10 1 MG NA Polina Centeno L, Msn, [facility] [id number] [place] [address] [id number] 11/06/2020 11/06/2020 LORazepam 15 5 1 MG NA Francie Rocha - [id number] [place] [address] [id number] 10/02/2020 10/02/2020 LORazepam 90 30 1 MG NA Polina Centeno L, Msn, [facility] [id number] [place] [address] [id number] 09/04/2020 09/04/2020 LORazepam 60 30 1 MG NA Polina Centeno L, Msn, [facility] - [id number] [place] [address] [id number] 08/28/2020 08/28/2020 LORazepam 63 21 1 MG NA Jacobo [id number] 01/14/2021 01/14/2021 LORazepam 42 14 1MG NA Mirtha, [place] - [id number] [place] [address] 12/15/2020 12/10/2020 LORazepam 80 30 1 MG NA Polina Centeno L, Msn, [facility] - [id number] [place] [address] [id number] 11/19/2020 11/19/2020 LORazepam 80 30 1 MG NA Polina Centeno L, Msn, [employer] - [id number] [place] [id number] 11/11/2020 11/11/2020 LORazepam 30 10 1 MG NA Polina Centeno L, Msn, [employer] - [id number] [facility] 1 [id number] 11/06/2020 11/06/2020 LORazepam 15 5 1 MG NA Francie Rocha Problems Problem Type SNOMED Code ICD Code Onset Dates Problem Status W/U Status Risk Notes Problem Generalized anxiety disorder (60130539) Generalized anxiety disorder (F41.1) Active confirmed Problem 217133636 Anxiety disorder , unspecified (F41.9) Active confirmed Problem Insomnia (747498347) Insomnia (G47.00) Active confirmed Problem Posttraumatic stress disorder (92151209) PTSD (post-traumatic stress disorder) (F43.10) Active confirmed Problem Anxiety (78231629) Anxiety (F41.9) Active confi rmed Problem Moderate recurrent major depression (85164533) Major depressive disorder, recurrent episode, moderate (F33.1) 020 Active confirmed Problem Restless legs syndrome (86449350) Restless leg syndrome (G25.81) Active confirmed Problem Major depressive disorder (445670767) MDD (major depressive disorder) (F32.9) Active confirmed Problem 612124347 Routine physical examination (Z00.00) Active confirmed Problem Gastroesophageal reflux disease (disorder) (870662334) Chronic GERD (K21.9) Active confirmed Problem 72712087 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) Active confirmed Problem Essential hypertension (88708255) Hypertension, unspecified type (I10) 020 Active confirmed Problem Restless legs (05639403) Restless leg syndrome, controlled (G25.81) Active confirmed Problem Sedative abuse (99653159) Benzodiazepine abuse (F13.10) 024 Problem resolved confirmed Problem Benzodiazepine dependence (690799377) Benzodiazepine dependence (F13.20) Problem resolved confirmed Vital Signs Heart Rate 65 /min 02/01/2024 Respiratory Rate 16 /min 02/01/2024 Oximetry 95 % 02/01/2024 Blood pressure diastolic 82 mm Hg 02/01/2024 Height 61 in 02/01/2024 Blood pressure systolic 126 mm Hg 02/01/2024 Weight 131.4 lbs 02/01/2024 BMI 24.83 kg/m2 02/01/2024 Encounters Encounter Location Date Provider Diagnosis [address] [place] [address] 05/24/2023 Sarah Pearl [address] [place] [address] 06/10/2023 Sarah Pearl [address] [place] [address] 06/29/2023 Sarah Pearl [address] [place] [address] 08/24/2023 Sarah Pearl PTSD (post-traumatic stress disorder) F43.[address] [place] [address] 09/16/2023 Sarah Pearl Generalized anxiety disorder F41.1 [facility] [address] [place] [address] 09/16/2023 Sarah Pearl Generalized anxiety disorder F41.[address] [place] [address] 09/18/2023 Sarah Pearl [address] [place] [address] 09/21/2023 Sarah Pearl [address] [place] [address] 10/12/2023 Sarah Pearl [address] [place] [address] 10/18/2023 Sarah Pearl [address] [place] [address] 11/16/2023 Sarah Pearl Recurrent major depression resistant to treatment F33.9 [facility] [address] [place] [address] 12/01/2023 Sarah Pearl [address] [facility] [address] 12/19/2023 Sarah Pearl [address] [address] 01/02/2024 Sarah Pearl [address] [place] [address] 01/17/2024 Sarah Pearl [address] [place] [address] 01/23/2024 Sarah Pearl Recurrent major depression resistant to treatment F33.9 ; Generalized anxiety disorder F41.1 and Restless leg syndrome, controlled G25.[address] [place] [address] 02/17/2024 Sarah Pearl Recurrent major depression resistant to treatment F33.9 and Insomnia G47.[address] [place] [address] 02/23/2024 Sarah Pearl [address] [address] 02/27/2024 Sarah Pearl [address] [address] 03/01/2024 Sarah Pearl [address] [place] [address] 04/25/2024 Sarah Pearl [address] [place] [address] 06/24/2023 Sarah Pearl Generalized anxiety disorder F41.1 ; Benzodiazepine abuse F13.10 ; Recurrent major depression resistant to treatment F33.9 ; PTSD (post-traumatic stress disorder) F43.10 and Restless leg syndrome G25.[address] [facility] [address] 07/26/2023 Sarah Pearl Generalized anxiety disorder F41.1 ; Benzodiazepine abuse F13.10 ; Recurrent major depression resistant to treatment F33.9 ; PTSD (post-traumatic stress disorder) F43.10 and Restless leg syndrome G25.[address] [address] 10/26/2023 Sarah Sabblut Generalized anxiety disorder F41.1 ; Benzodiazepine abuse F13.10 ; Recurrent major depression resistant to treatment F33.9 ; PTSD (post-traumatic stress disorder) F43.10 and Restless leg syndrome G25.[address] [address] 12/13/2023 Sarah Sabblut Recurrent major depression resistant to treatment F33.9 ; Generalized anxiety disorder F41.1 ; Insomnia G47.00 and Benzodiazepine abuse F13.[address] [address] 03/20/2024 Sarah Sabblut Recurrent major depression resistant to treatment F33.9 ; Generalized anxiety disorder F41.1 ; Restless leg syndrome, controlled G25.81 ; Insomnia G47.00 and Medication management Z79.[address] [address] 05/07/2024 Sarah Sabrj Generalized anxiety disorder F41.1 ; Recurrent major depression resistant to treatment F33.9 ; Restless leg syndrome, controlled G25.81 ; Insomnia G47.00 and Medication management Z79.[address] [address] 02/01/2024 Sarah Sabblut Recurrent major depression resistant to treatment F33.9 ; Generalized anxiety disorder F41.1 ; Insomnia G47.00 ; Benzodiazepine abuse F13.10 and Medication management Z79.[address] [address] 07/05/2023 Sarah Sabblut Generalized anxiety disorder F41.1 ; Benzodiazepine abuse F13.10 ; Recurrent major depression resistant to treatment F33.9 ; PTSD (post-traumatic stress disorder) F43.10 and Restless leg syndrome G25.[address] [address] 05/13/2023 Sarah Sabblut Generalized anxiety disorder F41.1 ; Benzodiazepine abuse F13.10 ; Recurrent major depression resistant to treatment F33.9 ; PTSD (post-traumatic stress disorder) F43.10 and Restless leg syndrome G25.[address] [address] 05/27/2023 Sarah Sabblut Generalized anxiety disorder F41.1 ; Benzodiazepine abuse F13.10 ; Recurrent major depression resistant to treatment F33.9 ; PTSD (post-traumatic stress disorder) F43.10 and Restless leg syndrome G25.[address] [address] 02/13/2024 Sarah Sabblut Recurrent major depression resistant to treatment F33.9 ; Generalized anxiety disorder F41.1 ; Insomnia G47.00 and Medication management Z79.[address] [address] 11/09/2023 Sarah Sabblut Generalized anxiety disorder F41.1 ; Benzodiazepine abuse F13.10 ; Recurrent major depression resistant to treatment F33.9 ; PTSD (post-traumatic stress disorder) F43.10 and Restless leg syndrome G25.[address] [address] 08/10/2023 Sarah Sabblut Generalized anxiety disorder F41.1 ; Benzodiazepine abuse F13.10 ; Recurrent major depression resistant to treatment F33.9 ; PTSD (post-traumatic stress disorder) F43.10 and Restless leg syndrome G25.[address] [address] 08/24/2023 Sarah Sabblut Generalized anxiety disorder F41.1 ; Benzodiazepine abuse F13.10 ; Recurrent major depression resistant to treatment F33.9 ; PTSD (post-traumatic stress disorder) F43.10 and Restless leg syndrome G25.[address] [place] [address] 09/07/2023 Sarah Pearl Generalized anxiety disorder F41.1 ; Benzodiazepine abuse F13.10 ; Recurrent major depression resistant to treatment F33.9 ; PTSD (post-traumatic stress disorder) F43.10 and Restless leg syndrome G25.[address] [place] [address] 12/27/2023 Sarah Pearl Recurrent major depression resistant to treatment F33.9 ; Generalized anxiety disorder F41.1 ; Insomnia G47.00 and Benzodiazepine abuse F13.10 Assessments Encounter Date Diagnosis (ICD Code) Assessment Notes Treatment Notes Treatment Clinical Notes Section Notes 01/23/2024 Generalized anxiety disorder (ICD-10 - F41.1) 01/23/2024 Recurrent major depression resistant to treatment (ICD-10 - F33.9) 12/27/2023 Recurrent major depression resistant to treatment (ICD-10 - F33.9) 05/07/2024 Generalized anxiety disorder (ICD-10 - F41.1) 07/26/2023 Generalized anxiety disorder (ICD-10 - F41.1) 03/20/2024 Generalized anxiety disorder (ICD-10 - F41.1) [place] - Dr. Rao from [facility] sent Rx for clonazepam 0.5 mg #30 for 15-day supply with 1 refill. Client informed that I would not be refilling this Rx for safety concerns and the risks associated with long-term use. Client also has a Hx of benzodiazepine abuse in the context of taking more than prescribed. Continue psychotherapy as scheduled. 02/17/2024 Recurrent major depression resistant to treatment (ICD-10 - F33.9) 02/13/2024 Recurrent major depression resistant to treatment (ICD-10 - F33.9) Continue psychotherapy as scheduled. 03/20/2024 Recurrent major depression resistant to treatment (ICD-10 - F33.9) Continue psychotherapy as scheduled. 02/01/2024 Recurrent major depression resistant to treatment (ICD-10 - F33.9) Continue psychotherapy as scheduled. 12/13/2023 Recurrent major depression resistant to treatment (ICD-10 - F33.9) 11/16/2023 Recurrent major depression resistant to treatment (ICD-10 - F33.9) 11/09/2023 Generalized anxiety disorder (ICD-10 - F41.1) 10/26/2023 Generalized anxiety disorder (ICD-10 - F41.1) 09/16/2023 Generalized anxiety disorder (ICD-10 - F41.1) 09/16/2023 Generalized anxiety disorder (ICD-10 - F41.1) 09/07/2023 Generalized anxiety disorder (ICD-10 - F41.1) 08/24/2023 PTSD (post-traumatic stress disorder) (ICD-10 - F43.10) 08/24/2023 Generalized anxiety disorder (ICD-10 - F41.1) 08/10/2023 Generalized anxiety disorder (ICD-10 - F41.1) 07/05/2023 Generalized anxiety disorder (ICD-10 - F41.1) 06/24/2023 Generalized anxiety disorder (ICD-10 - F41.1) 05/27/2023 Generalized anxiety disorder (ICD-10 - F41.1) 05/13/2023 Generalized anxiety disorder (ICD-10 - F41.1) 05/13/2023 Benzodiazepine abuse (ICD-10 - F13.10) 05/27/2023 Benzodiazepine abuse (ICD-10 - F13.10) 06/24/2023 Benzodiazepine abuse (ICD-10 - F13.10) Client reports that she got a Rx for clonezapm at last hospital admission. [place]24/2023). Explained to client that I will not be refilling this prescription. Client appeared to be under the influence of a substance (most likely the clonezapam) at time of appointment. 07/05/2023 Benzodiazepine abuse (ICD-10 - F13.10) 08/10/2023 Benzodiazepine abuse (ICD-10 - F13.10) 08/24/2023 Benzodiazepine abuse (ICD-10 - F13.10) 10/26/2023 Benzodiazepine abuse (ICD-10 - F13.10) 09/07/2023 Benzodiazepine abuse (ICD-10 - F13.10) 11/09/2023 Benzodiazepine abuse (ICD-10 - F13.10) 12/13/2023 Generalized anxiety disorder (ICD-10 - F41.1) 03/20/2024 Restless leg syndrome, controlled (ICD-10 - G25.81) 02/17/2024 Insomnia (ICD-10 - G47.00) 02/01/2024 Generalized anxiety disorder (ICD-10 - F41.1) Continue psychotherapy as scheduled. 02/13/2024 Generalized anxiety disorder (ICD-10 - F41.1) Client reports she has been taking gabapentin four times a day for the past couple of weeks. Continue psychotherapy as scheduled. 07/26/2023 Benzodiazepine abuse (ICD-10 - F13.10) 05/07/2024 Recurrent major depression resistant to treatment (ICD-10 - F33.9) 01/23/2024 Restless leg syndrome, controlled (ICD-10 - G25.81) 12/27/2023 Generalized anxiety disorder (ICD-10 - F41.1) 12/27/2023 Insomnia (ICD-10 - G47.00) 05/07/2024 Restless leg syndrome, controlled (ICD-10 - G25.81) 07/26/2023 Recurrent major depression resistant to treatment (ICD-10 - F33.9) 02/13/2024 Insomnia (ICD-10 - G47.00) 03/20/2024 Insomnia (ICD-10 - G47.00) 02/01/2024 Insomnia (ICD-10 - G47.00) 12/13/2023 Insomnia (ICD-10 - G47.00) 11/09/2023 Recurrent major depression resistant to treatment (ICD-10 - F33.9) 09/07/2023 Recurrent major depression resistant to treatment (ICD-10 - F33.9) Plan is to go to 150 mg at next visit if client is tolerating medication. 10/26/2023 Recurrent major depression resistant to treatment (ICD-10 - F33.9) 08/24/2023 Recurrent major depression resistant to treatment (ICD-10 - F33.9) Plan is to go to 150 mg at next visit if client is tolerating medication. 08/10/2023 Recurrent major depression resistant to treatment (ICD-10 - F33.9) Plan is to go to 150 mg at next visit if client is tolerating medication. 07/05/2023 Recurrent major depression resistant to treatment (ICD-10 - F33.9) 06/24/2023 Recurrent major depression resistant to treatment (ICD-10 - F33.9) 05/27/2023 Recurrent major depression resistant to treatment (ICD-10 - F33.9) 05/13/2023 Recurrent major depression resistant to treatment (ICD-10 - F33.9) 05/13/2023 PTSD (post-traumatic stress disorder) (ICD-10 - F43.10) 05/27/2023 PTSD (post-traumatic stress disorder) (ICD-10 - F43.10) 06/24/2023 PTSD (post-traumatic stress disorder) (ICD-10 - F43.10) 07/05/2023 PTSD (post-traumatic stress disorder) (ICD-10 - F43.10) 08/10/2023 PTSD (post-traumatic stress disorder) (ICD-10 - F43.10) 08/24/2023 PTSD (post-traumatic stress disorder) (ICD-10 - F43.10) 10/26/2023 PTSD (post-traumatic stress disorder) (ICD-10 - F43.10) 09/07/2023 PTSD (post-traumatic stress disorder) (ICD-10 - F43.10) 12/13/2023 Benzodiazepine abuse (ICD-10 - F13.10) 11/09/2023 PTSD (post-traumatic stress disorder) (ICD-10 - F43.10) 02/01/2024 Benzodiazepine abuse (ICD-10 - F13.10) 03/20/2024 Medication management (ICD-10 - Z79.899) May self-administer medications or be administered own oral medications per [facility] protocols. Provided informed consent with understanding of side effects, adverse effects, risks and benefits as well as alternative treatments as previously discussed and with the above recommended medications & other aspects of the treatment program. Agrees to return sooner if symptoms worsen or suicidal or homicidal ideations occur. Labs monitored by PCP. 02/13/2024 Medication management (ICD-10 - Z79.899) May self-administer medications or be administered own oral medications per [facility] protocols. Provided informed consent with understanding of side effects, adverse effects, risks and benefits as well as alternative treatments as previously discussed and with the above recommended medications & other aspects of the treatment program. Agrees to return sooner if symptoms worsen or suicidal or homicidal ideations occur. Labs monitored by PCP. 07/26/2023 PTSD (post-traumatic stress disorder) (ICD-10 - F43.10) 05/07/2024 Insomnia (ICD-10 - G47.00) 12/27/2023 Benzodiazepine abuse (ICD-10 - F13.10) 05/07/2024 Medication management (ICD-10 - Z79.899) 07/26/2023 Restless leg syndrome (ICD-10 - G25.81) Take gabapentin as prescribed. 02/01/2024 Medication management (ICD-10 - Z79.899) May self-administer medications or be administered own oral medications per [facility]. Provided informed consent with understanding of side effects, adverse effects, risks and benefits as well as alternative treatments as previously discussed and with the above recommended medications & other aspects of the treatment program. Agrees to return sooner if symptoms worsen or suicidal or homicidal ideations occur. Labs monitored by PCP. 11/09/2023 Restless leg syndrome (ICD-10 - G25.81) Take gabapentin as prescribed. 09/07/2023 Restless leg syndrome (ICD-10 - G25.81) Take gabapentin as prescribed. 10/26/2023 Restless leg syndrome (ICD-10 - G25.81) Take gabapentin as prescribed. 08/24/2023 Restless leg syndrome (ICD-10 - G25.81) Take gabapentin as prescribed. 08/10/2023 Restless leg syndrome (ICD-10 - G25.81) Take gabapentin as prescribed. 07/05/2023 Restless leg syndrome (ICD-10 - G25.81) Take gabapentin as prescribed. 06/24/2023 Restless leg syndrome (ICD-10 - G25.81) Take gabapentin as prescribed. 05/27/2023 Restless leg syndrome (ICD-10 - G25.81) Take gabapentin as prescribed. 05/13/2023 Restless leg syndrome (ICD-10 - G25.81) Take gabapentin as prescribed. 09/07/2023 Other No medication changes made this appointment - client instructed that changes made last appointment have not taken effect yet. Will reevaluate at upcoming appointment. Reassurance given. May self-administer medications or be administered own oral medications per [facility]. Provided informed consent with understanding of side effects, adverse effects, risks and benefits as well as alternative treatments as previously discussed and with the above recommended medications & other aspects of the treatment program. Agrees to return sooner if symptoms worsen or suicidal or homicidal ideations occur. 08/10/2023 Other Continue psychotherapy as scheduled. May self-administer medications or be administered own oral medications per [facility]. Provided informed consent with understanding of side effects, adverse effects, risks and benefits as well as alternative treatments as previously discussed and with the above recommended medications & other aspects of the treatment program. Agrees to return sooner if symptoms worsen or suicidal or homicidal ideations occur. 05/13/2023 Other Continue psychotherapy as scheduled. May self-administer medications or be administered own oral medications per [facility]. Provided informed consent with understanding of side effects, adverse effects, risks and benefits as well as alternative treatments as previously discussed and with the above recommended medications & other aspects of the treatment program. Agrees to return sooner if symptoms worsen or suicidal or homicidal ideations occur. 12/13/2023 Other May self-administer medications or be administered own oral medications per [facility]. Provided informed consent with understanding of side effects, adverse effects, risks and benefits as well as alternative treatments as previously discussed and with the above recommended medications & other aspects of the treatment program. Agrees to return sooner if symptoms worsen or suicidal or homicidal ideations occur. 05/27/2023 Other Continue psychotherapy as scheduled. May self-administer medications or be administered own oral medications per [facility]. Provided informed consent with understanding of side effects, adverse effects, risks and benefits as well as alternative treatments as previously discussed and with the above recommended medications & other aspects of the treatment program. Agrees to return sooner if symptoms worsen or suicidal or homicidal ideations occur. 08/24/2023 Other Continue psychotherapy as scheduled. May self-administer medications or be administered own oral medications per [facility]. Provided informed consent with understanding of side effects, adverse effects, risks and benefits as well as alternative treatments as previously discussed and with the above recommended medications & other aspects of the treatment program. Agrees to return sooner if symptoms worsen or suicidal or homicidal ideations occur. 06/24/2023 Other Continue psychotherapy as scheduled. May self-administer medications or be administered own oral medications per [facility]. Provided informed consent with understanding of side effects, adverse effects, risks and benefits as well as alternative treatments as previously discussed and with the above recommended medications & other aspects of the treatment program. Agrees to return sooner if symptoms worsen or suicidal or homicidal ideations occur. 07/05/2023 Other Called [facility] to send a team out to client at: [facility] [address] [place] [address] May self-administer medications or be administered own oral medications per [facility] protocols. Provided informed consent with understanding of side effects, adverse effects, risks and benefits as well as alternative treatments as previously discussed and with the above recommended medications & other aspects of the treatment program. Agrees to return sooner if symptoms worsen or suicidal or homicidal ideations occur. 07/26/2023 Other Continue psychotherapy as scheduled. May self-administer medications or be administered own oral medications per [facility] protocols. Provided informed consent with understanding of side effects, adverse effects, risks and benefits as well as alternative treatments as previously discussed and with the above recommended medications & other aspects of the treatment program. Agrees to return sooner if symptoms worsen or suicidal or homicidal ideations occur. 12/27/2023 Other Continue psychotherapy as scheduled. May self-administer medications or be administered own oral medications per [facility] protocols. Provided informed consent with understanding of side effects, adverse effects, risks and benefits as well as alternative treatments as previously discussed and with the above recommended medications & other aspects of the treatment program. Agrees to return sooner if symptoms worsen or suicidal or homicidal ideations occur. 10/26/2023 Other May self-administer medications or be administered own oral medications per [facility] protocols. Provided informed consent with understanding of side effects, adverse effects, risks and benefits as well as alternative treatments as previously discussed and with the above recommended medications & other aspects of the treatment program. Agrees to return sooner if symptoms worsen or suicidal or homicidal ideations occur. 11/09/2023 Other Continue psychotherapy as scheduled. Continue current medications. Continue services as scheduled. Labs completed recently. May self-administer medications or be administered own oral medications per [facility] protocols. Provided informed consent with understanding of side effects, adverse effects, risks and benefits as well as alternative treatments as previously discussed and with the above recommended medications & other aspects of the treatment program. Agrees to return sooner if symptoms worsen or suicidal or homicidal ideations occur. 05/07/2024 Other Plan Of Treatment No Information Insurance Providers Payer Name Payer Address Payer Phone Subscriber Number Group Number Insured Name Patient Relationship to Insured Coverage Start Date Coverage End Date MEDICARE PART A [address] [place] [address] [id number] Mary Kate Rodas Self - patient is the insured 6 6 Aetna Medicare [address] [place] [address] [id number] Mary Kate Rodas Self - patient is the insured 2 2 MEDICARE BEHAV GROUP WORKER [address] [place] [address] [id number] Mary Kate Rodas Self - patient is the insured 6 2 Aetna Medicare [address] [place] [address] [id number] Mary Kate Rodas Self - patient is the insured 2 2 Medical (General) History Medical History History ICD Code Hypertension, unspecified type Chronic GERD Anxiety disorder, unspecified Major depressive disorder, recurrent epi sode, moderate Recurrent major depression resistant to treatment Benzodiazepine abuse (resolved 4) undefined Benzodiazepine dependence (resolved 04/2023) Surgical History Surgery Date(Month/Year) VNS 1994 Hospitalization History Reason Date(Month/Year) [facility] 03/2023 2 [facility] [place] [facility] 04/2023 [place] [facility] 06/2023 MH/SI 07/2023 [place]- 2023 (several) [facility] hallucinations s/p ac yclovir 05/2020 [facility]- crisis 01/2021 [place] depression 03/2020 [facility] 05/05 [facility] 09/2021 [facility] 04/2022 [facility] 10/2022 [place] 11/2022 [place] 11/2022 Pharyngitis 12/2022 [facility] multiple in 2022
--- OUTSIDE RECORDS SUMMARY | 2024-05-09 08:24 | XMS_ITS | Referral Summary ---
Author Organization 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 Gender Identity Not on file Sexual Orientation [...] on file Medical Devices Implanted Type Area Gift Consultant Device Identifier Shelf Expiration Date Model / Serial / Lot Vagus Nerve Stimulator Vagus Nerve Stimulator Left: Chest Insurance TNA MEDICARE GOLD TNA MEDICARE GOLD Advance Directives For more information, please contact: [phone] * Full Code (Latest Code Status on File) Date Activated Date Inactivated Comments 07/21/2022 6:02 PM 07/23/2022 7:45 PM Care Teams Sheriffs Officer Relationship Specialty Start Date End Date Lawrence Artis MD [address] [place] [address] PCP - General Emergency Medicine 10/19/21
--- OUTSIDE RECORDS SUMMARY | 2024-05-09 08:25 | XMS_ITS | Continuity of Care Document ---
Author Organization [facility] Address [address] [place] [address] [place] [address] Phone Care Team Providers Care Flap Presser Name Role Phone Carmelo Pierre DO Unavailable Unavailable Advance Directives Directive Yes / No Effective Date File Name No Information Encounters Encounter Description Practice Location Reason(s) For Visit Diagnoses Date Provider Providers Copied on Encounter [facility], [address], [place], [place], [id number], [place] tel:[phone] [facility] No Information Gabby Agudelo. [address], [place], [address], [place]. tel:[phone] Family History Family Member Type Diagnosis Age At Onset No Information Payers Payer name Insurance type Covered libertarian ID Authoriza tion(s) No Information Social History Type Description Quantity Date Captured Comments Sex Female Smoking Status No Information Chief Complaint And Reason For Visit No Information Reason For Referral Reason For Referral No Information History Of Present Illness Encounter Date Complaint History Of Prese nt Illness No Information Functional Status Date Functional Assessmen t No Information Instructions Date Instruction Additional Infor mation No Information Assessments Type Assessment Date No Information Patient Care Teams Name Effective Dates (start - stop) Status Members No Information
== END 2024-05-09 08:29 | disposition left against medical advice (07) ==
LOC: ANHED 08:15
PROVIDERS: PCP Emergency Medicine
DX: R11.2 Nausea with vomiting, unspecified (principal)
CPT/HCPCS: 99199

== ENCOUNTER 2024-05-25 01:23 | Emergency (ER) | payer MEDICARE, SELFPAY ==
[2024-05-25 01:25] VITALS: BP 130/89; PULSE 87; RESP 17; TEMP 36.4; O2SAT 99
--- OUTSIDE RECORDS SUMMARY | 2024-05-25 01:35 | XMS_ITS | Continuity of Care Document ---
Author Organization [facility] Address [address] [place] [address] [place] [address] Phone Care Team Providers Care Veneer Patcher Name Role Phone Carmelo Pierre DO Unavailable Unavailable Advance Directives Directive Yes / No Effective Date File Name No Information Encounters Encounter Description Practice Location Reason(s) For Visit Diagnoses Date Provider Providers Copied [facility] [address], [place], [place], [id number], [place] tel:[phone] [facility] No Information Gabby Agudelo. [address] [facility], [place], [address], [place]. tel:[phone] Family History Family Member Type Diagnosis Age At Onset No Information Payers Payer name Insurance type Covered republican ID Authoriza tion(s) No Information Social History [...]
--- OUTSIDE RECORDS SUMMARY | 2024-05-25 01:35 | XMS_ITS | CONTINUITY OF CARE DOCUMENT ---
Author Name candida tirado Address Unknown Organization [facility] Address [address] [place] [address] Phone [phone] Care Team Providers Care Certified Phlebotomist Name Role Phone Alberto Reyna MD Unavailable [phone] Alberto Reyna MD Unavailable [phone] Derrell Alfaro MD Unavailable INSURANCE PROVIDERS Payer name Policy type / Coverage type [place] red democrat [place] Medicare [id number]
--- OUTSIDE RECORDS SUMMARY | 2024-05-25 01:35 | XMS_ITS ---
Author Organization [facility] Address [address] [place] [address] Care Team Providers Care Administration Professional Name Role Phone Sarah Pearl Primary Care Provider [phone] REASON FOR VISIT DIscharge from [facility] Social History Sex Assigned At : Social History Observation Description Sex Assigned At Female Encounters Encounter Location Date Provider Diagnosis [address] [place] [address] 05/07/2024 Sarah Pearl Plan Of Treatment Next Appt Details Provider Name:Sarah benton, 05/31/2024 10:00:00 AM, [address] [place] [address], [address], Progress Notes * Mary Kate CHAPMANDOB:1950 ([age] yo F)Acc No.[id number]:05/07/2024 UNLOCKED PROGRESS NOTE Patient: Mary Kate VILLA Provider: Marco Antonio Pearl, NIA, DATA ENTRY ASSISTANT, PMHNP-BC :1950 A ge:74 Y S ex:Female Date:05/07/2024 Address:[facility], [address] [place] [address] [facility] Subjective: * Chief Complaints: * 1 . DIscharge from [facility]. * Medical History: Objective: * Vitals: Assessment: Plan: * Treatment: * * Electronic signature of Mercedez Arce , [id number] on 05/25/2024 at 01:35 AM CDT Sign off status: Pending * Provider: Marco Antonio Pearl DNP, DATA ENTRY ASSISTANT, PMHNP-BC Date: 0 05/07/2024 Generated for Printing/Faxing/eTransmitting on: 0 05/25/2024 01:35 AM CDT
--- OUTSIDE RECORDS SUMMARY | 2024-05-25 01:35 | XMS_ITS ---
Author Organization [facility] Address [address] [place] [address] Care Team Providers Care Stack Yield Engineer Name Role Phone Sarah Pearl Primary Care Provider [phone] REASON FOR VISIT follow-up hospitalization Social History Sex Assigned At : Social History Observation Description Sex Assigned At Female Encounters Encounter Location Date Provider Diagnosis [address] [address] 05/03/2024 Sarah Pearl Plan Of Treatment Next Appt Details Provider Name:Sarah benton, 05/31/2024 10:00:00 AM, [address] [place] [address], [address], Progress Notes * Mary Kate CHAPMANDOB:1950 ([age] yo F)Acc No.[id number]:05/03/2024 UNLOCKED PROGRESS NOTE Patient: Mary Kate VILLA Provider: Marco Antonio Pearl, NIA, BEHAVIORAL PEDIATRICIAN, PMHNP-BC :1950 A ge:74 Y S ex:Female Date:05/03/2024 Address:[facility], [address] [place] [address] [facility] Subjective: * Chief Complaints: * 1 . Follow-up hospitalization. * Medical History: Objective: * Vitals: Assessment: Plan: * Treatment: * * Electronic signature of Mercedez Arce , [id number] on 05/25/2024 at 01:35 AM CDT Sign off status: Pending * Provider: Marco Antonio Pearl DNP, BEHAVIORAL PEDIATRICIAN, PMHNP-BC Date: 0 05/03/2024 Generated for Printing/Faxing/eTransmitting on: 0 05/25/2024 01:35 AM CDT
--- OUTSIDE RECORDS SUMMARY | 2024-05-25 01:35 | XMS_ITS ---
Author Organization [facility] Address [address] [place] [address] Care Team Providers Care Move Coordinator Name Role Phone Sarah Pearl Primary Care [...] Female Encounters Encounter Location Date Provider Diagnosis [address] [place] [address] 05/07/2024 Sarah Pearl Generalized anxiety disorder F41.1 [...] - Z79.899) 05/07/2024 Other Plan Of Treatment Next Appt Details Provider Name:Sarah benton, 05/31/2024 10:00:00 AM, [address] [facility], [place], [address], Progress Notes * Mary Kate RODASDOB:1950 ([age] yo F)Acc No.[id number]:05/07/2024 DNS Patient: Mary Kate VILLA Provider: Marco Antonio Pearl, NAI, LABORATORY ASSISTANT, PMHNP- :1950 A ge:74 Y S ex:Female Date:05/07/2024 Address:[address] [place] [address], Room [address] [place] [address] Check In:11:03 AM CATTLE STICKER Subjective: * Chief Complaints: * C t [...] * Treatment: * Procedure Codes: * * LE STICKER Sign off status: Completed true * Provider: Marco Antonio Pearl, NIA, LABORATORY ASSISTANT, PMHNP- Date: 05/07/2024 Generated for Printing/Faxing/eTransmitting on: 0 05/25/2024 01:34 AM CDT History and Physical Notes * HPI (History [...]
--- OUTSIDE RECORDS SUMMARY | 2024-05-25 01:36 | XMS_ITS | Clinical Summary ---
Author Organization [facility] Address [address] [place] [address] Care Team Providers Care [employer]dl Company Flatbed Driver Name Role Phone Lawrence Artis MD Primary Care Provider Source Comments [facility],non-owned Affiliates and Associated Physician Practices is amultiple site organization consisting of ambulatory clinics and hospital sitesin [place], [place], [place] and [place]. This disclosure is being madepursuant to the Care Everywhere program and may not contain all information available regarding this patient. Last updated 17.[facility] Allergies Active Allergy Reactions Criticality Noted Date [...] and heating? Not very hard 01/12/2023 [facility] [place] of Occupat ional Health - Occupational Stress [...] place to sleep or slept in a intermediate (including now)? No 01/12/2023 Sex and Gender Information Value Date Recorded Sex Assigned at Not on file Gender Identity Not on file Sexual Orientation Not on file Last Filed Vital Signs Vital Sign Reading Time Taken Comments Blood Pressure 184/100 01/24/2023 7:38 AM EVENT SERVICES MANAGER pacing all morning nurse aware Pulse 77 01/24/2023 7:38 AM EVENT SERVICES MANAGER Temperature 37 C (98.6 F) 01/24/2023 7:38 AM EVENT SERVICES MANAGER Respiratory Rate 18 01/24/2023 7:38 AM EVENT SERVICES MANAGER Oxygen Saturation 98% 01/24/2023 7:3 8 AM EVENT SERVICES MANAGER Inhaled Oxygen Concentration - - [...] complete this topic MENINGOCOCCAL (Group B) VACCINE SHARED DECISION-MAKING Aged Out No longer eligible based on patient's age to complete this topic MENINGOCOCCAL GROUPS A/C/Y/W VACCINE Aged Out No longer eligible based on patient's age to complete this topic Advance Directives * Full Code (Latest Code Status on File) Date Activated Date Inactivated Comments 01/12/2023 5:12 PM 01/24/2023 10:38 AM * Full Code Date Activated Date Inactivated Comments 10/14/2022 2:03 PM 10/28/2022 4:18 PM Care Teams Cdl Company Flatbed Driver Relationship Specialty Start Date End Date Lawrence Artis MD [address] [place] [address] PCP - General 09/11/20
--- OUTSIDE RECORDS SUMMARY | 2024-05-25 01:36 | XMS_ITS | Clinical Summary ---
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 Gender Identity Not on file Sexual Orientation [...] history exists Medical Devices Implanted Type Area Washery Boss Device Identifier Shelf Expiration Date Model / Serial / Lot Vagus Nerve Stimulator Vagus Nerve Stimulator Left: Chest Insurance AETNA MEDICARE GOLD AETNA MEDICARE GOLD Advance Directives For more information, please contact: [phone] * Full Code (Latest Code Status on File) Date Activated Date Inactivated Comments 07/21/2022 6:02 PM 07/23/2022 7:45 PM Care Teams Wrapping Machine Tender Relationship Specialty Start Date End Date Lawrence Artis MD [address] [place] [address] PCP - General Emergency Medicine 10/19/21
--- OUTSIDE RECORDS SUMMARY | 2024-05-25 01:36 | XMS_ITS | Patient Health Summary ---
Author Organization [facility] Address [address] [place] [address] Care Team Providers Care Weighter Name Role Phone Lawrence Artis MD Primary Care Provider [phone] Note from [facility] [place],non-owned Affiliates and Associated Physician Practices is amultiple site organization consisting of ambulatory clinics and hospital sitesin [place], [place], [place] and [place]. This disclosure is being madepursuant to the Care Everywhere program and may not contain all information available regarding this patient. Last updated 17.[facility] [employer] Allergies * Penicillins(Itching) -Low Criticality * Sulfa [...] care, and heating? Not very hard 01/12/2023 [facility] - Occupational [...] place to sleep or slept in a fdc (including now)? No 01/12/2023 Sex and Gender Information Value Date Recorded Sex Assigned at Not on file Gender Identity Not on file Sexual Orientation Not on file Last Filed Vital Signs Vital Sign Reading Time Taken Comments Blood Pressure 184/100 01/24/2023 7:38 AM JAVA GRAILS DEVELOPER pacing all morning nurse aware Pulse 77 01/24/2023 7:38 AM JAVA GRAILS DEVELOPER Temperature 37 C (98.6 F) 01/24/2023 7:38 AM JAVA GRAILS DEVELOPER Respiratory Rate 18 01/24/2023 7:38 AM JAVA GRAILS DEVELOPER Oxygen Saturation 98% 01/24/2023 7:3 8 AM JAVA GRAILS DEVELOPER Inhaled Oxygen Concentration - - Weight 51.7 [...] * CARDIAC EKG ORDER (01/25/2023 2:27 PM JAVA GRAILS DEVELOPER) Narrative 01/25/2023 2:27 PM JAVA GRAILS DEVELOPER Ordered by an unspecified provider. Scanned Document CARDIAC SERVICES ORD ERABLES * EKG 12-LEAD (01/22/2023 3:25 PM JAVA GRAILS DEVELOPER) Ventricular Rate 69 BPM [facility] MUSE Atrial Rate 69 BPM [facility] MUSE P-R Interval 148 ms [facility] M[facility] QRS Duration ms 78 ms [facility] MUSE Q-T Interval ms 382 ms [facility] MUSE QTC Calculation (Bezet) 409 ms [facility] MUSE Calculated P Hosmer 56 degrees [facility] MUSE Calculated R Hosmer 40 degrees [facility] MUSE Calculated T Hosmer 45 degrees [facility] MUSE Interpretation EKG NORMAL SINUS RHYTHM NORMAL ECG Confirmed by CESILIA RIVERA MD ([id number]), loan expeditor OUMAR CASTRO ([id number]) on 01/24/2023 6:35:13 AM [facility] MUSE 01/22/2023 3:25 PM JAVA GRAILS DEVELOPER 01/24/2023 6:35 AM [facility] Nara Enriquez YARN PACKER-BARREL WASHER MACHINE ECG ORDERABLES [facility] MUSE * (ABNORMAL) CBC W AUTO DIFFERENTIAL (01/22/2023 6:45 AM JAVA GRAILS DEVELOPER) Pathologist [facility] WBC 3.2(L) 4.0 - 10.0 x10E9/L 01/22/2023 7:07 AM [facility] RBC 3.73(L) 3.93 - 5.22 x10E12/L 01/22/2023 7:07 AM [facility] Hemoglobin 10.7(L) 11.2 - 15.7 gm/dL 01/22/2023 7:07 AM [facility] Hematocrit 34.8 34.1 - 44.9 % 01/22/2023 7:07 AM [facility] MCV 93.3 78.0 - 100.0 fl 01/22/2023 7:07 AM [facility] MCH 28.7 25.6 - 34.0 pg 01/22/2023 7:07 AM [facility] MCHC 30.7(L) 32.3 - 36.5 gm/dL 01/22/2023 7:07 AM [facility] RDW 12.5 11.6 - 14.4 % 01/22/2023 7:07 AM [facility] MPV 9.8 9.4 - 12.4 fl 01/22/2023 7:07 AM [facility] Platelet Count 194 163 - 369 x10E9/L 01/22/2023 7:07 AM [facility] Neutrophils % 55.8 40.0 - 75.0 % 01/22/2023 7:07 AM [facility] Lymphocytes % 29.2 19.3 - 53.1 % 01/22/2023 7:07 AM [facility] Monocytes % 8.8 4.7 - 12.5 % 01/22/2023 7:07 AM [facility] Eosinophils % 5.0 0.7 - 7.0 % 01/22/2023 7:07 AM [facility] Basophils % 0.9 0.1 - 1.2 % 01/22/2023 7:07 AM [facility] Immature Granulocytes 0.3 0 - 0.5 % 01/22/2023 7:07 AM [facility] Neutrophil Absolute 1.78 1.56 - 6.13 x10E9/L 01/22/2023 7:07 AM [facility] Lymphocytes Absolute 0.93(L) 1.18 - 3.74 x10E9/L 01/22/2023 7:07 AM [facility] Monocytes Absolute 0.28 0.24 - 0.86 x10E9/L 01/22/2023 7:07 AM [facility] Eosinophils Absolute 0.16 0.04 - 0.54 x10E9/L 01/22/2023 7:07 AM [facility] Basophils Absolute 0.03 0.01 - 0.08 x10E9/L 01/22/2023 7:07 AM [facility] Immature Granulocytes Absolute 0.01 0 - 0.03 x10E9/L 01/22/2023 7:07 AM [facility] nRBC Auto 0 <=0 /100 WBC 01/22/2023 7:07 AM [facility] nRBC Absolute 0.00 <=0 x10E9/L 01/22/2023 7:07 AM [facility] Blood BLOOD SPECIMEN / Unknown Lab Venipuncture / Unknown 01/22/2023 6:45 AM JAVA GRAILS DEVELOPER 01/22/2023 7:02 AM [facility] Nara Enriquez YARN PACKER-BARREL WASHER MACHINE LAB - HEMATOLOG Y ORDERABLES Performing Organization Address City/State/[facility] Co de Phone Number [facility] [address] * (ABNORMAL) COMPREHENSIVE METABOLIC PANEL (01/22/2023 6:45 AM [facility]) Glucose 94 70 - 125 mg/dL 01/22/2023 7:37 AM [facility] Sodium 141 136 - 145 mmol/L 01/22/2023 7:37 AM [facility] Potassium 4.4 3.4 - 5.1 mmol/L 01/22/2023 7:37 AM [facility] Chloride 104 98 - 107 mmol/L 01/22/2023 7:37 AM [facility] CO2 31(H) 22 - 29 mmol/L 01/22/2023 7:37 AM [facility] Calcium 9.04 8.4 - 10.2 mg/dL 01/22/2023 7:37 AM [facility] Anion Gap 10 6 - 16 mmol/L 01/22/2023 7:37 AM [facility] BUN 21.7(H) 9.8 - 20.1 mg/dL 01/22/2023 7:37 AM [facility] Creatinine 0.95 0.57 - 1.11 mg/dL 01/22/2023 7:37 AM [facility] Alkaline Phosphatase 51 40 - 150 U/L 01/22/2023 7:37 AM [facility] ALT 23 <=55 U/L 01/22/2023 7:37 AM [facility] AST 25 5 - 34 U/L 01/22/2023 7:37 AM [facility] Protein Total 6.8 6.4 - 8.3 gm/dL 01/22/2023 7:37 AM [facility] Albumin 3.9 3.4 - 4.8 gm/dL 01/22/2023 7:37 AM [facility] Globulin Total 2.9 2.6 - 4.0 gm/dL 01/22/2023 7:37 AM [facility] Albumin/Globulin Ratio 1.3 0.9 - 1.6 01/22/2023 7:37 AM [facility] Bilirubin Total 0.4 0.2 - 1.2 mg/dL 01/22/2023 7:37 AM JAVA GRAILS DEVELOPER [facility] eGFR 64(L) >90 mL/min/1.7 3m2 01/22/2023 7:37 AM JAVA GRAILS DEVELOPER [facility] Comment:The GFR result was c alculated using the updated CKD-EPI Creatinine Equation (2020). Blood BLOOD SPECIMEN / Unknown Lab Venipuncture / Unknown 01/22/2023 6:45 AM JAVA GRAILS DEVELOPER 01/22/2023 7:02 AM JAVA GRAILS DEVELOPER Nara HAYDENBARREL WASHER MACHINE LAB - CHEMISTRY ORDERABLES [facility] [address] * STREP A SCREEN DIRECT W RFLX STREP A CULTURE (01/13/2023 1:50 PM CDT) Strep A Rapid Negative Negative 01/13/2023 2:08 PM CDT [facility] Microbiology ENTIRE THROAT (SURFACE REGION OF NECK) / Unknown Collection / Unknown 01/13/2023 1:50 PM CDT 01/13/2023 1:51 PM CDT Narrative [facility] - 01/13/2023 2:08 PM CDT Test has reflexed to a Strep A culture. Jan Olivier MD LAB - MICROBIOLO GY ORDERABLES Performing Organization Address [facility] Co de Phone Number [facility] [address] * CULTURE STREP GROUP A (01/13/2023 1:50 PM CDT) Culture Negative for beta-hemolytic Streptococcus Group A BORIS 01/15/2023 4:19 AM CDT [facility] Microbiology ENTIRE THROAT (SURFACE REGION OF NECK) / Unknown Collection / Unknown 01/13/2023 1:50 PM CDT 01/13/2023 1:51 PM CDT Jan Olivier MD LAB - MICROBIOLO GY ORDERABLES [facility] [address] [place] [address], [facility] [phone] Care Teams Weighter Relationship Specialty Start Date End Date Lawrence Artis MD [facility] [address] [place] [id number] PCP - General 09/11/20
--- OUTSIDE RECORDS SUMMARY | 2024-05-25 01:36 | XMS_ITS | Referral Summary ---
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 Gender Identity Not on file Sexual Orientation [...] on file Medical Devices Implanted Type Area Stone Splitter Device Identifier Shelf Expiration Date Model / Serial / Lot Vagus Nerve Stimulator Vagus Nerve Stimulator Left: Chest Insurance TNA MEDICARE GOLD TNA MEDICARE GOLD Advance Directives For more information, please contact: [phone] * Full Code (Latest Code Status on File) Date Activated Date Inactivated Comments 07/21/2022 6:02 PM 07/23/2022 7:45 PM Care Teams Assistant Professor Of Radiology Relationship Specialty Start Date End Date Lawrence Artis MD [address] [place] [address] PCP - General Emergency Medicine 10/19/21
--- OUTSIDE RECORDS SUMMARY | 2024-05-25 01:36 | XMS_ITS | Referral Summary ---
Author Organization [facility] Address [address] [place] [address] Care Team Providers Care Proof Coin Collector Name Role Phone Lawrence Artis MD Primary Care Provider [phone] Source Comments [facility] Affiliates and Associated Physician Practices is amultiple site organization consisting of ambulatory clinics and hospital sitesin [place], [place], [place] and [place]. This disclosure is being madepursuant to the Care Everywhere program and may not contain all information available regarding this patient. Last updated 17.[facility] Allergies Active Allergy Reactions Criticality Noted Date [...] care, and heating? Not very hard 01/12/2023 [facility] of Occupat ional Health - Occupational Stress [...] place to sleep or slept in a senior living (including now)? No 01/12/2023 Sex and Gender Information Value Date Recorded Sex Assigned at Not on file Gender Identity Not on file Sexual Orientation Not on file Last Filed Vital Signs Vital Sign Reading Time Taken Comments Blood Pressure 184/100 01/24/2023 7:38 AM LINK TRAINER pacing all morning nurse aware Pulse 77 01/24/2023 7:38 AM LINK TRAINER Temperature 37 C (98.6 F) 01/24/2023 7:38 AM LINK TRAINER Respiratory Rate 18 01/24/2023 7:38 AM LINK TRAINER Oxygen Saturation 98% 01/24/2023 7:3 8 AM LINK TRAINER Inhaled Oxygen Concentration - - Weight 51.7 [...] 2:03 PM 10/28/2022 4:18 PM Care Teams Proof Coin Collector Relationship Specialty Start Date End Date Lawrence Artis MD [address] [place] [id number] PCP - General 09/11/20
--- NOTE | 2024-05-25 02:35 | ED_ITS ---
HPI - General Adult General Chief complaint: Abdominal Pain Stated complaint: BLQ SHARP ABD PAIN History of Present Illness HPI narrative: This is a 74-year-old female presenting ED for abdominal pain. For TRIA had lower abdominal pain started earlier today. When I interviewed the patient she said that she did not want to be evaluated. She has already called a ride. She says she wants to go back to her motel. She declined any and all intervention. Related Data Home Medications ?Medication ?Instructions ?Recorded ?Confirmed ?Last Taken ?Type gabapentin 300 mg capsule 300 mg PO TID 02/20/20 09/18/23 10/18/21 18:00 History melatonin 10 mg tablet 10 mg PO HS 10/19/21 08/23/23 Unknown History atorvastatin 40 mg tablet 40 mg PO DAILY 08/13/23 08/23/23 Unknown History buspirone 15 mg tablet 15 mg PO TID 08/13/23 09/18/23 Unknown History clonazepam 0.5 mg tablet 0.5 mg PO Q12H PRN Anxiety 08/13/23 09/18/23 Unknown History escitalopram oxalate 20 mg tablet 20 mg PO DAILY 08/13/23 08/23/23 Unknown Hi story olanzapine 15 mg tablet 15 mg PO DAILY 08/13/23 09/18/23 Unknown History prazosin 1 mg capsule 2 mg PO HS 08/13/23 09/18/23 Unknown History ropinirole 0.25 mg tablet 0.25 mg PO HS 08/13/23 08/23/23 Unknown History sertraline 100 mg tablet 100 mg PO DAILY 08/13/23 09/18/23 Unknown History trazodone 50 mg tablet 50 - 100 mg PO HS PRN Sleep 08/13/23 09/18/23 Unknown History Allergies Allergy/AdvReac Type Severity Reaction Status Date / Time Penicillins Allergy Unknown Itching Verified 05/09/24 02:54 Sulfa (Sulfonamide Allergy Unknown Itching Verified 05/09/24 02:54 Antibiotics) [facility] Past Medical History Medical History Skin lesion of scalp Cough Sore throat Loose stools Sinusitis UTI (urinary tract infection) URI with cough and congestion Dyspnea Dysphagia Arthralgia Anemia Cough Sinus congestion Rhinosinusitis Oropharyngeal dysphagia Myalgia Loss of balance Esophageal stricture Bilateral carotid bruits Strep pharyngitis July 2023 Suicidal ideation Depression Anxiety Post-menopausal History of gastroesophageal reflux (GERD) Hypertension Surgical History Surgical History No significant past surgical history Family History Family History Sibling Family history of cardiovascular disease Father , Esophageal cancer Family history of malignant neoplasm, Onset Age: 66 Mother , Related to pneumonia No problems noted. Social History Social History Social History: Patient states that she currently lives at a [employer] and that she has a trust fund for which she receives money from her sister Alondra Ruth. Her ernesto rgency contact is Sherie Curry, her niece who lives in [place]. She has a psychiatric history with 2 previous suicide attempts. Once when she was 16 and once when she was 30 years old. One attempt she took half a bottle of aspirin in the other time she was drinking cough syrup. Smoking status: Never smoker Second hand tobacco smoke exposure: No Alcohol intake: never Substance use: never Substance use type: does not use Do You Feel Safe in your Home?: Yes Lack of Transportation: No Lack of Food: Never True Concerned About Future Housing: No Difficulty Paying Gas/Electric Bills: No Difficulty Paying for Meds: No Currently Unemployed: No Education: Don't Know Difficulty w/ Childcare or Family Care: No Living arrangements: alone Additional living arrangements comments: The patient has a daughter that she put up for adoption. Her daughter found her later in life but she has not seen her for 22 years. Her daughter lives 6 miles from her. She is single, never . Occupation/Education: other Additional occupation/education comments: Disable Gender identity (if verbalized by the patient): Female Spiritual care concerns: No Exam Narrative: APPEARANCE: No apparent distress. Head: atraumatic. EYES: EOMI, NOSE: Atraumatic NECK: Trachea midline RESPIRATORY: No increased rate of breathing CARDIOVASCULAR: RRR, ABDOMINAL: Non-distended MUSCULOSKELETAl: No obvious deformities NEURO: Alert. Moving 4/4 extremities SKIN:: Warm, dry. Normal color PSYCHIATRIC: Normal affect Course Vital Signs Vital signs: Vital Signs Temperature 97.6 F 05/25/24 01:25 Pulse Rate 87 03/14/25 01:25 Respiratory Rate 17 05/25/24 01:25 Blood Pressure 130/89 05/25/24 01:25 Pulse Oximetry 99 05/25/24 01:25 Oxygen Delivery Room Air 05/25/24 01:25 Temperature 97.6 F 05/25/24 01:25 Pulse Rate 87 05/25/24 01:25 Respiratory Rate 17 05/25/24 01:25 Blood Pressure 130/89 05/25/24 01:25 Pulse Oximetry 99 05/25/24 01:25 Oxygen Delivery Room Air 05/25/24 01:25 Medical Decision Making MDM Narrative Medical decision making narrative: -Course: 74-year-old female who presenting to ED for abdominal pain. On my interview she did not want to be evaluated. She said that she was ready to go back to her motel. I offered several times to evaluate her and treat any problems she may have and she has declined. Patient left the emergency department. Vital Signs Vital Signs: Vital Signs Temperature 97.6 F 05/25/24 01:25 Pulse Rate 87 05/25/24 01:25 Respiratory Rate 17 05/25/24 01:25 Blood Pressure 130/89 05/25/24 01:25 Pulse Oximetry 99 05/25/24 01:25 Oxygen Delivery Room Air 05/25/24 01:25 Temperature 97.6 F 05/25/24 01:25 Pulse Rate 87 05/25/24 01:25 Respiratory Rate 17 05/25/24 01:25 Blood Pressure 130/89 05/25/24 01:25 Pulse Oximetry 99 05/25/24 01:25 Oxygen Delivery Room Air 05/25/24 01:25 Discharge Plan Discharge Clinical Impression: Abdominal pain Patient Disposition: Home, Self-Care Condition: Stable Instructions: Antibiotic Form, Abdominal Pain (ED) Additional Instructions: You came to the emergency department for abdominal pain but declined evaluation by physician. If anything changes or you would like re-evaluation please return to the ED. Patient Language: [place] Prescriptions: No Action gabapentin 300 mg capsule 300 mg PO TID amlodipine 10 mg tablet 10 mg PO DAILY Qty: 90 2RF carvedilol 6.25 mg tablet 6.25 mg PO BID Qty: 180 2RF losartan 100 mg tablet 100 mg PO DAILY Qty: 90 2RF melatonin 10 mg Tablet 10 mg PO HS trazodone 50 mg tablet 50 - 100 mg PO HS PRN (Reason: Sleep) prazosin 1 mg capsule 2 mg PO HS sertraline 100 mg tablet 100 mg PO DAILY buspirone 15 mg tablet 15 mg PO TID atorvastatin 40 mg tablet 40 mg PO DAILY olanzapine 15 mg tablet 15 mg PO DAILY clonazepam 0.5 mg tablet 0.5 mg PO Q12H PRN (Reason: Anxiety) ropinirole 0.25 mg tablet 0.25 mg PO HS escitalopram oxalate 20 mg tablet 20 mg PO DAILY ferrous sulfate 325 mg (65 mg iron) Tablet,Delayed Release (Dr/Ec) 325 mg PO BID Qty: 60 0RF cefpodoxime 100 mg tablet 100 mg PO BID Qty: 6 0RF Rx Instructions: must administer with a meal/food Follow-up/Referrals: Lawrence Artis MD [Primary Care Provider] -
[2024-05-25 02:45] VITALS: BP 149/89; PULSE 89; RESP 18; O2SAT 98
[2024-05-25 21:41] VITALS: BP 148/82; PULSE 97; RESP 20; TEMP 36.4; O2SAT 94
--- NOTE | 2024-05-25 23:37 | PC.NURSE ---
Report received from ALAN Diaz. Assumed care of patient at this time.
--- OUTSIDE RECORDS SUMMARY | 2024-05-26 03:52 | XMS_ITS | CONTINUITY OF CARE DOCUMENT ---
Author Name candida tirado Address Unknown Organization [facility] Address [address] [place] [address] Phone [phone] Care Team Providers Care Regulator Mechanic Name Role Phone Alberto Reyna MD Unavailable [phone] Alberto Reyna MD Unavailable [phone] Derrell Alfaro MD Unavailable INSURANCE PROVIDERS Payer name Policy type / Coverage type [place] red libertarian [place] [employer] Medicare [id number]
--- OUTSIDE RECORDS SUMMARY | 2024-05-26 03:52 | XMS_ITS | Clinical Summary ---
Author Organization [facility] Address [address] [place] [address] Phone Care Team Providers Care Breast Worker Name Role Phone Lawrence Artis MD Primary Care Provider [phone] Allergies Active Allergy Reactions Criticality Noted Date [...] topic Insurance MEDICARE C [employer] Care Teams Breast Worker Relationship Specialty Start Date End Date Lawrence Artis MD [address] [place] [address] PCP - General Internal Medicine 04/14/22
--- OUTSIDE RECORDS SUMMARY | 2024-05-26 03:52 | XMS_ITS | Patient Health Summary ---
Author Organization [facility] Address [address] [place] [address] Care Team Providers Care Hematology Technician Name Role Phone Lawrence Artis MD Primary Care Provider + [phone] Note from [facility],non-owned Affiliates and Associated Physician Practices is amultiple site organization consisting of ambulatory clinics and hospital sitesin [place], [place], [place] and [place]. This disclosure is being madepursuant to the Care Everywhere program and may not contain all information available regarding this patient. Last updated 17.[facility] Allergies * Penicillins(Itching) -Low Criticality * Sulfa [...] care, and heating? Not very hard 01/12/2023 [facility] of Occupat ional Health - Occupational Stress [...] Comments Blood Pressure 184/100 01/24/2023 7:38 AM CEMENTER HELPER pacing all morning nurse aware Pulse 77 01/24/2023 7:38 AM CEMENTER HELPER Temperature 37 C (98.6 F) 01/24/2023 7:38 AM CEMENTER HELPER Respiratory Rate 18 01/24/2023 7:38 AM CEMENTER HELPER Oxygen Saturation 98% 01/24/2023 7:3 8 AM CEMENTER HELPER Inhaled Oxygen Concentration - - Weight 51.7 [...] * CARDIAC EKG ORDER (01/25/2023 2:27 PM CEMENTER HELPER) Narrative 01/25/2023 2:27 PM CEMENTER HELPER Ordered by an unspecified provider. Scanned Document CARDIAC SERVICES ORD ERABLES * EKG 12-LEAD (01/22/2023 3:25 PM CEMENTER HELPER) Ventricular Rate 69 BPM [facility] MUSE Atrial Rate 69 BPM [facility] P-R Interval 148 ms [facility] QRS Duration ms 78 ms [facility] Q-T Interval ms 382 ms [facility] QTC Calculation (Bezet) 409 ms [facility] MUSE Calculated P [place] 56 degrees [facility] MUSE Calculated R [place] 40 degrees [facility] MUSE Calculated T [place] 45 degrees [facility] M[facility] Interpretation EKG NORMAL SINUS RHYTHM NORMAL ECG Confirmed by CESILIA RIVERA MD ([id number]), editor trade journal OUMAR CASTRO ([id number]) on 01/24/2023 6:35:13 AM [facility] MUSE 01/22/2023 3:25 PM CEMENTER HELPER 01/24/2023 6:35 AM [facility] Nara Enriquez IMPROVEMENT LEAD-CHEMICAL UNIT OPERATOR ECG ORDERABLES [facility] MUSE * (ABNORMAL) CBC W AUTO DIFFERENTIAL (01/22/2023 6:45 AM CEMENTER HELPER) Pathologist [facility] WBC 3.2(L) 4.0 - 10.0 x10E9/L 01/22/2023 7:[address] [facility] RBC 3.73(L) 3.93 - 5.22 x10E12/L 01/22/2023 7:[address] [facility] Hemoglobin 10.7(L) 11.2 - 15.7 gm/dL 01/22/2023 7:[address] [facility] Hematocrit 34.8 34.1 - 44.9 % 01/22/2023 7:[address] [facility] MCV 93.3 78.0 - 100.0 fl 01/22/2023 7:[address] [facility] MCH 28.7 25.6 - 34.0 pg 01/22/2023 7:[address] [facility] MCHC 30.7(L) 32.3 - 36.5 gm/dL 01/22/2023 7:[address] [facility] RDW 12.5 11.6 - 14.4 % 01/22/2023 7:[address] [facility] MPV 9.8 9.4 - 12.4 fl 01/22/2023 7:[address] [facility] Platelet Count 194 163 - 369 x10E9/L 01/22/2023 7:[address] [facility] Neutrophils % 55.8 40.0 - 75.0 % 01/22/2023 7:[address] [facility] Lymphocytes % 29.2 19.3 - 53.1 % 01/22/2023 7:[address] [facility] Monocytes % 8.8 4.7 - 12.5 % 01/22/2023 7:[address] [facility] Eosinophils % 5.0 0.7 - 7.0 % 01/22/2023 7:[address] [facility] Basophils % 0.9 0.1 - 1.2 % 01/22/2023 7:[address] [facility] Immature Granulocytes 0.3 0 - 0.5 % 01/22/2023 7:[address] [facility] Neutrophil Absolute 1.78 1.56 - 6.13 x10E9/L 01/22/2023 7:[address] [facility] Lymphocytes Absolute 0.93(L) 1.18 - 3.74 x10E9/L 01/22/2023 7:[address] [facility] Monocytes Absolute 0.28 0.24 - 0.86 x10E9/L 01/22/2023 7:[address] [facility] Eosinophils Absolute 0.16 0.04 - 0.54 x10E9/L 01/22/2023 7:[address] [facility] Basophils Absolute 0.03 0.01 - 0.08 x10E9/L 01/22/2023 7:[address] [facility] Immature Granulocytes Absolute 0.01 0 - 0.03 x10E9/L 01/22/2023 7:[address] [facility] nRBC Auto 0 <=0 /100 WBC 01/22/2023 7:[address] [facility] nRBC Absolute 0.00 <=0 x10E9/L 01/22/2023 7:[address] [facility] Blood BLOOD SPECIMEN / Unknown Lab Venipuncture / Unknown 01/22/2023 6:45 AM CEMENTER HELPER 01/22/2023 7:02 AM [facility] Nara Enriquez IMPROVEMENT LEAD-CHEMICAL UNIT OPERATOR LAB - HEMATOLOG Y ORDERABLES Performing Organization Address City/State/[facility] Co de Phone Number [facility] [address] * (ABNORMAL) COMPREHENSIVE METABOLIC PANEL (01/22/2023 6:45 AM [facility]) Glucose 94 70 - 125 mg/dL 01/22/2023 7:[address] [facility] Sodium 141 136 - 145 mmol/L 01/22/2023 7:[address] [facility] Potassium 4.4 3.4 - 5.1 mmol/L 01/22/2023 7:[address] [facility] Chloride 104 98 - 107 mmol/L 01/22/2023 7:[address] [facility] CO2 31(H) 22 - 29 mmol/L 01/22/2023 7:[address] [facility] Calcium 9.04 8.4 - 10.2 mg/dL 01/22/2023 7:[address] [facility] Anion Gap 10 6 - 16 mmol/L 01/22/2023 7:[address] [facility] BUN 21.7(H) 9.8 - 20.1 mg/dL 01/22/2023 7:[address] [facility] Creatinine 0.95 0.57 - 1.11 mg/dL 01/22/2023 7:[address] [facility] Alkaline Phosphatase 51 40 - 150 U/L 01/22/2023 7:[address] [facility] ALT 23 <=55 U/L 01/22/2023 7:[address] [facility] AST 25 5 - 34 U/L 01/22/2023 7:[address] [facility] Protein Total 6.8 6.4 - 8.3 gm/dL 01/22/2023 7:[address] [facility] Albumin 3.9 3.4 - 4.8 gm/dL 01/22/2023 7:[address] [facility] Globulin Total 2.9 2.6 - 4.0 gm/dL 01/22/2023 7:[address] [facility] Albumin/Globulin Ratio 1.3 0.9 - 1.6 01/22/2023 7:[address] [facility] Bilirubin Total 0.4 0.2 - 1.2 mg/dL 01/22/2023 7:37 AM CEMENTER HELPER [facility] eGFR 64(L) >90 mL/min/1.7 3m2 01/22/2023 7:37 AM CEMENTER HELPER [facility] Comment:The GFR result was c alculated using the updated CKD-EPI Creatinine Equation (2020). Blood BLOOD SPECIMEN / Unknown Lab Venipuncture / Unknown 01/22/2023 6:45 AM CEMENTER HELPER 01/22/2023 7:02 AM CEMENTER HELPER Nara HAYDENCHEMICAL UNIT OPERATOR LAB - CHEMISTRY ORDERABLES [facility] [address] * STREP A SCREEN DIRECT W RFLX STREP A CULTURE (01/13/2023 1:50 PM CDT) Strep A Rapid Negative Negative 01/13/2023 2:08 PM CDT [facility] Microbiology ENTIRE THROAT (SURFACE REGION OF NECK) / Unknown Collection / Unknown 01/13/2023 1:50 PM CDT 01/13/2023 1:51 PM CDT Narrative [facility] - 01/13/2023 2:08 PM CDT Test has reflexed to a Strep A culture. Jan Olivier MD LAB - MICROBIOLO GY ORDERABLES Performing Organization Address [facility] Co de Phone Number [facility] [address] * CULTURE STREP GROUP A (01/13/2023 1:50 PM CDT) Culture Negative for beta-hemolytic Streptococcus Group A BORIS 01/15/2023 4:19 AM CDT [facility] Microbiology ENTIRE THROAT (SURFACE REGION OF NECK) / Unknown Collection / Unknown 01/13/2023 1:50 PM CDT 01/13/2023 1:51 PM CDT Jan Olivier MD LAB - MICROBIOLO GY ORDERABLES [facility] [address] [place] [address], [facility] [phone] Care Teams Hematology Technician Relationship Specialty Start Date End Date Lawrence Artis MD [facility] [place] [id number] PCP - General 09/11/20
--- OUTSIDE RECORDS SUMMARY | 2024-05-26 03:52 | XMS_ITS | Referral Summary ---
Author Organization [facility] Address [address] [place] [address] Care Team Providers Care Documentation Clerk Name Role Phone Lawrence Artis MD Primary Care Provider Source Comments [facility],non-christian hospital Affiliates and Associated Physician Practices is amultiple site organization consisting of ambulatory clinics and hospital sitesin [place] and [place]. This disclosure is being madepursuant to the Care Everywhere program and may not contain all information available regarding this patient. Last updated 17.[facility] Allergies Active Allergy Reactions Criticality Noted Date [...] care, and heating? Not very hard 01/12/2023 [facility] [place] of Occupat ional Health - Occupational Stress [...] place to sleep or slept in a [place] health care facility (including now)? No 01/12/2023 Sex and Gender Information Value Date Recorded Sex Assigned at Not on file Gender Identity Not on file Sexual Orientation Not on file Last Filed Vital Signs Vital Sign Reading Time Taken Comments Blood Pressure 184/100 01/24/2023 7:38 AM GRANT WRITER pacing all morning nurse aware Pulse 77 01/24/2023 7:38 AM GRANT WRITER Temperature 37 C (98.6 F) 01/24/2023 7:38 AM GRANT WRITER Respiratory Rate 18 01/24/2023 7:38 AM GRANT WRITER Oxygen Saturation 98% 01/24/2023 7:3 8 AM GRANT WRITER Inhaled Oxygen Concentration - - Weight 51.7 [...] 2:03 PM 10/28/2022 4:18 PM Care Teams Documentation Clerk Relationship Specialty Start Date End Date Lawrence Artis MD [address] [place] [address] PCP - General 09/11/20
--- OUTSIDE RECORDS SUMMARY | 2024-05-26 03:52 | XMS_ITS | Clinical Summary ---
Author Organization [facility] [address] Address [address] [place] [address] Care Team Providers Care Manufacturing Business Analyst Name Role Phone Lawrence Artis MD Primary [...] on file Legal Sex Female 12:45 PM NURSE WOUND Gender Identity Not on file Sexual Orientation [...] history exists Medical Devices Implanted Type Area Oil Analyst Device Identifier Shelf Expiration Date Model / Serial / Lot Vagus Nerve Stimulator Vagus Nerve Stimulator Left: Chest Insurance AETNA MEDICARE GOLD AETNA MEDICARE GOLD Advance Directives For more information, please contact: [phone] * Full Code (Latest Code Status on File) Date Activated Date Inactivated Comments 07/21/2022 6:02 PM 07/23/2022 7:45 PM Care Teams Manufacturing Business Analyst Relationship Specialty Start Date End Date Lawrence Artis MD [address] [place] [address] PCP - General Emergency Medicine 10/19/21
--- OUTSIDE RECORDS SUMMARY | 2024-05-26 03:52 | XMS_ITS | Referral Summary ---
Author Organization [facility] [address] Address [address] [place] [address] Care Team Providers Care Associate Financial Representative Name Role Phone Lawrence Artis MD Primary [...] on file Legal Sex Female 12:45 PM CLAIM TECHNICIAN Gender Identity Not on file Sexual Orientation [...] on file Medical Devices Implanted Type Area Window Decorator Device Identifier Shelf Expiration Date Model / Serial / Lot Vagus Nerve Stimulator Vagus Nerve Stimulator Left: Chest Insurance TNA MEDICARE GOLD TNA MEDICARE GOLD Advance Directives For more information, please contact: [phone] * Full Code (Latest Code Status on File) Date Activated Date Inactivated Comments 07/21/2022 6:02 PM 07/23/2022 7:45 PM Care Teams Associate Financial Representative Relationship Specialty Start Date End Date Lawrence Artis MD [address] [place] [address] PCP - General Emergency Medicine 10/19/21
--- OUTSIDE RECORDS SUMMARY | 2024-05-26 03:52 | XMS_ITS | Clinical Summary ---
Author Organization [facility] Address [address] [place] [address] Care Team Providers Care Road Consultant Name Role Phone Lawrence Artis MD Primary Care Provider Source Comments [facility],non-owned Affiliates and Associated Physician Practices is amultiple site organization consisting of ambulatory clinics and hospital sitesin [place], [place], [place] and [place]. This disclosure is being madepursuant to the Care Everywhere program and may not contain all information available regarding this patient. Last updated 17.[facility] Allergies Active Allergy Reactions Criticality Noted Date [...] care, and heating? Not very hard 01/12/2023 [facility] of Occupat ional Health - Occupational Stress [...] Comments Blood Pressure 184/100 01/24/2023 7:38 AM WINDSURFING INSTRUCTOR pacing all morning nurse aware Pulse 77 01/24/2023 7:38 AM WINDSURFING INSTRUCTOR Temperature 37 C (98.6 F) 01/24/2023 7:38 AM WINDSURFING INSTRUCTOR Respiratory Rate 18 01/24/2023 7:38 AM WINDSURFING INSTRUCTOR Oxygen Saturation 98% 01/24/2023 7:3 8 AM WINDSURFING INSTRUCTOR Inhaled Oxygen Concentration - - Weight 51.7 [...] 2:03 PM 10/28/2022 4:[address] Consultant Relationship Specialty Start Date End Date Lawrence Artis MD [address] [place] [address] PCP - General 09/11/20
--- OUTSIDE RECORDS SUMMARY | 2024-05-26 03:52 | XMS_ITS ---
Author Organization Count includes the [facility] Address [address] [place] [address] Care Team Providers Care Launderer Hand Name Role Phone Sarah Pearl Primary Care Provider REASON FOR VISIT follow-up hospitalization Social History Sex Assigned At : Social History Observation Description Sex Assigned At Female Encounters Encounter Location Date Provider Diagnosis [address] [address] 05/03/2024 Sarah Pearl Plan Of Treatment Next Appt Details Provider Name:Sarah benton, 05/31/2024 10:00:00 AM, [address] [place] [address], [phone], Progress Notes * Mary Kate CHAPMANDOB:1950 ([age] yo F)Acc No.[id number]:05/03/2024 UNLOCKED PROGRESS NOTE Patient: Mary Kate VILLA Provider: Marco Antonio Pearl, NIA, HEAD MECHANIC, PMHNP-BC :1950 A ge:74 Y S ex:Female Date:05/03/2024 Address:[facility], [address] [place] [address] [id number] Subjective: * Chief Complaints: * 1 . Follow-up hospitalization. * Medical History: Objective: * Vitals: Assessment: Plan: * Treatment: * * Electronic signature of Mercedez Arce , [id number] on 05/26/2024 at 03:52 AM CDT Sign off status: Pending * Provider: Marco Antonio Pearl DNP, HEAD MECHANIC, PMHNP- Date: 0 05/03/2024 Generated for Printing/Faxing/eTransmitting on: 0 05/26/2024 03:52 AM CDT
--- OUTSIDE RECORDS SUMMARY | 2024-05-26 03:52 | XMS_ITS ---
Author Organization [facility] Address [address] [place] [address] Care Team Providers Care Cell Liner Name Role Phone Sarah Pearl Primary Care [...] Female Encounters Encounter Location Date Provider Diagnosis [address] [place] [address] 05/07/2024 Sarah Pearl Generalized anxiety disorder F41.1 [...] Provider Name:Sarah benton, 05/31/2024 10:00:00 AM, [address], [place], [address], Progress Notes * Mary Kate RODASDOB:1950 ([age] yo F)Acc No.[id number]:05/07/2024 DNS Patient: Mary Kate VILLA Provider: Marco Antonio Pearl, NIA, GRINDING WHEEL FACER, PMHNP- :1950 A ge:74 Y S ex:Female Date:05/07/2024 Address:[address] [place] [address], [address] [place] [address] Check In:11:03 AM MINING SPECULATOR Subjective: * Chief Complaints: * C t [...] * Treatment: * Procedure Codes: * * NG SPECULATOR Sign off status: Completed true * Provider: Marco Antonio Pearl, NIA, GRINDING WHEEL FACER, PMHNP- Date: 05/07/2024 Generated for Printing/Faxing/eTransmitting on: 0 05/26/2024 03:52 AM CDT History and Physical Notes * [...]
--- OUTSIDE RECORDS SUMMARY | 2024-05-26 03:53 | XMS_ITS ---
Author Organization [facility] Address [address] [place] [address] Care Team Providers Care Assembly Line Supervisor Name Role Phone Sarah Pearl Primary Care Provider REASON FOR VISIT DIscharge from [facility] [place] Social History Sex Assigned At : Social History Observation Description Sex Assigned At Female Encounters Encounter Location Date Provider Diagnosis [address] [place] [address] 05/07/2024 Sarah Pearl Plan Of Treatment Next Appt Details Provider Name:Sarah benton, 05/31/2024 10:00:00 AM, [address] [place] [address], [phone], Progress Notes * Mary Kate CHAPMANDOB:1950 ([age] yo F)Acc No.[id number]:05/07/2024 UNLOCKED PROGRESS NOTE Patient: Mary Kate VILLA Provider: Marco Antonio Pearl, NIA, PEARLER, PMHNP-BC :1950 A ge:74 Y S ex:Female Date:05/07/2024 Address:[facility], [address] [place] [address] [id number] Subjective: * Chief Complaints: * 1 . DIscharge from [facility] [place]. * Medical History: Objective: * Vitals: Assessment: Plan: * Treatment: * * Electronic signature of Mercedez Arce , [id number] on 05/26/2024 at 03:52 AM CDT Sign off status: Pending * Provider: Marco Antonio Pearl DNP, PEARLER, PMHNP- Date: 0 05/07/2024 Generated for Printing/Faxing/eTransmitting on: 0 05/26/2024 03:52 AM CDT
--- OUTSIDE RECORDS SUMMARY | 2024-05-26 03:53 | XMS_ITS | Continuity of Care Document ---
Author Organization [facility] Address [address] [place] [address] [place] [address] Phone Care Team Providers Care Software Engineering Project Manager Name Role Phone Carmelo Pierre DO Unavailable Unavailable Advance Directives Directive Yes / No Effective Date File Name No Information Encounters Encounter Description Practice Location Reason(s) For Visit Diagnoses Date Provider Providers Copied on Encounter [facility], [address], [place], [place], [id number], [place] tel:[phone] [place] [facility] [place][note 2] No Information Gabby Agudelo. [address] [facility], [place], [address], [place]. tel:[phone] Family History Family Member Type Diagnosis Age [...]
== END 2024-05-25 02:40 | disposition home or self-care (01) ==
PROVIDERS: Emergency Provider Emergency Medicine; PCP Emergency Medicine
DX: R10.32 Left lower quadrant pain (principal); R10.31 Right lower quadrant pain; F41.8 Other specified anxiety disorders; I10 Essential (primary) hypertension
CPT/HCPCS: 99281

== ENCOUNTER 2024-05-25 14:24 | Emergency (ER) | payer MEDICARE, SELFPAY ==
--- NOTE | ~2024-05-25 | CT_ITS ---
Non-contrast CT scan of the Abdomen and Pelvis Clinical indication: Abdominal pain Technique: 2.5 mm axial scans were obtained through the abdomen and pelvis without intravenous or or al contrast. Dose reduction technique was used on this scan by utilizing automated exposure control a nd iterative reconstruction technique. The dose-length product (DLP) was 193.16 mGy-cm. Findings: Images through the lung bases are clear. Moderate hiatal hernia noted. There is no evidence of renal or ureteral calculi. The kidneys and the ureters are nondilated. The liver, spleen, pancreas, gallbladder, and adrenals appear normal. There are atherosclerotic calci fications of the aorta. . There is no evidence of bowel obstruction. Images through the pelvis were performed. There is no evidence of ascites or lymphadenopathy. Urinary bladder unremarkable. No pelvic mass seen. No ascites. Small bilateral fat-containing inguinal herni as are noted. Impression: No acute abnormality. Moderate hiatal hernia. Small bilateral fat-containing inguinal hernias. Reviewed, dictated and finalized at [facility]. Impression: No acute abnormality. Moderate hiatal hernia. Small bilateral fat-containing inguinal hernias.
--- OUTSIDE RECORDS SUMMARY | 2024-05-26 03:57 | XMS_ITS | CONTINUITY OF CARE DOCUMENT ---
Author Name candida tirado Address Unknown Organization [facility] Address [address] [place] [address] Phone [phone] Care Team Providers Care Kitchen Bath Designer Name Role Phone Alberto Reyna MD Unavailable [phone] Alberto Reyna MD Unavailable [phone] Derrell Alfaro MD Unavailable INSURANCE PROVIDERS Payer name Policy type / Coverage type [place] red libertarian ID [place] MED[place] Medicare [id number]
--- OUTSIDE RECORDS SUMMARY | 2024-05-26 03:57 | XMS_ITS | Continuity of Care Document ---
Author Organization [facility] Address [address] [place] [address] [place] [address] Phone Care Team Providers Care Control Electrician Name Role Phone Carmelo Pierre DO Unavailable Unavailable Advance Directives Directive Yes / No Effective Date File Name No Information Encounters Encounter Description Practice Location Reason(s) For Visit Diagnoses Date Provider Providers Copied on Encounter [facility], [address], [place], [place], [id number], [place] tel:[phone] [facility] No Information Gabby Agudelo. [address] [facility] [facility], [place], [address], [place]. tel:[phone] Family History Family Member Type Diagnosis Age At Onset No Information Payers Payer name Insurance type Covered alliance party ID Authoriza tion(s) No Information Social History [...]
--- OUTSIDE RECORDS SUMMARY | 2024-05-26 04:35 | XMS_ITS | Continuity of Care Document ---
Author Organization [facility] Address [address] [place] [address] [place] [address] Phone Care Team Providers Care Equipment Technician Name Role Phone Carmelo Pierre DO Unavailable Unavailable Advance Directives Directive Yes / No Effective Date File Name No Information Encounters Encounter Description Practice Location Reason(s) For Visit Diagnoses Date Provider Providers Copied on Encounter [facility], [address], [place], [place], [id number], [place] tel:[phone] [facility] [place] No Information Gabby Agudelo. [address], [place], [address], [place]. tel:[phone] Family History Family Member Type Diagnosis Age [...]
--- OUTSIDE RECORDS SUMMARY | 2024-05-26 04:35 | XMS_ITS | Patient Health Record ---
Author Organization [facility], later [facility] Address [address] [place] [address] Care Team Providers Care [employer] Manager Name Role Phone Sarah Pearl Primary Care [...] Answer Notes Tobacco use: Nonsmoker Section Notes: [id number] 12/15/2020 12/10/2020 LORazepam 80 30 1 MG NA Polina Cetneno L, Msn, [facility] [id number] [facility] 1 [id number] 11/19/2020 11/19/2020 LORazepam 80 30 1 MG NA Polina Centeno L, Msn, [facility] [id number] [employer] [place], [place] 1 [id number] 11/11/2020 11/11/2020 LORazepam 30 10 1 MG NA Polina Centeno L, Msn, [facility] [id number] [facility] 1 [id number] 11/06/2020 11/06/2020 LORazepam 15 5 1 MG NA Aj, Francie - [id number] [place] [id number] 10/02/2020 10/02/2020 LORazepam 90 30 1 MG NA Polina Centeno L, Msn, [facility] [id number] [place] 1 [id number] 09/04/2020 09/04/2020 LORazepam 60 30 1 MG NA Polina Centeno L, Msn, [facility] [id number] [place], [place] 1 [id number] 08/28/2020 08/28/2020 LORazepam 63 21 1 MG NA Jacobo [facility] [id number] 11/11/2020 11/11/2020 LORazepam 30 10 1 MG NA Polina Centeno L, Msn, [facility] [id number] [place] [address] [id number] 11/06/2020 11/06/2020 LORazepam 15 5 1 MG NA Aj, Francie - [id number] [place] [address] [id number] 10/02/2020 10/02/2020 LORazepam 90 30 1 MG NA Polina Centeno L, Msn, [facility] [id number] [place], [place] 1 [id number] 09/04/2020 09/04/2020 LORazepam 60 30 1 MG NA Polina Centeno L, Msn, [facility] - [id number] [employer] [place], [place] 1 [id number] 08/28/2020 08/28/2020 LORazepam 63 21 1 MG NA Polina Centeno L, Msn, [facility] - [id number] [place], [place] 1 [id number] 07/30/2020 07/30/2020 LORazepam 90 30 1 MG NA Jacobo [id number] 01/14/2021 01/14/2021 LORazepam 42 14 1MG NA Mirtha, Landon - [id number] [employer], [place] 1 [id number] 12/15/2020 12/10/2020 LORazepam 80 30 1 MG NA Polnia Centeno L, Msn, [facility] - [id number] [place], [place] 1 [id number] 11/19/2020 11/19/2020 LORazepam 80 30 1 MG NA Polina Centeno L, Msn, [facility] - [id number] [place], [place] 1 [id number] 11/11/2020 11/11/2020 LORazepam 30 10 1 MG NA Polina Centeno L, Msn, [facility] - [id number] [employer] [place], [place] 1 [id number] 11/06/2020 11/06/2020 LORazepam 15 5 1 MG NA Aj Francie [id number] 01/14/2021 01/14/2021 LORazepam 42 14 1MG NA Mirtha, Landon - [id number] [employer], [place] 1 [id number] 12/15/2020 12/10/2020 LORazepam 80 30 1 MG NA Polina Centeno L, Msn, [facility] - [id number] [place], [place] 1 [id number] 11/19/2020 11/19/2020 LORazepam 80 30 1 MG NA Polina Centeno L, Msn, [employer] - [id number] [place], [place] 1 [id number] 11/11/2020 11/11/2020 LORazepam 30 10 1 MG NA Polina Centeno L, Msn, [employer] - [id number] [employer] [facility] 1 [id number] 11/06/2020 11/06/2020 LORazepam 15 5 1 MG NA Francie Rocha Problems Problem Type SNOMED Code ICD Code Onset Dates Problem Status W/U Status Risk Notes Problem Generalized anxiety disorder (73809684) Generalized anxiety disorder (F41.1) Active confirmed Problem 051716003 Anxiety disorder , unspecified (F41.9) Active confirmed Problem Insomnia (368115904) Insomnia (G47.00) Active confirmed Problem Posttraumatic stress disorder (62910155) PTSD (post-traumatic stress disorder) (F43.10) Active confirmed Problem Anxiety (13350732) Anxiety (F41.9) Active confi rmed Problem Moderate recurrent major depression (18808780) Major depressive disorder, recurrent episode, moderate (F33.1) 020 Active confirmed Problem Restless legs syndrome (36938746) Restless leg syndrome (G25.81) Active confirmed Problem Major depressive disorder (342868365) MDD (major depressive disorder) (F32.9) Active confirmed Problem 390463874 Routine physical examination (Z00.00) Active confirmed Problem Gastroesophageal reflux disease (disorder) (421101877) Chronic GERD (K21.9) Active confirmed Problem 53573014 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) Active confirmed Problem Essential hypertension (18804780) Hypertension, unspecified type (I10) 020 Active confirmed Problem Restless legs (83107677) Restless leg syndrome, controlled (G25.81) Active confirmed Problem Sedative abuse (59864273) Benzodiazepine abuse (F13.10) 024 Problem resolved confirmed Problem Benzodiazepine dependence (487024850) Benzodiazepine dependence (F13.20) Problem resolved confirmed Vital Signs Heart Rate 65 /min 02/01/2024 Respiratory Rate 16 /min 02/01/2024 Oximetry 95 % 02/01/2024 Blood pressure diastolic 82 mm Hg 02/01/2024 Height 61 in 02/01/2024 Blood pressure systolic 126 mm Hg 02/01/2024 Weight 131.4 lbs 02/01/2024 BMI 24.83 kg/m2 02/01/2024 Encounters Encounter Location Date Provider Diagnosis [address] [place] [address] 06/10/2023 Sarah Pearl [address] [place] [address] 06/29/2023 Sarah Pearl [address] [place] [address] 08/24/2023 Sarah Pearl PTSD (post-traumatic stress disorder) F43.[address] [place] [address] 09/16/2023 Sarah Pearl Generalized anxiety disorder F41.1 [facility] [address] [place] [address] 09/16/2023 Sarah Pearl Generalized anxiety disorder F41.[address] [place] [address] 09/18/2023 Sarah Pearl [address] [place] [address] 09/21/2023 Sarah Pearl [address] [place] [address] 10/12/2023 Sarah Pearl [address] [place] [address] 10/18/2023 Sarah Pearl [address] [place] [address] 11/16/2023 Sarah Pearl Recurrent major depression resistant to treatment F33.9 [facility] [address] [place] [address] 12/01/2023 Sarah Pearl [address] [place] [address] 12/19/2023 Sarah Pearl [address] [place] [address] 01/02/2024 Sarah Pearl [address] [place] [address] 01/17/2024 Sarah Pearl [address] [place] [address] 01/23/2024 Sarah Pearl Recurrent major depression resistant to treatment F33.9 ; Generalized anxiety disorder F41.1 and Restless leg syndrome, controlled G25.[address] [place] [address] 02/17/2024 Sarah Pearl Recurrent major depression resistant to treatment F33.9 and Insomnia G47.[address] [place] [address] 02/23/2024 Sarah Pearl [address] [place] [address] 02/27/2024 Sarah Pearl [address] [place] [address] 03/01/2024 Sarah Pearl [address] [place] [address] 04/25/2024 Sarah Pearl [address] [place] [address] 05/07/2024 Sarah Pearl Generalized anxiety disorder F41.1 ; Recurrent major depression resistant to treatment F33.9 ; Restless leg syndrome, controlled G25.81 ; Insomnia G47.00 and Medication management Z79.[address] [place] [address] 02/01/2024 Sarah Pearl Recurrent major depression resistant to treatment F33.9 ; Generalized anxiety disorder F41.1 ; Insomnia G47.00 ; Benzodiazepine abuse F13.10 and Medication management Z79.[address] [address] 07/05/2023 Sarah Sabblchetan Generalized anxiety disorder F41.1 ; Benzodiazepine abuse F13.10 ; Recurrent major depression resistant to treatment F33.9 ; PTSD (post-traumatic stress disorder) F43.10 and Restless leg syndrome G25.[address] [address] 05/27/2023 Sarah Sabblut Generalized anxiety disorder F41.1 ; Benzodiazepine abuse F13.10 ; Recurrent major depression resistant to treatment F33.9 ; PTSD (post-traumatic stress disorder) F43.10 and Restless leg syndrome G25.[address] [address] 02/13/2024 Sarha Sabrj Recurrent major depression resistant to treatment F33.9 ; Generalized anxiety disorder F41.1 ; Insomnia G47.00 and Medication management Z79.[address] [address] 08/10/2023 Sarah Sabblchetan Generalized anxiety disorder F41.1 ; Benzodiazepine abuse F13.10 ; Recurrent major depression resistant to treatment F33.9 ; PTSD (post-traumatic stress disorder) F43.10 and Restless leg syndrome G25.[address] [address] 08/24/2023 Sarah Sabblut Generalized anxiety disorder F41.1 ; Benzodiazepine abuse F13.10 ; Recurrent major depression resistant to treatment F33.9 ; PTSD (post-traumatic stress disorder) F43.10 and Restless leg syndrome G25.[address] [address] 09/07/2023 Sarah Sabblut Generalized anxiety disorder F41.1 ; Benzodiazepine abuse F13.10 ; Recurrent major depression resistant to treatment F33.9 ; PTSD (post-traumatic stress disorder) F43.10 and Restless leg syndrome G25.[address] [address] 11/09/2023 Sarah Sabblut Generalized anxiety disorder F41.1 ; Benzodiazepine abuse F13.10 ; Recurrent major depression resistant to treatment F33.9 ; PTSD (post-traumatic stress disorder) F43.10 and Restless leg syndrome G25.[address] [address] 12/27/2023 Sarah Sabblut Recurrent major depression resistant to treatment F33.9 ; Generalized anxiety disorder F41.1 ; Insomnia G47.00 and Benzodiazepine abuse F13.[address] [address] 06/24/2023 Sarah Sabblut Generalized anxiety disorder F41.1 ; Benzodiazepine abuse F13.10 ; Recurrent major depression resistant to treatment F33.9 ; PTSD (post-traumatic stress disorder) F43.10 and Restless leg syndrome G25.[address] [address] 07/26/2023 Sarah Sabblut Generalized anxiety disorder F41.1 ; Benzodiazepine abuse F13.10 ; Recurrent major depression resistant to treatment F33.9 ; PTSD (post-traumatic stress disorder) F43.10 and Restless leg syndrome G25.[address] [address] 12/13/2023 Sarah Sabblut Recurrent major depression resistant to treatment F33.9 ; Generalized anxiety disorder F41.1 ; Insomnia G47.00 and Benzodiazepine abuse F13.[address] [address] 10/26/2023 Sarah Sabblut Generalized anxiety disorder F41.1 ; Benzodiazepine abuse F13.10 ; Recurrent major depression resistant to treatment F33.9 ; PTSD (post-traumatic stress disorder) F43.10 and Restless leg syndrome G25.[address] [address] 03/20/2024 Sarah Sabblut Recurrent major depression resistant to treatment F33.9 ; Generalized anxiety disorder F41.1 ; Restless leg syndrome, controlled G25.81 ; Insomnia G47.00 and Medication management Z79.899 Assessments Encounter Date Diagnosis (ICD Code) Assessment Notes Treatment Notes Treatment Clinical Notes Section Notes 05/07/2024 Generalized anxiety disorder (ICD-10 - F41.1) 02/01/2024 Recurrent major depression resistant to treatment (ICD-10 - F33.9) Continue psychotherapy as scheduled. 01/23/2024 Generalized anxiety disorder (ICD-10 - F41.1) 01/23/2024 Recurrent major depression resistant to treatment (ICD-10 - F33.9) 12/27/2023 Recurrent major depression resistant to treatment (ICD-10 - F33.9) 09/16/2023 Generalized anxiety disorder (ICD-10 - F41.1) 09/16/2023 Generalized anxiety disorder (ICD-10 - F41.1) 09/07/2023 Generalized anxiety disorder (ICD-10 - F41.1) 08/24/2023 PTSD (post-traumatic stress disorder) (ICD-10 - F43.10) 08/24/2023 Generalized anxiety disorder (ICD-10 - F41.1) 08/10/2023 Generalized anxiety disorder (ICD-10 - F41.1) 07/26/2023 Generalized anxiety disorder (ICD-10 - F41.1) 07/05/2023 Generalized anxiety disorder (ICD-10 - F41.1) 06/24/2023 Generalized anxiety disorder (ICD-10 - F41.1) 05/27/2023 Generalized anxiety disorder (ICD-10 - F41.1) 02/17/2024 Recurrent major depression resistant to treatment (ICD-10 - F33.9) 02/13/2024 Recurrent major depression resistant to treatment (ICD-10 - F33.9) Continue psychotherapy as scheduled. 11/09/2023 Generalized anxiety disorder (ICD-10 - F41.1) 10/26/2023 Generalized anxiety disorder (ICD-10 - F41.1) 03/20/2024 Recurrent major depression resistant to treatment (ICD-10 - F33.9) Continue psychotherapy as scheduled. 03/20/2024 Generalized anxiety disorder (ICD-10 - F41.1) [place] - Dr. Rao from [facility] sent Rx for clonazepam 0.5 mg #30 for 15-day supply with 1 refill. Client informed that I would not be refilling this Rx for safety concerns and the risks associated with long-term use. Client also has a Hx of benzodiazepine abuse in the context of taking more than prescribed. Continue psychotherapy as scheduled. 12/13/2023 Recurrent major depression resistant to treatment (ICD-10 - F33.9) 11/16/2023 Recurrent major depression resistant to treatment (ICD-10 - F33.9) 03/20/2024 Restless leg syndrome, controlled (ICD-10 - G25.81) 12/13/2023 Generalized anxiety disorder (ICD-10 - F41.1) 10/26/2023 Benzodiazepine abuse (ICD-10 - F13.10) 02/17/2024 Insomnia (ICD-10 - G47.00) 11/09/2023 Benzodiazepine abuse (ICD-10 - F13.10) 02/13/2024 Generalized anxiety disorder (ICD-10 - F41.1) Client reports she has been taking gabapentin four times a day for the past couple of weeks. Continue psychotherapy as scheduled. 05/27/2023 Benzodiazepine abuse (ICD-10 - F13.10) 06/24/2023 [...] appointment. 07/05/2023 Benzodiazepine abuse (ICD-10 - F13.10) 07/26/2023 Benzodiazepine abuse (ICD-10 - F13.10) 08/10/2023 Benzodiazepine abuse (ICD-10 - F13.10) 09/07/2023 Benzodiazepine abuse (ICD-10 - F13.10) 08/24/2023 Benzodiazepine abuse (ICD-10 - F13.10) 02/01/2024 Generalized anxiety disorder (ICD-10 - F41.1) Continue psychotherapy as scheduled. 01/23/2024 Restless leg syndrome, controlled (ICD-10 - G25.81) 12/27/2023 Generalized anxiety disorder (ICD-10 - F41.1) 05/07/2024 Recurrent major depression resistant to treatment (ICD-10 - F33.9) 05/07/2024 Restless leg syndrome, controlled (ICD-10 - G25.81) 12/27/2023 Insomnia (ICD-10 - G47.00) 02/01/2024 Insomnia (ICD-10 - G47.00) 08/24/2023 Recurrent major depression resistant to treatment (ICD-10 - F33.9) Plan is to go to 150 mg at next visit if client is tolerating medication. 09/07/2023 Recurrent major depression resistant to treatment (ICD-10 - F33.9) Plan is to go to 150 mg at next visit if client is tolerating medication. 08/10/2023 Recurrent major depression resistant to treatment (ICD-10 - F33.9) Plan is to go to 150 mg at next visit if client is tolerating medication. 07/26/2023 Recurrent major depression resistant to treatment (ICD-10 - F33.9) 07/05/2023 Recurrent major depression resistant to treatment (ICD-10 - F33.9) 06/24/2023 Recurrent major depression resistant to treatment (ICD-10 - F33.9) 05/27/2023 Recurrent major depression resistant to treatment (ICD-10 - F33.9) 02/13/2024 Insomnia (ICD-10 - G47.00) 11/09/2023 Recurrent major depression resistant to treatment (ICD-10 - F33.9) 10/26/2023 Recurrent major depression resistant to treatment (ICD-10 - F33.9) 12/13/2023 Insomnia (ICD-10 - G47.00) 03/20/2024 Insomnia (ICD-10 - G47.00) 03/20/2024 Medication management (ICD-10 - Z79.899) May self-administer medications or be administered own oral medications per [facility] protocols. Provided informed consent with understanding of side effects, adverse effects, risks and benefits as well as alternative treatments as previously discussed and with the above recommended medications & other aspects of the treatment program. Agrees to return sooner if symptoms worsen or suicidal or homicidal ideations occur. Labs monitored by PCP. 12/13/2023 Benzodiazepine abuse (ICD-10 - F13.10) 10/26/2023 PTSD (post-traumatic stress disorder) (ICD-10 - F43.10) 11/09/2023 PTSD (post-traumatic stress disorder) (ICD-10 - F43.10) 02/13/2024 Medication management (ICD-10 - Z79.899) May self-administer medications or be administered own oral medications per [facility] protocols. Provided informed consent with understanding of side effects, adverse effects, risks and benefits as well as alternative treatments as previously discussed and with the above recommended medications & other aspects of the treatment program. Agrees to return sooner if symptoms worsen or suicidal or homicidal ideations occur. Labs monitored by PCP. 05/27/2023 PTSD (post-traumatic stress disorder) (ICD-10 - F43.10) 06/24/2023 PTSD (post-traumatic stress disorder) (ICD-10 - F43.10) 07/05/2023 PTSD (post-traumatic stress disorder) (ICD-10 - F43.10) 07/26/2023 PTSD (post-traumatic stress disorder) (ICD-10 - F43.10) 08/10/2023 PTSD (post-traumatic stress disorder) (ICD-10 - F43.10) 08/24/2023 PTSD (post-traumatic stress disorder) (ICD-10 - F43.10) 12/27/2023 Benzodiazepine abuse (ICD-10 - F13.10) 05/07/2024 Insomnia (ICD-10 - G47.00) 09/07/2023 PTSD (post-traumatic stress disorder) (ICD-10 - F43.10) 02/01/2024 Benzodiazepine abuse (ICD-10 - F13.10) 09/07/2023 Restless leg syndrome (ICD-10 - G25.81) Take gabapentin as prescribed. 05/07/2024 Medication management (ICD-10 - Z79.899) 02/01/2024 Medication management (ICD-10 - Z79.899) May self-administer medications or be administered own oral medications per [facility] protocols. Provided informed consent with understanding of side effects, adverse effects, risks and benefits as well as alternative treatments as previously discussed and with the above recommended medications & other aspects of the treatment program. Agrees to return sooner if symptoms worsen or suicidal or homicidal ideations occur. Labs monitored by PCP. 08/24/2023 Restless leg syndrome (ICD-10 - G25.81) Take gabapentin as prescribed. 08/10/2023 Restless leg syndrome (ICD-10 - G25.81) Take gabapentin as prescribed. 07/26/2023 Restless leg syndrome (ICD-10 - G25.81) Take gabapentin as prescribed. 07/05/2023 Restless leg syndrome (ICD-10 - G25.81) Take gabapentin as prescribed. 06/24/2023 Restless leg syndrome (ICD-10 - G25.81) Take gabapentin as prescribed. 05/27/2023 Restless leg syndrome (ICD-10 - G25.81) Take gabapentin as prescribed. 11/09/2023 Restless leg syndrome (ICD-10 - G25.81) Take gabapentin as prescribed. 10/26/2023 Restless leg syndrome (ICD-10 - G25.81) Take gabapentin as prescribed. 05/27/2023 Other Continue psychotherapy as scheduled. May self-administer medications or be administered own oral medications per [facility] protocols. Provided informed consent with understanding of [...] or be administered own oral medications per [employer] protocols. Provided informed consent with understanding of side effects, adverse effects, risks and benefits as well as alternative treatments as previously discussed and with the above recommended medications & other aspects of the treatment program. Agrees to return sooner if symptoms worsen or suicidal or homicidal ideations occur. 07/05/2023 Other Called [facility] to send a team out to client at: [facility] [address] [facility] [place] [address] May self-administer medications or be administered own oral medications per [employer] protocols. Provided informed consent with understanding of [...] or be administered own oral medications per [facility] protocols. Provided informed consent with understanding of [...] or be administered own oral medications per [facility] protocols. Provided informed consent with understanding of [...] or be administered own oral medications per [facility] protocols. Provided informed consent with understanding of side effects, adverse effects, risks and benefits as well as alternative treatments as previously discussed and with the above recommended medications & other aspects of the treatment program. Agrees to return sooner if symptoms worsen or suicidal or homicidal ideations occur. 09/07/2023 Other No medication changes made this appointment - client instructed that changes made last appointment have not taken effect yet. Will reevaluate at upcoming appointment. Reassurance given. May self-administer medications or be administered own oral medications per [facility] protocols. Provided informed consent with understanding of side effects, adverse effects, risks and benefits as well as alternative treatments as previously discussed and with the above recommended medications & other aspects of the treatment program. Agrees to return sooner if symptoms worsen or suicidal or homicidal ideations occur. 10/26/2023 Other May self-administer medications or be administered own oral medications per [facility] protocols. Provided informed consent with understanding of [...] or be administered own oral medications per [facility] protocols. Provided informed consent with understanding of side effects, adverse effects, risks and benefits as well as alternative treatments as previously discussed and with the above recommended medications & other aspects of the treatment program. Agrees to return sooner if symptoms worsen or suicidal or homicidal ideations occur. 12/13/2023 Other May self-administer medications or be administered own oral medications per [facility] protocols. Provided informed consent with understanding of [...] or be administered own oral medications per [facility] protocols. Provided informed consent with understanding of side effects, adverse effects, risks and benefits as well as alternative treatments as previously discussed and with the above recommended medications & other aspects of the treatment program. Agrees to return sooner if symptoms worsen or suicidal or homicidal ideations occur. 05/07/2024 Other Plan Of Treatment Next Appt Details Provider Name:Sarah Garcias fl, 05/31/2024 10:00:00 AM, [address] [facility], [place], [address], Insurance Providers Payer Name Payer Address Payer Phone Subscriber Number Group Number Insured Name Patient Relationship to Insured Coverage Start Date Coverage End Date MEDICARE PART A [address] [employer] [address] [id number] Mary Kate Rodas Self - patient is the insured 6 6 [employer] Medicare [address] [place] [address] [id number] Mary Kate Rodas Self - patient is the insured 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[employer] [address] [place] [address] [id number] Mary Kate Rodas Self - patient is the insured 6 2 [employer] Medicare [address] [place] [address] [id number] Mary Kate Rodas Self - patient is the insured 2 2 Medical (General) History Medical History History ICD Code Hypertension, unspecified type Chronic GERD Anxiety disorder, unspecified Major depressive disorder, recurrent epi sode, moderate Recurrent major depression resistant to treatment Benzodiazepine abuse (resolved 4) undefined Benzodiazepine dependence (resolved 04/2023) Surgical History Surgery Date(Month/Year) VNS 1994 Hospitalization History Reason Date(Month/Year) [facility] 03/2023 2 at [facility] 04/2023 [facility] 06/2023 MH/SI 07/2023 [facility] 2023 (several) [facility] hallucinations s/p ac yclovir 05/2020 [facility] crisis 01/2021 [facility] 03/2020 [facility] 05/05 [facility] 09/2021 [facility]U 04/2022 [facility] 10/2022 [facility] 11/2022 [facility] 11/2022 Pharyngitis 12/2022 [facility] multiple in 2022
--- NOTE | 2024-05-26 04:42 | ED.GENADULT ---
HPI - General Adult General Chief complaint: Psychiatric Symptoms <José Miguel Lowry MD - Last Filed: 05/26/24 04:44> Stated complaint: Suicidal ideation <José Miguel Lowry MD - Last Filed: 05/26/24 04:44> Time Seen by Provider: 05/26/24 04:12 <José Miguel Lowry MD - Last Filed: 05/26/24 04:44> History of Present Illness HPI narrative: This is a 74 old female history of depression presenting for suicidal ideation. Patient says that her sister . This is making her want to commit suicide. She says she would walk into traffic. She denies use of drugs or alcohol. She says she did not take her psychiatric medication today. She denies any complaints at this time <José Miguel Lowry MD - Last Filed: 05/26/24 04:44> Related Data Home medications: Home Medications ?Medication ?Instructions ?Recorded ?Confirmed ?Last Taken ?Type gabapentin 300 mg capsule 300 mg PO TID 02/20/20 09/18/23 10/18/21 18:00 History melatonin 10 mg tablet 10 mg PO HS 10/19/21 08/23/23 Unknown History atorvastatin 40 mg tablet 40 mg PO DAILY 08/13/23 08/23/23 Unknown History buspirone 15 mg tablet 15 mg PO TID 08/13/23 09/18/23 Unknown History clonazepam 0.5 mg tablet 0.5 mg PO Q12H PRN Anxiety 08/13/23 09/18/23 Unknown History escitalopram oxalate 20 mg tablet 20 mg PO DAILY 08/13/23 08/23/23 Unknown History olanzapine 15 mg tablet 15 mg PO DAILY 08/13/23 09/18/23 Unknown History prazosin 1 mg capsule 2 mg PO HS 08/13/23 09/18/23 Unknown History ropinirole 0.25 mg tablet 0.25 mg PO HS 08/13/23 08/23/23 Unknown History sertraline 100 mg tablet 100 mg PO DAILY 08/13/23 09/18/23 Unknown History trazodone 50 mg tablet 50 - 100 mg PO HS PRN Sleep 08/13/23 09/18/23 Unknown History <José Miguel Lowry MD - Last Filed: 05/26/24 04:44> Allergies/adverse reactions: Allergies Allergy/AdvReac Type Severity Reaction Status Date / Time Penicillins Allergy Unknown Itching Verified 05/25/24 21:52 Sulfa (Sulfonamide Allergy Unknown Itching Verified 05/25/24 21:52 Antibiotics) <José Miguel Lowry MD - Last Filed: 05/26/24 04:44> [facility] Past Medical History Medical History: Medical History Skin lesion of scalp Cough Sore throat Loose stools Sinusitis UTI (urinary tract infection) URI with cough and congestion Dyspnea Dysphagia Arthralgia Anemia Cough Sinus congestion Rhinosinusitis Oropharyngeal dysphagia Myalgia Loss of balance Esophageal stricture Bilateral carotid bruits Strep pharyngitis July 2023 Suicidal ideation Depression Anxiety Post-menopausal History of gastroesophageal reflux (GERD) Hypertension <José Miguel Lowry MD - Last Filed: 05/26/24 04:44> Surgical History Surgical History: Surgical History No significant past surgical history <José Miguel Lowry MD - Last Filed: 05/26/24 04:44> Family History Family History: Family History Sibling Family history of cardiovascular disease Father , Esophageal cancer Family history of malignant neoplasm, Onset Age: 66 Mother , Related to pneumonia No problems noted. <José Miguel Lowry MD - Last Filed: 05/26/24 04:44> Social History Social History: Social History Social History: Patient states that she currently lives at a [facility] and that she has a trust fund for which she receives money from her sister Alondra Ruth. Her emergency contact is Sherie Curry, her niece who lives in [place]. She has a psychiatric history with 2 previous suicide attempts. Once when she was 16 and once when she was 30 years old. One attempt she took half a bottle of aspirin in the other time she was drinking cough syrup. Smoking status: Never smoker Second hand tobacco smoke exposure: No Alcohol intake: never Substance use: never Substance use type: does not use Do You Feel Safe in your Home?: Yes Lack of Transportation: No Lack of Food: Never True Concerned About Future Housing: No Difficulty Paying Gas/Electric Bills: No Difficulty Paying for Meds: No Currently Unemployed: No Education: Don't Know Difficulty w/ Childcare or Family Care: No Living arrangements: alone Additional living arrangements comments: The patient has a daughter that she put up for adoption. Her daughter found her later in life but she has not seen her for 22 years. Her daughter lives 6 miles from her. She is single, never . Occupation/Education: other Additional occupation/education comments: Disable Gender identity (if verbalized by the patient): Female Spiritual care concerns: No <José Miguel Lowry MD - Last Filed: 05/26/24 04:44> Exam Narrative: APPEARANCE: No apparent distress. Head: atraumatic. EYES: EOMI, NOSE: Atraumatic NECK: Trachea midline RESPIRATORY: No increased rate of breathing CTAB CARDIOVASCULAR: RRR, ABDOMINAL: Non-distended soft nontender MUSCULOSKELETAl: No obvious deformities NEURO: Alert. Moving 4/4 extremities SKIN:: Warm, dry. Normal color PSYCHIATRIC: Normal affect <José Miguel Lowry MD - Last Filed: 05/26/24 04:44> Course Reevaluation(s) Reevaluation #1: Patient was evaluated by the crisis counselor signed they are comfortable with the patient signing a safety agreement being discharged home. Patient is eager to be discharged home. Overnight physician was comfortable with this plan. Patient is being discharged. Patient was complaining abdominal pain but patient had negative labs and negative CT scan prior to discharge. Patient was well-appearing at time of discharge. <Ralph Ordonez MD - Last Filed: 05/26/24 14:33> Vital Signs Vital signs: Vital Signs Pulse Rate 76 05/26/24 04:56 Respiratory Rate 18 05/26/24 04:56 Blood Pressure 125/76 05/26/24 04:56 Pulse Oximetry 97 05/26/24 04:56 Oxygen Delivery Room Air 05/26/24 04:56 Pulse Rate 71 05/26/24 07:43 Respiratory Rate 16 05/26/24 07:43 Blood Pressure 129/83 05/26/24 07:43 Pulse Oximetry 99 05/26/24 07:43 Oxygen Delivery Room Air 05/26/24 04:56 <José Migule Lowry MD - Last Filed: 05/26/24 04:44> Vital Signs Pulse Rate 76 05/26/24 04:56 Respiratory Rate 18 05/26/24 04:56 Blood Pressure 125/76 05/26/24 04:56 Pulse Oximetry 97 05/26/24 04:56 Oxygen Delivery Room Air 05/26/24 04:56 Pulse Rate 71 05/26/24 07:43 Respiratory Rate 16 05/26/24 07:43 Blood Pressure 129/83 05/26/24 07:43 Pulse Oximetry 99 05/26/24 07:43 Oxygen Delivery Room Air 05/26/24 04:56 <Ralph Ordonez MD - Last Filed: 05/26/24 14:33> Medical Decision Making MDM Narrative Medical decision making narrative: -Course: 74-year-old female presenting for suicidal ideation. Patient is medically cleared for psychiatric evaluation. <José Miguel Lowry MD - Last Filed: 05/26/24 04:44> Vital Signs Vital Signs: Vital Signs Pulse Rate 76 05/26/24 04:56 Respiratory Rate 18 05/26/24 04:56 Blood Pressure 125/76 05/26/24 04:56 Pulse Oximetry 97 05/26/24 04:56 Oxygen Delivery Room Air 05/26/24 04:56 Pulse Rate 71 05/26/24 07:43 Respiratory Rate 16 05/26/24 07:43 Blood Pressure 129/83 05/26/24 07:43 Pulse Oximetry 99 05/26/24 07:43 Oxygen Delivery Room Air 05/26/24 04:56 <José Miguel Lowry MD - Last Filed: 05/26/24 04:44> Vital Signs Pulse Rate 76 05/26/24 04:56 Respiratory Rate 18 05/26/24 04:56 Blood Pressure 125/76 05/26/24 04:56 Pulse Oximetry 97 05/26/24 04:56 Oxygen Delivery Room Air 05/26/24 04:56 Pulse Rate 71 05/26/24 07:43 Respiratory Rate 16 05/26/24 07:43 Blood Pressure 129/83 05/26/24 07:43 Pulse Oximetry 99 05/26/24 07:43 Oxygen Delivery Room Air 05/26/24 04:56 <Ralph Ordonez MD - Last Filed: 05/26/24 14:33> Lab Data Result diagrams: 05/26/24 05:04 05/26/24 05:04 <José Miguel Lowry MD - Last Filed: 05/26/24 04:44> Labs: Lab Results 05/26/24 Range/Units 05:04 WBC 6.0 (4.5-10.0) K/mm3 RBC 4.22 (4.2-5.4) M/mm3 Hgb 12.4 (12.0-15.0) g/dL Hct 37.4 (37.0-47.0) % MCV 88.6 (80-100) fl MCH 29.4 (26-34) pg MCHC 33.2 (32-36) g/dl RDW 12.0 (11.5-14.5) % Plt Count 255 (150-375) k/mm3 MPV 10.1 (7.4-10.4) fl Immature Gran % (Auto) 0.3 (0-0.5) % Neut % (Auto) 75.9 H (45.5-73.1) % Lymph % (Auto) 15.4 L (18.3-44.2) % [place] % (Auto) 7.6 (2.6-8.5) % Eos % (Auto) 0.3 (0-4.4) % Baso % (Auto) 0.5 (0.2-1.2) % Lymph # (Auto) 0.93 (0.9-3.2) K/mm3 [place] # (Auto) 0.5 (0.1-0.6) K/mm3 Eos # (Auto) 0.0 (0-0.3) K/mm3 Baso # (Auto) 0.0 (0.0-0.1) K/mm3 Abs Immat Gran (auto) 0.02 (0.00-0.031) K/mm3 Absolute Neuts (auto) 4.6 (1.3-6.7) K/mm3 Absolute Nucleated RBC 0.000 (0.0-0.012) K/mm3 Nucleated RBC % 0.0 (0.0-0.2) % Sodium 139 (137-145) mmol/L Potassium 4.2 (3.4-5.0) mmol/L Chloride 101 (98-107) mmol/L Carbon Dioxide 24 (22-30) mmol/L Anion Gap 14 H (4-12) mmol/L BUN 34 H D (7-17) mg/dL Creatinine 1.32 H (0.7-1.0) mg/dL Estim Creat Clear Calc Not Reportable Estimated GFR 39 L (59 - ) Glucose 115 H (65-110) mg/dL Calcium 9.5 (8.4-10.2) mg/dL Total Bilirubin 1.1 (0.2-1.3) mg/dL AST 36 (14-36) U/L ALT 19 (6-35) U/L Alkaline Phosphatase 98 (38-126) U/L Total Protein 9.0 H (6.3-8.2) g/dL Albumin 5.0 (3.5-5.1) g/dL TSH (Reflex) 1.920 (0.465-4.68) uIU/mL Ethyl Alcohol < 10 (<10) mg/dL SARS-CoV-2 RNA (RT-PCR) Negative (Negative) <José Miguel Lowry MD - Last Filed: 05/26/24 04:44> Lab Results 05/26/24 Range/Units 05:04 WBC 6.0 (4.5-10.0) K/mm3 RBC 4.22 (4.2-5.4) M/mm3 Hgb 12.4 (12.0-15.0) g/dL Hct 37.4 (37.0-47.0) % MCV 88.6 (80-100) fl MCH 29.4 (26-34) pg MCHC 33.2 (32-36) g/dl RDW 12.0 (11.5-14.5) % Plt Count 255 (150-375) k/mm3 MPV 10.1 (7.4-10.4) fl Immature Gran % (Auto) 0.3 (0-0.5) % Neut % (Auto) 75.9 H (45.5-73.1) % Lymph % (Auto) 15.4 L (18.3-44.2) % [place] % (Auto) 7.6 (2.6-8.5) % Eos % (Auto) 0.3 (0-4.4) % Baso % (Auto) 0.5 (0.2-1.2) % Lymph # (Auto) 0.93 (0.9-3.2) K/mm3 [place] # (Auto) 0.5 (0.1-0.6) K/mm3 Eos # (Auto) 0.0 (0-0.3) K/mm3 Baso # (Auto) 0.0 (0.0-0.1) K/mm3 Abs Immat Gran (auto) 0.02 (0.00-0.031) K/mm3 Absolute Neuts (auto) 4.6 (1.3-6.7) K/mm3 Absolute Nucleated RBC 0.000 (0.0-0.012) K/mm3 Nucleated RBC % 0.0 (0.0-0.2) % Sodium 139 (137-145) mmol/L Potassium 4.2 (3.4-5.0) mmol/L Chloride 101 (98-107) mmol/L Carbon Dioxide 24 (22-30) mmol/L Anion Gap 14 H (4-12) mmol/L BUN 34 H D (7-17) mg/dL Creatinine 1.32 H (0.7-1.0) mg/dL Estim Creat Clear Calc Not Reportable Estimated GFR 39 L (59 - ) Glucose 115 H (65-110) mg/dL Calcium 9.5 (8.4-10.2) mg/dL Total Bilirubin 1.1 (0.2-1.3) mg/dL AST 36 (14-36) U/L ALT 19 (6-35) U/L Alkaline Phosphatase 98 (38-126) U/L Total Protein 9.0 H (6.3-8.2) g/dL Albumin 5.0 (3.5-5.1) g/dL TSH (Reflex) 1.920 (0.465-4.68) uIU/mL Ethyl Alcohol < 10 (<10) mg/dL SARS-CoV-2 RNA (RT-PCR) Negative (Negative) <Ralph Ordonez MD - Last Filed: 05/26/24 14:33> Discharge Plan Discharge Clinical Impression: Depression <José Miguel Lowry MD - Last Filed: 05/26/24 04:44> Patient Disposition: Home, Self-Care <José Miguel Lowry MD - Last Filed: 05/26/24 04:44> Condition: Stable <José Miguel Lowry MD - Last Filed: 05/26/24 04:44> Instructions: Antibiotic Form, Depression (ED) <José Miguel Lowry MD - Last Filed: 05/26/24 04:44> Additional Instructions: Continue to have close follow-up with your physicians <José Miguel Lowry MD - Last Filed: 05/26/24 04:44> Patient Language: Canadian <José Miguel Lowry MD - Last Filed: 05/26/24 04:44> Prescriptions: No Action gabapentin 300 mg capsule 300 mg PO TID amlodipine 10 mg tablet 10 mg PO DAILY Qty: 90 2RF carvedilol 6.25 mg tablet 6.25 mg PO BID Qty: 180 2RF losartan 100 mg tablet 100 mg PO DAILY Qty: 90 2RF melatonin 10 mg Tablet 10 mg PO HS trazodone 50 mg tablet 50 - 100 mg PO HS PRN (Reason: Sleep) prazosin 1 mg capsule 2 mg PO HS sertraline 100 mg tablet 100 mg PO DAILY buspirone 15 mg tablet 15 mg PO TID atorvastatin 40 mg tablet 40 mg PO DAILY olanzapine 15 mg tablet 15 mg PO DAILY clonazepam 0.5 mg tablet 0.5 mg PO Q12H PRN (Reason: Anxiety) ropinirole 0.25 mg tablet 0.25 mg PO HS escitalopram oxalate 20 mg tablet 20 mg PO DAILY ferrous sulfate 325 mg (65 mg iron) Tablet,Delayed Release (Dr/Ec) 325 mg PO BID Qty: 60 0RF cefpodoxime 100 mg tablet 100 mg PO BID Qty: 6 0RF Rx Instructions: must administer with a meal/food <José Miguel Lowry MD - Last Filed: 05/26/24 04:44> Follow-up/Referrals: Lawrence Artis MD [Primary Care Provider] - <José Miguel Lowry MD - Last Filed: 05/26/24 04:44>
[2024-05-26 04:56] VITALS: BP 125/76; PULSE 76; RESP 18; O2SAT 97
[2024-05-26 05:30] LABS: Basophils Percent Auto 0.5 % (0.2-1.2); Eosinophils Percent Auto 0.3 % (0-4.4); Hematocrit 37.4 % (37.0-47.0); Hemoglobin 12.4 g/dL (12.0-15.0); Immature Granulocyte Absolute 0.02 K/mm3 (0.00-0.031); Immature Granulocyte Percent A 0.3 % (0-0.5); Lymphocytes Absolute Auto 0.93 K/mm3 (0.9-3.2); Lymphocytes Percent Auto 15.4 % (18.3-44.2); Mean Corpuscular HGB Conc 33.2 g/dl (32-36); Mean Corpuscular Hemoglobin 29.4 pg (26-34); Mean Corpuscular Volume 88.6 fl (80-100); Mean Platelet Volume 10.1 fl (7.4-10.4); Monocytes Absolute Auto 0.5 K/mm3 (0.1-0.6); Monocytes Percent Auto 7.6 % (2.6-8.5); Neutrophils Absolute Auto 4.6 K/mm3 (1.3-6.7); Neutrophils Percent Auto 75.9 % (45.5-73.1); Platelet Count Result 255 k/mm3 (150-375); Red Blood Count 4.22 M/mm3 (4.2-5.4)
[2024-05-26 05:41] LABS: Alanine Aminotransferase 19 U/L (6-35); Alkaline Phosphatase 98 U/L (38-126); Anion Gap 14 mmol/L (4-12); Aspartate Amino Transferase 36 U/L (14-36); Bilirubin,Total 1.1 mg/dL (0.2-1.3); Blood Urea Nitrogen 34 mg/dL (7-17); Calcium 9.5 mg/dL (8.4-10.2); Carbon Dioxide 24 mmol/L (22-30); Chloride 101 mmol/L (98-107); Estimated Glomerular Filt Rate 39; Ethanol < 10 mg/dL (<10); Glucose 115 mg/dL (65-110); Potassium 4.2 mmol/L (3.4-5.0); Sodium 139 mmol/L (137-145)
[2024-05-26 06:01] LABS: SARS-CoV-2 RNA PCR Negative (Negative)
[2024-05-26 07:33] VITALS: BP 129/83; PULSE 71; RESP 16; O2SAT 99
--- NOTE | 2024-05-26 07:38 | PC.NURSE ---
tool filer hand is keeping pt in room after she is upset for being discharged. pt states My lease is up. I have nowhere to go . This RN gave pt a clean depends and told pt to change into her personal belongings. pt stating she doesn't want it. tool filer hand called care coordination to arrange transportation for pt.
[2024-05-26 07:43] VITALS: BP 129/83; PULSE 71; RESP 16; O2SAT 99
--- NOTE | 2024-05-26 08:46 | PCCCNOTE ---
Called to ED to assist with pt. Unsure where to send pt. Pt stated that she has been staying at [facility] in [place] ([phone]). Pt states that she receives SS and has a trust fund controlled by the sister Alondra Ruth ([phone])' I attempted to call Alondra Ruth only got the message and I left a message. Homeless assist [place] called and unable to help in any capacity until Tuesday and [facility] no answer on the weekend. [facility] contacted and pt can go back there. Pt still experiencing lower abdominal pain and Dr Ordonez notified and he is reviewing the previous workup. Awaiting clearance
== END 2024-05-26 09:30 | disposition home or self-care (01) ==
PROVIDERS: Emergency Provider Emergency Medicine; PCP Emergency Medicine
DX: F41.8 Other specified anxiety disorders (principal); R10.9 Unspecified abdominal pain; I10 Essential (primary) hypertension; Z11.59 Encounter for screening for other viral diseases
CPT/HCPCS: 36415; 74176; 80053; 82077; 84443; 85025; 87635; 99284